=== PATIENT | female | born 1970 | race Caucasian/White ===

== ENCOUNTER 2016-12-22 15:09 | Emergency (ER) | payer OTHER, SELFPAY ==
[2016-12-22] MEDS ORDERED: SUBLIMAZE 100 MCG/2 ML IV ONE ×2 (15:49→17:06)
[2016-12-22] MEDS ORDERED: Zofran 4 MG/2 ML VIAL IV ONE (15:49)
[2016-12-22] MEDS ORDERED: Sodium Chloride 0.9% 1000 ML 1,000 ML IV SCH (16:00)
[2016-12-22] MEDS ORDERED: Sodium Chloride 0.9% 1000 ML 1,000 ML ONE (16:06)
[2016-12-22] MEDS ORDERED: Zofran 4 MG/2 ML VIAL ONE (16:06)
[2016-12-22] MEDS ORDERED: SUBLIMAZE 100 MCG/2 ML ONE ×2 (16:06→17:10)
[2016-12-22 16:20] LABS: BASOPHIL % 0.4 % (0.0-0.4); Eosinophil % 1.9 % (0.00-5.0); Granulocytes % 58.1 % (36.0-66.0); Lymphocytes % 30.4 % (24.0-44.0); Mean Cell Volume 76.1 fl (78-100); Monocytes % 9.2 % (0.0-12.0); Platelet Count 204 K/mm3 (150-450); Red Blood Count 5.52 M/mm3 (4.1-5.4); Red Cell Distribution Width 14.9 % (11.5-14.0); White Blood Count 5.7 K/mm3 (4.0-10.5)
[2016-12-22 16:29] LABS: ANION GAP 12.3 MEQ/L (5-15); BLOOD UREA NITROGEN 11 mg/dL (9-20); CHLORIDE 106 mEq/L (98-107); Carbon Dioxide 24.9 mEq/L (21-32); Glucose 91 MG/DL (70-110); Potassium 3.7 mEq/L (3.5-5.1); SODIUM 140 mEq/L (136-145)
[2016-12-22 16:40] VITALS: BP 132/86; PULSE 72; O2SAT 99
[2016-12-22] MEDS ORDERED: Levofloxacin 500MG/100ML D5W 100 ML IV ONE ×2 (17:06→17:10)
--- NOTE | 2016-12-22 17:09 | ERPHSYRPT ---
- History of Present Illness Time Seen by Provider: 12/22/16 15:35 Source: patient Exam Limitations: clinical condition Patient Subjective Stated Complaint: H/A FOR THREE WEEKS. BEING TREATED BY FAMILY MD AND NOT GETTING ANY RELIEF. BLURRED VISION AND DIZZINESS FOR TWO DAYS. DENIES FEVER Triage Nursing Assessment: AMBULATED TO ROOM PER SELF. SKIN W/D, COLOR NORMAL, RESP EASY. HOLDING HEAD. Physician History: PATIENT COMPLAIN OF GENERALIZED HEADACHE FOR 2 WEEKS. PLACED ON ANTIBIOTICS KEFLEX AND ZITHROMAX PAST 10 DAYS. DENIES NECK STIFFNESS, BLURRED VISION, FOCAL NUMBNESS, TINGLING OR WEAKNESS IN EXTREMITIES. RECENTLY TREATED FOR HYPERTENSION Timing/Duration: week(s) Quality: throbbing Head Pain Location: global Severity of Pain-Max: severe Severity of Pain-Current: severe Recent Head Trauma: chronic headaches Modifying Factors: Improves With: exposure to light Associated Symptoms: denies symptoms Previous symptoms: same symptoms as today Allergies/Adverse Reactions: aspirin Allergy (Intermediate, Verified 10/02/16 11:50) Hives codeine [Codeine] Allergy (Verified 10/02/16 11:50) hydrocodone bitartrate [From Vicodin] Allergy (Verified 10/02/16 11:50) morphine Allergy (Verified 10/02/16 11:50) Penicillins Allergy (Verified 10/02/16 11:50) propoxyphene HCl [From Darvon] Allergy (Verified 10/02/16 11:50) Home Medications: Amlodipine Besylate 5 mg [Norvasc 5 mg] 5 mg PO DAILY 10/25/14 [History] Omeprazole 20 MG [Prilosec 20 mg] 20 mg PO BID 10/25/14 [History] Fexofenadine HCl [Neda Allergy] 180 mg PO DAILY 07/17/15 [History] Montelukast Sodium [Singulair] 10 mg PO DAILY 07/17/15 [History] Bumetanide 1 mg [Bumex 1 mg] 1 mg PO DAILY 12/22/16 [History] Propranolol HCl [Inderal LA] 60 mg PO DAILY 12/22/16 [History] Hx Tetanus, Diphtheria Vaccination/Date Given: No Hx Influenza Vaccination/Date Given: Yes Hx Pneumococcal Vaccination/Date Given: No - Review of Systems Constitutional: No Symptoms, No Fever, No Chills Eyes: No Symptoms Ears, Nose, & Throat: No Symptoms Respiratory: No Symptoms, No Cough, No Dyspnea Cardiac: No Symptoms, No Chest Pain, No Edema, No Syncope Abdominal/Gastrointestinal: No Symptoms, No Abdominal Pain, No Nausea, No Vomiting, No Diarrhea Genitourinary Symptoms: No Symptoms, No Dysuria Musculoskeletal: No Symptoms, No Back Pain, No Neck Pain Skin: No Symptoms, No Rash Neurological: No Symptoms, No Dizziness, No Focal Weakness, No Sensory Changes Psychological: No Symptoms Endocrine: No Symptoms All Other Systems: Reviewed and Negative - Past Medical History Pertinent Past Medical History: Yes Neurological History: Migraines Cardiac History: Hypertension Respiratory History: Asthma, Sleep Apnea Endocrine Medical History: Diabetes Type II Musculoskeletal History: Degenerative Disk Disease, Other GI Medical History: Hernia Female Reproductive Disorders: Menstrual Problems, Other - Past Surgical History Past Surgical History: Yes Neuro Surgical History: No Pertinent History Cardiac: No Pertinent History Respiratory: No Pertinent History Gastrointestinal: Cholecystectomy Genitourinary: No Pertinent History Musculoskeletal: No Pertinent History Female Surgical History: Other Other Surgical History: 2005 gallbladder, bellybutton repair, d/cx2 3 cysts - Social History Smoking Status: Never smoker Exposure to second hand smoke: No Alcohol Use: None Drug Use: none Patient Lives Alone: No Significant Family History: no pertinent family hx - Female History Hx Last Menstrual Period: 10/21/16 Hx Now: No - Nursing Vital Signs Nursing Vital Signs: Initial Vital Signs Temperature 98.1 F Temperature Source Oral Pulse Rate 72 Respiratory Rate 18 Blood Pressure [] 132/86 Pain Intensity 6 - Physical Exam General Appearance: no apparent distress Eye Exam: PERRL/EOMI Ears, Nose, Throat Exam: normal ENT inspection, moist mucous membranes Neck Exam: normal inspection, supple, full range of motion, No meningismus Respiratory Exam: normal breath sounds, lungs clear Cardiovascular Exam: regular rate/rhythm, normal heart sounds Gastrointestinal/Abdominal Exam: soft, normal bowel sounds, No tenderness, No distention Back Exam: normal inspection, normal range of motion Mental Status Exam: alert, oriented x 3, 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 Exam: normal speech, PERRL, No facial droop Coordination/Gait Exam: normal cerebellar function Motor/Sensory Exam: no motor deficit, no sensory deficit DTR Exam: bicep (R): 2+, bicep (L): 2+, tricep (R): 2+, tricep (L): 2+, knee (R) : 2+, knee (L): 2+, ankle (R): 2+, ankle (L): 2+ Skin Exam: normal color, warm, dry, No rash SpO2: 99 Oxygen Delivery: Room Air - CT Exams Head CT Interpretation: Discussed w/radiologist (FINDINGS C/W PANSINUSITIS) Ordered Tests: Active Orders 24 hr Category Date Time Status IV Insertion STAT Care 12/22/16 15:54 Active HEAD WITHOUT CONTRAST [CT] Stat Exams 12/22/16 15:51 Taken BMP Stat Lab 12/22/16 16:05 Completed CBC W DIFF Stat Lab 12/22/16 16:05 Completed Medication Summary Generic Name Dose Route Start Last Admin Trade Name Freq PRN Reason Stop Dose Admin Sodium Chloride 1,000 mls @ 100 mls/hr 12/22/16 16:00 12/22/16 16:12 Sodium Chloride 0.9% 1000 Ml IV 01/21/17 15:59 100 mls/hr .Q10H ALISIA Administration Discontinued Medications Generic Name Dose Route Start Last Admin Trade Name Freq PRN Reason Stop Dose Admin Fentanyl Citrate 100 mcg 12/22/16 15:49 12/22/16 16:12 Sublimaze 100 Mcg/2 Ml IV 12/22/16 15:50 100 mcg STAT ONE Administration Fentanyl Citrate Confirm 12/22/16 16:06 Sublimaze 100 Mcg/2 Ml Administered 12/22/16 16:07 Dose 100 mcg .ROUTE .STK-MED ONE Fentanyl Citrate 100 mcg 12/22/16 17:06 12/22/16 17:14 Sublimaze 100 Mcg/2 Ml IV 12/22/16 17:07 100 mcg STAT ONE Administration Fentanyl Citrate Confirm 12/22/16 17:10 Sublimaze 100 Mcg/2 Ml Administered 12/22/16 17:11 Dose 100 mcg .ROUTE .STK-MED ONE Sodium Chloride Confirm 12/22/16 16:06 Sodium Chloride 0.9% 1000 Ml Administered 12/22/16 16:07 Dose 1,000 mls @ ud .ROUTE .STK-MED ONE Levofloxacin/Dextrose 100 mls @ 100 mls/hr 12/22/16 17:06 12/22/16 17:14 Levofloxacin 500mg/100ml D5w IV 12/22/16 18:05 100 mls/hr STAT ONE Administration Levofloxacin/Dextrose Confirm 12/22/16 17:10 Levofloxacin 500mg/100ml D5w Administered 12/22/16 17:11 Dose 100 mls @ ud IV .STK-MED ONE Ondansetron HCl 4 mg 12/22/16 15:49 12/22/16 16:12 Zofran 4 Mg/2 Ml Vial IV 12/22/16 15:50 4 mg STAT ONE Administration Ondansetron HCl Confirm 12/22/16 16:06 Zofran 4 Mg/2 Ml Vial Administered 12/22/16 16:07 Dose 4 mg .ROUTE .STK-MED ONE Lab/Rad Data: Laboratory Result Diagrams 12/22/16 16:05 12/22/16 16:05 Laboratory Results 12/22/16 12/22/16 Range/Units 16:05 16:05 WBC 5.7 (4.0-10.5) K/mm3 RBC 5.52 H (4.1-5.4) M/mm3 Hgb 13.8 (12.0-16.0) gm/dl Hct 42.0 (35-47) % MCV 76.1 L (78-100) fl MCH 25.0 L (26-32) pg MCHC 32.9 (32-36) g/dl RDW 14.9 H (11.5-14.0) % Plt Count 204 (150-450) K/mm3 MPV 10.0 H (6-9.5) fl Gran % 58.1 (36.0-66.0) % Lymphocytes % 30.4 (24.0-44.0) % Monocytes % 9.2 (0.0-12.0) % Eosinophils % 1.9 (0.00-5.0) % Basophils % 0.4 (0.0-0.4) % Basophils # 0.02 (0-0.4) Sodium 140 (136-145) mEq/L Potassium 3.7 (3.5-5.1) mEq/L Chloride 106 (98-107) mEq/L Carbon Dioxide 24.9 (21-32) mEq/L Anion Gap 12.3 (5-15) MEQ/L BUN 11 (9-20) mg/dL Creatinine 0.89 (0.55-1.30) mg/dl Estimated GFR > 60 ML/MIN Glucose 91 (70-110) MG/DL Calcium 8.4 L (8.5-10.1) mg/dL - Progress Progress Note: 12/22/16 17:07 PATIENT GIVEN IV NORMAL SALINE 100ML/HR, FENTANYL 0.1MG IV X 2 DOSES, ZOFRAN 4MG IV, AND LEVAQUIN 500MG IVPB Counseled pt/family regarding: lab results, diagnosis, need for follow-up, rad results - Departure Time of Disposition: 18:40 Departure Disposition: Home Clinical Impression: CHRONIC CEPHALGIA, PANSINUSITIS Condition: Stable Critical Care Time: No Instructions: Headache Additional Instructions: CONSULT YOUR FAMILY PHYSICIAN TOMORROW FOR EVALUATION AND RESULTS OF HEAD CT FINDINGS. ANTIBIOTIC LEVAQUIN 500MG DAILY FOR 10 DAYS. PERCOCET 10/325 EVERY 4 HOURS FOR PAIN NEEDED. Prescriptions: Oxycodone HCl/Acetaminophen [Percocet 10-325 mg Tablet] 1 each PO Q4H PRN PRN # 10 tablet PRN Reason: Pain Levofloxacin [Levaquin] 500 mg PO DAILY #10 tablet
--- NOTE | 2016-12-23 08:49 | XRAY ---
Indication: Headache for 3 weeks. Multiple contiguous axial images obtained through the head without contrast. Comparison: October 24, 2014. Again normal appearing brain parenchyma, ventricles, and bony calvarium. There is now mild/moderate mucosal thickening of the paranasal sinuses bilaterally with right maxillary sinus fluid leveling. Mastoid air cells are clear. Impression: Again no acute intracranial abnormalities. New pansinusitis. CT DI 70.00
== END 2016-12-22 18:39 | disposition home or self-care (01) ==
LOC: ED 15:09
DX: R51 Headache (principal); G89.29 Other chronic pain; J32.4 Chronic pansinusitis; H53.8 Other visual disturbances; R42 Dizziness and giddiness; I10 Essential (primary) hypertension; Z79.899 Other long term (current) drug therapy; E11.9 Type 2 diabetes mellitus without complications
CPT/HCPCS: 36000; 36415; 70450; 80048; 85025; 96360; 96361; 96365; 96374; 96375; 96376; 99284; J1956; J2405; J3010

== ENCOUNTER 2017-02-05 17:23 | Observation (INO) | payer OTHER ==
[2017-02-05] MEDS ORDERED: Zofran 4 MG/2 ML VIAL IV ONE (17:54)
[2017-02-05] MEDS ORDERED: Nitrostat 0.4 MG Tablet SL PRN (17:56)
[2017-02-05] MEDS ORDERED: Sodium Chloride 0.9% 1000 ML 1,000 ML IV SCH (18:00)
[2017-02-05 18:08] LABS: BASOPHIL % 0.6 % (0.0-0.4); Eosinophil % 2.5 % (0.00-5.0); Granulocytes % 62.5 % (36.0-66.0); Lymphocytes % 25.7 % (24.0-44.0); Mean Cell Volume 76.6 fl (78-100); Mean Corpuscular Hemoglobin 25.2 pg (26-32); Mean Platelet Volume 9.8 fl (6-9.5); Monocytes % 8.7 % (0.0-12.0); Platelet Count 250 K/mm3 (150-450); Red Blood Count 5.47 M/mm3 (4.1-5.4); Red Cell Distribution Width 14.7 % (11.5-14.0); White Blood Count 7.1 K/mm3 (4.0-10.5)
[2017-02-05] MEDS ORDERED: Nitrostat 0.4 MG (ED) SL ONE ×2 (18:10→18:25)
[2017-02-05] MEDS ORDERED: Zofran 4 MG/2 ML VIAL ONE (18:10)
[2017-02-05] MEDS ORDERED: Sodium Chloride 0.9% 1000 ML 1,000 ML ONE (18:11)
[2017-02-05] MEDS ORDERED: TYLENOL 325 MG PO STA (18:23)
[2017-02-05] MEDS ORDERED: TYLENOL 325 MG ONE (18:24)
[2017-02-05] MEDS ORDERED: SUBLIMAZE 100 MCG/2 ML IV ONE (18:25)
[2017-02-05 18:26] LABS: INR 1.07 (0.8-3.0)
[2017-02-05 18:29] LABS: ALBUMIN 3.4 g/dL (3.4-5.0); ALKALINE PHOSPHATASE 66 U/L (46-116); ANION GAP 11.5 MEQ/L (5-15); BILIRUBIN,TOTAL 0.2 mg/dL (0.2-1.0); BLOOD UREA NITROGEN 14 mg/dL (9-20); CHLORIDE 105 mEq/L (98-107); Carbon Dioxide 26.7 mEq/L (21-32); Glucose 134 MG/DL (70-110); Potassium 3.9 mEq/L (3.5-5.1); SGOT/AST 22 U/L (15-37); SGPT/ALT 29 U/L (12-78); SODIUM 139 mEq/L (136-145); Total Protein 8.4 gm/dL (6.4-8.2)
[2017-02-05] MEDS ORDERED: SUBLIMAZE 100 MCG/2 ML ONE (18:30)
--- NOTE | 2017-02-05 18:31 | ERPHSYRPT ---
- History of Present Illness Time Seen by Provider: 02/05/17 17:40 Historian: patient Exam Limitations: clinical condition Patient Subjective Stated Complaint: NECK PAIN THROUGHOUT DAY AT ONE O'CLOCK PAIN AND NUMBNESS STARTED DOWN THE LEFT ARM. CHEST PRESSURE RATED AT A 9. C/O CHEST PRESSURE LAST FRIDAY. Triage Nursing Assessment: PT ALERT X3. SKIN IS WARM, FLUSHED, AND INTACT. SHORTNESS OF BREATH NOTED. HEART RATE AT 50, NO EDEMA NOTED. Physician History: PATIENT WITH A HISTORY OF ASTHMA, SLEEP APNEA, AND HYPERTENSION HAD ACUTE ONSET OF LEFT ANTERIOR CHEST PAINS 5 DAYS AGO ASSOCIATED WITH LEFT ARM PAIN. TODAY NOTICE PAIN RADIATING FROM HER SHOULDER TO LEFT SIDE OF HER JAW AND NECK, DESCRIBES PAIN SCALE 9/10. DENIES DIAPHORESIS, PALPITATIONS. Timing/Duration: today Activities at Onset: none Quality: sharpness, stabbing Location: shoulder Chest Pain Radiation: jaw, neck Severity of Pain-Max: moderate Severity of Pain-Current: moderate Modifying Factors: Improves With: movement Associated Symptoms: dizziness Prior Chest Pain/Cardiac Workup: angina Nitro Today/Relief: no nitro taken today, 0.4 mg x 1, provided by ED Aspirin Treatment Today: no aspirin today (ALLERGY TO ASA) Allergies/Adverse Reactions: aspirin Allergy (Intermediate, Verified 02/05/17 17:44) Hives codeine [Codeine] Allergy (Verified 02/05/17 17:44) hydrocodone bitartrate [From Vicodin] Allergy (Verified 02/05/17 17:44) morphine Allergy (Verified 02/05/17 17:44) Penicillins Allergy (Verified 02/05/17 17:44) propoxyphene HCl [From Darvon] Allergy (Verified 02/05/17 17:44) Home Medications: Amlodipine Besylate 5 mg [Norvasc 5 mg] 5 mg PO DAILY 10/25/14 [History] Omeprazole 20 MG [Prilosec 20 mg] 20 mg PO BID 10/25/14 [History] Fexofenadine HCl [Neda Allergy] 180 mg PO DAILY 07/17/15 [History] Montelukast Sodium [Singulair] 10 mg PO DAILY 07/17/15 [History] Bumetanide 1 mg [Bumex 1 mg] 1 mg PO DAILY 12/22/16 [History] Propranolol HCl [Inderal LA] 60 mg PO DAILY 12/22/16 [History] Hx Tetanus, Diphtheria Vaccination/Date Given: No Hx Influenza Vaccination/Date Given: Yes Hx Pneumococcal Vaccination/Date Given: Yes Immunizations Up to Date: Yes - Review of Systems Constitutional: No Fever, No Chills Eyes: No Symptoms Ears, Nose, & Throat: No Symptoms Respiratory: No Symptoms, No Cough, No Dyspnea Cardiac: Chest Pain, No Edema, No Syncope Abdominal/Gastrointestinal: No Symptoms, No Abdominal Pain, No Nausea, No Vomiting, No Diarrhea Genitourinary Symptoms: No Symptoms, No Dysuria Musculoskeletal: Joint Redness, No Back Pain, No Neck Pain Skin: No Symptoms, No Rash Neurological: No Dizziness, No Focal Weakness, No Sensory Changes Psychological: No Symptoms Endocrine: No Symptoms All Other Systems: Reviewed and Negative - Past Medical History Pertinent Past Medical History: Yes Neurological History: Migraines ENT History: No Pertinent History Cardiac History: Hypertension Respiratory History: Asthma, Sleep Apnea Endocrine Medical History: Diabetes Type II Musculoskeletal History: Degenerative Disk Disease, Other GI Medical History: Hernia Psycho-Social History: No Pertinent History Female Reproductive Disorders: Menstrual Problems, Other - Past Surgical History Past Surgical History: Yes Neuro Surgical History: No Pertinent History Cardiac: No Pertinent History Respiratory: No Pertinent History Gastrointestinal: Cholecystectomy Genitourinary: No Pertinent History Musculoskeletal: No Pertinent History Female Surgical History: Other Other Surgical History: 2004 gallbladder, bellybutton repair, d/c X1, 3 cysts - Social History Smoking Status: Never smoker Exposure to second hand smoke: No Alcohol Use: None Drug Use: none Patient Lives Alone: No Significant Family History: no pertinent family hx - Female History Hx Now: No - Nursing Vital Signs Temperature: 98.2 F Temperature Source: Oral Pulse Rate: 65 Respiratory Rate: 16 Blood Pressure: 154/90 Pain Intensity: 8 - Physical Exam General Appearance: no apparent distress, alert Eye Exam: PERRL/EOMI, eyes nml inspection Ears, Nose, Throat Exam: normal ENT inspection, moist mucous membranes Neck Exam: normal inspection, non-tender, supple, full range of motion Respiratory Exam: normal breath sounds, chest tenderness (TENDERNESS LEFT ANTERIOR CHEST 2ND TO 5TH ICS), lungs clear, No respiratory distress Cardiovascular Exam: regular rate/rhythm, normal heart sounds Gastrointestinal/Abdomen Exam: soft, normal bowel sounds, No tenderness, No mass Back Exam: normal inspection, No CVA tenderness, No vertebral tenderness Extremity Exam: normal inspection, normal range of motion Neurologic Exam: alert, oriented x 3, cooperative, normal mood/affect, sensation nml, No motor deficits Skin Exam: normal color, warm, dry SpO2 Interpretation: normal SpO2: 99 Oxygen Delivery: Room Air - Course EKG Interpreted by Me: RATE, Sinus Rhythm, Sinus Casey, NORMAL AXIS - Radiology Exams Chest X-ray Interpretation: Interpreted by me, Negative Ordered Tests: Active Orders 24 hr Category Date Time Status Bedrest with BRP/BSC ROUTINE Activity 02/05/17 19:27 Ordered Admission/Status Order ROUTINE Care 02/05/17 19:27 Ordered Call Admit Doctor for Orders ROUTINE Care 02/05/17 19:26 Ordered Head Grease Maker STAT Care 02/05/17 17:54 Active Code Status Order ROUTINE Care 02/05/17 19:27 Ordered EKG-ER Only STAT Care 02/05/17 17:54 Active IV Care Q6H Care 02/05/17 19:27 Ordered IV Insertion STAT Care 02/05/17 17:54 Active Implement Chest Pain Pathway ROUTINE Care 02/05/17 19:27 Ordered Oxygen-ED Only NASAL CANNULA 2 lpm Care 02/05/17 17:54 Active Michael Gimenez, Apply ROUTINE Care 02/05/17 19:27 Ordered Telemetry ROUTINE Care 02/05/17 19:27 Ordered Vital Signs Q4H Care 02/05/17 19:26 Ordered Weight,Daily 0600 Care 02/05/17 19:27 Ordered Cardiac Diet Diet 02/05/17 Breakfast Ordered CHEST 1 VIEW (PORTABLE) Stat Exams 02/05/17 17:55 Taken CBC W DIFF Stat Lab 02/05/17 17:40 Completed CMP Stat Lab 02/05/17 17:40 Completed D-DIMER QUANTITATION Stat Lab 02/05/17 17:40 Completed LIPID PROFILE AM.LAB Lab 02/06/17 04:00 Ordered PROTIME WITH INR Stat Lab 02/05/17 17:40 Completed TROPONIN Q3H Lab 02/05/17 17:40 Completed TROPONIN Q3H Lab 02/05/17 21:00 Ordered TROPONIN Q3H Lab 02/06/17 00:00 Ordered TROPONIN Q3H Lab 02/06/17 03:00 Ordered TROPONIN Q3H Lab 02/06/17 06:00 Ordered EKG Q8HX2,QAMX3,PRN RT 02/05/17 19:27 Ordered Pulse Oximetry Q4H RT 02/05/17 19:27 Ordered Transfer Order Routine Transfer 02/05/17 19:26 Ordered Medication Summary Generic Name Dose Route Start Last Admin Trade Name Freq PRN Reason Stop Dose Admin Sodium Chloride 1,000 mls @ 100 mls/hr 02/05/17 18:00 02/05/17 18:15 Sodium Chloride 0.9% 1000 Ml IV 03/07/17 17:59 100 mls/hr .Q10H ALISIA Administration Nitroglycerin 0.4 mg 02/05/17 17:56 02/05/17 18:15 Nitrostat 0.4 Mg Tablet SL 03/07/17 17:55 0.4 mg Q5MIN PRN MR X 3 PRN Administration CHEST PAIN Discontinued Medications Generic Name Dose Route Start Last Admin Trade Name Freq PRN Reason Stop Dose Admin Acetaminophen 650 mg 02/05/17 18:23 02/05/17 18:27 Tylenol 325 Mg PO 02/05/17 18:24 650 mg STAT STA Administration Acetaminophen Confirm 02/05/17 18:24 Tylenol 325 Mg Administered 02/05/17 18:25 Dose 650 mg .ROUTE .STK-MED ONE Fentanyl Citrate 100 mcg 02/05/17 18:25 02/05/17 18:31 Sublimaze 100 Mcg/2 Ml IV 02/05/17 18:26 100 mcg STAT ONE Administration Fentanyl Citrate Confirm 02/05/17 18:30 Sublimaze 100 Mcg/2 Ml Administered 02/05/17 18:31 Dose 100 mcg .ROUTE .STK-MED ONE Nitroglycerin Confirm 02/05/17 18:10 Nitrostat 0.4 Mg (Ed) Administered 02/05/17 18:11 Dose 0.4 mg SL .STK-MED ONE Nitroglycerin 0.4 mg 02/05/17 18:25 02/05/17 18:34 Nitrostat 0.4 Mg (Ed) SL 02/05/17 18:26 0.4 mg STAT ONE Administration Ondansetron HCl 4 mg 02/05/17 17:54 02/05/17 18:16 Zofran 4 Mg/2 Ml Vial IV 02/05/17 17:55 4 mg STAT ONE Administration Ondansetron HCl Confirm 02/05/17 18:10 Zofran 4 Mg/2 Ml Vial Administered 02/05/17 18:11 Dose 4 mg .ROUTE .STK-MED ONE Lab/Rad Data: Laboratory Result Diagrams 02/05/17 17:40 02/05/17 17:40 Laboratory Results 02/05/17 02/05/17 02/05/17 Range/Units 17:40 17:40 17:40 WBC (4.0-10.5) K/mm3 RBC (4.1-5.4) M/mm3 Hgb (12.0-16.0) gm/dl Hct (35-47) % MCV (78-100) fl MCH (26-32) pg MCHC (32-36) g/dl RDW (11.5-14.0) % Plt Count (150-450) K/mm3 MPV (6-9.5) fl Gran % (36.0-66.0) % Lymphocytes % (24.0-44.0) % Monocytes % (0.0-12.0) % Eosinophils % (0.00-5.0) % Basophils % (0.0-0.4) % Basophils # (0-0.4) INR 1.07 (0.8-3.0) D-Dimer 0.419 (0.00-0.49) mg/L Sodium 139 (136-145) mEq/L Potassium 3.9 (3.5-5.1) mEq/L Chloride 105 (98-107) mEq/L Carbon Dioxide 26.7 (21-32) mEq/L Anion Gap 11.5 (5-15) MEQ/L BUN 14 (9-20) mg/dL Creatinine 0.97 (0.55-1.30) mg/dl Estimated GFR > 60 ML/MIN Glucose 134 H (70-110) MG/DL Calcium 9.1 (8.5-10.1) mg/dL Total Bilirubin 0.2 (0.2-1.0) mg/dL AST 22 (15-37) U/L ALT 29 (12-78) U/L Alkaline Phosphatase 66 (46-116) U/L Troponin I < 0.017 (0.000-0.056) ng/ml Serum Total Protein 8.4 H (6.4-8.2) gm/dL Albumin 3.4 (3.4-5.0) g/dL 02/05/17 Range/Units 17:40 WBC 7.1 (4.0-10.5) K/mm3 RBC 5.47 H (4.1-5.4) M/mm3 Hgb 13.8 (12.0-16.0) gm/dl Hct 41.9 (35-47) % MCV 76.6 L (78-100) fl MCH 25.2 L (26-32) pg MCHC 32.9 (32-36) g/dl RDW 14.7 H (11.5-14.0) % Plt Count 250 (150-450) K/mm3 MPV 9.8 H (6-9.5) fl Gran % 62.5 (36.0-66.0) % Lymphocytes % 25.7 (24.0-44.0) % Monocytes % 8.7 (0.0-12.0) % Eosinophils % 2.5 (0.00-5.0) % Basophils % 0.6 (0.0-0.4) % Basophils # 0.04 (0-0.4) INR (0.8-3.0) D-Dimer (0.00-0.49) mg/L Sodium (136-145) mEq/L Potassium (3.5-5.1) mEq/L Chloride (98-107) mEq/L Carbon Dioxide (21-32) mEq/L Anion Gap (5-15) MEQ/L BUN (9-20) mg/dL Creatinine (0.55-1.30) mg/dl Estimated GFR ML/MIN Glucose (70-110) MG/DL Calcium (8.5-10.1) mg/dL Total Bilirubin (0.2-1.0) mg/dL AST (15-37) U/L ALT (12-78) U/L Alkaline Phosphatase (46-116) U/L Troponin I (0.000-0.056) ng/ml Serum Total Protein (6.4-8.2) gm/dL Albumin (3.4-5.0) g/dL - Progress Progress: improved Progress Note: 02/05/17 18:35 PATIENT WITH ASPIRIN ALLERGY, GIVEN NTG 0.4MG SL, CAUSES HEADACHE, THEN ADMINISTERED IV FENTANYL 0.1MG 02/05/17 19:35, PATIENT REFUSES ADDITIONAL NITROGLYCERIN SL Discussed with : Tate (DISCUSSED WITH DR WEBSTER AT 1920 FOR ADMISSION) - Departure Time of Disposition: 19:35 Departure Disposition: Observation Clinical Impression: ACUTE CHEST PAIN Condition: Stable Critical Care Time: No Referrals: JANESSA WEBSTER MD [Primary Care Provider] -
[2017-02-05] MEDS ORDERED: TYLENOL 325 MG PO PRN (19:26)
[2017-02-05] MEDS ORDERED: MILK OF MAGNESIA 30 ML PO PRN (19:26)
[2017-02-05] MEDS ORDERED: Zofran 4 MG/2 ML VIAL IV PRN (19:26)
[2017-02-05] MEDS ORDERED: MAALOX ES 30 ML UNIT DOSE PO PRN (19:26)
[2017-02-05] MEDS ORDERED: Senokot-S Tablet PO PRN (19:26)
[2017-02-05] MEDS ORDERED: SUBLIMAZE 100 MCG/2 ML IV PRN (19:29)
[2017-02-05] MEDS ORDERED: Sodium Chloride 0.9% 500 ML 500 ML IV SCH (19:30)
[2017-02-05] MEDS ORDERED: NITRO-BID 2% UD PACKETS ONE (19:31)
[2017-02-05] MEDS ORDERED: NITRO-BID 2% UD PACKETS TOP ONE (19:34)
[2017-02-05] MEDS ORDERED: Nitrostat 0.4 MG Tablet SL ONE (20:06)
[2017-02-06] MEDS: NITRO-BID 2% UD PACKETS TOP SCH ×2 (01:46→06:44)
[2017-02-06] MEDS: COREG 12.5 MG PO SCH ×2 (01:47→10:26)
[2017-02-06] MEDS: TORAdol 30 mg Injection IM PRN ×2 (03:30→09:55)
--- NOTE | 2017-02-06 08:40 | XRAY ---
Indication: Chest pain and dyspnea. Comparison: June 05, 2016. Portable chest again demonstrates normal heart, lungs, and bony thorax.
[2017-02-06 09:05] VITALS: O2SAT 96
[2017-02-06] MEDS ORDERED: BUMEX 1 MG PO SCH (10:00)
[2017-02-06] MEDS ORDERED: NORVASC 5 MG PO SCH (10:00)
[2017-02-06] MEDS ORDERED: CLARITIN 10 MG PO SCH (10:00)
[2017-02-06] MEDS ORDERED: Singulair 10 MG PO SCH (10:00)
[2017-02-06] MEDS ORDERED: Protonix 40MG Tablet PO SCH (10:00)
[2017-02-06] MEDS ORDERED: NON-FORMULARY ITEM (Fexofenadine Hcl [Allegra Allergy] 180 MG) PO SCH (10:00)
[2017-02-06] MEDS ORDERED: Ecotrin 325 MG PO SCH (10:00)
[2017-02-06] MEDS ORDERED: PROPRANOLOL HCL 60 MG PO SCH (10:00)
[2017-02-06 11:15] VITALS: BP 140/68; PULSE 80
--- NOTE | 2017-02-06 12:48 | PCM.SSS ---
History of Present Illness - Chief Complaint Chief Complaint: Chest pain and pressure for 2-3 days History of Present Illness: is a 46 year old female.came to ER with c/o pressure type pain - Review of Systems Constitutional: No Fever, No Chills Eyes: No Symptoms Ears, Nose, & Throat: No Symptoms Respiratory: No Cough, No Short Of Breath Cardiac: Chest Pain, No Edema, No Syncope Abdominal/Gastrointestinal: No Abdominal Pain, No Nausea, No Vomiting, No Diarrhea Genitourinary Symptoms: No Dysuria Musculoskeletal: No Back Pain, No Neck Pain Skin: No Rash Neurological: No Dizziness, No Focal Weakness, No Sensory Changes Psychological: No Symptoms Endocrine: No Symptoms Hematologic/Lymphatic: No Symptoms Immunological/Allergic: No Symptoms Medications & Allergies Home Medications: Home Medication List Amlodipine Besylate 5 mg [Norvasc 5 mg] 5 mg PO DAILY 10/25/14 [History Confirmed 02/05/17] Omeprazole 20 MG [Prilosec 20 mg] 20 mg PO BID 10/25/14 [History Confirmed 02/05] Carvedilol 12.5 mg [Coreg 12.5 mg] 12.5 mg PO BID #0 tablet 10/27/14 [Rx Confirmed 02/05/17] Fexofenadine HCl [Neda Allergy] 180 mg PO DAILY 07/17/15 [History Confirmed 02/05/17] Montelukast Sodium [Singulair] 10 mg PO DAILY 07/17/15 [History Confirmed ] Bumetanide 1 mg [Bumex 1 mg] 1 mg PO DAILY 12/22/16 [History Confirmed 12/20] Propranolol HCl [Inderal LA] 60 mg PO DAILY 12/22/16 [History Confirmed 02/05/17 ] Allergies/Adverse Reactions: Allergies Allergy/AdvReac Type Severity Reaction Status Date / Time aspirin Allergy Intermediate Hives Verified 02/05/17 17:44 codeine [Codeine] Allergy Verified 02/05/17 17:44 hydrocodone bitartrate Allergy Verified 02/05/17 17:44 [From Vicodin] morphine Allergy Verified 02/05/17 17:44 Penicillins Allergy Verified 02/05/17 17:44 propoxyphene HCl Allergy Verified 02/05/17 17:44 [From Darvon] - Past Medical History Past Medical History: Yes Neurological History: Migraines ENT History: No Pertinent History Cardiac History: Hypertension Respiratory History: Asthma, Sleep Apnea Endocrine Medical History: Diabetes Type II Musculoskelatal History: Degenerative Disk Disease, Other GI Medical History: Hernia Pyscho-Social History: No Pertinent History Reproductive Disorders: Menstrual Problems, Other - Female History Are you now?: No - Past Surgical History Past Surgical History: Yes Neuro Surgical History: No Pertinent History Cardiac History: No Pertinent History Respiratory Surgery: No Pertinent History GI Surgical History: Cholecystectomy Genitourinary Surgical Hx: No Pertinent History Musculskeletal Surgical Hx: No Pertinent History Female Surgical History: Other Other Surgical History: 2004 gallbladder, bellybutton repair, d/c X1, 3 cysts - Social History Smoking Status: Never smoker Exposure to second hand smoke: No Alcohol: None Drug Use: none Significant Family History: no pertinent family hx - Physical Exam Vital Signs: Vital Signs - 24 hr Temp Pulse Pulse Resp BP BP Pulse Ox 02/06/17 11:13 97.8 F 80 18 140/68 96 02/06/17 09:04 96 02/06/17 07:28 98 02/06/17 07:15 97.5 F 59 L 20 146/70 96 02/06/17 04:00 97.7 F 49 L 15 157/80 96 02/06/17 00:00 98.3 F 48 L 16 136/77 98 02/05/17 21:10 98.5 F 54 L 18 144/85 99 02/05/17 19:41 52 L 16 130/80 99 02/05/17 19:37 98.2 F 65 16 154/90 99 02/05/17 18:50 58 L 20 119/65 99 02/05/17 18:35 58 L 16 131/82 99 02/05/17 18:20 65 16 131/71 99 02/05/17 18:15 63 154/90 02/05/17 17:33 55 L 02/05/17 17:24 98.2 F 55 L 19 144/88 100 Oxygen-Last 24 hours O2 Percentage 2 Liters = 28% O2 Percentage 2 Liters = 28% O2 Percentage 2 Liters = 28% O2 Percentage 2 Liters = 28% O2 Percentage 2 Liters = 28% O2 Percentage 2 Liters = 28% O2 Percentage 2 Liters = 28% O2 Percentage 2 Liters = 28% General Appearance: no apparent distress, alert Neurologic Exam: alert, oriented x 3, cooperative, normal mood/affect, nml cerebellar function, nml station & gait, sensation nml, No motor deficits Eye Exam: PERRL/EOMI, eyes nml inspection Ears, Nose, Throat Exam: normal ENT inspection, TMs normal, pharynx normal, moist mucous membranes Neck Exam: normal inspection, non-tender, supple, full range of motion Respiratory Exam: normal breath sounds, lungs clear, No respiratory distress Cardiovascular Exam: regular rate/rhythm, normal heart sounds, normal peripheral pulses Gastrointestinal/Abdomen Exam: soft, normal bowel sounds, No tenderness, No mass Back Exam: normal inspection, normal range of motion, No CVA tenderness, No vertebral tenderness Extremity Exam: normal inspection, normal range of motion, pelvis stable Skin Exam: normal color, warm, dry, No rash Lymphatic Exam: No adenopathy Results - Labs Lab/Micro Results: Lab Results-Last 24 Hours 02/05/17 02/06/17 02/06/17 Range/Units 21:00 00:25 03:15 Troponin I < 0.017 < 0.017 < 0.017 (0.000-0.056) ng/ml Triglycerides (30-200) mg/dL Cholesterol (100-200) mg/dL LDL Cholesterol (5-99) mg/dL HDL Cholesterol (35-60) mg/dL Heart Disease Risk Ratio 02/06/17 02/06/17 Range/Units 06:17 06:17 Troponin I < 0.017 (0.000-0.056) ng/ml Triglycerides 158 (30-200) mg/dL Cholesterol 195 (100-200) mg/dL LDL Cholesterol 121 H (5-99) mg/dL HDL Cholesterol 46 (35-60) mg/dL Heart Disease Risk Ratio 4.2 - Other Procedures and Tests Respiratory Therapy 02/06/17 07:28 Oxygen NASAL CANNULA 2 lpm 02/07/17 05:00 EKG ONCE 02/08/17 05:00 EKG ONCE 02/09/17 05:00 EKG ONCE Assessment/Plan (1) Chest pain Current Visit: Yes Status: Resolved Qualifiers: Chest pain type: intercostal pain Qualified Code(s): R07.82 - Intercostal pain Code(s): R07.9 - CHEST PAIN, UNSPECIFIED (2) Hypertension Current Visit: No Status: Chronic Code(s): I10 - ESSENTIAL (PRIMARY) HYPERTENSION Hospital Summary - Hospital Course Hospital Course: Chief Complaint Diagnosis Chest pain and pressure for 2-3 days Allergies Allergy/AdvReac Type Severity Reaction Status Date / Time aspirin Allergy Intermediate Hives Verified 02/05/17 17:44 codeine [Codeine] Allergy Verified 02/05/17 17:44 hydrocodone bitartrate Allergy Verified 02/05/17 17:44 [From Vicodin] morphine Allergy Verified 02/05/17 17:44 Penicillins Allergy Verified 02/05/17 17:44 propoxyphene HCl Allergy Verified 02/05/17 17:44 [From Darvon] Vital Signs (Last 24 hours) Temp Pulse Pulse Resp BP BP Pulse Ox 02/06/17 11:13 97.8 F 80 18 140/68 96 02/06/17 09:04 96 02/06/17 07:28 98 02/06/17 07:15 97.5 F 59 L 20 146/70 96 02/06/17 04:00 97.7 F 49 L 15 157/80 96 02/06/17 00:00 98.3 F 48 L 16 136/77 98 02/05/17 21:10 98.5 F 54 L 18 144/85 99 02/05/17 19:41 52 L 16 130/80 99 02/05/17 19:37 98.2 F 65 16 154/90 99 02/05/17 18:50 58 L 20 119/65 99 02/05/17 18:35 58 L 16 131/82 99 02/05/17 18:20 65 16 131/71 99 02/05/17 18:15 63 154/90 02/05/17 17:33 55 L 02/05/17 17:24 98.2 F 55 L 19 144/88 100 Current Medications Generic Name Dose Route Start Last Admin Trade Name Freq PRN Reason Stop Dose Admin Acetaminophen 650 mg 02/05/17 19:26 Tylenol 325 Mg PO 03/07/17 19:25 Q4H PRN PRN PAIN AND/OR FEVER Amlodipine Besylate 5 mg 02/06/17 10:00 02/06/17 10:26 Norvasc 5 Mg PO 03/08/17 09:59 5 mg QAM ALISIA Administration Bumetanide 1 mg 02/06/17 10:00 02/06/17 10:26 Bumex 1 Mg PO 03/08/17 09:59 1 mg DAILY ALISIA Administration Carvedilol 12.5 mg 02/05/17 22:00 02/06/17 10:26 Coreg 12.5 Mg PO 03/07/17 21:59 12.5 mg BID ALISIA Administration Fentanyl Citrate 100 mcg 02/05/17 19:29 02/05/17 20:16 Sublimaze 100 Mcg/2 Ml IV 02/10/17 19:28 100 mcg Q4HPRN PRN Administration PAIN Sodium Chloride 500 mls @ 20 mls/hr 02/05/17 19:30 Sodium Chloride 0.9% 500 Ml IV 03/07/17 19:29 .Q24H ALISIA Ketorolac Tromethamine 30 mg 02/06/17 03:22 02/06/17 09:55 Toradol 30 Mg Injection IM 02/11/17 03:21 30 mg Q6H PRN PRN Administration PAIN Loratadine 10 mg 02/06/17 10:00 02/06/17 10:26 Claritin 10 Mg PO 03/08/17 09:59 10 mg DAILY ALISIA Administration Magnesium Hydroxide 30 - 60 ml 02/05/17 19:26 Milk Of Magnesia 30 Ml PO 03/07/17 19:25 QDP PRN CONSTIPATION Montelukast Sodium 10 mg 02/06/17 10:00 02/06/17 10:26 Singulair 10 Mg PO 03/08/17 09:59 10 mg DAILY ALISIA Administration Nitroglycerin 0.4 mg 02/05/17 17:56 02/05/17 18:15 Nitrostat 0.4 Mg Tablet SL 03/07/17 17:55 0.4 mg Q5MIN PRN MR X 3 PRN Administration CHEST PAIN Nitroglycerin 1 gm 02/05/17 22:00 02/06/17 06:44 Nitro-Bid 2% Ud Packets TOP 03/07/17 21:59 1 gm Q8HT ALISIA Administration Non-Formulary Drug 1 60 mg 02/06/17 10:00 02/06/17 10:26 Each (Propranolol PO 03/08/17 09:59 60 mg Hcl [Inderal La] 60 DAILY ALISIA Administration Mg) Ondansetron HCl 4 mg 02/05/17 19:26 Zofran 4 Mg/2 Ml Vial IV 03/07/17 19:25 Q4H PRN PRN NAUSEA/VOMITING Pantoprazole Sodium 40 mg 02/06/17 10:00 02/06/17 10:26 Protonix 40mg Tablet PO 03/08/17 09:59 40 mg DAILY ALISIA Administration Senna/Docusate Sodium 2 udtab 02/05/17 19:26 Senokot-S Tablet PO 03/07/17 19:25 BID PRN PRN CONSTIPATION Discontinued Medications Generic Name Dose Route Start Last Admin Trade Name Freq PRN Reason Stop Dose Admin Acetaminophen 650 mg 02/05/17 18:23 02/05/17 18:27 Tylenol 325 Mg PO 02/05/17 18:24 650 mg STAT STA Administration Acetaminophen Confirm 02/05/17 18:24 Tylenol 325 Mg Administered 02/05/17 18:25 Dose 650 mg .ROUTE .STK-MED ONE Al Hydrox/Mg Hydrox/Simethicone 30 ml 02/05/17 19:26 Maalox Es 30 Ml Unit Dose PO 03/07/17 19:25 Q4H PRN PRN INDIGESTION Fentanyl Citrate 100 mcg 02/05/17 18:25 02/05/17 18:31 Sublimaze 100 Mcg/2 Ml IV 02/05/17 18:26 100 mcg STAT ONE Administration Fentanyl Citrate Confirm 02/05/17 18:30 Sublimaze 100 Mcg/2 Ml Administered 02/05/17 18:31 Dose 100 mcg .ROUTE .STK-MED ONE Sodium Chloride 1,000 mls @ 100 mls/hr 02/05/17 18:00 02/05/17 18:15 Sodium Chloride 0.9% 1000 Ml IV 03/07/17 17:59 100 mls/hr .Q10H ALISIA Administration Sodium Chloride Confirm 02/05/17 18:11 Sodium Chloride 0.9% 1000 Ml Administered 02/05/17 18:12 Dose 1,000 mls @ ud .ROUTE .STK-MED ONE Nitroglycerin Confirm 02/05/17 18:10 Nitrostat 0.4 Mg (Ed) Administered 02/05/17 18:11 Dose 0.4 mg SL .STK-MED ONE Nitroglycerin 0.4 mg 02/05/17 18:25 02/05/17 18:34 Nitrostat 0.4 Mg (Ed) SL 02/05/17 18:26 0.4 mg STAT ONE Administration Nitroglycerin 1 gm 02/05/17 19:34 02/05/17 19:37 Nitro-Bid 2% Ud Packets TOP 02/05/17 19:35 1 gm STAT ONE Administration Nitroglycerin Confirm 02/05/17 19:31 Nitro-Bid 2% Ud Packets Administered 02/05/17 19:32 Dose 1 gm .ROUTE .STK-MED ONE Nitroglycerin Confirm 02/05/17 20:06 Nitrostat 0.4 Mg Tablet Administered 02/05/17 20:07 Dose 0.4 mg SL .STK-MED ONE Ondansetron HCl 4 mg 02/05/17 17:54 02/05/17 18:16 Zofran 4 Mg/2 Ml Vial IV 02/05/17 17:55 4 mg STAT ONE Administration Ondansetron HCl Confirm 02/05/17 18:10 Zofran 4 Mg/2 Ml Vial Administered 02/05/17 18:11 Dose 4 mg .ROUTE .STK-MED ONE Intake & Output (Last 24 hours) 02/04/17 02/05/17 02/06/17 02/07/17 11:59 11:59 11:59 11:59 Intake Total 356 Balance 356 Weight 102.058 kg Laboratory Results (Last 24 hours) 02/06/17 02/06/17 02/06/17 06:17 06:17 03:15 WBC RBC Hgb Hct MCV MCH MCHC RDW Plt Count MPV Gran % Lymphocytes % Monocytes % Eosinophils % Basophils % Basophils # INR D-Dimer Sodium Potassium Chloride Carbon Dioxide Anion Gap BUN Creatinine Estimated GFR Glucose Calcium Total Bilirubin AST ALT Alkaline Phosphatase Troponin I < 0.017 < 0.017 Serum Total Protein Albumin Triglycerides 158 Cholesterol 195 LDL Cholesterol 121 H HDL Cholesterol 46 Heart Disease Risk Ratio 4.2 02/06/17 02/05/17 02/05/17 00:25 21:00 17:40 WBC RBC Hgb Hct MCV MCH MCHC RDW Plt Count MPV Gran % Lymphocytes % Monocytes % Eosinophils % Basophils % Basophils # INR D-Dimer Sodium Potassium Chloride Carbon Dioxide Anion Gap BUN Creatinine Estimated GFR Glucose Calcium Total Bilirubin AST ALT Alkaline Phosphatase Troponin I < 0.017 < 0.017 < 0.017 Serum Total Protein Albumin Triglycerides Cholesterol LDL Cholesterol HDL Cholesterol Heart Disease Risk Ratio 02/05/17 02/05/17 02/05/17 17:40 17:40 17:40 WBC 7.1 RBC 5.47 H Hgb 13.8 Hct 41.9 MCV 76.6 L MCH 25.2 L MCHC 32.9 RDW 14.7 H Plt Count 250 MPV 9.8 H Gran % 62.5 Lymphocytes % 25.7 Monocytes % 8.7 Eosinophils % 2.5 Basophils % 0.6 Basophils # 0.04 INR 1.07 D-Dimer 0.419 Sodium 139 Potassium 3.9 Chloride 105 Carbon Dioxide 26.7 Anion Gap 11.5 BUN 14 Creatinine 0.97 Estimated GFR > 60 Glucose 134 H Calcium 9.1 Total Bilirubin 0.2 AST 22 ALT 29 Alkaline Phosphatase 66 Troponin I Serum Total Protein 8.4 H Albumin 3.4 Triglycerides Cholesterol LDL Cholesterol HDL Cholesterol Heart Disease Risk Ratio Orders (Last 24 hours) Category Date Time Status Bedrest with BRP/BSC ROUTINE Activity 02/05/17 19:27 Completed Admission/Status Order ROUTINE Care 02/05/17 19:27 Active Call Admit Doctor for Orders ROUTINE Care 02/05/17 19:26 Active Anode Rebuilder STAT Care 02/05/17 17:54 Active Code Status Order ROUTINE Care 02/05/17 19:27 Active EKG-ER Only STAT Care 02/05/17 17:54 Completed IV Care Q6H Care 02/05/17 19:27 Active IV Insertion STAT Care 02/05/17 17:54 Active Implement Chest Pain Pathway ROUTINE Care 02/05/17 19:27 Active Oxygen-ED Only NASAL CANNULA 2 lpm Care 02/05/17 17:54 Active Zbigniew Baer ROUTINE Care 02/05/17 19:27 Active Telemetry ROUTINE Care 02/05/17 19:27 Active Vital Signs Q4H Care 02/05/17 19:26 Completed Weight,Daily 0600 Care 02/05/17 19:27 Active Consult Cardiology ROUTINE Cons 02/06/17 09:34 Active CHEST 1 VIEW (PORTABLE) Stat Exams 02/05/17 17:55 Completed CBC W DIFF Stat Lab 02/05/17 17:40 Completed CMP Stat Lab 02/05/17 17:40 Completed D-DIMER QUANTITATION Stat Lab 02/05/17 17:40 Completed LIPID PROFILE AM.LAB Lab 02/06/17 06:17 Completed PROTIME WITH INR Stat Lab 02/05/17 17:40 Completed TROPONIN Q3H Lab 02/05/17 17:40 Completed TROPONIN Q3H Lab 02/05/17 21:00 Completed TROPONIN Q3H Lab 02/06/17 00:25 Completed TROPONIN Q3H Lab 02/06/17 03:15 Completed TROPONIN Q3H Lab 02/06/17 06:17 Completed Acetaminophen 325 mg [Tylenol 325 mg] Med 02/05/17 18:24 Discontinued 650 mg .ROUTE .STK-MED ONE Acetaminophen 325 mg [Tylenol 325 mg] Med 02/05/17 19:26 Active 650 mg PO Q4H PRN PRN Acetaminophen 325 mg [Tylenol 325 mg] Med 02/05/17 18:23 Discontinued 650 mg PO STAT STA Amlodipine Besylate 5 mg [Norvasc 5 mg] Med 02/06/17 10:00 Active 5 mg PO QAM Bumetanide 1 mg [Bumex 1 mg] Med 02/06/17 10:00 Active 1 mg PO DAILY Carvedilol 12.5 mg [Coreg 12.5 mg] Med 02/05/17 22:00 Active 12.5 mg PO BID Fentanyl Citrate 100 Mcg/2 ml* [Sublimaze 100 Mcg/2 ml* Med 02/05/17 18:30 Discontinued ] 100 mcg .ROUTE .STK-MED ONE Fentanyl Citrate 100 Mcg/2 ml* [Sublimaze 100 Mcg/2 ml* Med 02/05/17 19:29 Active ] 100 mcg IV Q4HPRN PRN Fentanyl Citrate 100 Mcg/2 ml* [Sublimaze 100 Mcg/2 ml* Med 02/05/17 18:25 Discontinued ] 100 mcg IV STAT ONE KETOROLAC trometh 30 mg Inj [TORAdol 30 mg Injection Med 02/06/17 03:22 Active ] 30 mg IM Q6H PRN PRN Loratadine 10 mg [Claritin 10 mg] Med 02/06/17 10:00 Active 10 mg PO DAILY Mag Hydrox/Al Hydrox/Simeth [Maalox Es 30 ml Unit Med 02/05/17 19:26 Discontinued Dose] 30 ml PO Q4H PRN PRN Magnesium Hydroxide 30 ml [Milk of Magnesia 30 ml Med 02/05/17 19:26 Active ] 30 - 60 ml PO QDP PRN Montelukast Sodium 10 mg [Singulair 10 MG] Med 02/06/17 10:00 Active 10 mg PO DAILY NaCl 0.9% 1000 ml [Sodium Chloride 0.9% 1000 ML] 1,000 Med 02/05/17 18:00 Discontinued ml IV 100 mls/hr NaCl 0.9% 500 ml [Sodium Chloride 0.9% 500 ML] 500 ml Med 02/05/17 19:30 Active IV 20 mls/hr Nitroglycerin 0.4 mg (Ed) [Nitrostat 0.4 MG (ED)] Med 02/05/17 18:10 Discontinued 0.4 mg SL .STK-MED ONE Nitroglycerin 0.4 mg (Ed) [Nitrostat 0.4 MG (ED)] Med 02/05/17 18:25 Discontinued 0.4 mg SL STAT ONE Nitroglycerin 0.4 mg Tablet [Nitrostat 0.4 MG Tablet Med 02/05/17 20:06 Discontinued ] 0.4 mg SL .STK-MED ONE Nitroglycerin 0.4 mg Tablet [Nitrostat 0.4 MG Tablet Med 02/05/17 17:56 Active ] 0.4 mg SL Q5MIN PRN MR X 3 PRN Nitroglycerin 2 %Ointment [Nitro-Bid 2% Ud Packets Med 02/05/17 19:31 Discontinued *] 1 gm .ROUTE .STK-MED ONE Nitroglycerin 2 %Ointment [Nitro-Bid 2% Ud Packets Med 02/05/17 22:00 Active *] 1 gm TOP Q8HT Nitroglycerin 2 %Ointment [Nitro-Bid 2% Ud Packets Med 02/05/17 19:34 Discontinued *] 1 gm TOP STAT ONE Ondansetron HCl 4 mg/2 ml [Zofran 4 MG/2 ML VIAL] Med 02/05/17 18:10 Discontinued 4 mg .ROUTE .STK-MED ONE Ondansetron HCl 4 mg/2 ml [Zofran 4 MG/2 ML VIAL] Med 02/05/17 19:26 Active 4 mg IV Q4H PRN PRN Ondansetron HCl 4 mg/2 ml [Zofran 4 MG/2 ML VIAL] Med 02/05/17 17:54 Discontinued 4 mg IV STAT ONE PANTOPRAZOLE 40 mg Tablet [Protonix 40MG Tablet] Med 02/06/17 10:00 Active 40 mg PO DAILY Propranolol HCl [Inderal LA] Med 02/06/17 10:00 Active 60 mg PO DAILY Senna/Docusate Sodium Tab [Senokot-S Tablet] Med 02/05/17 19:26 Active 2 udtab PO BID PRN PRN EKG ONCE RT 02/06/17 07:00 Completed EKG ONCE RT 02/07/17 05:00 Active EKG ONCE RT 02/08/17 05:00 Active EKG ONCE RT 02/09/17 05:00 Active Oxygen NASAL CANNULA 2 lpm RT 02/06/17 07:28 Active Pulse Oximetry Q4H RT 02/05/17 19:27 Hold Transfer Order Routine Transfer 02/05/17 19:26 Completed - Vitals & Intake/Output Vital Signs: Vital Signs Temperature 97.8 F 02/06/17 11:13 Pulse Rate 80 02/06/17 11:13 Respiratory Rate 18 02/06/17 11:13 Blood Pressure 140/68 02/06/17 11:13 O2 Sat by Pulse Oximetry 96 02/06/17 11:13 Oxygen-Last Documented O2 Percentage 2 Liters = 28% Intake & Output: Intake & Output 02/04/17 02/05/17 02/06/17 02/07/17 11:59 11:59 11:59 11:59 Intake Total 356 Balance 356 Weight 102.058 kg - Lab Result Diagrams: 02/05/17 17:40 02/05/17 17:40 Lab Results-Last 24 Hrs: Lab Results-Last 24 Hours 02/05/17 02/06/17 02/06/17 Range/Units 21:00 00:25 03:15 Troponin I < 0.017 < 0.017 < 0.017 (0.000-0.056) ng/ml Triglycerides (30-200) mg/dL Cholesterol (100-200) mg/dL LDL Cholesterol (5-99) mg/dL HDL Cholesterol (35-60) mg/dL Heart Disease Risk Ratio 02/06/17 02/06/17 Range/Units 06:17 06:17 Troponin I < 0.017 (0.000-0.056) ng/ml Triglycerides 158 (30-200) mg/dL Cholesterol 195 (100-200) mg/dL LDL Cholesterol 121 H (5-99) mg/dL HDL Cholesterol 46 (35-60) mg/dL Heart Disease Risk Ratio 4.2 - Procedures and Test Procedures and Tests throughout Hospitalization: Therapy Orders & Screens 02/06/17 07:00 EKG ONCE Comment: Diagnosis: Chest pain 02/06/17 07:28 Oxygen NASAL CANNULA 2 lpm Comment: Diagnosis: Chest pain 02/07/17 05:00 EKG ONCE Comment: Diagnosis: Chest pain 02/08/17 05:00 EKG ONCE Comment: Diagnosis: Chest pain 02/09/17 05:00 EKG ONCE Comment: Diagnosis: Chest pain - Discharge Discharge Date: 02/06/17 Disposition: Home, Self-Care Condition: Stable Prescriptions: Continue Omeprazole 20 MG [Prilosec 20 mg] 20 mg PO BID Amlodipine Besylate 5 mg [Norvasc 5 mg] 5 mg PO DAILY Carvedilol 12.5 mg [Coreg 12.5 mg] 12.5 mg PO BID #0 tablet Montelukast Sodium [Singulair] 10 mg PO DAILY Fexofenadine HCl [Neda Allergy] 180 mg PO DAILY Propranolol HCl [Inderal LA] 60 mg PO DAILY Bumetanide 1 mg [Bumex 1 mg] 1 mg PO DAILY Follow up with: NATHALIA SALMON [ACTIVE STAFF] - 02/27/17 3:30 pm ([place] office) JANESSA WEBSTER MD [Primary Care Provider] -
== END 2017-02-06 13:55 | disposition home or self-care (01) ==
LOC: ED 17:23 → MED SURG 20:01
PROVIDERS: ADMIT General Practice; ATTEND General Practice
DX: R07.82 Intercostal pain (principal); I10 Essential (primary) hypertension; E11.9 Type 2 diabetes mellitus without complications; Z79.899 Other long term (current) drug therapy
CPT/HCPCS: 36000; 36415; 71010; 80053; 80061; 83721; 84484; 85025; 85379; 85610; 93005; 93041; 93268; 94760; 96360; 96374; 96375; 99285; G0378; J1885; J2405; J3010; A9270-GY

== ENCOUNTER 2017-10-16 17:17 | Observation (INO) | payer OTHER, SELFPAY ==
--- NOTE | 2017-10-16 17:56 | ERPHSYRPT ---
<ELVIA MORALEZ - Last Filed: 10/16/17 19:10> - History of Present Illness Time Seen by Provider: 10/16/17 17:51 Historian: patient Exam Limitations: no limitations Patient Subjective Stated Complaint: PT REPORTS CHEST PAIN BEGINNING A FEW HRS AGO-STATES THAT THE SIDE OF HER NECK MORIN-REPORTS SOB ET NAUSEA-DENIES VOMITING Triage Nursing Assessment: PT FLUSHED-CRYING ET TEARFUL UPON ARRIVAL TO ED- COMFORT PROVIDED ET PT BEGAN TO CALM DOWN-RESP EASY ET NONLABORED-SPEAKING IN COMPLETE SENTENCES WITH EASE-BREATH SOUNDS CLEAR ET EQUAL BILATERALLY-RIGHT RADIAL PULSE REGULAR ET STRONG-CAP REFILL 3 SECONDS Physician History: patient states having Substernal Chest Pain around 2 PM while sitting at Work. patient has had similar chest pain but has never received a catheterization. The chest pain was sharp and radiating down left arm/neck area, intermittent lasting anywhere from 15-20 minutes to one hour and associated with shortness of breath, dizziness and weakness. Patient denies palpitation, diaphoresis or recent fever, chills, cough, sore throat or earache. Patient does not take any aspirin on a daily basis. 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 Timing/Duration: today Activities at Onset: rest Quality: stabbing Location: substernal Chest Pain Radiation: neck (hematologic) Severity of Pain-Max: moderate Severity of Pain-Current: moderate Modifying Factors: Worsens With: antacids, breathing, coughing (morphine), movement, rest, sitting up, change in position Associated Symptoms: nausea, shortness of breath, fatigue, weakness, back pain, No vomiting, No palpitations, No heartburn, No abdominal pain, No cough, No hurts to breathe, No diaphoresis, No chills, No fever, No swelling/lump in chest , No edema Prior Chest Pain/Cardiac Workup: no prior chest pain Nitro Today/Relief: no nitro taken today Allergies/Adverse Reactions: aspirin Allergy (Intermediate, Verified 10/16/17 17:30) Hives codeine [Codeine] Allergy (Verified 10/16/17 17:30) hydrocodone bitartrate [From Vicodin] Allergy (Verified 10/16/17 17:30) morphine Allergy (Verified 10/16/17 17:30) Penicillins Allergy (Verified 10/16/17 17:30) propoxyphene HCl [From Darvon] Allergy (Verified 10/16/17 17:30) Home Medications: Amlodipine Besylate 5 mg [Norvasc 5 mg] 5 mg PO DAILY 10/25/14 [History] Omeprazole 20 MG [Prilosec 20 mg] 20 mg PO BID 10/25/14 [History] Fexofenadine HCl [Neda Allergy] 180 mg PO DAILY 07/17/15 [History] Montelukast Sodium [Singulair] 10 mg PO DAILY 07/17/15 [History] Bumetanide 1 mg [Bumex 1 mg] 1 mg PO DAILY 12/22/16 [History] Propranolol HCl [Inderal LA] 60 mg PO DAILY 12/22/16 [History] Hx Tetanus, Diphtheria Vaccination/Date Given: No Hx Influenza Vaccination/Date Given: Yes Hx Pneumococcal Vaccination/Date Given: Yes Immunizations Up to Date: Yes - Review of Systems Constitutional: No Fever, No Chills Eyes: No Symptoms Ears, Nose, & Throat: No Symptoms Respiratory: No Cough, No Dyspnea Cardiac: Chest Pain, No Edema, No Syncope, No Orthopnea Abdominal/Gastrointestinal: Nausea, No Abdominal Pain, No Vomiting, No Diarrhea Genitourinary Symptoms: No Dysuria Musculoskeletal: No Back Pain, No Neck Pain Skin: No Rash Neurological: No Dizziness, No Focal Weakness, No Sensory Changes Psychological: No Symptoms Endocrine: No Symptoms All Other Systems: Reviewed and Negative - Past Medical History Pertinent Past Medical History: Yes Neurological History: Migraines ENT History: No Pertinent History Cardiac History: Hypertension Respiratory History: Asthma, Sleep Apnea Endocrine Medical History: Diabetes Type II Musculoskeletal History: Degenerative Disk Disease, Other GI Medical History: Hernia Psycho-Social History: No Pertinent History Female Reproductive Disorders: Menstrual Problems, Other - Past Surgical History Past Surgical History: Yes Neuro Surgical History: No Pertinent History Cardiac: No Pertinent History Respiratory: No Pertinent History Gastrointestinal: Cholecystectomy Genitourinary: No Pertinent History Musculoskeletal: No Pertinent History Female Surgical History: Other Other Surgical History: 2004 gallbladder, bellybutton repair, d/c X1, 3 cysts - Social History Smoking Status: Never smoker Exposure to second hand smoke: No Alcohol Use: None Drug Use: none Patient Lives Alone: No Significant Family History: no pertinent family hx - Female History Hx Now: No - Nursing Vital Signs Nursing Vital Signs: Initial Vital Signs Temperature 98.7 F 10/16/17 17:23 Pulse Rate 77 10/16/17 17:23 Respiratory Rate 20 10/16/17 17:23 Blood Pressure 192/99 10/16/17 17:23 O2 Sat by Pulse Oximetry 97 10/16/17 17:23 Pain Scale Pain Intensity 4 - Physical Exam General Appearance: mild distress, alert Eye Exam: PERRL/EOMI, eyes nml inspection Ears, Nose, Throat Exam: normal ENT inspection, moist mucous membranes Neck Exam: normal inspection, non-tender, supple, full range of motion Respiratory Exam: normal breath sounds, lungs clear, No respiratory distress Cardiovascular Exam: regular rate/rhythm, normal heart sounds Gastrointestinal/Abdomen Exam: soft, No tenderness, No mass Pelvic Exam: not done Rectal Exam: deferred Back Exam: normal inspection, No CVA tenderness, No vertebral tenderness Extremity Exam: normal inspection, normal range of motion Neurologic Exam: alert, oriented x 3, cooperative, normal mood/affect, sensation nml, No motor deficits Skin Exam: normal color, warm, dry SpO2: 97 Oxygen Delivery: Room Air - Course Nursing assessment & vital signs reviewed: Yes EKG Interpreted by Me: RATE (74), NORMAL AXIS, NORMAL INTERVALS, NORMAL QRS, NORMAL ST-T, Non-specific ST Changes Ordered Tests: Active Orders 24 hr Category Date Time Status Handle Bender STAT Care 10/16/17 17:59 Active EKG-ER Only STAT Care 10/16/17 17:59 Active IV Insertion STAT Care 10/16/17 17:59 Active Oxygen-ED Only NASAL CANNULA 2 lpm Care 10/16/17 17:59 Active Pulse Oximetry (ED) STAT Care 10/16/17 17:59 Active CHEST 1 VIEW (PORTABLE) Stat Exams 10/16/17 17:23 Taken CHEST WITH CONTRAST [CT] Stat Exams 10/16/17 19:05 Taken CBC W DIFF Stat Lab 10/16/17 17:45 Completed CK-Creatinine Phosphokinase Stat Lab 10/16/17 17:45 Completed CMP Stat Lab 10/16/17 17:45 Completed D-DIMER QUANTITATION Stat Lab 10/16/17 17:45 Completed TROPONIN Q3H Lab 10/16/17 17:45 Completed TROPONIN Q3H Lab 10/16/17 21:03 Completed TROPONIN Q3H Lab 10/16/17 23:30 Ordered TROPONIN Q3H Lab 10/17/17 02:30 Ordered TROPONIN Q3H Lab 10/17/17 05:30 Ordered Transfer Order Routine Transfer 10/16/17 Ordered Medication Summary Discontinued Medications Generic Name Dose Route Start Last Admin Trade Name Marino PRN Reason Stop Dose Admin Diphenhydramine HCl 25 mg 10/16/17 19:47 10/16/17 19:51 Benadryl 50 Mg/Ml IV 10/16/17 19:48 25 mg STAT ONE Administration Diphenhydramine HCl Confirm 10/16/17 19:50 Benadryl 50 Mg/Ml Administered 10/16/17 19:51 Dose 50 mg .ROUTE .STK-MED ONE Sodium Chloride 1,000 mls @ 999 mls/hr 10/16/17 18:02 10/16/17 18:05 Sodium Chloride 0.9% 1000 Ml IV 10/16/17 19:02 Not Given .Q1H1M STA Morphine Sulfate 4 mg 10/16/17 20:25 10/16/17 20:29 Morphine Sulfate 4 Mg Inj IV 10/16/17 20:26 4 mg STAT ONE Administration Morphine Sulfate Confirm 10/16/17 20:28 Morphine Sulfate 4 Mg Inj Administered 10/16/17 20:29 Dose 4 mg .ROUTE .STK-MED ONE Nalbuphine HCl 5 mg 10/16/17 20:31 10/16/17 20:41 Nubain 10 Mg/Ml IV 10/16/17 20:32 5 mg STAT ONE Administration Nalbuphine HCl Confirm 10/16/17 20:36 Nubain 10 Mg/Ml Administered 10/16/17 20:37 Dose 10 mg .ROUTE .STK-MED ONE Nitroglycerin 0.4 mg 10/16/17 17:57 10/16/17 18:16 Nitrostat 0.4 Mg (Ed) SL 10/16/17 17:58 0.4 mg STAT ONE Administration Nitroglycerin Confirm 10/16/17 18:00 Nitrostat 0.4 Mg (Ed) Administered 10/16/17 18:01 Dose 0.4 mg SL .STK-MED ONE Ondansetron HCl 4 mg 10/16/17 19:29 10/16/17 19:45 Zofran 4 Mg/2 Ml Vial IV 10/16/17 19:30 4 mg STAT ONE Administration Ondansetron HCl Confirm 10/16/17 19:42 Zofran 4 Mg/2 Ml Vial Administered 10/16/17 19:43 Dose 4 mg .ROUTE .STK-MED ONE Lab/Rad Data: Laboratory Result Diagrams 10/16/17 17:45 10/16/17 17:45 Laboratory Results 10/16/17 10/16/17 10/16/17 Range/Units 21:03 17:45 17:45 WBC (4.0-10.5) K/mm3 RBC (4.1-5.4) M/mm3 Hgb (12.0-16.0) gm/dl Hct (35-47) % MCV (78-100) fl MCH (26-32) pg MCHC (32-36) g/dl RDW (11.5-14.0) % Plt Count (150-450) K/mm3 MPV (6-9.5) fl Gran % (36.0-66.0) % Lymphocytes % (24.0-44.0) % Monocytes % (0.0-12.0) % Eosinophils % (0.00-5.0) % Basophils % (0.0-0.4) % Basophils # (0-0.4) D-Dimer 573.17 H* (0-500) ng/mL Sodium (136-145) mEq/L Potassium (3.5-5.1) mEq/L Chloride (98-107) mEq/L Carbon Dioxide (21-32) mEq/L Anion Gap (5-15) MEQ/L BUN (9-20) mg/dL Creatinine (0.55-1.30) mg/dl Estimated GFR ML/MIN Glucose (70-110) MG/DL Calcium (8.5-10.1) mg/dL Total Bilirubin (0.2-1.0) mg/dL AST (15-37) U/L ALT (12-78) U/L Alkaline Phosphatase (46-116) U/L Creatine Kinase (26-192) U/L Troponin I < 0.017 < 0.017 (0.000-0.056) ng/ml Serum Total Protein (6.4-8.2) gm/dL Albumin (3.4-5.0) g/dL Slides for Path Review 10/16/17 10/16/17 Range/Units 17:45 17:45 WBC 10.4 (4.0-10.5) K/mm3 RBC 5.84 H (4.1-5.4) M/mm3 Hgb 14.7 (12.0-16.0) gm/dl Hct 43.6 (35-47) % MCV 74.7 L (78-100) fl MCH 25.1 L (26-32) pg MCHC 33.7 (32-36) g/dl RDW 14.5 H (11.5-14.0) % Plt Count 258 (150-450) K/mm3 MPV 10.2 H (6-9.5) fl Gran % 67.2 H (36.0-66.0) % Lymphocytes % 22.4 L (24.0-44.0) % Monocytes % 7.3 (0.0-12.0) % Eosinophils % 2.7 (0.00-5.0) % Basophils % 0.4 (0.0-0.4) % Basophils # 0.04 (0-0.4) D-Dimer (0-500) ng/mL Sodium 136 (136-145) mEq/L Potassium 3.3 L (3.5-5.1) mEq/L Chloride 100 (98-107) mEq/L Carbon Dioxide 25.4 (21-32) mEq/L Anion Gap 13.7 (5-15) MEQ/L BUN 9 (9-20) mg/dL Creatinine 0.96 (0.55-1.30) mg/dl Estimated GFR > 60 ML/MIN Glucose 184 H (70-110) MG/DL Calcium 9.1 (8.5-10.1) mg/dL Total Bilirubin 0.20 (0.2-1.0) mg/dL AST 26 (15-37) U/L ALT 38 (12-78) U/L Alkaline Phosphatase 73 (46-116) U/L Creatine Kinase 32 (26-192) U/L Troponin I (0.000-0.056) ng/ml Serum Total Protein 7.8 (6.4-8.2) gm/dL Albumin 3.4 (3.4-5.0) g/dL Slides for Path Review YES - Departure Clinical Impression: Chest pain Qualifiers: Chest pain type: unspecified Qualified Code(s): R07.9 - Chest pain, unspecified Condition: Stable Critical Care Time: No Referrals: JANESSA WEBSTER MD [Primary Care Provider] - <PRINCE CUNNINGHAM - Last Filed: 10/16/17 21:55> - History of Present Illness Aspirin Treatment Today: no aspirin today - CT Exams Chest CT Interpretation: Negative - Progress Progress: improved Air Movement: fair Progress Note: 10/16/17 21:53 Pt states, she feels better after Nubain, she is allergic to Aspirin (hives) , I called Dr Webster, discussed the results and patients, current condition, he agreed to admit her to Telemetry for observation, informed patient, she agreed. Discussed with : Tate Will see patient in: hospital (observation) Counseled pt/family regarding: lab results, diagnosis, rad results - Departure Time of Disposition: 21:55 Departure Disposition: Observation Critical Care Time: No
[2017-10-16] MEDS ORDERED: Nitrostat 0.4 MG (ED) SL ONE ×2 (17:57→18:00)
[2017-10-16] MEDS ORDERED: Sodium Chloride 0.9% 1000 ML 1,000 ML IV STA (18:02)
[2017-10-16 18:12] LABS: BASOPHIL % 0.4 % (0.0-0.4); Basophil (Absolute #) 0.04 (0-0.4); Eosinophil % 2.7 % (0.00-5.0); Eosinophil (Absolute #) 0.28 (0-0.5); Granulocyte Absolute (ANC) 6.98 (1.4-6.9); Granulocytes % 67.2 % (36.0-66.0); Hematocrit 43.6 % (35-47); Hemoglobin 14.7 gm/dl (12.0-16.0); Lymphocyte (Absolute #) 2.33 (1.0-4.6); Lymphocytes % 22.4 % (24.0-44.0); Mean Cell Volume 74.7 fl (78-100); Mean Corpuscular Hgb Concent. 33.7 g/dl (32-36); Mean Platelet Volume 10.2 fl (6-9.5); Monocyte (Absolute #) 0.76 (0.0-1.3); Monocytes % 7.3 % (0.0-12.0); Platelet Count 258 K/mm3 (150-450); Red Blood Count 5.84 M/mm3 (4.1-5.4); Red Cell Distribution Width 14.5 % (11.5-14.0); White Blood Count 10.4 K/mm3 (4.0-10.5)
[2017-10-16 18:24] LABS: ALBUMIN 3.4 g/dL (3.4-5.0); ALKALINE PHOSPHATASE 73 U/L (46-116); ANION GAP 13.7 MEQ/L (5-15); BLOOD UREA NITROGEN 9 mg/dL (9-20); CHLORIDE 100 mEq/L (98-107); CK-Creatinine Phosphokinase 32 U/L (26-192); Calcium 9.1 mg/dL (8.5-10.1); Carbon Dioxide 25.4 mEq/L (21-32); Creatinine 1 0.96 mg/dl (0.55-1.30); EST GLOMERULAR FILTRATION RATE > 60 ML/MIN; Glucose 184 MG/DL (70-110); Potassium 3.3 mEq/L (3.5-5.1); SGOT/AST 26 U/L (15-37); SGPT/ALT 38 U/L (12-78); SODIUM 136 mEq/L (136-145); Total Protein 7.8 gm/dL (6.4-8.2)
[2017-10-16 18:39] LABS: Mean Corpuscular Hemoglobin 25.1 pg (26-32)
[2017-10-16 18:40] LABS: Slide Review 1 YES
[2017-10-16] MEDS ORDERED: Zofran 4 MG/2 ML VIAL IV ONE (19:29)
[2017-10-16] MEDS ORDERED: Zofran 4 MG/2 ML VIAL ONE (19:42)
[2017-10-16] MEDS ORDERED: BENADRYL 50 MG/ML IV ONE (19:47)
[2017-10-16] MEDS ORDERED: BENADRYL 50 MG/ML ONE (19:50)
[2017-10-16] MEDS ORDERED: MORPHINE SULFATE 4 MG INJ IV ONE (20:25)
[2017-10-16] MEDS ORDERED: MORPHINE SULFATE 4 MG INJ ONE (20:28)
[2017-10-16] MEDS ORDERED: Nubain 10 MG/ML IV ONE (20:31)
[2017-10-16] MEDS ORDERED: Nubain 10 MG/ML ONE (20:36)
[2017-10-16] MEDS ORDERED: Senokot-S Tablet PO PRN (22:26)
[2017-10-16] MEDS ORDERED: NovoLOG Insulin SQ PRN (22:26)
[2017-10-16] MEDS ORDERED: MILK OF MAGNESIA 30 ML PO PRN (22:26)
[2017-10-16] MEDS ORDERED: MAALOX ES 30 ML UNIT DOSE PO PRN (22:26)
[2017-10-16] MEDS ORDERED: Zofran 4 MG/2 ML VIAL IV PRN (22:26)
[2017-10-16] MEDS: TYLENOL 325 MG PO PRN (22:36)
[2017-10-17 06:42] LABS: Risk Ratio 4.1
[2017-10-17] MEDS: TYLENOL 325 MG PO PRN (08:04)
--- NOTE | 2017-10-17 09:01 | XRAY ---
Indication: Chest pain. Short of breath. Elevated d-dimer. Multiple contiguous axial images obtained through the chest using 80 cc Isovue 370 contrast and PE protocol. Comparison: June 05, 2016. There is satisfactory opacification of the pulmonary arteries. No filling defect or pulmonary embolus. Heart is not enlarged. Aorta is normal in course and caliber. No pathologic mediastinal/hilar lymphadenopathy. Examination of the lung parenchyma demonstrates fully inflated and clear lungs. Bony thorax intact. Limited upper abdomen demonstrates stable fatty liver. Impression: 1. Negative pulmonary embolus. 2. No new or acute cardiopulmonary abnormalities. 4. Stable fatty liver. CT DI 23.68
--- NOTE | 2017-10-17 09:10 | XRAY ---
Indication: Chest pain. Comparison: February 05, 2017. Portable chest again demonstrates normal heart, lungs, and bony thorax.
--- NOTE | 2017-10-17 09:53 | PCM.HP ---
History of Present Illness - Chief Complaint Chief Complaint: chest pain History of Present Illness: is a 47 year old female.patient states having Substernal Chest Pain around 2 PM while sitting at Work. patient has had similar chest pain but has never received a catheterization. The chest pain was sharp and radiating down left arm/neck area, intermittent lasting anywhere from 15-20 minutes to one hour and associated with shortness of breath, dizziness and weakness. Patient denies palpitation, diaphoresis or recent fever, chills, cough, sore throat or earache. Patient does not take any aspirin on a daily basis. 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 Timing/Duration: today Activities at Onset: rest Quality: stabbing Location: substernal Chest Pain Radiation: neck (hematologic) Severity of Pain-Max: moderate Severity of Pain-Current: moderate Modifying Factors: Worsens With: antacids, breathing, coughing (morphine), movement, rest, sitting up, change in position Associated Symptoms: nausea, shortness of breath, fatigue, weakness, back pain, No vomiting, No palpitations, No heartburn, No abdominal pain, No cough, No hurts to breathe, No diaphoresis, No chills, No fever, No swelling/lump in chest , No edema Prior Chest Pain/Cardiac Workup: no prior chest pain Nitro Today/Relief: no nitro taken today - Review of Systems Constitutional: No Fever, No Chills Eyes: No Symptoms Ears, Nose, & Throat: No Symptoms Respiratory: No Cough, No Short Of Breath Cardiac: No Chest Pain, No Edema, No Syncope Abdominal/Gastrointestinal: No Abdominal Pain, No Nausea, No Vomiting, No Diarrhea Genitourinary Symptoms: No Dysuria Musculoskeletal: No Back Pain, No Neck Pain Skin: No Rash Neurological: No Dizziness, No Focal Weakness, No Sensory Changes Psychological: No Symptoms Endocrine: No Symptoms Hematologic/Lymphatic: No Symptoms Immunological/Allergic: No Symptoms Medications & Allergies Home Medications: Home Medication List Amlodipine Besylate 5 mg [Norvasc 5 mg] 5 mg PO DAILY 10/25/14 [History Confirmed 10/16/17] Omeprazole 20 MG [Prilosec 20 mg] 20 mg PO BID 10/25/14 [History Confirmed 10/16] Carvedilol 12.5 mg [Coreg 12.5 mg] 12.5 mg PO BID #0 tablet 10/27/14 [Rx Confirmed 10/16/17] Fexofenadine HCl [Neda Allergy] 180 mg PO DAILY 07/17/15 [History Confirmed 10/16/17] Montelukast Sodium [Singulair] 10 mg PO DAILY 07/17/15 [History Confirmed ] Bumetanide 1 mg [Bumex 1 mg] 1 mg PO DAILY 12/22/16 [History Confirmed 08/23] Propranolol HCl [Inderal LA] 60 mg PO DAILY 12/22/16 [History Confirmed 10/16/17 ] Glipizide [Glipizide] 1 tab PO DAILY 10/17/17 [History Confirmed 10/17/17] Sitagliptin Phosphate [Januvia] 1 tab PO DAILY 10/17/17 [History Confirmed 10/17] Allergies/Adverse Reactions: Allergies Allergy/AdvReac Type Severity Reaction Status Date / Time aspirin Allergy Intermediate Hives Verified 10/16/17 17:30 codeine [Codeine] Allergy Verified 10/16/17 17:30 hydrocodone bitartrate Allergy Verified 10/16/17 17:30 [From Vicodin] morphine Allergy Verified 10/16/17 17:30 Penicillins Allergy Verified 10/16/17 17:30 propoxyphene HCl Allergy Verified 10/16/17 17:30 [From Darvon] - Past Medical History Past Medical History: Yes Neurological History: Migraines ENT History: No Pertinent History Cardiac History: Hypertension Respiratory History: Asthma, Sleep Apnea Endocrine Medical History: Diabetes Type II Musculoskelatal History: Degenerative Disk Disease, Other GI Medical History: Hernia Pyscho-Social History: No Pertinent History Reproductive Disorders: Menstrual Problems, Other - Female History Are you now?: No - Past Surgical History Past Surgical History: Yes Neuro Surgical History: No Pertinent History Cardiac History: No Pertinent History Respiratory Surgery: No Pertinent History GI Surgical History: Cholecystectomy Genitourinary Surgical Hx: No Pertinent History Musculskeletal Surgical Hx: No Pertinent History Female Surgical History: Other Other Surgical History: bladder surgery, ovarian cyst surgery x3 - Social History Smoking Status: Never smoker Exposure to second hand smoke: No Alcohol: None Drug Use: none Significant Family History: no pertinent family hx - Physical Exam Vital Signs: Vital Signs - 24 hr Temp Pulse Pulse Resp BP Pulse Ox 10/17/17 07:52 97.8 F 58 L 20 150/83 99 10/17/17 04:00 97.8 F 55 L 20 134/64 98 10/16/17 23:03 98.0 F 62 20 169/88 99 10/16/17 20:19 83 18 167/108 97 10/16/17 19:16 79 18 147/88 99 10/16/17 19:10 97 10/16/17 18:17 105 H 20 164/99 97 10/16/17 17:23 98.7 F 84 77 20 192/99 97 Oxygen-Last 24 hours O2 Percentage 1 Liter = 24% O2 Percentage 2 Liters = 28% O2 Percentage 2 Liters = 28% O2 Percentage 2 Liters = 28% General Appearance: no apparent distress, alert Neurologic Exam: alert, oriented x 3, cooperative, normal mood/affect, nml cerebellar function, nml station & gait, sensation nml, No motor deficits Eye Exam: PERRL/EOMI, eyes nml inspection Ears, Nose, Throat Exam: normal ENT inspection, TMs normal, pharynx normal, moist mucous membranes Neck Exam: normal inspection, non-tender, supple, full range of motion Respiratory Exam: normal breath sounds, lungs clear, No respiratory distress Cardiovascular Exam: regular rate/rhythm, normal heart sounds, normal peripheral pulses Gastrointestinal/Abdomen Exam: soft, normal bowel sounds, No tenderness, No mass Back Exam: normal inspection, normal range of motion, No CVA tenderness, No vertebral tenderness Extremity Exam: normal inspection, normal range of motion, pelvis stable Skin Exam: normal color, warm, dry, No rash Lymphatic Exam: No adenopathy Results - Labs Lab/Micro Results: Lab Results-Last 24 Hours 10/16/17 10/17/17 10/17/17 Range/Units 23:55 02:30 05:40 Troponin I < 0.017 < 0.017 < 0.017 (0.000-0.056) ng/ml Triglycerides (30-200) mg/dL Cholesterol (100-200) mg/dL LDL Cholesterol (5-99) mg/dL HDL Cholesterol (35-60) mg/dL Heart Disease Risk Ratio 10/17/17 Range/Units 05:40 Troponin I (0.000-0.056) ng/ml Triglycerides 127 (30-200) mg/dL Cholesterol 182 (100-200) mg/dL LDL Cholesterol 113 H (5-99) mg/dL HDL Cholesterol 44 (35-60) mg/dL Heart Disease Risk Ratio 4.1 - Other Procedures and Tests Respiratory Therapy 10/17/17 00:15 BiPap/CPAP Assessment ROUTINE 10/17/17 06:00 EKG ROUTINE 10/18/17 05:00 EKG ROUTINE 10/19/17 05:00 EKG ROUTINE Assessment/Plan (1) Chest pain Current Visit: Yes Status: Acute Qualifiers: Chest pain type: unspecified Qualified Code(s): R07.9 - Chest pain, unspecified Assessment & Plan: WA ruled out. c/o headache due to nitro. Code(s): R07.9 - CHEST PAIN, UNSPECIFIED (2) Hypertension Current Visit: Yes Status: Chronic Qualifiers: Hypertension type: essential hypertension Qualified Code(s): I10 - Essential (primary) hypertension Code(s): I10 - ESSENTIAL (PRIMARY) HYPERTENSION (3) Migraine Current Visit: Yes Status: Chronic Qualifiers: Migraine type: without aura Intractability: not intractable Code(s): G43.909 - MIGRAINE, UNSP, NOT INTRACTABLE, WITHOUT STATUS MIGRAINOSUS (4) Morbid obesity Current Visit: Yes Status: Chronic Code(s): E66.01 - MORBID (SEVERE) OBESITY DUE TO EXCESS CALORIES
[2017-10-17] MEDS ORDERED: TORAdol 30 mg Injection IV ONE (09:54)
[2017-10-17] MEDS ORDERED: PLAVIX 75 MG Tablet PO SCH (10:00)
--- NOTE | 2017-10-17 10:03 | PCM.DCORD ---
- Discharge Discharge Date: 10/17/17 Disposition: Home, Self-Care Condition: Stable Prescriptions: No Action Omeprazole 20 MG [Prilosec 20 mg] 20 mg PO BID Amlodipine Besylate 5 mg [Norvasc 5 mg] 5 mg PO DAILY Carvedilol 12.5 mg [Coreg 12.5 mg] 12.5 mg PO BID #0 tablet Montelukast Sodium [Singulair] 10 mg PO DAILY Fexofenadine HCl [Neda Allergy] 180 mg PO DAILY Propranolol HCl [Inderal LA] 60 mg PO DAILY Bumetanide 1 mg [Bumex 1 mg] 1 mg PO DAILY Sitagliptin Phosphate [Januvia] 1 tab PO DAILY Glipizide [Glipizide] 1 tab PO DAILY Follow up with: JANESSA WEBSTER MD [Primary Care Provider] - 10/24/17 3:00 pm Forms: Patient Portal Information
[2017-10-17] MEDS ORDERED: NORVASC 5 MG PO SCH (11:00)
[2017-10-17] MEDS ORDERED: Glucotrol 5 MG PO SCH (11:00)
[2017-10-17] MEDS ORDERED: Protonix 40MG Tablet PO SCH (11:00)
[2017-10-17] MEDS ORDERED: Singulair 10 MG PO SCH (11:00)
[2017-10-17] MEDS ORDERED: BUMEX 1 MG PO SCH (11:00)
[2017-10-17] MEDS ORDERED: CLARITIN 10 MG PO SCH (11:00)
[2017-10-17] MEDS ORDERED: Januvia 50 MG PO SCH (11:00)
[2017-10-17] MEDS ORDERED: COREG 12.5 MG PO SCH (11:00)
[2017-10-17 11:36] VITALS: BP 137/67; PULSE 64; O2SAT 98
[2017-10-17] MEDS ORDERED: NON-FORMULARY ITEM (Omeprazole 20 Mg [Prilosec 20 Mg] 20 MG) PO SCH (22:00)
[2017-10-18] MEDS ORDERED: NON-FORMULARY ITEM (Fexofenadine Hcl [Allegra Allergy] 180 MG) PO SCH (10:00)
[2017-10-18] MEDS ORDERED: SITAGLIPTIN PHOSPHATE PO SCH (10:00)
[2017-10-18] MEDS ORDERED: PROPRANOLOL HCL 60 MG PO SCH (10:00)
== END 2017-10-17 12:00 | disposition home or self-care (01) ==
LOC: ED 17:17 → MED SURG 22:15
PROVIDERS: ADMIT General Practice; ATTEND General Practice
DX: R07.9 Chest pain, unspecified (principal); I10 Essential (primary) hypertension; G43.909 Migraine, unspecified, not intractable, without status migrainosus; E66.01 Morbid (severe) obesity due to excess calories; J45.909 Unspecified asthma, uncomplicated; G47.30 Sleep apnea, unspecified; E11.9 Type 2 diabetes mellitus without complications
CPT/HCPCS: 36000; 36415; 71045; 71260; 80053; 80061; 82550; 83721; 84484; 85025; 85379; 93005; 93041; 93268; 94660; 99285; G0378; J1200; J1885; J2270; J2300; J2405; A9270-GY

== ENCOUNTER 2018-07-14 16:44 | Emergency (ER) | payer OTHER, SELFPAY ==
--- NOTE | 2018-07-14 16:57 | ERPHSYRPT ---
- History of Present Illness Time Seen by Provider: 07/14/18 16:54 Historian: patient Exam Limitations: no limitations Patient Subjective Stated Complaint: Pt states "I was at work and I started to have chest pain and it feels like an elephan sitting on me. The pain will come and go and it feels like it is going down my right arm." Triage Nursing Assessment: Pt alert and oriented X 3, skin pwd. Pt ambulates with an upright steady gait, able to speakin clear full sentences. Pt in no apparent respiratory distress. 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 pt has strong family h/o cardiac dz. describes pain as though elephant sitting on her chest. radiates down right arm. pt admitted 3 times and never found anything. 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 pt has never been dx with an acute mi. pt allergic to asa and morphine. pt states she can receive dilaudid or nubain for pain. 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 at work) Location: substernal, central Chest Pain Radiation: arm (right) Severity of Pain-Max: mild Severity of Pain-Current: mild Modifying Factors: Improves With: nothing Associated Symptoms: No nausea, No vomiting, No palpitations, No heartburn, No abdominal pain, No shortness of breath, No cough, No hurts to breathe, No diaphoresis, No fever, No syncope Prior Chest Pain/Cardiac Workup: cardiac cath, stress test Nitro Today/Relief: no nitro taken today Aspirin Treatment Today: no aspirin today Allergies/Adverse Reactions: aspirin Allergy (Intermediate, Verified 10/16/17 17:30) Hives codeine [Codeine] Allergy (Verified 10/16/17 17:30) hydrocodone bitartrate [From Vicodin] Allergy (Verified 10/16/17 17:30) morphine Allergy (Verified 10/16/17 17:30) Penicillins Allergy (Verified 10/16/17 17:30) propoxyphene HCl [From Darvon] Allergy (Verified 10/16/17 17:30) Home Medications: Amlodipine Besylate 5 mg [Norvasc 5 mg] 5 mg PO DAILY 10/25/14 [History] Omeprazole 20 MG [Prilosec 20 mg] 20 mg PO BID 10/25/14 [History] Fexofenadine HCl [Neda Allergy] 180 mg PO DAILY 07/17/15 [History] Montelukast Sodium [Singulair] 10 mg PO DAILY 07/17/15 [History] Propranolol HCl [Inderal LA] 60 mg PO DAILY 12/22/16 [History] glipiZIDE [Glipizide] 1 tab PO DAILY 10/17/17 [History] Hx Tetanus, Diphtheria Vaccination/Date Given: Yes Hx Influenza Vaccination/Date Given: No Hx Pneumococcal Vaccination/Date Given: No Immunizations Up to Date: Yes - Review of Systems Constitutional: No Symptoms, No Fever, No Chills Eyes: No Symptoms, No Discharge, No Eye Pain Ears, Nose, & Throat: No Symptoms, No Ear Pain, No Mouth Pain, No Painful Swallowing, No Snoring Respiratory: No Symptoms, No Cough, No Dyspnea, No Stridor, No Wheezing Cardiac: Chest Pain, No Palpitations, No Syncope Abdominal/Gastrointestinal: No Symptoms, No Abdominal Pain, No Nausea, No Vomiting, No Diarrhea Genitourinary Symptoms: No Symptoms, No Dysuria, No Frequency, No Hematuria Musculoskeletal: No Symptoms, No Back Pain, No Neck Pain, No Fall, No Injury Skin: No Symptoms Neurological: No Symptoms Psychological: No Symptoms Endocrine: No Symptoms Hematologic/Lymphatic: No Symptoms Immunological/Allergic: No Symptoms All Other Systems: Reviewed and Negative - Past Medical History Pertinent Past Medical History: Yes Neurological History: Migraines ENT History: No Pertinent History Cardiac History: Hypertension Respiratory History: Asthma, Sleep Apnea Endocrine Medical History: Diabetes Type II Musculoskeletal History: Degenerative Disk Disease, Other GI Medical History: Hernia Psycho-Social History: No Pertinent History Female Reproductive Disorders: Menstrual Problems, Other - Past Surgical History Past Surgical History: Yes Neuro Surgical History: No Pertinent History Cardiac: No Pertinent History Respiratory: No Pertinent History Gastrointestinal: Cholecystectomy Genitourinary: No Pertinent History Musculoskeletal: No Pertinent History Female Surgical History: Other Other Surgical History: 2004 gallbladder, bellybutton repair, d/c X1, 3 cysts - Social History Smoking Status: Never smoker Exposure to second hand smoke: No Alcohol Use: None Drug Use: none Patient Lives Alone: No Significant Family History: no pertinent family hx - Female History Hx Last Menstrual Period: menopause Hx Now: No - Nursing Vital Signs Nursing Vital Signs: Initial Vital Signs Temperature 98.8 F 07/14/18 16:45 Pulse Rate 70 07/14/18 16:45 Respiratory Rate 20 07/14/18 16:45 Blood Pressure 175/89 07/14/18 16:45 O2 Sat by Pulse Oximetry 99 07/14/18 16:45 Pain Scale Pain Intensity 2 - Physical Exam General Appearance: no apparent distress, mild distress, alert, anxiety Eye Exam: PERRL/EOMI, eyes nml inspection Ears, Nose, Throat Exam: normal ENT inspection, TMs normal, pharynx normal, moist mucous membranes Neck Exam: normal inspection, non-tender, supple, full range of motion Respiratory Exam: normal breath sounds, chest tenderness, lungs clear, airway intact, No respiratory distress, No accessory muscle use, No rhonchi, No wheezing, No stridor Cardiovascular Exam: regular rate/rhythm, normal heart sounds, normal peripheral pulses Gastrointestinal/Abdomen Exam: soft, normal bowel sounds, No tenderness, No guarding, No rebound Pelvic Exam: not done Rectal Exam: not done Back Exam: normal inspection, normal range of motion, No CVA tenderness, No vertebral tenderness Extremity Exam: normal inspection, normal range of motion, pelvis stable Neurologic Exam: alert, oriented x 3, 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, 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 Skin Exam: normal color, warm, dry Lymphatic Exam: No adenopathy SpO2 Interpretation: normal SpO2: 99 Oxygen Delivery: Room Air - Course Nursing assessment & vital signs reviewed: Yes EKG Interpreted by Me: RATE (66), Sinus Rhythm, NORMAL AXIS, Non-specific ST Changes (no change in ekg when compared to ekg dated 10/16/17) Ordered Tests: Active Orders 24 hr Category Date Time Status Histologist Technologist STAT Care 07/14/18 16:58 Active EKG-ER Only STAT Care 07/14/18 16:58 Active IV Insertion STAT Care 07/14/18 16:58 Active CHEST 1 VIEW (PORTABLE) Stat Exams 07/14/18 16:58 Taken CBC W DIFF Stat Lab 07/14/18 17:12 Completed CMP Stat Lab 07/14/18 17:12 Completed D-DIMER QUANTITATION Stat Lab 07/14/18 17:12 Completed NT PRO BNP Stat Lab 07/14/18 17:12 Completed TROPONIN Q3H Lab 07/14/18 17:12 Completed TROPONIN Q3H Lab 07/14/18 20:00 Ordered TROPONIN Q3H Lab 07/14/18 23:00 Ordered TROPONIN Q3H Lab 07/15/18 02:00 Ordered TROPONIN Q3H Lab 07/15/18 05:00 Ordered Medication Summary Discontinued Medications Generic Name Dose Route Start Last Admin Trade Name Freq PRN Reason Stop Dose Admin Hydromorphone HCl 1 mg 07/14/18 17:03 07/14/18 17:13 Hydromorphone 1 Mg/Ml Ampule IV 07/14/18 17:04 1 mg STAT ONE Administration Hydromorphone HCl Confirm 07/14/18 17:12 Hydromorphone 1 Mg/Ml Ampule Administered 07/14/18 17:13 Dose 1 mg .ROUTE .STK-MED ONE Ondansetron HCl 4 mg 07/14/18 17:05 07/14/18 17:13 Zofran 4 Mg/2 Ml Vial IV 07/14/18 17:06 4 mg STAT ONE Administration Ondansetron HCl Confirm 07/14/18 17:12 Zofran 4 Mg/2 Ml Vial Administered 07/14/18 17:13 Dose 4 mg .ROUTE .STK-MED ONE Lab/Rad Data: Laboratory Result Diagrams 07/14/18 17:12 07/14/18 17:12 Laboratory Results 07/14/18 07/14/18 07/14/18 Range/Units 17:12 17:12 17:12 WBC (4.0-10.5) K/mm3 RBC (4.1-5.4) M/mm3 Hgb (12.0-16.0) gm/dl Hct (35-47) % MCV (78-100) fl MCH (26-32) pg MCHC (32-36) g/dl RDW (11.5-14.0) % Plt Count (150-450) K/mm3 MPV (6-9.5) fl Gran % (36.0-66.0) % Eos # (Auto) (0-0.5) Absolute Lymphs (auto) (1.0-4.6) Absolute Monos (auto) (0.0-1.3) Lymphocytes % (24.0-44.0) % Monocytes % (0.0-12.0) % Eosinophils % (0.00-5.0) % Basophils % (0.0-0.4) % Absolute Granulocytes (1.4-6.9) Basophils # (0-0.4) D-Dimer 374 (215-500) ng/mL Sodium 137 (137-145) mmol/L Potassium 3.9 (3.5-5.1) mmol/L Chloride 103 (98-107) mmol/L Carbon Dioxide 24 (22-30) mmol/L Anion Gap 14.7 (5-15) MEQ/L BUN 12 (7-17) mg/dL Creatinine 0.74 (0.52-1.04) mg/dL Estimated GFR > 60.0 ML/MIN Glucose 182 H (74-106) mg/dL Calcium 8.9 (8.4-10.2) mg/dL Total Bilirubin 0.40 (0.2-1.3) mg/dL AST 29 (14-36) U/L ALT 23 (0-35) U/L Alkaline Phosphatase 80 (38-126) U/L Troponin I < 0.012 (0.000-0.034) ng/mL NT-Pro-B Natriuret Pep 33.7 (0-450) pg/mL Serum Total Protein 7.6 (6.3-8.2) g/dL Albumin 4.0 (3.5-5.0) g/dL 07/14/18 Range/Units 17:12 WBC 8.9 (4.0-10.5) K/mm3 RBC 5.32 (4.1-5.4) M/mm3 Hgb 14.0 (12.0-16.0) gm/dl Hct 40.9 (35-47) % MCV 76.9 L (78-100) fl MCH 26.3 (26-32) pg MCHC 34.2 (32-36) g/dl RDW 14.4 H (11.5-14.0) % Plt Count 227 (150-450) K/mm3 MPV 9.8 H (6-9.5) fl Gran % 67.2 H (36.0-66.0) % Eos # (Auto) 0.27 (0-0.5) Absolute Lymphs (auto) 1.97 (1.0-4.6) Absolute Monos (auto) 0.62 (0.0-1.3) Lymphocytes % 22.2 L (24.0-44.0) % Monocytes % 7.0 (0.0-12.0) % Eosinophils % 3.0 (0.00-5.0) % Basophils % 0.6 (0.0-0.4) % Absolute Granulocytes 5.98 (1.4-6.9) Basophils # 0.05 (0-0.4) D-Dimer (215-500) ng/mL Sodium (137-145) mmol/L Potassium (3.5-5.1) mmol/L Chloride (98-107) mmol/L Carbon Dioxide (22-30) mmol/L Anion Gap (5-15) MEQ/L BUN (7-17) mg/dL Creatinine (0.52-1.04) mg/dL Estimated GFR ML/MIN Glucose (74-106) mg/dL Calcium (8.4-10.2) mg/dL Total Bilirubin (0.2-1.3) mg/dL AST (14-36) U/L ALT (0-35) U/L Alkaline Phosphatase (38-126) U/L Troponin I (0.000-0.034) ng/mL NT-Pro-B Natriuret Pep (0-450) pg/mL Serum Total Protein (6.3-8.2) g/dL Albumin (3.5-5.0) g/dL cxr no acute process - Progress Progress: re-examined Air Movement: good Progress Note: 07/14/18 18:26 i reviewed pt hx, condition, labs, ekg and cxr with dr. webster. he states to discharge pt to home and follow up in his office in the am. Blood Culture(s) Obtained: No Antibiotics given: No Discussed with : Tate Counseled pt/family regarding: lab results, diagnosis, need for follow-up, rad results - Departure Time of Disposition: 18:28 Departure Disposition: Home Clinical Impression: Chest pain Condition: Stable Critical Care Time: No Referrals: JANESSA WEBSTER MD [Primary Care Provider] - Additional Instructions: continue your medications as prescribed. call dr. webster's office tomorrow morning 07/14/18 to arrange appointment for tomorrow.
[2018-07-14] MEDS ORDERED: Zofran 4 MG/2 ML VIAL ONE (17:12)
[2018-07-14] MEDS ORDERED: Hydromorphone 1 mg/ml Ampule ONE (17:12)
[2018-07-14 17:13] LABS: BASOPHIL % 0.6 % (0.0-0.4); Basophil (Absolute #) 0.05 (0-0.4); Eosinophil (Absolute #) 0.27 (0-0.5); Granulocyte Absolute (ANC) 5.98 (1.4-6.9); Granulocytes % 67.2 % (36.0-66.0); Hematocrit 40.9 % (35-47); Lymphocyte (Absolute #) 1.97 (1.0-4.6); Lymphocytes % 22.2 % (24.0-44.0); Mean Cell Volume 76.9 fl (78-100); Mean Corpuscular Hemoglobin 26.3 pg (26-32); Mean Corpuscular Hgb Concent. 34.2 g/dl (32-36); Mean Platelet Volume 9.8 fl (6-9.5); Monocyte (Absolute #) 0.62 (0.0-1.3); Platelet Count 227 K/mm3 (150-450); Red Blood Count 5.32 M/mm3 (4.1-5.4); Red Cell Distribution Width 14.4 % (11.5-14.0); White Blood Count 8.9 K/mm3 (4.0-10.5)
[2018-07-14] MEDS: Zofran 4 MG/2 ML VIAL IV ONE (17:13)
[2018-07-14] MEDS: Hydromorphone 1 mg/ml Ampule IV ONE (17:13)
[2018-07-14 17:38] LABS: ALKALINE PHOSPHATASE 80 U/L (38-126); ANION GAP 14.7 MEQ/L (5-15); BLOOD UREA NITROGEN 12 mg/dL (7-17); CHLORIDE 103 mmol/L (98-107); Calcium 8.9 mg/dL (8.4-10.2); Carbon Dioxide 24 mmol/L (22-30); Creatinine 1 0.74 mg/dL (0.52-1.04); Glucose 182 mg/dL (74-106); NT PRO BNP 33.7 pg/mL (0-450); Potassium 3.9 mmol/L (3.5-5.1); SGOT/AST 29 U/L (14-36); SGPT/ALT 23 U/L (0-35); SODIUM 137 mmol/L (137-145); Total Protein 7.6 g/dL (6.3-8.2)
[2018-07-14 18:47] VITALS: BP 151/78; PULSE 67; O2SAT 96
--- NOTE | 2018-07-15 08:48 | XRAY ---
Indication: Chest pain. Comparison: October 16, 2017. Portable chest is clear. Heart and mediastinal structures within normal limits. Bony thorax intact. No new/acute findings. Impression: Stable nonacute chest.
== END 2018-07-14 19:05 | disposition home or self-care (01) ==
LOC: ED 16:44
DX: R07.9 Chest pain, unspecified (principal); Z79.899 Other long term (current) drug therapy
CPT/HCPCS: 36000; 36415; 71045; 80053; 83880; 84484; 85025; 85379; 93005; 93041; 96374; 96375; 99284; J1170; J2405

== ENCOUNTER 2018-09-30 08:42 | Emergency (ER) | payer OTHER ==
[2018-09-30] MEDS ORDERED: Rocephin 1000 MG INJ IM ONE (08:56)
[2018-09-30] MEDS ORDERED: XYLOCAINE 1% HCL 20 ML MDV ONE (08:59)
[2018-09-30] MEDS ORDERED: Rocephin 1000 MG INJ ONE (08:59)
--- NOTE | 2018-09-30 09:02 | ERPHSYRPT ---
- History of Present Illness Time Seen by Provider: 09/30/18 08:44 Source: patient Exam Limitations: no limitations Patient Subjective Stated Complaint: left earache for two days with brownish drainage. also recent cough Triage Nursing Assessment: ambulated to room per self. skin w/d, color normal, resp easy. slight brownish drainage noted from left ear. Physician History: pain left ear since ; using ear drops without releif; hx of mastoiditis 3 years ago; similar to this pain; brown drainage; no trauma; tinnitis before pain; no sore throat; no fever; no chills; no travel; has had a cough; no CP or SOB; no other complaints took Rocephin; keflex and bactrim in past for ear problems Timing/Duration: gradual onset, persistent, this morning (worse) Severity: moderate ENT Location: ear (L) Prearrival Treatment: prescription meds (ear drops) Modifying Factors: Improves With: rest Associated Symptoms: ear pain (L), change in hearing, ear drainage (brown), hearing loss (left), ringing of ears (left), swollen glands (left), No facial pain/swelling, No headache, No neck pain, No sore throat, No tooth pain, No difficulty swallowing Allergies/Adverse Reactions: aspirin Allergy (Intermediate, Verified 09/30/18 08:48) Hives codeine [Codeine] Allergy (Verified 09/30/18 08:48) hydrocodone bitartrate [From Vicodin] Allergy (Verified 09/30/18 08:48) morphine Allergy (Verified 09/30/18 08:48) Penicillins Allergy (Verified 09/30/18 08:48) propoxyphene HCl [From Darvon] Allergy (Verified 09/30/18 08:48) Home Medications: Amlodipine Besylate 5 mg [Norvasc 5 mg] 5 mg PO DAILY 10/25/14 [History] Omeprazole 20 MG [Prilosec 20 mg] 20 mg PO BID 10/25/14 [History] Fexofenadine HCl [Neda Allergy] 180 mg PO DAILY 07/17/15 [History] Montelukast Sodium [Singulair] 10 mg PO DAILY 07/17/15 [History] Propranolol HCl [Inderal LA] 60 mg PO DAILY 12/22/16 [History] glipiZIDE [Glipizide] 1 tab PO DAILY 10/17/17 [History] Hx Tetanus, Diphtheria Vaccination/Date Given: Yes Hx Influenza Vaccination/Date Given: Yes Hx Pneumococcal Vaccination/Date Given: Yes - Review of Systems Constitutional: No Symptoms Eyes: No Symptoms Ears, Nose, & Throat: Ear Pain (left), Ear Discharge (left brown), Hearing Changes (decreased left), Tinnitus (left), No Nose Pain, No Nose Congestion, No Sinus Drainage, No Epistaxis, No Mouth Pain, No Mouth Swelling, No Throat Pain, No Throat Swelling, No Painful Swallowing Respiratory: Cough, No Cyanosis, No Dyspnea, No Wheezing Cardiac: No Chest Pain, No Palpitations, No Syncope Abdominal/Gastrointestinal: Nausea, No Abdominal Pain, No Vomiting, No Diarrhea Genitourinary Symptoms: No Symptoms Musculoskeletal: No Symptoms Skin: No Symptoms Neurological: No Symptoms Psychological: No Symptoms Endocrine: No Symptoms Hematologic/Lymphatic: No Symptoms - Past Medical History Pertinent Past Medical History: Yes Neurological History: Migraines ENT History: No Pertinent History Cardiac History: Hypertension Respiratory History: Asthma, Sleep Apnea Endocrine Medical History: Diabetes Type II Musculoskeletal History: Degenerative Disk Disease, Other GI Medical History: Hernia Psycho-Social History: No Pertinent History Female Reproductive Disorders: Menstrual Problems, Other - Past Surgical History Past Surgical History: Yes Neuro Surgical History: No Pertinent History Cardiac: No Pertinent History Respiratory: No Pertinent History Gastrointestinal: Cholecystectomy Genitourinary: No Pertinent History Musculoskeletal: No Pertinent History Female Surgical History: Other Other Surgical History: 2005 gallbladder, bellybutton repair, d/c X1, 3 cysts - Social History Smoking Status: Never smoker Exposure to second hand smoke: No Alcohol Use: None Drug Use: none Patient Lives Alone: No Significant Family History: no pertinent family hx - Female History Hx Now: No - Nursing Vital Signs Nursing Vital Signs: Initial Vital Signs Temperature 97.9 F 09/30/18 08:48 Pulse Rate 64 09/30/18 08:48 Respiratory Rate 18 09/30/18 08:48 Blood Pressure 163/94 09/30/18 08:48 O2 Sat by Pulse Oximetry 98 09/30/18 08:48 Pain Scale Pain Intensity 7 - Physical Exam General Appearance: moderate distress (left ear pain), alert Eye Exam: bilateral eye: normal inspection, PERRL, EOMI Ear Exam: left ear: canal normal (swelling and tender), TM dull, bilateral ear: auricle normal, TM normal Nasal Exam: normal inspection, No active bleeding, No dried blood, No foreign body Throat Exam: normal, pharynx normal, moist mucus membranes, No dental tenderness , No mandibular swelling, No maxillary swelling, No voice changes Neck Exam: normal inspection, supple, full range of motion, lymphadenopathy (L) , No non-tender, No meningismus Cardiovascular/Respiratory Exam: chest non-tender, normal breath sounds, regular rate/rhythm, heart sounds normal, no ecchymosis, no JVD, no M/R/G, no respiratory distress Abdominal Exam: non-tender, soft, no organomegaly Neurologic Exam: alert, oriented x 3, 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, 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, normal mood/affect, nml cerebellar function, nml station & gait, sensation nml Skin Exam: normal color, warm, dry, No rash, No petechiae SpO2 Interpretation: normal SpO2: 98 Oxygen Delivery: Room Air - Course Nursing assessment & vital signs reviewed: Yes Ordered Tests: Active Orders 24 hr Category Date Time Status Accucheck STAT Care 09/30/18 08:55 Active Re-Check Vital Signs STAT Care 09/30/18 08:55 Active Medication Summary Discontinued Medications Generic Name Dose Route Start Last Admin Trade Name Marino PRN Reason Stop Dose Admin Ceftriaxone Sodium 1,000 mg 09/30/18 08:56 09/30/18 09:10 Rocephin 1000 Mg Inj IM 09/30/18 08:57 1,000 mg STAT ONE Administration Ceftriaxone Sodium Confirm 09/30/18 08:59 Rocephin 1000 Mg Inj Administered 09/30/18 09:00 Dose 1,000 mg .ROUTE .STK-MED ONE Lidocaine HCl Confirm 09/30/18 08:59 Xylocaine 1% Hcl 20 Ml Mdv Administered 09/30/18 09:00 Dose 3 ml .ROUTE .STK-MED ONE - Progress Progress: improved, re-examined Progress Note: 09/30/18 09:05 discussed past treatments and revisited use of rocephin and patient confirmed has taken without problems. will medicate and recheck; FSBS 203 09/30/18 09:39 rechecked x 2 and doing well; no medication reactions; will give instructions and discharge Counseled pt/family regarding: diagnosis, need for follow-up - Departure Time of Disposition: 09:39 Departure Disposition: Home Clinical Impression: Left ear pain, Mastoiditis of left side, DM (diabetes mellitus) Condition: Stable Critical Care Time: No Referrals: JANESSA WEBSTER MD [Primary Care Provider] - Instructions: Mastoiditis Additional Instructions: take meds; continue home meds; recheck dr Webster this week 48 hours- sooner if problems; Follow-up with family doctor as directed. Call for appointment. Return if any problems. If you smoke please stop. Call or follow up with your family doctor for assistance if you need it to stop. Please wear your seatbelt when driving. Have a nice day. Thank you for allowing us to participate in your care today. :o) Dr Avel Ferreira Prescriptions: Sulfamethoxazole/Trimethoprim [Bactrim Ds Tablet] 1 each PO BID #20 tablet
[2018-09-30 10:16] VITALS: BP 145/80; PULSE 68; O2SAT 97
== END 2018-09-30 10:15 | disposition home or self-care (01) ==
LOC: ED 08:42
DX: H92.02 Otalgia, left ear (principal); H70.92 Unspecified mastoiditis, left ear; E11.9 Type 2 diabetes mellitus without complications; Z79.84 Long term (current) use of oral hypoglycemic drugs; Z79.899 Other long term (current) drug therapy
CPT/HCPCS: 82962; 96372; 99284; J0696

== ENCOUNTER 2018-12-28 16:57 | Observation (INO) | payer OTHER ==
[2018-12-28] MEDS ORDERED: Nitrostat 0.4 MG Tablet SL PRN (20:04)
[2018-12-28] MEDS ORDERED: MORPHINE SULFATE 2 MG INJ IV PRN (20:04)
[2018-12-28] MEDS ORDERED: Sodium Chloride 0.9% 1000 ML 1,000 ML ONE (20:17)
[2018-12-28] MEDS: TYLENOL 325 MG PO PRN (20:20)
[2018-12-28] MEDS: Zofran 4 MG/2 ML VIAL IV PRN (20:21)
[2018-12-28] MEDS: Sodium Chloride 0.9% 1000 ML 1,000 ML IV SCH (20:21)
[2018-12-28] MEDS ORDERED: PROTONIX 40 MG IV IV ONE (21:48)
[2018-12-28] MEDS ORDERED: Protonix 40MG Tablet PO ONE (22:00)
[2018-12-28] MEDS ORDERED: COREG 12.5 MG PO ONE (22:00)
[2018-12-28] MEDS: Ativan 2 MG/1 ML VIAL IV PRN (22:02)
[2018-12-29] MEDS: Zofran 4 MG/2 ML VIAL IV PRN ×3 (01:30→17:58)
[2018-12-29 06:31] LABS: Risk Ratio 4.6
[2018-12-29] MEDS: Ativan 2 MG/1 ML VIAL IV PRN ×3 (07:41→21:41)
[2018-12-29] MEDS: Glucotrol 5 MG PO SCH (07:42)
[2018-12-29] MEDS ORDERED: NON-FORMULARY ITEM (Dulaglutide [Trulicity] 0.75 MG) SQ SCH (07:45)
[2018-12-29] MEDS ORDERED: MEDICATION INTERVENTION MC SCH (07:45)
--- NOTE | 2018-12-29 08:59 | PCM.SSS ---
History of Present Illness - Chief Complaint Chief Complaint: chest pain for 1 day History of Present Illness: is a 48 year old female came to office with chest wall pain radiating to left arm. - Review of Systems Constitutional: No Fever, No Chills Eyes: No Symptoms Ears, Nose, & Throat: No Symptoms Respiratory: No Cough, No Short Of Breath Cardiac: No Chest Pain, No Edema, No Syncope Abdominal/Gastrointestinal: No Abdominal Pain, No Nausea, No Vomiting, No Diarrhea Genitourinary Symptoms: No Dysuria Musculoskeletal: No Back Pain, No Neck Pain Skin: No Rash Neurological: No Dizziness, No Focal Weakness, No Sensory Changes Psychological: No Symptoms Endocrine: No Symptoms Hematologic/Lymphatic: No Symptoms Immunological/Allergic: No Symptoms Medications & Allergies Home Medications: Home Medication List Amlodipine Besylate 5 mg [Norvasc 5 mg] 5 mg PO DAILY 10/25/14 [History Confirmed 12/28/18] Omeprazole 20 MG [Prilosec 20 mg] 20 mg PO BID 10/25/14 [History Confirmed 12/28] Carvedilol 12.5 mg [Coreg 12.5 mg] 12.5 mg PO BID #0 tablet 10/27/14 [Rx Confirmed 12/28/18] Montelukast Sodium [Singulair] 10 mg PO DAILY 07/17/15 [History Confirmed ] Propranolol HCl [Inderal LA] 60 mg PO DAILY 12/22/16 [History Confirmed 12/28/18 ] glipiZIDE [Glipizide] 1 tab PO DAILY 10/17/17 [History Confirmed 12/28/18] Dulaglutide [Trulicity] 0.75 mg SQ WEEKLY 12/28/18 [History Confirmed 12/28/18] Allergies/Adverse Reactions: Allergies Allergy/AdvReac Type Severity Reaction Status Date / Time aspirin Allergy Intermediate Hives Verified 09/30/18 08:48 codeine [Codeine] Allergy Verified 09/30/18 08:48 hydrocodone bitartrate Allergy Verified 09/30/18 08:48 [From Vicodin] morphine Allergy Verified 09/30/18 08:48 Penicillins Allergy Verified 09/30/18 08:48 propoxyphene HCl Allergy Verified 09/30/18 08:48 [From Darvon] - Past Medical History Past Medical History: Yes Neurological History: Migraines ENT History: No Pertinent History Cardiac History: Hypertension Respiratory History: Asthma Endocrine Medical History: Diabetes Type II Musculoskelatal History: No Pertinent History GI Medical History: No Pertinent History History: No Pertinent History Pyscho-Social History: No Pertinent History Reproductive Disorders: No Pertinent History - Female History Are you now?: No - Past Surgical History Past Surgical History: No Neuro Surgical History: No Pertinent History Cardiac History: No Pertinent History Respiratory Surgery: No Pertinent History GI Surgical History: Cholecystectomy Genitourinary Surgical Hx: No Pertinent History Musculskeletal Surgical Hx: No Pertinent History Female Surgical History: No Pertinent History Other Surgical History: 2004 gallbladder, bellybutton repair, d/c X1, 3 cysts - Social History Smoking Status: Never smoker Exposure to second hand smoke: No Alcohol: None Drug Use: none Significant Family History: no pertinent family hx - Physical Exam Vital Signs: Vital Signs - 24 hr Temp Pulse Resp BP BP Pulse Ox 12/29/18 07:35 98.4 F 67 18 141/61 96 12/29/18 06:48 95 12/29/18 03:29 94 L 12/29/18 03:26 97.7 F 53 L 20 141/78 96 12/29/18 00:41 97.9 F 61 20 153/77 95 12/28/18 22:06 97 12/28/18 22:00 98 F 66 20 160/86 96 12/28/18 20:21 59 L 106/86 12/28/18 20:00 98 F 66 20 160/86 96 12/28/18 17:29 98.1 F 90 20 195/100 95 General Appearance: no apparent distress, alert Neurologic Exam: alert, oriented x 3, cooperative, normal mood/affect, nml cerebellar function, nml station & gait, sensation nml, No motor deficits Eye Exam: PERRL/EOMI, eyes nml inspection Ears, Nose, Throat Exam: normal ENT inspection, TMs normal, pharynx normal, moist mucous membranes Neck Exam: normal inspection, non-tender, supple, full range of motion Respiratory Exam: normal breath sounds, lungs clear, No respiratory distress Cardiovascular Exam: regular rate/rhythm, normal heart sounds, normal peripheral pulses Gastrointestinal/Abdomen Exam: soft, normal bowel sounds, No tenderness, No mass Back Exam: normal inspection, normal range of motion, No CVA tenderness, No vertebral tenderness Extremity Exam: normal inspection, normal range of motion, pelvis stable Skin Exam: normal color, warm, dry, No rash Lymphatic Exam: No adenopathy Results - Labs Lab/Micro Results: Accuchecks Date 12/29/18 Date 12/28/18 Time 07:47 Time 22:00 Accucheck Value: 238 Accucheck Value: 278 Lab Results-Last 24 Hours 12/28/18 12/28/18 12/28/18 Range/Units 17:45 22:05 23:55 Troponin I < 0.012 < 0.012 < 0.012 (0.000-0.034) ng/mL Triglycerides (30-150) mg/dL Cholesterol (50-200) mg/dL LDL Cholesterol (30-100) mg/dL HDL Cholesterol (40-60) mg/dL Heart Disease Risk Ratio 12/29/18 12/29/18 Range/Units 05:55 05:55 Troponin I < 0.012 (0.000-0.034) ng/mL Triglycerides 201 H (30-150) mg/dL Cholesterol 177 (50-200) mg/dL LDL Cholesterol 118 H (30-100) mg/dL HDL Cholesterol 39 L (40-60) mg/dL Heart Disease Risk Ratio 4.6 Accuchecks Date 12/29/18 Date 12/28/18 Time 07:47 Time 22:00 Accucheck Value: 238 Accucheck Value: 278 - Other Procedures and Tests Respiratory Therapy 12/28/18 20:04 Oxygen Nasal Cannula 2 lpm 12/29/18 06:49 Respiratory Therapy Assessment DAILY 12/30/18 05:00 EKG ONCE Assessment/Plan (1) Chest pain Current Visit: Yes Status: Acute Qualifiers: Chest pain type: chest pain on breathing Qualified Code(s): R07.1 - Chest pain on breathing; R07.81 - Pleurodynia Code(s): R07.9 - CHEST PAIN, UNSPECIFIED (2) DM (diabetes mellitus) Current Visit: Yes Status: Chronic Qualifiers: Diabetes mellitus type: type 2 Diabetes mellitus complication status: with unspecified complications Code(s): E11.9 - TYPE 2 DIABETES MELLITUS WITHOUT COMPLICATIONS (3) Hypertension Current Visit: No Status: Chronic Qualifiers: Hypertension type: essential hypertension Qualified Code(s): I10 - Essential (primary) hypertension Code(s): I10 - ESSENTIAL (PRIMARY) HYPERTENSION Hospital Summary - Vitals & Intake/Output Vital Signs: Vital Signs Temperature 98.4 F 12/29/18 07:35 Pulse Rate 67 12/29/18 07:35 Respiratory Rate 18 12/29/18 07:35 Blood Pressure 141/61 12/29/18 07:35 O2 Sat by Pulse Oximetry 96 12/29/18 07:35 Intake & Output: Intake & Output 12/26/18 12/27/18 12/28/18 12/29/18 11:59 11:59 11:59 11:59 Intake Total 1327 Balance 1327 Weight 102.7 kg - Lab Lab Results-Last 24 Hrs: Accuchecks 12/29/1812/28/18 Time 07:47 Time 22:00 Accucheck Value: 238 Accucheck Value: 278 Lab Results-Last 24 Hours 12/28/18 12/28/18 12/28/18 Range/Units 17:45 22:05 23:55 Troponin I < 0.012 < 0.012 < 0.012 (0.000-0.034) ng/mL Triglycerides (30-150) mg/dL Cholesterol (50-200) mg/dL LDL Cholesterol (30-100) mg/dL HDL Cholesterol (40-60) mg/dL Heart Disease Risk Ratio 12/29/18 12/29/18 Range/Units 05:55 05:55 Troponin I < 0.012 (0.000-0.034) ng/mL Triglycerides 201 H (30-150) mg/dL Cholesterol 177 (50-200) mg/dL LDL Cholesterol 118 H (30-100) mg/dL HDL Cholesterol 39 L (40-60) mg/dL Heart Disease Risk Ratio 4.6 Micro Results-Entire Visit: Accuchecks Date 12/29/1812/28/18 Time 07:47 Time 22:00 Accucheck Value: 238 Accucheck Value: 278 - Procedures and Test Procedures and Tests throughout Hospitalization: Therapy Orders & Screens 12/28/18 17:45 EKG Q8HX2,QAMX3,PRN Comment: Diagnosis: CHEST PAIN 12/28/18 19:15 EKG ONCE Comment: Diagnosis: STRESS INDUCED CHEST WALL PAIN 12/28/18 20:04 Oxygen Nasal Cannula 2 lpm Comment: Diagnosis: STRESS INDUCED CHEST WALL PAIN 12/29/18 03:00 EKG ONCE Comment: Diagnosis: STRESS INDUCED CHEST WALL PAIN 12/29/18 06:49 Respiratory Therapy Assessment DAILY Comment: Diagnosis: STRESS INDUCED CHEST WALL PAIN 12/30/18 05:00 EKG ONCE Comment: Diagnosis: STRESS INDUCED CHEST WALL PAIN - Discharge Disposition: Home, Self-Care Condition: Stable Prescriptions: No Action Omeprazole 20 MG [Prilosec 20 mg] 20 mg PO BID Amlodipine Besylate 5 mg [Norvasc 5 mg] 5 mg PO DAILY Carvedilol 12.5 mg [Coreg 12.5 mg] 12.5 mg PO BID #0 tablet Montelukast Sodium [Singulair] 10 mg PO DAILY Propranolol HCl [Inderal LA] 60 mg PO DAILY glipiZIDE [Glipizide] 1 tab PO DAILY Dulaglutide [Trulicity] 0.75 mg SQ WEEKLY Follow up with: JANESSA WEBSTER MD [Primary Care Provider] - 1 Week
[2018-12-29] MEDS ORDERED: MORPHINE SULFATE 4 MG INJ IV ONE (10:00)
[2018-12-29] MEDS ORDERED: TORAdol 30 mg Injection IV ONE (10:00)
[2018-12-29] MEDS ORDERED: NON-FORMULARY ITEM (Omeprazole 20 Mg [Prilosec 20 Mg] 20 MG) PO SCH (10:00)
[2018-12-29] MEDS: COREG 12.5 MG PO SCH ×2 (10:04→21:41)
[2018-12-29] MEDS: Singulair 10 MG PO SCH (10:04)
[2018-12-29] MEDS: NORVASC 5 MG PO SCH (10:04)
[2018-12-29] MEDS: PLAVIX 75 MG Tablet PO SCH (10:04)
[2018-12-29] MEDS: PROPRANOLOL HCL 60 MG PO SCH (10:05)
[2018-12-29] MEDS: Protonix 40MG Tablet PO SCH ×2 (10:05→21:41)
[2018-12-29] MEDS: TYLENOL 325 MG PO PRN (13:08)
[2018-12-29] MEDS: Sodium Chloride 0.9% 1000 ML 1,000 ML IV SCH (15:22)
[2018-12-29] MEDS ORDERED: NovoLOG Insulin SQ PRN (17:22)
[2018-12-30 04:47] VITALS: O2SAT 98
[2018-12-30] MEDS: Glucotrol 5 MG PO SCH (07:47)
[2018-12-30 08:13] VITALS: BP 121/68; PULSE 56
[2018-12-30] MEDS: COREG 12.5 MG PO SCH (08:50)
[2018-12-30] MEDS: Protonix 40MG Tablet PO SCH (08:51)
[2018-12-30] MEDS: NORVASC 5 MG PO SCH (08:51)
[2018-12-30] MEDS: PLAVIX 75 MG Tablet PO SCH (08:51)
[2018-12-30] MEDS: PROPRANOLOL HCL 60 MG PO SCH (08:51)
[2018-12-30] MEDS: Singulair 10 MG PO SCH (08:51)
== END 2018-12-30 09:59 | disposition home or self-care (01) ==
LOC: MED SURG 17:14
PROVIDERS: ADMIT General Practice; ATTEND General Practice
DX: R07.9 Chest pain, unspecified (principal); E11.9 Type 2 diabetes mellitus without complications; I10 Essential (primary) hypertension; Z79.899 Other long term (current) drug therapy
CPT/HCPCS: 36415; 80061; 82962; 83036; 83721; 84484; 93005; 93268; 94762; G0378; J1885; J2060; J2270; J2405; A9270-GY

== ENCOUNTER 2019-02-15 07:52 | Emergency (ER) | payer OTHER ==
[2019-02-15] MEDS ORDERED: Sodium Chloride 0.9% 1000 ML 1,000 ML IV STA (08:13)
[2019-02-15] MEDS ORDERED: Zofran 4 MG/2 ML VIAL IV ONE (08:13)
[2019-02-15 08:36] LABS: BASOPHIL % 0.7 % (0.0-0.4); Basophil (Absolute #) 0.05 (0-0.4); Eosinophil % 3.1 % (0.00-5.0); Eosinophil (Absolute #) 0.21 (0-0.5); Granulocyte Absolute (ANC) 4.44 (1.4-6.9); Granulocytes % 65.4 % (36.0-66.0); Hemoglobin 14.9 gm/dl (12.0-16.0); Lymphocyte (Absolute #) 1.55 (1.0-4.6); Lymphocytes % 22.8 % (24.0-44.0); Mean Cell Volume 77.6 fl (78-100); Mean Corpuscular Hgb Concent. 33.9 g/dl (32-36); Mean Platelet Volume 10.1 fl (6-9.5); Monocyte (Absolute #) 0.54 (0.0-1.3); Platelet Count 249 K/mm3 (150-450); Red Blood Count 5.67 M/mm3 (4.1-5.4); Red Cell Distribution Width 14.4 % (11.5-14.0); White Blood Count 6.8 K/mm3 (4.0-10.5)
[2019-02-15 08:38] LABS: Mean Corpuscular Hemoglobin 26.2 pg (26-32)
[2019-02-15] MEDS ORDERED: Zofran 4 MG/2 ML VIAL ONE (08:42)
[2019-02-15] MEDS ORDERED: Sodium Chloride 0.9% 1000 ML 1,000 ML ONE (08:42)
[2019-02-15 08:49] LABS: ALBUMIN 3.9 g/dL (3.5-5.0); ALKALINE PHOSPHATASE 94 U/L (38-126); ANION GAP 15.3 MEQ/L (5-15); BLOOD UREA NITROGEN 10 mg/dL (7-17); CHLORIDE 102 mmol/L (98-107); Calcium 9.1 mg/dL (8.4-10.2); Carbon Dioxide 24 mmol/L (22-30); Creatinine 1 0.61 mg/dL (0.52-1.04); Glucose 276 mg/dL (74-106); LIPASE 101 U/L (23-300); SGOT/AST 41 U/L (14-36); SGPT/ALT 37 U/L (0-35); SODIUM 137 mmol/L (137-145); Total Protein 7.9 g/dL (6.3-8.2)
[2019-02-15 08:58] LABS: Appearance CLOUDY (CLEAR); Bilirubin NEGATIVE (NEGATIVE); Blood NEGATIVE Ery/ul (0-5); Epithelial Cells MODERATE /HPF (FEW); Glucose >=500 mg/dL (NEGATIVE); Ketones TRACE (NEGATIVE); Leukocyte Esterase NEGATIVE (NEGATIVE); Mucus SLIGHT /HPF (NEGATIVE); Nitrite NEGATIVE (NEGATIVE); Protein,Urine Dip NEGATIVE (Negative); Specific Gravity 1.025 (1.005-1.025); Urobilinogen NEGATIVE mg/dL (0-1)
[2019-02-15] MEDS ORDERED: NovoLOG Insulin SQ ONE (08:58)
--- NOTE | 2019-02-15 10:21 | XRAY ---
Indication: Abdomen pain. Multiple contiguous axial images obtained through the abdomen and pelvis using 80 cc Isovue 370 contrast only. Comparison: July 21, 2015. Lung bases remain clear. Heart is not enlarged. Noncontrasted stomach and bowel loops appear nonobstructed. Again normal appendix, cholecystectomy, and fatty liver. No free fluid/air. Spleen remains enlarged today measuring 14.8 cm in CC dimension. Remaining liver, pancreas, spleen, adrenal glands, kidneys, ureters, bladder, uterus, and aorta appear unremarkable. No pathologic retroperitoneal lymphadenopathy. Osseous structures intact again with L5-S1 degenerative disc disease. Stable small fatty umbilical hernia. Impression: 1. Stable fatty liver, splenomegaly, and fatty umbilical hernia. 2. No new or acute intra-abdominal/pelvic abnormalities. CT DI 23.62
--- NOTE | 2019-02-15 10:55 | ERPHSYRPT ---
- History of Present Illness Historian: patient Exam Limitations: no limitations Patient Subjective Stated Complaint: STATES HAVING MID ABD PAIN SINCE YESTERDAY MORNING. ALSO HAVING NAUSEA AND DIARRHEA. Triage Nursing Assessment: AMBULATED TO ROOM PER SELF HOLDING ABD. SKIN W/D, COLOR NORMAL, RESP EASY. ABD SOFT, TENDER. Physician History: Pt is a 48 y/o female that presented to the ER with abdominal pain. Pt states, had an episode of vomiting a couple of days ago, but no nausea or vomiting since. No F/C/S. No cough or SOB. No chest discomfort. The pain is mostly per umbilical. Timing/Duration: day(s) Activities at Onset: none Quality: cramping Abdominal Pain Onset Location: LLQ, periumbilical Pain Radiation: no radiation Severity of Pain-Max: moderate Severity of Pain-Current: moderate Modifying Factors: Improves With: analgesics Associated Symptoms: denies symptoms Allergies/Adverse Reactions: aspirin Allergy (Intermediate, Verified 02/15/19 08:17) Hives codeine [Codeine] Allergy (Verified 02/15/19 08:17) hydrocodone bitartrate [From Vicodin] Allergy (Verified 02/15/19 08:17) morphine Allergy (Verified 02/15/19 08:17) Penicillins Allergy (Verified 02/15/19 08:17) propoxyphene HCl [From Darvon] Allergy (Verified 02/15/19 08:17) Home Medications: Amlodipine Besylate 5 mg [Norvasc 5 mg] 5 mg PO DAILY 10/25/14 [History] Omeprazole 20 MG [Prilosec 20 mg] 20 mg PO BID 10/25/14 [History] Montelukast Sodium [Singulair] 10 mg PO DAILY 07/17/15 [History] Propranolol HCl [Inderal LA] 60 mg PO DAILY 12/22/16 [History] glipiZIDE [Glipizide] 1 tab PO DAILY 10/17/17 [History] Dulaglutide [Trulicity] 0.75 mg SQ WEEKLY 12/28/18 [History] Hx Tetanus, Diphtheria Vaccination/Date Given: Yes Hx Influenza Vaccination/Date Given: Yes Hx Pneumococcal Vaccination/Date Given: Yes Immunizations Up to Date: Yes - Review of Systems Constitutional: No Fever, No Chills Eyes: No Symptoms Ears, Nose, & Throat: No Symptoms Respiratory: No Cough, No Dyspnea Cardiac: No Chest Pain, No Edema, No Syncope Abdominal/Gastrointestinal: Abdominal Pain, Nausea Genitourinary Symptoms: No Dysuria Musculoskeletal: No Back Pain, No Neck Pain Neurological: No Dizziness, No Focal Weakness, No Sensory Changes - Past Medical History Pertinent Past Medical History: Yes Neurological History: Migraines ENT History: No Pertinent History Cardiac History: Hypertension Respiratory History: Asthma Endocrine Medical History: Diabetes Type II Musculoskeletal History: No Pertinent History GI Medical History: No Pertinent History History: No Pertinent History Psycho-Social History: No Pertinent History Female Reproductive Disorders: No Pertinent History - Past Surgical History Past Surgical History: No Neuro Surgical History: No Pertinent History Cardiac: No Pertinent History Respiratory: No Pertinent History Gastrointestinal: Cholecystectomy Genitourinary: No Pertinent History Musculoskeletal: No Pertinent History Female Surgical History: No Pertinent History Other Surgical History: 2004 gallbladder, bellybutton repair, d/c X1, 3 cysts - Social History Smoking Status: Never smoker Exposure to second hand smoke: No Alcohol Use: None Drug Use: none Patient Lives Alone: No Significant Family History: no pertinent family hx - Female History Hx Now: No - Nursing Vital Signs Nursing Vital Signs: Initial Vital Signs Temperature 97.7 F 02/15/19 08:10 Pulse Rate 60 02/15/19 08:10 Respiratory Rate 16 02/15/19 08:10 Blood Pressure 186/107 02/15/19 08:10 O2 Sat by Pulse Oximetry 95 02/15/19 08:10 Pain Scale Pain Intensity 8 - Physical Exam General Appearance: mild distress Eye Exam: PERRL/EOMI, eyes nml inspection Ears, Nose, Throat Exam: normal ENT inspection, pharynx normal, moist mucous membranes Neck Exam: normal inspection, non-tender, supple, full range of motion Respiratory Exam: normal breath sounds, lungs clear, No respiratory distress Cardiovascular Exam: regular rate/rhythm, normal heart sounds Gastrointestinal/Abdomen Exam: tenderness ([place] umbilical and LLQ) Back Exam: normal inspection, normal range of motion, No CVA tenderness, No vertebral tenderness Extremity Exam: normal inspection, normal range of motion, pelvis stable Neurologic Exam: alert, oriented x 3, cooperative, normal mood/affect, nml cerebellar function, sensation nml, No motor deficits SpO2: 98 - Course Nursing assessment & vital signs reviewed: Yes - CT Exams Abdomen/Pelvis CT Interpretation: Negative (Stable fatty liver. Fattu umbilical hernia. No new or acute intra abdominal/pelvic abnormalities.) Ordered Tests: Active Orders 24 hr Category Date Time Status ABDOMEN AND PELVIS W CONTRAST [CT] Stat Exams 02/15/19 08:14 Completed CBC W DIFF Stat Lab 02/15/19 08:31 Completed CMP Stat Lab 02/15/19 08:31 Completed LIPASE Stat Lab 02/15/19 08:31 Completed UA W/RFX UR CULTURE Stat Lab 02/15/19 08:43 Completed Medication Summary Discontinued Medications Generic Name Dose Route Start Last Admin Trade Name Freq PRN Reason Stop Dose Admin Sodium Chloride 1,000 mls @ 999 mls/hr 02/15/19 08:13 02/15/19 08:45 Sodium Chloride 0.9% 1000 Ml IV 02/15/19 09:13 999 mls/hr .Q1H1M STA Administration Sodium Chloride Confirm 02/15/19 08:42 Sodium Chloride 0.9% 1000 Ml Administered 02/15/19 08:43 Dose 1,000 mls @ ud .ROUTE .STK-MED ONE Insulin Aspart 4 unit 02/15/19 08:58 02/15/19 09:11 Novolog Insulin SQ 02/15/19 08:59 4 unit STAT ONE Administration Ondansetron HCl 4 mg 02/15/19 08:13 02/15/19 08:45 Zofran 4 Mg/2 Ml Vial IV 02/15/19 08:14 4 mg STAT ONE Administration Ondansetron HCl Confirm 02/15/19 08:42 Zofran 4 Mg/2 Ml Vial Administered 02/15/19 08:43 Dose 4 mg .ROUTE .STK-MED ONE Lab/Rad Data: Laboratory Result Diagrams 02/15/19 08:31 02/15/19 08:31 Laboratory Results 02/15/19 02/15/19 02/15/19 Range/Units 08:43 08:31 08:31 WBC 6.8 (4.0-10.5) K/mm3 RBC 5.67 H (4.1-5.4) M/mm3 Hgb 14.9 (12.0-16.0) gm/dl Hct 44.0 (35-47) % MCV 77.6 L (78-100) fl MCH 26.2 (26-32) pg MCHC 33.9 (32-36) g/dl RDW 14.4 H (11.5-14.0) % Plt Count 249 (150-450) K/mm3 MPV 10.1 H (6-9.5) fl Gran % 65.4 (36.0-66.0) % Eos # (Auto) 0.21 (0-0.5) Absolute Lymphs (auto) 1.55 (1.0-4.6) Absolute Monos (auto) 0.54 (0.0-1.3) Lymphocytes % 22.8 L (24.0-44.0) % Monocytes % 8.0 (0.0-12.0) % Eosinophils % 3.1 (0.00-5.0) % Basophils % 0.7 (0.0-0.4) % Absolute Granulocytes 4.44 (1.4-6.9) Basophils # 0.05 (0-0.4) Sodium 137 (137-145) mmol/L Potassium 4.0 (3.5-5.1) mmol/L Chloride 102 (98-107) mmol/L Carbon Dioxide 24 (22-30) mmol/L Anion Gap 15.3 H (5-15) MEQ/L BUN 10 (7-17) mg/dL Creatinine 0.61 (0.52-1.04) mg/dL Estimated GFR > 60.0 ML/MIN Glucose 276 H (74-106) mg/dL Calcium 9.1 (8.4-10.2) mg/dL Total Bilirubin 0.40 (0.2-1.3) mg/dL AST 41 H (14-36) U/L ALT 37 H (0-35) U/L Alkaline Phosphatase 94 (38-126) U/L Serum Total Protein 7.9 (6.3-8.2) g/dL Albumin 3.9 (3.5-5.0) g/dL Lipase 101 (23-300) U/L Urine Color YELLOW (YELLOW) Urine Appearance CLOUDY (CLEAR) Urine pH 5.0 (5-6) Ur Specific [place] 1.025 (1.005-1.025) Urine Protein NEGATIVE (Negative) Urine Ketones TRACE (NEGATIVE) Urine Blood NEGATIVE (0-5) Jack/ul Urine Nitrite NEGATIVE (NEGATIVE) Urine Bilirubin NEGATIVE (NEGATIVE) Urine Urobilinogen NEGATIVE (0-1) mg/dL Ur Leukocyte Esterase NEGATIVE (NEGATIVE) Urine WBC (Auto) 3-5 (0-5) /HPF Urine RBC (Auto) NONE (0-2) /HPF U Epithel Cells (Auto) MODERATE (FEW) /HPF Urine Bacteria (Auto) NONE (NEGATIVE) /HPF Urine Mucus (Auto) SLIGHT (NEGATIVE) /HPF Urine Culture Reflexed NO (NO) Urine Glucose >=500 (NEGATIVE) mg/dL - Progress Progress: unchanged Progress Note: 02/15/19 10:57 Pt was seen and examined. Lab work showed elevated BG that was treated with Humalog and mild transaminitis, might be secondary to fatty liver dsx. CT did not show any acute pathology. UA was clear and no elevated WBCs. Pt is cleared for d/c, and should f/u with her PCP. Discussed with : Tate Will see patient in: office Counseled pt/family regarding: need for follow-up - Departure Departure Disposition: Home Clinical Impression: Abdominal pain Condition: Stable Critical Care Time: No Referrals: JANESSA WEBSTER MD [Primary Care Provider] - Additional Instructions: Pt should drink plenty of flud and f/u with her PCP this week.
[2019-02-15 11:08] VITALS: BP 157/89; PULSE 56; O2SAT 99
== END 2019-02-15 11:16 | disposition home or self-care (01) ==
LOC: ED 07:52
DX: R10.32 Left lower quadrant pain (principal); Z79.899 Other long term (current) drug therapy; E11.9 Type 2 diabetes mellitus without complications
CPT/HCPCS: 36415; 74177; 80053; 81001; 83690; 85025; 96360; 96372; 96374; 99284; J2405; A9270-GY

== ENCOUNTER 2019-07-15 17:11 | Observation (INO) | payer OTHER, SELFPAY ==
--- NOTE | 2019-07-15 17:16 | ERPHSYRPT ---
- History of Present Illness Time Seen by Provider: 07/15/19 17:13 Source: patient, family, old records Exam Limitations: no limitations Physician History: PT IS A 48 Y/O HTN, DM, MORBIDLY OBESE FEMALE PRESENTS C/O 2 DAYS OF EXERTIONAL CHEST PAIN THAT IS WORSE WITH EXERTION, SOMEWHAT BUT NOT TOTALLY RELIEVED WITH REST, LASTS 1-2 HOURS, RADIATES TO LUE AND LEFT JAW AND IS ACCOMPANIED BY DYSPNEA AND NAUSEA NO DIAPHORESIS. NO FEVER/CHILLS/PND/ORTHOP/LE ASYM/LONG TRIPS. NO SPICY/GREASY. NO COUGH COLD. NO PRIOR CATH HAS HAD STRESS TEST NEG IN LAST 5 YRS. NO DYSURIA/HEMATURIA/MELENA. FHX + CAD < 65 MOM , GP 50. TOOK 2 NTG SL WITHOUT RELIEF CURRENTLY 8 PMHX HTN DM PSHX REVIEWED MEDS REVIEWED ALL ASA = DYSPNEA DENIES TOB/ETOH/ILLICITS FHX ABOVE Allergies/Adverse Reactions: aspirin Allergy (Intermediate, Verified 07/15/19 17:23) Hives codeine [Codeine] Allergy (Verified 07/15/19 17:23) hydrocodone bitartrate [From Vicodin] Allergy (Verified 07/15/19 17:23) morphine Allergy (Verified 07/15/19 17:23) Penicillins Allergy (Verified 07/15/19 17:23) propoxyphene HCl [From Darvon] Allergy (Verified 07/15/19 17:23) Home Medications: Amlodipine Besylate 5 mg [Norvasc 5 mg] 5 mg PO DAILY 10/25/14 [History] Omeprazole 20 MG [Prilosec 20 mg] 20 mg PO BID 10/25/14 [History] Montelukast Sodium [Singulair] 10 mg PO DAILY 07/17/15 [History] Propranolol HCl [Inderal LA] 60 mg PO DAILY 12/22/16 [History] glipiZIDE [Glipizide] 1 tab PO DAILY 10/17/17 [History] Dulaglutide [Trulicity] 0.75 mg SQ WEEKLY 12/28/18 [History] Hx Tetanus, Diphtheria Vaccination/Date Given: Yes Hx Influenza Vaccination/Date Given: Yes Hx Pneumococcal Vaccination/Date Given: Yes - Review of Systems Constitutional: No Symptoms, No Fever, No Chills, No Fatigue, No Lethargy, No Malaise, No Night Sweats, No Weakness, No Weight Loss Eyes: No Symptoms, No Discharge, No Eye Pain, No Eye Redness, No Itchy, No Photophobia, No Tearing, No Vision Changes, No Double Vision, No Foreign Body Sensation Ears, Nose, & Throat: No Symptoms, No Ear Pain, No Ear Discharge, No Hearing Changes, No Tinnitus, No Nose Congestion, No Nose Discharge, No Epistaxis, No Mouth Pain, No Mouth Swelling, No Throat Pain, No Throat Swelling, No Hoarse, No Painful Swallowing, No Stridor Respiratory: No Symptoms, No Cough, No Cyanosis, No Dyspnea, No Dyspnea on Exertion (WONG), No Stridor, No Wheezing Cardiac: No Symptoms, Chest Pain, No Edema, No Palpitations, No Syncope, No Orthopnea Abdominal/Gastrointestinal: No Symptoms, No Abdominal Pain, No Nausea, No Vomiting, No Diarrhea, No Constipation, No Hematemesis, No Hematochezia, No Melena, No Dysphagia, No Appetite Changes Genitourinary Symptoms: No Symptoms, No Dysuria, No Frequency, No Hematuria, No Hesitancy, No Incontinence, No Urgency, No Urinary Retention, No Flank Pain, No Menorrhagia, No , No Vaginal Bleeding, No Vaginal Discharge Musculoskeletal: No Symptoms, No Arthralgias, No Back Pain, No Neck Pain, No Deformity, No Fall, No Injury, No Joint Redness, No Joint Pain, No Joint Swelling, No Myalgias Skin: No Symptoms, No Cellulitis, No Decubiti, No Induration, No Pruritis, No Rash, No Skin Lesions, No Dryness Neurological: No Symptoms, No Dizziness, No Focal Weakness, No Gait Changes, No Headache, No Irritability, No Lethargy, No Paralysis, No Parasthesia, No Seizure , No Sensory Changes, No Speech Changes, No Tics, No Tremors, No Vertigo Psychological: No Symptoms, No Alcohol Abuse, No Drug Abuse, No Anxiety, No Depression, No Suicidal Ideations, No Homicidal Ideations, No Emotional Lability , No Hallucinations, No Memory Loss, No Mood Changes Endocrine: No Symptoms, No Polyuria, No Polydipsia, No Hair Changes, No Cold Intolerance, No Excessive Sweating, No Goiter Hematologic/Lymphatic: No Symptoms, No Anemia, No Blood Clots, No Easy Bleeding , No Gum Bleeding, No Easy Bruising, No Adenopathy Immunological/Allergic: No Symptoms All Other Systems: Reviewed and Negative - Past Medical History Pertinent Past Medical History: Yes Neurological History: Migraines ENT History: No Pertinent History Cardiac History: Hypertension Respiratory History: Asthma Endocrine Medical History: Diabetes Type II Musculoskeletal History: No Pertinent History GI Medical History: No Pertinent History History: No Pertinent History Psycho-Social History: No Pertinent History Female Reproductive Disorders: No Pertinent History - Past Surgical History Past Surgical History: No Neuro Surgical History: No Pertinent History Cardiac: No Pertinent History Respiratory: No Pertinent History Gastrointestinal: Cholecystectomy Genitourinary: No Pertinent History Musculoskeletal: No Pertinent History Female Surgical History: No Pertinent History Other Surgical History: 2004 gallbladder, bellybutton repair, d/c X1, 3 cysts - Social History Smoking Status: Never smoker Exposure to second hand smoke: No Alcohol Use: None Drug Use: none Patient Lives Alone: No Significant Family History: no pertinent family hx - Nursing Vital Signs Nursing Vital Signs: Initial Vital Signs Temperature 98.3 F 07/15/19 17:15 Pulse Rate 58 L 07/15/19 17:15 Respiratory Rate 20 07/15/19 17:15 Blood Pressure 169/108 07/15/19 17:15 O2 Sat by Pulse Oximetry 98 07/15/19 17:15 Pain Scale Pain Intensity 8 - Physical Exam General Appearance: no apparent distress, alert Eye Exam: PERRL/EOMI, eyes nml inspection, other (fundi normal zohreh), No scleral icterus, No pale conjunctivae, No photophobia, No EOM palsy/anisocoria Ears, Nose, Throat Exam: normal ENT inspection, TMs normal, pharynx normal, TM abnormal (L), other (uvula midline, floor of mouth soft), No moist mucous membranes, No dry mucous membranes, No TM abnormal (R), No pharyngeal erythema, No tonsillar exudate Neck Exam: normal inspection, non-tender, supple, full range of motion, No meningismus, No mass, No Brudzinski, No Kernig's, No carotid bruit, No JVD, No limited range of motion, No lymphadenopathy, No midline tenderness, No thyromegaly Respiratory Exam: normal breath sounds, lungs clear, airway intact, No chest tenderness, No respiratory distress, No diminished breath sounds, No accessory muscle use, No prolonged expirations, No crackles/rales, No rhonchi, No wheezing , No stridor, No pleural rub Cardiovascular Exam: regular rate/rhythm, normal heart sounds, normal peripheral pulses, capillary refill <2 sec, No murmur, No friction rub, No gallop, No tachycardia, No bradycardia, No irregular, No capillary refill 2-3 sec, No capillary refill >3 sec, No edema, No pulse deficit Gastrointestinal/Abdomen Exam: soft, normal bowel sounds, No tenderness, No distention, No mass, No guarding, No ecchymosis, No pulsatile mass, No rebound, No hernia, No hepatomegaly, No organomegaly, No splenomegaly, No bruit Pelvic Exam: normal external exam Rectal Exam: deferred Back Exam: normal inspection, normal range of motion, other (neg slr zohreh, no sacral anesthesia, dtr 2/4 zohreh patella), No CVA tenderness, No vertebral tenderness, No rash, No decreased range of motion, No muscle spasm, No point tenderness Extremity Exam: normal inspection, normal range of motion, pelvis stable, No amputations, No contusions, No calf tenderness, No deformities, No lacerations, No parasthesia, No paralysis, No inflammation, No joint swelling, No limited range of motion, No pedal edema, No swelling, No tenderness Neurologic Exam: alert, oriented x 3, cooperative, 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 tested, normal mood/affect, nml cerebellar function, nml station & gait, sensation nml, No motor deficits, No sensory deficit, No disoriented, No confusion, No agitation, No uncooperative, No intoxicated appearance, No depressed mood/affect , No motor weakness, No facial droop, No slurred speech, No aphasia, No dysarthria, No abnormal gait, No abnormal cerebellar tests, No abnormal 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 apprentice II- XII, No EOM palsy Skin Exam: normal color, warm, dry, No rash, No petechiae, No jaundice, No abrasion, No cyanosis, No diaphoresis, No decubitus, No embolic lesions, No ecchymosis, No jaundice, No laceration, No mottled, No pale Lymphatic Exam: No adenopathy SpO2 Interpretation: normal O2 Delivery: Room Air - Course Nursing assessment & vital signs reviewed: Yes EKG Interpreted by Me: RATE, Sinus Rhythm, NORMAL AXIS, NORMAL INTERVALS, NORMAL QRS, NORMAL ST-T Ordered Tests: Active Orders 24 hr Category Date Time Status Planner Scheduler STAT Care 07/15/19 17:15 Active Clean Catch Urine Specimen STAT Care 07/15/19 18:19 Ordered EKG-ER Only STAT Care 07/15/19 17:14 Active IV Insertion STAT Care 07/15/19 17:14 Active Oxygen-ED Only Nasal Cannula 2 lpm Care 07/15/19 17:14 Active Pulse Oximetry (ED) STAT Care 07/15/19 17:14 Active CHEST 2 VIEWS (PA AND LAT) Stat Exams 07/15/19 17:14 Taken CBC W DIFF Stat Lab 07/15/19 17:30 Completed CMP Stat Lab 07/15/19 17:30 Completed HCG QUALITATIVE,SERUM Stat Lab 07/15/19 17:30 Completed LIPASE Stat Lab 07/15/19 17:30 Completed NT PRO BNP Stat Lab 07/15/19 17:30 Completed TROPONIN Q3H Lab 07/15/19 17:30 Completed TROPONIN Q3H Lab 07/15/19 20:15 Ordered TROPONIN Q3H Lab 07/15/19 23:15 Ordered TROPONIN Q3H Lab 07/16/19 02:15 Ordered TROPONIN Q3H Lab 07/16/19 05:15 Ordered UA W/RFX UR CULTURE Stat Lab 07/15/19 17:14 Ordered Urine Triage Profile Stat Lab 07/15/19 Uncollected Medication Summary Discontinued Medications Generic Name Dose Route Start Last Admin Trade Name Freq PRN Reason Stop Dose Admin Morphine Sulfate 4 mg 07/15/19 17:29 07/15/19 17:32 Morphine Sulfate 4 Mg Inj IV 07/15/19 17:30 Not Given STAT ONE Nitroglycerin 0.4 mg 07/15/19 17:27 07/15/19 17:37 Nitrostat 0.4 Mg (Ed) SL 07/15/19 17:28 0.4 mg STAT ONE Administration Nitroglycerin Confirm 07/15/19 17:34 Nitrostat 0.4 Mg (Ed) Administered 07/15/19 17:35 Dose 0.4 mg SL .STK-MED ONE Ondansetron HCl 4 mg 07/15/19 17:29 07/15/19 17:36 Zofran 4 Mg/2 Ml Vial IV 07/15/19 17:30 4 mg STAT ONE Administration Ondansetron HCl Confirm 07/15/19 17:34 Zofran 4 Mg/2 Ml Vial Administered 07/15/19 17:35 Dose 4 mg .ROUTE .STK-MED ONE Lab/Rad Data: Laboratory Result Diagrams 07/15/19 17:30 07/15/19 17:30 Laboratory Results 07/15/19 07/15/19 07/15/19 Range/Units 17:30 17:30 17:30 WBC (4.0-10.5) K/mm3 RBC (4.1-5.4) M/mm3 Hgb (12.0-16.0) gm/dl Hct (35-47) % MCV (78-100) fl MCH (26-32) pg MCHC (32-36) g/dl RDW (11.5-14.0) % Plt Count (150-450) K/mm3 MPV (6-9.5) fl Gran % (36.0-66.0) % Eos # (Auto) (0-0.5) Absolute Lymphs (auto) (1.0-4.6) Absolute Monos (auto) (0.0-1.3) Lymphocytes % (24.0-44.0) % Monocytes % (0.0-12.0) % Eosinophils % (0.00-5.0) % Basophils % (0.0-0.4) % Absolute Granulocytes (1.4-6.9) Basophils # (0-0.4) Sodium 140 (137-145) mmol/L Potassium 4.2 (3.5-5.1) mmol/L Chloride 105 (98-107) mmol/L Carbon Dioxide 22 (22-30) mmol/L Anion Gap 17.4 H (5-15) MEQ/L BUN 10 (7-17) mg/dL Creatinine 0.57 (0.52-1.04) mg/dL Estimated GFR > 60.0 ML/MIN Glucose 116 H (74-106) mg/dL Calcium 9.6 (8.4-10.2) mg/dL Total Bilirubin 0.50 (0.2-1.3) mg/dL AST 49 H (14-36) U/L ALT 48 H (0-35) U/L Alkaline Phosphatase 91 (38-126) U/L Troponin I < 0.012 (0.000-0.034) ng/mL NT-Pro-B Natriuret Pep 43.5 (0-450) pg/mL Serum Total Protein 8.7 H (6.3-8.2) g/dL Albumin 4.4 (3.5-5.0) g/dL Lipase 131 (23-300) U/L Serum , Qual NEGATIVE (Negative) 07/15/19 Range/Units 17:30 WBC 8.9 (4.0-10.5) K/mm3 RBC 6.00 H (4.1-5.4) M/mm3 Hgb 15.8 (12.0-16.0) gm/dl Hct 46.8 (35-47) % MCV 78.0 (78-100) fl MCH 26.3 (26-32) pg MCHC 33.8 (32-36) g/dl RDW 14.7 H (11.5-14.0) % Plt Count 274 (150-450) K/mm3 MPV 10.4 H (6-9.5) fl Gran % 61.5 (36.0-66.0) % Eos # (Auto) 0.32 (0-0.5) Absolute Lymphs (auto) 2.31 (1.0-4.6) Absolute Monos (auto) 0.74 (0.0-1.3) Lymphocytes % 25.8 (24.0-44.0) % Monocytes % 8.3 (0.0-12.0) % Eosinophils % 3.6 (0.00-5.0) % Basophils % 0.8 (0.0-0.4) % Absolute Granulocytes 5.50 (1.4-6.9) Basophils # 0.07 (0-0.4) Sodium (137-145) mmol/L Potassium (3.5-5.1) mmol/L Chloride (98-107) mmol/L Carbon Dioxide (22-30) mmol/L Anion Gap (5-15) MEQ/L BUN (7-17) mg/dL Creatinine (0.52-1.04) mg/dL Estimated GFR ML/MIN Glucose (74-106) mg/dL Calcium (8.4-10.2) mg/dL Total Bilirubin (0.2-1.3) mg/dL AST (14-36) U/L ALT (0-35) U/L Alkaline Phosphatase (38-126) U/L Troponin I (0.000-0.034) ng/mL NT-Pro-B Natriuret Pep (0-450) pg/mL Serum Total Protein (6.3-8.2) g/dL Albumin (3.5-5.0) g/dL Lipase (23-300) U/L Serum , Qual (Negative) - Progress Progress: improved Progress Note: 07/15/19 17:25 HEART SCORE IS 5 07/15/19 17:51 PT STATES ONLY THING THAT TAKES AWAY HER PAIN IS DILAUDID OR NUBAIN. 07/15/19 18:21 CP IS 6/10 AFTER 3 NTG SL PT STATES ONLY PAIN CONTROL WILL BE DILAUDID WILL GIVE 1 TIME DOSE EKG UNREMARKABLE NEG INITIAL TROP IN FACE OF 48 HOURS OF NEVER COMPLETELY PAIN FREE DW DARIN, ACCEPTS ADMIT CARE ENDORSED PT WILL NEED A STRESS TEST DURING THIS ADMISSION Counseled pt/family regarding: drug and/or alcohol abuse, lab results, diagnosis , need for follow-up, rad results, smoking cessation - Departure Departure Disposition: Observation Clinical Impression: Chest pain Condition: Stable Critical Care Time: No Referrals: JANESSA WEBSTER MD [Primary Care Provider] -
[2019-07-15] MEDS ORDERED: Nitrostat 0.4 MG (ED) SL ONE ×2 (17:27→17:34)
[2019-07-15] MEDS ORDERED: MORPHINE SULFATE 4 MG INJ IV ONE (17:29)
[2019-07-15] MEDS ORDERED: Zofran 4 MG/2 ML VIAL IV ONE ×2 (17:29→19:08)
[2019-07-15] MEDS ORDERED: Zofran 4 MG/2 ML VIAL ONE ×2 (17:34→19:10)
[2019-07-15 17:47] LABS: BASOPHIL % 0.8 % (0.0-0.4); Basophil (Absolute #) 0.07 (0-0.4); Eosinophil % 3.6 % (0.00-5.0); Eosinophil (Absolute #) 0.32 (0-0.5); Hematocrit 46.8 % (35-47); Hemoglobin 15.8 gm/dl (12.0-16.0); Lymphocyte (Absolute #) 2.31 (1.0-4.6); Lymphocytes % 25.8 % (24.0-44.0); Mean Corpuscular Hemoglobin 26.3 pg (26-32); Mean Corpuscular Hgb Concent. 33.8 g/dl (32-36); Mean Platelet Volume 10.4 fl (6-9.5); Monocyte (Absolute #) 0.74 (0.0-1.3); Monocytes % 8.3 % (0.0-12.0); Neutrophil % 61.5 % (36.0-66.0); Platelet Count 274 K/mm3 (150-450); Red Cell Distribution Width 14.7 % (11.5-14.0); White Blood Count 8.9 K/mm3 (4.0-10.5)
[2019-07-15 18:02] LABS: ALBUMIN 4.4 g/dL (3.5-5.0); ALKALINE PHOSPHATASE 91 U/L (38-126); ANION GAP 17.4 MEQ/L (5-15); BLOOD UREA NITROGEN 10 mg/dL (7-17); CHLORIDE 105 mmol/L (98-107); Calcium 9.6 mg/dL (8.4-10.2); Carbon Dioxide 22 mmol/L (22-30); Creatinine 1 0.57 mg/dL (0.52-1.04); Glucose 116 mg/dL (74-106); LIPASE 131 U/L (23-300); NT PRO BNP 43.5 pg/mL (0-450); Potassium 4.2 mmol/L (3.5-5.1); SGOT/AST 49 U/L (14-36); SGPT/ALT 48 U/L (0-35); SODIUM 140 mmol/L (137-145); Total Protein 8.7 g/dL (6.3-8.2)
[2019-07-15] MEDS ORDERED: DILAUDID 2 MG INJECTION IV STA (18:19)
[2019-07-15] MEDS ORDERED: Hydromorphone 1 mg/ml Ampule IV ONE (18:59)
[2019-07-15] MEDS ORDERED: Hydromorphone 1 mg/ml Ampule ONE (19:00)
[2019-07-15 19:42] LABS: Appearance CLEAR (CLEAR); Bacteria MODERATE /HPF (NEGATIVE); Bilirubin NEGATIVE (NEGATIVE); Blood SMALL Ery/ul (0-5); Epithelial Cells RARE /HPF (FEW); Glucose >=500 mg/dL (NEGATIVE); Ketones NEGATIVE (NEGATIVE); Leukocyte Esterase NEGATIVE (NEGATIVE); Mucus SLIGHT /HPF (NEGATIVE); Nitrite POSITIVE (NEGATIVE); Protein,Urine Dip NEGATIVE (Negative); RBC 0-2 /HPF (0-2); Specific Gravity 1.028 (1.005-1.025); Urobilinogen NEGATIVE mg/dL (0-1); WBC 0-2 /HPF (0-5)
[2019-07-15 19:45] LABS: Amphetamine,Urine NEGATIVE (NEGATIVE); Barbiturate,Urine NEGATIVE (NEGATIVE); Benzodiazepine,Urine NEGATIVE (NEGATIVE); Cocaine,Urine NEGATIVE (NEGATIVE); Methadone,Urine NEGATIVE (NEGATIVE); Opiate,Urine NEGATIVE (NEGATIVE); PCP,Urine NEGATIVE (NEGATIVE); THC,Urine NEGATIVE (NEGATIVE)
[2019-07-15] MEDS ORDERED: MILK OF MAGNESIA 30 ML PO PRN (20:11)
[2019-07-15] MEDS ORDERED: MAALOX ES 30 ML UNIT DOSE PO PRN (20:11)
[2019-07-15] MEDS ORDERED: Phenergan 25 MG INJ IV PRN (20:11)
[2019-07-15] MEDS ORDERED: Nitrostat 0.4 MG Tablet SL PRN (20:11)
[2019-07-15] MEDS ORDERED: Senokot-S Tablet PO PRN (20:11)
[2019-07-15] MEDS: TYLENOL 325 MG PO PRN (20:35)
[2019-07-15] MEDS ORDERED: NovoLOG Insulin SQ PRN (20:59)
[2019-07-15] MEDS ORDERED: DILAUDID 2 MG INJECTION IV PRN (21:01)
[2019-07-15] MEDS ORDERED: Naprosyn 500 MG ONE (21:12)
[2019-07-15] MEDS ORDERED: NAPROSYN 375 MG PO SCH (22:00)
[2019-07-15] MEDS: COREG 12.5 MG PO SCH (22:40)
[2019-07-15] MEDS: Protonix 40MG Tablet PO SCH (22:40)
[2019-07-15] MEDS ORDERED: Sodium Chloride 0.9% 10 ML FLUSH Syringe IV PRN (23:11)
[2019-07-15] MEDS: Zofran 4 MG/2 ML VIAL IV PRN (23:11)
[2019-07-16] MEDS: TYLENOL 325 MG PO PRN (04:59)
[2019-07-16 05:42] LABS: Risk Ratio 4.4
[2019-07-16] MEDS ORDERED: Sodium Chloride 0.9% 10 ML FLUSH Syringe IV SCH (06:00)
[2019-07-16] MEDS: Zofran 4 MG/2 ML VIAL IV PRN ×2 (07:38→12:10)
[2019-07-16] MEDS ORDERED: NAPROSYN 375 MG PO PRN (07:41)
[2019-07-16] MEDS ORDERED: Cyanocobalamin B-12 1000 MCG/ML SQ SCH (07:45)
[2019-07-16] MEDS ORDERED: MEDICATION INTERVENTION MC SCH (07:45)
--- NOTE | 2019-07-16 08:37 | XRAY ---
Indication: Chest pain and cough. Comparison: July 14, 2018. PA/lateral chest again demonstrates normal heart and lungs. Bony thorax intact. No new/acute findings.
[2019-07-16] MEDS: Protonix 40MG Tablet PO SCH (09:08)
[2019-07-16] MEDS: COREG 12.5 MG PO SCH (09:09)
[2019-07-16] MEDS ORDERED: PROTONIX 40 MG IV IV SCH (09:30)
[2019-07-16] MEDS ORDERED: METFORMIN HCL PO SCH (10:00)
[2019-07-16] MEDS ORDERED: NORVASC 5 MG PO SCH (10:00)
[2019-07-16] MEDS ORDERED: Pepcid 20 MG VIAL IV SCH (10:00)
[2019-07-16] MEDS ORDERED: EMPAGLIFLOZIN PO SCH (10:00)
[2019-07-16 12:53] VITALS: BP 150/69; PULSE 42; O2SAT 98
--- NOTE | 2019-07-16 13:34 | PCM.SSS ---
History of Present Illness - Chief Complaint Chief Complaint: chest pain for 1-2 days History of Present Illness: IS A 48 Y/O HTN, DM, MORBIDLY OBESE FEMALE PRESENTS C/O 2 DAYS OF EXERTIONAL CHEST PAIN THAT IS WORSE WITH EXERTION, SOMEWHAT BUT NOT TOTALLY RELIEVED WITH REST, LASTS 1-2 HOURS, RADIATES TO LUE AND LEFT JAW AND IS ACCOMPANIED BY DYSPNEA AND NAUSEA NO DIAPHORESIS. NO FEVER/CHILLS/PND/ORTHOP/LE ASYM/LONG TRIPS. NO SPICY/GREASY. NO COUGH COLD. NO PRIOR CATH HAS HAD STRESS TEST NEG IN LAST 5 YRS. NO DYSURIA/HEMATURIA/MELENA. FHX + CAD < 65 MOM , GP 50. TOOK 2 NTG SL WITHOUT RELIEF CURRENTLY 05/15 - Review of Systems Constitutional: No Fever, No Chills Eyes: No Symptoms Ears, Nose, & Throat: No Symptoms Respiratory: No Cough, No Short Of Breath Cardiac: Chest Pain, No Edema, No Syncope Abdominal/Gastrointestinal: No Abdominal Pain, No Nausea, No Vomiting, No Diarrhea Genitourinary Symptoms: No Dysuria Musculoskeletal: No Back Pain, No Neck Pain Skin: No Rash Neurological: No Dizziness, No Focal Weakness, No Sensory Changes Psychological: No Symptoms Endocrine: No Symptoms Hematologic/Lymphatic: No Symptoms Immunological/Allergic: No Symptoms Medications & Allergies Home Medications: Home Medication List Amlodipine Besylate 5 mg [Norvasc 5 mg] 5 mg PO DAILY 10/25/14 [History Confirmed 07/15/19] Omeprazole 20 MG [Prilosec 20 mg] 20 mg PO BID 10/25/14 [History Confirmed 07/15] Carvedilol 12.5 mg [Coreg 12.5 mg] 12.5 mg PO BID #0 tablet 10/27/14 [Rx Confirmed 07/15/19] glipiZIDE [Glipizide] 1 tab PO DAILY 10/17/17 [History Confirmed 07/15/19] Cyanocobalamin 1000 Mcg/ml [Cyanocobalamin B-12 1000 MCG/ML] 1 ml SQ UD 07/24 [History Confirmed 07/15/19] Empagliflozin/Metformin HCl [Synjardy Xr 10-1,000 mg Tablet] 1 tab PO DAILY 07/24 [History Confirmed 07/15/19] Naproxen 375 mg [Naprosyn 375 mg] 375 mg PO BID PRN 07/15/19 [History Confirmed 07/15/19] Ondansetron HCl [Zofran] 4 mg PO Q4-6HPRN PRN 07/15/19 [History Confirmed ] Carvedilol 12.5 mg [Coreg 12.5 mg] 12.5 mg PO BID tablet 07/16/19 [Rx] Allergies/Adverse Reactions: Allergies Allergy/AdvReac Type Severity Reaction Status Date / Time aspirin Allergy Intermediate Hives Verified 07/15/19 17:23 codeine [Codeine] Allergy Verified 07/15/19 17:23 hydrocodone bitartrate Allergy Verified 07/15/19 17:23 [From Vicodin] morphine Allergy Verified 07/15/19 17:23 Penicillins Allergy Verified 07/15/19 17:23 propoxyphene HCl Allergy Verified 07/15/19 17:23 [From Darvon] - Past Medical History Past Medical History: Yes Neurological History: Migraines ENT History: No Pertinent History Cardiac History: Hypertension Respiratory History: Asthma Endocrine Medical History: Diabetes Type II Musculoskelatal History: No Pertinent History GI Medical History: No Pertinent History History: No Pertinent History Pyscho-Social History: No Pertinent History Reproductive Disorders: No Pertinent History - Female History Are you now?: No - Past Surgical History Past Surgical History: No Neuro Surgical History: No Pertinent History Cardiac History: No Pertinent History Respiratory Surgery: No Pertinent History GI Surgical History: Cholecystectomy Genitourinary Surgical Hx: No Pertinent History Musculskeletal Surgical Hx: No Pertinent History Female Surgical History: No Pertinent History Other Surgical History: 2004 gallbladder, bellybutton repair, d/c X1, 3 cysts - Social History Smoking Status: Never smoker Exposure to second hand smoke: No Alcohol: None Drug Use: none Significant Family History: no pertinent family hx - Physical Exam Vital Signs: Vital Signs - 24 hr Temp Pulse Pulse Resp BP Pulse Ox 07/16/19 12:00 97.8 F 42 L 14 150/69 98 07/16/19 08:00 97.6 F 51 L 18 131/74 97 07/16/19 03:56 97.6 F 61 20 129/61 96 07/15/19 23:44 97.6 F 50 L 21 143/86 98 07/15/19 23:38 98.6 F 60 20 150/85 97 07/15/19 20:52 97 07/15/19 20:00 98.6 F 60 20 150/85 98 07/15/19 18:50 96 H 130/71 07/15/19 18:18 67 20 130/91 97 07/15/19 17:25 98 07/15/19 17:15 98.3 F 58 L 58 L 20 169/108 98 General Appearance: no apparent distress, alert Neurologic Exam: alert, oriented x 3, cooperative, normal mood/affect, nml cerebellar function, nml station & gait, sensation nml, No motor deficits Eye Exam: PERRL/EOMI, eyes nml inspection Ears, Nose, Throat Exam: normal ENT inspection, TMs normal, pharynx normal, moist mucous membranes Neck Exam: normal inspection, non-tender, supple, full range of motion Respiratory Exam: normal breath sounds, lungs clear, No respiratory distress Cardiovascular Exam: regular rate/rhythm, normal heart sounds, normal peripheral pulses Gastrointestinal/Abdomen Exam: soft, normal bowel sounds, No tenderness, No mass Back Exam: normal inspection, normal range of motion, No CVA tenderness, No vertebral tenderness Extremity Exam: normal inspection, normal range of motion, pelvis stable Skin Exam: normal color, warm, dry, No rash Lymphatic Exam: No adenopathy Results - Labs Lab/Micro Results: Accuchecks Date 07/15/19 Time 21:30 Accucheck Value: 190 Accucheck Value: 173 Accucheck Value: 149 Lab Results-Last 24 Hours 07/15/19 07/15/19 07/15/19 Range/Units 17:30 17:30 17:30 WBC 8.9 (4.0-10.5) K/mm3 RBC 6.00 H (4.1-5.4) M/mm3 Hgb 15.8 (12.0-16.0) gm/dl Hct 46.8 (35-47) % MCV 78.0 (78-100) fl MCH 26.3 (26-32) pg MCHC 33.8 (32-36) g/dl RDW 14.7 H (11.5-14.0) % Plt Count 274 (150-450) K/mm3 MPV 10.4 H (6-9.5) fl Gran % 61.5 (36.0-66.0) % Eos # (Auto) 0.32 (0-0.5) Absolute Lymphs (auto) 2.31 (1.0-4.6) Absolute Monos (auto) 0.74 (0.0-1.3) Lymphocytes % 25.8 (24.0-44.0) % Monocytes % 8.3 (0.0-12.0) % Eosinophils % 3.6 (0.00-5.0) % Basophils % 0.8 (0.0-0.4) % Absolute Granulocytes 5.50 (1.4-6.9) Basophils # 0.07 (0-0.4) Sodium 140 (137-145) mmol/L Potassium 4.2 (3.5-5.1) mmol/L Chloride 105 (98-107) mmol/L Carbon Dioxide 22 (22-30) mmol/L Anion Gap 17.4 H (5-15) MEQ/L BUN 10 (7-17) mg/dL Creatinine 0.57 (0.52-1.04) mg/dL Estimated GFR > 60.0 ML/MIN Glucose 116 H (74-106) mg/dL Hemoglobin A1c (4.5-6.0) % Calcium 9.6 (8.4-10.2) mg/dL Total Bilirubin 0.50 (0.2-1.3) mg/dL AST 49 H (14-36) U/L ALT 48 H (0-35) U/L Alkaline Phosphatase 91 (38-126) U/L Troponin I < 0.012 (0.000-0.034) ng/mL NT-Pro-B Natriuret Pep 43.5 (0-450) pg/mL Serum Total Protein 8.7 H (6.3-8.2) g/dL Albumin 4.4 (3.5-5.0) g/dL Triglycerides (30-150) mg/dL Cholesterol (50-200) mg/dL LDL Cholesterol (30-100) mg/dL HDL Cholesterol (40-60) mg/dL Heart Disease Risk Ratio Lipase 131 (23-300) U/L Serum , Qual (Negative) Urine Color (YELLOW) Urine Appearance (CLEAR) Urine pH (5-6) Ur Specific Solon (1.005-1.025) Urine Protein (Negative) Urine Ketones (NEGATIVE) Urine Blood (0-5) Jack/ul Urine Nitrite (NEGATIVE) Urine Bilirubin (NEGATIVE) Urine Urobilinogen (0-1) mg/dL Ur Leukocyte Esterase (NEGATIVE) Urine WBC (Auto) (0-5) /HPF Urine RBC (Auto) (0-2) /HPF U Epithel Cells (Auto) (FEW) /HPF Urine Bacteria (Auto) (NEGATIVE) /HPF Urine Mucus (Auto) (NEGATIVE) /HPF Urine Culture Reflexed (NO) Urine Glucose (NEGATIVE) mg/dL Urine Opiates Level (NEGATIVE) Ur Methadone (NEGATIVE) Urine Barbiturates (NEGATIVE) Ur Phencyclidine (PCP) (NEGATIVE) Urine Amphetamine (NEGATIVE) U Benzodiazepine Level (NEGATIVE) Urine Cocaine (NEGATIVE) Urine Marijuana (THC) (NEGATIVE) 07/15/19 07/15/19 07/15/19 Range/Units 17:30 19:22 19:22 WBC (4.0-10.5) K/mm3 RBC (4.1-5.4) M/mm3 Hgb (12.0-16.0) gm/dl Hct (35-47) % MCV (78-100) fl MCH (26-32) pg MCHC (32-36) g/dl RDW (11.5-14.0) % Plt Count (150-450) K/mm3 MPV (6-9.5) fl Gran % (36.0-66.0) % Eos # (Auto) (0-0.5) Absolute Lymphs (auto) (1.0-4.6) Absolute Monos (auto) (0.0-1.3) Lymphocytes % (24.0-44.0) % Monocytes % (0.0-12.0) % Eosinophils % (0.00-5.0) % Basophils % (0.0-0.4) % Absolute Granulocytes (1.4-6.9) Basophils # (0-0.4) Sodium (137-145) mmol/L Potassium (3.5-5.1) mmol/L Chloride (98-107) mmol/L Carbon Dioxide (22-30) mmol/L Anion Gap (5-15) MEQ/L BUN (7-17) mg/dL Creatinine (0.52-1.04) mg/dL Estimated GFR ML/MIN Glucose (74-106) mg/dL Hemoglobin A1c (4.5-6.0) % Calcium (8.4-10.2) mg/dL Total Bilirubin (0.2-1.3) mg/dL AST (14-36) U/L ALT (0-35) U/L Alkaline Phosphatase (38-126) U/L Troponin I (0.000-0.034) ng/mL NT-Pro-B Natriuret Pep (0-450) pg/mL Serum Total Protein (6.3-8.2) g/dL Albumin (3.5-5.0) g/dL Triglycerides (30-150) mg/dL Cholesterol (50-200) mg/dL LDL Cholesterol (30-100) mg/dL HDL Cholesterol (40-60) mg/dL Heart Disease Risk Ratio Lipase (23-300) U/L Serum , Qual NEGATIVE (Negative) Urine Color YELLOW (YELLOW) Urine Appearance CLEAR (CLEAR) Urine pH 5.0 (5-6) Ur Specific Solon 1.028 (1.005-1.025) Urine Protein NEGATIVE (Negative) Urine Ketones NEGATIVE (NEGATIVE) Urine Blood SMALL (0-5) Jack/ul Urine Nitrite POSITIVE (NEGATIVE) Urine Bilirubin NEGATIVE (NEGATIVE) Urine Urobilinogen NEGATIVE (0-1) mg/dL Ur Leukocyte Esterase NEGATIVE (NEGATIVE) Urine WBC (Auto) 0-2 (0-5) /HPF Urine RBC (Auto) 0-2 (0-2) /HPF U Epithel Cells (Auto) RARE (FEW) /HPF Urine Bacteria (Auto) MODERATE (NEGATIVE) /HPF Urine Mucus (Auto) SLIGHT (NEGATIVE) /HPF Urine Culture Reflexed YES (NO) Urine Glucose >=500 (NEGATIVE) mg/dL Urine Opiates Level NEGATIVE (NEGATIVE) Ur Methadone NEGATIVE (NEGATIVE) Urine Barbiturates NEGATIVE (NEGATIVE) Ur Phencyclidine (PCP) NEGATIVE (NEGATIVE) Urine Amphetamine NEGATIVE (NEGATIVE) U Benzodiazepine Level NEGATIVE (NEGATIVE) Urine Cocaine NEGATIVE (NEGATIVE) Urine Marijuana (THC) NEGATIVE (NEGATIVE) 07/15/19 07/15/19 07/16/19 Range/Units 20:27 23:10 02:26 WBC (4.0-10.5) K/mm3 RBC (4.1-5.4) M/mm3 Hgb (12.0-16.0) gm/dl Hct (35-47) % MCV (78-100) fl MCH (26-32) pg MCHC (32-36) g/dl RDW (11.5-14.0) % Plt Count (150-450) K/mm3 MPV (6-9.5) fl Gran % (36.0-66.0) % Eos # (Auto) (0-0.5) Absolute Lymphs (auto) (1.0-4.6) Absolute Monos (auto) (0.0-1.3) Lymphocytes % (24.0-44.0) % Monocytes % (0.0-12.0) % Eosinophils % (0.00-5.0) % Basophils % (0.0-0.4) % Absolute Granulocytes (1.4-6.9) Basophils # (0-0.4) Sodium (137-145) mmol/L Potassium (3.5-5.1) mmol/L Chloride (98-107) mmol/L Carbon Dioxide (22-30) mmol/L Anion Gap (5-15) MEQ/L BUN (7-17) mg/dL Creatinine (0.52-1.04) mg/dL Estimated GFR ML/MIN Glucose (74-106) mg/dL Hemoglobin A1c (4.5-6.0) % Calcium (8.4-10.2) mg/dL Total Bilirubin (0.2-1.3) mg/dL AST (14-36) U/L ALT (0-35) U/L Alkaline Phosphatase (38-126) U/L Troponin I < 0.012 < 0.012 < 0.012 (0.000-0.034) ng/mL NT-Pro-B Natriuret Pep (0-450) pg/mL Serum Total Protein (6.3-8.2) g/dL Albumin (3.5-5.0) g/dL Triglycerides (30-150) mg/dL Cholesterol (50-200) mg/dL LDL Cholesterol (30-100) mg/dL HDL Cholesterol (40-60) mg/dL Heart Disease Risk Ratio Lipase (23-300) U/L Serum , Qual (Negative) Urine Color (YELLOW) Urine Appearance (CLEAR) Urine pH (5-6) Ur Specific Solon (1.005-1.025) Urine Protein (Negative) Urine Ketones (NEGATIVE) Urine Blood (0-5) Jack/ul Urine Nitrite (NEGATIVE) Urine Bilirubin (NEGATIVE) Urine Urobilinogen (0-1) mg/dL Ur Leukocyte Esterase (NEGATIVE) Urine WBC (Auto) (0-5) /HPF Urine RBC (Auto) (0-2) /HPF U Epithel Cells (Auto) (FEW) /HPF Urine Bacteria (Auto) (NEGATIVE) /HPF Urine Mucus (Auto) (NEGATIVE) /HPF Urine Culture Reflexed (NO) Urine Glucose (NEGATIVE) mg/dL Urine Opiates Level (NEGATIVE) Ur Methadone (NEGATIVE) Urine Barbiturates (NEGATIVE) Ur Phencyclidine (PCP) (NEGATIVE) Urine Amphetamine (NEGATIVE) U Benzodiazepine Level (NEGATIVE) Urine Cocaine (NEGATIVE) Urine Marijuana (THC) (NEGATIVE) 07/16/19 07/16/19 07/16/19 Range/Units 05:08 05:08 Unknown WBC (4.0-10.5) K/mm3 RBC (4.1-5.4) M/mm3 Hgb (12.0-16.0) gm/dl Hct (35-47) % MCV (78-100) fl MCH (26-32) pg MCHC (32-36) g/dl RDW (11.5-14.0) % Plt Count (150-450) K/mm3 MPV (6-9.5) fl Gran % (36.0-66.0) % Eos # (Auto) (0-0.5) Absolute Lymphs (auto) (1.0-4.6) Absolute Monos (auto) (0.0-1.3) Lymphocytes % (24.0-44.0) % Monocytes % (0.0-12.0) % Eosinophils % (0.00-5.0) % Basophils % (0.0-0.4) % Absolute Granulocytes (1.4-6.9) Basophils # (0-0.4) Sodium (137-145) mmol/L Potassium (3.5-5.1) mmol/L Chloride (98-107) mmol/L Carbon Dioxide (22-30) mmol/L Anion Gap (5-15) MEQ/L BUN (7-17) mg/dL Creatinine (0.52-1.04) mg/dL Estimated GFR ML/MIN Glucose (74-106) mg/dL Hemoglobin A1c 9.68 H (4.5-6.0) % Calcium (8.4-10.2) mg/dL Total Bilirubin (0.2-1.3) mg/dL AST (14-36) U/L ALT (0-35) U/L Alkaline Phosphatase (38-126) U/L Troponin I < 0.012 (0.000-0.034) ng/mL NT-Pro-B Natriuret Pep (0-450) pg/mL Serum Total Protein (6.3-8.2) g/dL Albumin (3.5-5.0) g/dL Triglycerides 228 H (30-150) mg/dL Cholesterol 200 (50-200) mg/dL LDL Cholesterol 145 H (30-100) mg/dL HDL Cholesterol 45 (40-60) mg/dL Heart Disease Risk Ratio 4.4 Lipase (23-300) U/L Serum , Qual (Negative) Urine Color (YELLOW) Urine Appearance (CLEAR) Urine pH (5-6) Ur Specific Solon (1.005-1.025) Urine Protein (Negative) Urine Ketones (NEGATIVE) Urine Blood (0-5) Jack/ul Urine Nitrite (NEGATIVE) Urine Bilirubin (NEGATIVE) Urine Urobilinogen (0-1) mg/dL Ur Leukocyte Esterase (NEGATIVE) Urine WBC (Auto) (0-5) /HPF Urine RBC (Auto) (0-2) /HPF U Epithel Cells (Auto) (FEW) /HPF Urine Bacteria (Auto) (NEGATIVE) /HPF Urine Mucus (Auto) (NEGATIVE) /HPF Urine Culture Reflexed (NO) Urine Glucose (NEGATIVE) mg/dL Urine Opiates Level (NEGATIVE) Ur Methadone (NEGATIVE) Urine Barbiturates (NEGATIVE) Ur Phencyclidine (PCP) (NEGATIVE) Urine Amphetamine (NEGATIVE) U Benzodiazepine Level (NEGATIVE) Urine Cocaine (NEGATIVE) Urine Marijuana (THC) (NEGATIVE) Microbiology 07/15/19 19:22 Urine Culture - Preliminary Urine, Void GRAM NEGATIVE ID AND SENSITIVITY PENDING Accuchecks Date 07/15/19 Time 21:30 Accucheck Value: 190 Accucheck Value: 173 Accucheck Value: 149 - Radiology Impressions Radiology Exams & Impressions: Radiology Procedures Category Date Time Status CHEST 2 VIEWS (PA AND LAT) Stat Exams 07/15/19 17:14 Completed - Other Procedures and Tests Respiratory Therapy 07/15/19 20:33 EKG PRN 07/17/19 05:00 EKG ONCE 07/18/19 05:00 EKG ONCE 07/19/19 05:00 EKG ONCE Assessment/Plan (1) Chest pain Current Visit: Yes Status: Acute Qualifiers: Chest pain type: unspecified Qualified Code(s): R07.9 - Chest pain, unspecified Assessment & Plan: MT ruled out Code(s): R07.9 - CHEST PAIN, UNSPECIFIED (2) Bradyarrhythmia Current Visit: Yes Status: Acute Assessment & Plan: will change carvedilol to once a day, refer to Dr Emory Landesr (Cardiology) Code(s): I49.8 - OTHER SPECIFIED CARDIAC ARRHYTHMIAS (3) DM (diabetes mellitus) Current Visit: No Status: Chronic Qualifiers: Diabetes mellitus type: type 2 Diabetes mellitus complication status: with unspecified complications Code(s): E11.9 - TYPE 2 DIABETES MELLITUS WITHOUT COMPLICATIONS (4) Hypertension Current Visit: No Status: Chronic Qualifiers: Hypertension type: essential hypertension Qualified Code(s): I10 - Essential (primary) hypertension Code(s): I10 - ESSENTIAL (PRIMARY) HYPERTENSION Hospital Summary - Hospital Course Hospital Course: Chief Complaint Diagnosis chest pain for 1-2 days Allergies Allergy/AdvReac Type Severity Reaction Status Date / Time aspirin Allergy Intermediate Hives Verified 07/15/19 17:23 codeine [Codeine] Allergy Verified 07/15/19 17:23 hydrocodone bitartrate Allergy Verified 07/15/19 17:23 [From Vicodin] morphine Allergy Verified 07/15/19 17:23 Penicillins Allergy Verified 07/15/19 17:23 propoxyphene HCl Allergy Verified 07/15/19 17:23 [From Darvon] Vital Signs (Last 24 hours) Temp Pulse Pulse Resp BP Pulse Ox 07/16/19 12:00 97.8 F 42 L 14 150/69 98 07/16/19 08:00 97.6 F 51 L 18 131/74 97 07/16/19 03:56 97.6 F 61 20 129/61 96 07/15/19 23:44 97.6 F 50 L 21 143/86 98 07/15/19 23:38 98.6 F 60 20 150/85 97 07/15/19 20:52 97 07/15/19 20:00 98.6 F 60 20 150/85 98 07/15/19 18:50 96 H 130/71 07/15/19 18:18 67 20 130/91 97 07/15/19 17:25 98 07/15/19 17:15 98.3 F 58 L 58 L 20 169/108 98 Home Medications Medication Instructions Recorded Confirmed Last Taken Type Cyanocobalamin 1000 Mcg/ml 1 ml SQ UD 07/15/19 07/15/19 Unknown History [Cyanocobalamin B-12 1000 MCG/ML] Empagliflozin/Metformin HCl 1 tab PO DAILY 07/15/19 07/15/19 07/15/19 09:00 History [Synjardy Xr 10-1,000 mg Tablet] Naproxen 375 mg [Naprosyn 375 375 mg PO BID PRN 07/15/19 07/15/19 Unknown History mg] Ondansetron HCl [Zofran] 4 mg PO Q4-6HPRN PRN 07/15/19 07/15/19 Unknown History Current Medications Generic Name Dose Route Start Last Admin Trade Name Freq PRN Reason Stop Dose Admin Acetaminophen 325 - 650 mg 07/15/19 20:11 07/16/19 04:59 Tylenol 325 Mg PO 08/14/19 20:10 650 mg Q4H PRN PRN Administration FOR TEMP > 101 OR MILD PAIN Al Hydrox/Mg Hydrox/Simethicone 30 ml 07/15/19 20:11 Maalox Es 30 Ml Unit Dose PO 08/14/19 20:10 PRN PRN INDIGESTION Amlodipine Besylate 5 mg 07/16/19 10:00 07/16/19 09:10 Norvasc 5 Mg PO 08/15/19 09:59 Not Given DAILY ALISIA Carvedilol 12.5 mg 07/15/19 22:00 07/16/19 09:09 Coreg 12.5 Mg PO 08/14/19 21:59 Not Given BID ALISIA Cyanocobalamin 1,000 mcg 07/16/19 07:45 Cyanocobalamin B-12 1000 Mcg/Ml SQ 08/15/19 07:44 UD ALISIA Famotidine 20 mg 07/16/19 10:00 07/16/19 09:42 Pepcid 20 Mg Vial IV 08/15/19 09:59 20 mg BID ALISIA Administration Glipizide 5 mg 07/17/19 07:30 Glucotrol 5 Mg PO 08/16/19 07:29 DAILY@0730 ALISIA Hydromorphone HCl 0.5 mg 07/15/19 21:01 07/16/19 10:19 Dilaudid 2 Mg Injection IV 07/20/19 21:00 0.5 mg Q4H PRN PRN Administration PAIN Insulin Aspart 0 unit 07/15/19 20:59 Novolog Insulin SQ 08/14/19 20:58 UD PRN Diabetes Magnesium Hydroxide 30 - 60 ml 07/15/19 20:11 Milk Of Magnesia 30 Ml PO 08/14/19 20:10 HS PRN CONSTIPATION Miscellaneous Information 1 each 07/16/19 07:45 Medication Intervention 08/15/19 07:44 .RN TO CHECK WITH PT [facility] Naproxen 375 mg 07/16/19 07:41 Naprosyn 375 Mg PO 08/15/19 07:40 BIDPRN PRN Nitroglycerin 0.4 mg 07/15/19 20:11 Nitrostat 0.4 Mg Tablet SL 08/14/19 20:10 .Q5MIN PRN CHEST PAIN Ondansetron HCl 4 mg 07/15/19 20:11 07/16/19 12:10 Zofran 4 Mg/2 Ml Vial IV 08/14/19 20:10 4 mg Q4H PRN PRN Administration NAUSEA/VOMITING Pantoprazole Sodium 40 mg 07/15/19 22:00 07/16/19 09:08 Protonix 40mg Tablet PO 08/14/19 21:59 40 mg BID ALISIA Administration Pantoprazole Sodium 40 mg 07/16/19 09:30 07/16/19 09:42 Protonix 40 Mg Iv IV 08/15/19 09:29 40 mg Q24H ALISIA Administration Promethazine HCl 12.5 - 25 mg 07/15/19 20:11 Phenergan 25 Mg Inj IV 08/14/19 20:10 Q4H PRN PRN NAUSEA/VOMITING Senna/Docusate Sodium 2 udtab 07/15/19 20:11 Senokot-S Tablet PO 08/14/19 20:10 BID PRN PRN CONSTIPATION Sodium Chloride 10 ml 07/15/19 23:11 Sodium Chloride 0.9% 10 Ml Flush Syringe IV 08/14/19 23:10 PRN PRN IV maintenance Sodium Chloride 10 ml 07/16/19 06:00 07/15/19 23:14 Sodium Chloride 0.9% 10 Ml Flush Syringe IV 08/15/19 05:59 10 ml Q8HT ALISIA Administration Discontinued Medications Generic Name Dose Route Start Last Admin Trade Name Freq PRN Reason Stop Dose Admin Hydromorphone HCl 1 mg 07/15/19 18:19 07/15/19 19:21 Dilaudid 2 Mg Injection IV 07/15/19 18:20 Not Given ONCE STA Hydromorphone HCl 1 mg 07/15/19 18:59 07/15/19 19:02 Hydromorphone 1 Mg/Ml Ampule IV 07/15/19 19:00 1 mg STAT ONE Administration Hydromorphone HCl Confirm 07/15/19 19:00 Hydromorphone 1 Mg/Ml Ampule Administered 07/15/19 19:01 Dose 1 mg .ROUTE .STK-MED ONE Morphine Sulfate 4 mg 07/15/19 17:29 07/15/19 17:32 Morphine Sulfate 4 Mg Inj IV 07/15/19 17:30 Not Given STAT ONE Naproxen 375 mg 07/15/19 22:00 07/15/19 22:40 Naprosyn 375 Mg PO 08/14/19 21:59 250 mg BID ALISIA Administration Naproxen Confirm 07/15/19 21:12 Naprosyn 500 Mg Administered 07/15/19 21:13 Dose 500 mg .ROUTE .STK-MED ONE Nitroglycerin 0.4 mg 07/15/19 17:27 07/15/19 17:37 Nitrostat 0.4 Mg (Ed) SL 07/15/19 17:28 0.4 mg STAT ONE Administration Nitroglycerin Confirm 07/15/19 17:34 Nitrostat 0.4 Mg (Ed) Administered 07/15/19 17:35 Dose 0.4 mg SL .STK-MED ONE Ondansetron HCl 4 mg 07/15/19 17:29 07/15/19 17:36 Zofran 4 Mg/2 Ml Vial IV 07/15/19 17:30 4 mg STAT ONE Administration Ondansetron HCl Confirm 07/15/19 17:34 Zofran 4 Mg/2 Ml Vial Administered 07/15/19 17:35 Dose 4 mg .ROUTE .STK-MED ONE Ondansetron HCl 4 mg 07/15/19 19:08 07/15/19 19:11 Zofran 4 Mg/2 Ml Vial IV 07/15/19 19:09 4 mg STAT ONE Administration Ondansetron HCl Confirm 07/15/19 19:10 Zofran 4 Mg/2 Ml Vial Administered 07/15/19 19:11 Dose 4 mg .ROUTE .STK-MED ONE Intake & Output (Last 24 hours) 07/14/19 07/15/19 07/16/19 07/17/19 11:59 11:59 11:59 11:59 Intake Total 1200 480 Output Total 400 1900 Balance 800 -1420 Weight 98.1 kg Microbiology Results (Last 24 hours) 07/15/19 19:22 Urine, Void Urine Culture - Preliminary GRAM NEGATIVE ID AND SENSITIVITY PENDING Laboratory Results (Last 24 hours) 07/16/19 07/16/19 07/16/19 Unknown 05:08 05:08 WBC RBC Hgb Hct MCV MCH MCHC RDW Plt Count MPV Gran % Eos # (Auto) Absolute Lymphs (auto) Absolute Monos (auto) Lymphocytes % Monocytes % Eosinophils % Basophils % Absolute Granulocytes Basophils # Sodium Potassium Chloride Carbon Dioxide Anion Gap BUN Creatinine Estimated GFR Glucose Hemoglobin A1c 9.68 H Calcium Total Bilirubin AST ALT Alkaline Phosphatase Troponin I < 0.012 NT-Pro-B Natriuret Pep Serum Total Protein Albumin Triglycerides 228 H Cholesterol 200 LDL Cholesterol 145 H HDL Cholesterol 45 Heart Disease Risk Ratio 4.4 Lipase Serum , Qual Urine Color Urine Appearance Urine pH Ur Specific Solon Urine Protein Urine Ketones Urine Blood Urine Nitrite Urine Bilirubin Urine Urobilinogen Ur Leukocyte Esterase Urine WBC (Auto) Urine RBC (Auto) U Epithel Cells (Auto) Urine Bacteria (Auto) Urine Mucus (Auto) Urine Culture Reflexed Urine Glucose Urine Opiates Level Ur Methadone Urine Barbiturates Ur Phencyclidine (PCP) Urine Amphetamine U Benzodiazepine Level Urine Cocaine Urine Marijuana (THC) 07/16/19 07/15/19 07/15/19 02:26 23:10 20:27 WBC RBC Hgb Hct MCV MCH MCHC RDW Plt Count MPV Gran % Eos # (Auto) Absolute Lymphs (auto) Absolute Monos (auto) Lymphocytes % Monocytes % Eosinophils % Basophils % Absolute Granulocytes Basophils # Sodium Potassium Chloride Carbon Dioxide Anion Gap BUN Creatinine Estimated GFR Glucose Hemoglobin A1c Calcium Total Bilirubin AST ALT Alkaline Phosphatase Troponin I < 0.012 < 0.012 < 0.012 NT-Pro-B Natriuret Pep Serum Total Protein Albumin Triglycerides Cholesterol LDL Cholesterol HDL Cholesterol Heart Disease Risk Ratio Lipase Serum , Qual Urine Color Urine Appearance Urine pH Ur Specific [place] Urine Protein Urine Ketones Urine Blood Urine Nitrite Urine Bilirubin Urine Urobilinogen Ur Leukocyte Esterase Urine WBC (Auto) Urine RBC (Auto) U Epithel Cells (Auto) Urine Bacteria (Auto) Urine Mucus (Auto) Urine Culture Reflexed Urine Glucose Urine Opiates Level Ur Methadone Urine Barbiturates Ur Phencyclidine (PCP) Urine Amphetamine U Benzodiazepine Level Urine Cocaine Urine Marijuana (THC) 07/15/19 07/15/19 07/15/19 19:22 19:22 17:30 WBC RBC Hgb Hct MCV MCH MCHC RDW Plt Count MPV Gran % Eos # (Auto) Absolute Lymphs (auto) Absolute Monos (auto) Lymphocytes % Monocytes % Eosinophils % Basophils % Absolute Granulocytes Basophils # Sodium Potassium Chloride Carbon Dioxide Anion Gap BUN Creatinine Estimated GFR Glucose Hemoglobin A1c Calcium Total Bilirubin AST ALT Alkaline Phosphatase Troponin I NT-Pro-B Natriuret Pep Serum Total Protein Albumin Triglycerides Cholesterol LDL Cholesterol HDL Cholesterol Heart Disease Risk Ratio Lipase Serum , Qual NEGATIVE Urine Color YELLOW Urine Appearance CLEAR Urine pH 5.0 Ur Specific [place] 1.028 Urine Protein NEGATIVE Urine Ketones NEGATIVE Urine Blood SMALL Urine Nitrite POSITIVE Urine Bilirubin NEGATIVE Urine Urobilinogen NEGATIVE Ur Leukocyte Esterase NEGATIVE Urine WBC (Auto) 0-2 Urine RBC (Auto) 0-2 U Epithel Cells (Auto) RARE Urine Bacteria (Auto) MODERATE Urine Mucus (Auto) SLIGHT Urine Culture Reflexed YES Urine Glucose >=500 Urine Opiates Level NEGATIVE Ur Methadone NEGATIVE Urine Barbiturates NEGATIVE Ur Phencyclidine (PCP) NEGATIVE Urine Amphetamine NEGATIVE U Benzodiazepine Level NEGATIVE Urine Cocaine NEGATIVE Urine Marijuana (THC) NEGATIVE 07/15/19 07/15/19 07/15/19 17:30 17:30 17:30 WBC 8.9 RBC 6.00 H Hgb 15.8 Hct 46.8 MCV 78.0 MCH 26.3 MCHC 33.8 RDW 14.7 H Plt Count 274 MPV 10.4 H Gran % 61.5 Eos # (Auto) 0.32 Absolute Lymphs (auto) 2.31 Absolute Monos (auto) 0.74 Lymphocytes % 25.8 Monocytes % 8.3 Eosinophils % 3.6 Basophils % 0.8 Absolute Granulocytes 5.50 Basophils # 0.07 Sodium 140 Potassium 4.2 Chloride 105 Carbon Dioxide 22 Anion Gap 17.4 H BUN 10 Creatinine 0.57 Estimated GFR > 60.0 Glucose 116 H Hemoglobin A1c Calcium 9.6 Total Bilirubin 0.50 AST 49 H ALT 48 H Alkaline Phosphatase 91 Troponin I < 0.012 NT-Pro-B Natriuret Pep 43.5 Serum Total Protein 8.7 H Albumin 4.4 Triglycerides Cholesterol LDL Cholesterol HDL Cholesterol Heart Disease Risk Ratio Lipase 131 Serum , Qual Urine Color Urine Appearance Urine pH Ur Specific Solon Urine Protein Urine Ketones Urine Blood Urine Nitrite Urine Bilirubin Urine Urobilinogen Ur Leukocyte Esterase Urine WBC (Auto) Urine RBC (Auto) U Epithel Cells (Auto) Urine Bacteria (Auto) Urine Mucus (Auto) Urine Culture Reflexed Urine Glucose Urine Opiates Level Ur Methadone Urine Barbiturates Ur Phencyclidine (PCP) Urine Amphetamine U Benzodiazepine Level Urine Cocaine Urine Marijuana (THC) Orders (Last 24 hours) Category Date Time Status Bedrest with BRP/BSC TOLERATED Activity 07/15/19 20:11 Active Bedrest with BRP/BSC ROUTINE Activity 07/15/19 19:32 Completed Up With Assistance ROUTINE Activity 07/15/19 20:11 Active Accucheck ACHS Care 07/15/19 20:11 Active Call Admit Doctor for Orders ROUTINE Care 07/15/19 19:32 Completed Transaction Processor STAT Care 07/15/19 17:15 Completed Clean Catch Urine Specimen STAT Care 07/15/19 18:19 Completed Code Status Order ROUTINE Care 07/15/19 19:32 Active EKG-ER Only STAT Care 07/15/19 17:14 Completed IV Care Q6H Care 07/15/19 19:32 Active IV Insertion STAT Care 07/15/19 17:14 Completed Implement Chest Pain Pathway ROUTINE Care 07/15/19 19:[address] in Observation ROUTINE Care 07/15/19 19:32 Active Pulse Oximetry (ED) STAT Care 07/15/19 17:14 Completed Zbigniew Baer ROUTINE Care 07/15/19 19:32 Active Telemetry PROTOCOL Care 07/15/19 20:11 Active Weight,Daily 0600 Care 07/15/19 19:32 Completed Weight,Daily 0600 Care 07/15/19 20:11 Active Regular Diet Diet 07/16/19 Breakfast Active CHEST 2 VIEWS (PA AND LAT) Stat Exams 07/15/19 17:14 Completed CBC W DIFF Stat Lab 07/15/19 17:30 Completed CMP Stat Lab 07/15/19 17:30 Completed CULTURE,URINE Stat Lab 07/15/19 19:22 Results HCG QUALITATIVE,SERUM Stat Lab 07/15/19 17:30 Completed HEMOGLOBIN A1C Urgent Lab 07/16/19 Completed LIPASE Stat Lab 07/15/19 17:30 Completed LIPID PROFILE AM.LAB Lab 07/16/19 05:08 Completed NT PRO BNP Stat Lab 07/15/19 17:30 Completed TROPONIN Q3H Lab 07/15/19 17:30 Completed TROPONIN Q3H Lab 07/15/19 20:27 Completed TROPONIN Q3H Lab 07/15/19 23:10 Completed TROPONIN Q3H Lab 07/16/19 02:26 Completed TROPONIN Q3H Lab 07/16/19 05:08 Completed UA W/RFX UR CULTURE Stat Lab 07/15/19 19:22 Completed Urine Triage Profile Stat Lab 07/15/19 19:22 Completed Acetaminophen 325 mg [Tylenol 325 mg] Med 07/15/19 20:11 Active 325 - 650 mg PO Q4H PRN PRN Amlodipine Besylate 5 mg [Norvasc 5 mg] Med 07/16/19 10:00 Active 5 mg PO DAILY Carvedilol 12.5 mg [Coreg 12.5 mg] Med 07/15/19 22:00 Active 12.5 mg PO BID Cyanocobalamin 1000 Mcg/ml [Cyanocobalamin B-12 1000 Med 07/16/19 07:45 Active MCG/ML] 1,000 mcg SQ UD Famotidine 20 mg Vial [Pepcid 20 MG VIAL] Med 07/16/19 10:00 Active 20 mg IV BID Glipizide 5 mg [Glucotrol 5 MG] Med 07/17/19 07:30 Active 5 mg PO DAILY@0730 Hydromorphone 1 mg/1Ml Inj [Hydromorphone 1 mg/ml Med 07/15/19 19:00 Discontinued Ampule] 1 mg .ROUTE .STK-MED ONE Hydromorphone 1 mg/1Ml Inj [Hydromorphone 1 mg/ml Med 07/15/19 18:59 Discontinued Ampule] 1 mg IV STAT ONE Hydromorphone 2Mg Inj [Dilaudid 2 mg Injection] Med 07/15/19 21:01 Active 0.5 mg IV Q4H PRN PRN Hydromorphone 2Mg Inj [Dilaudid 2 mg Injection] Med 07/15/19 18:19 Discontinued 1 mg IV ONCE STA Insulin Aspart [NovoLOG Insulin] Med 07/15/19 20:59 Active See Dose Instructions SQ UD PRN Mag Hydrox/Al Hydrox/Simeth [Maalox Es 30 ml Unit Med 07/15/19 20:11 Active Dose] 30 ml PO PRN PRN Magnesium Hydroxide 30 ml [Milk of Magnesia 30 ml Med 07/15/19 20:11 Active ] 30 - 60 ml PO HS PRN Medication Intervention Med 07/16/19 07:45 Active 1 each MC .RN TO CHECK WITH PT Morphine Sulfate 4 mg Inj Med 07/15/19 17:29 Discontinued 4 mg IV STAT ONE NaCl 0.9% 10 ML FLUSH [Sodium Chloride 0.9% 10 ML FLUSH Med 07/15/19 23:11 Active Syringe] 10 ml IV PRN PRN NaCl 0.9% 10 ML FLUSH [Sodium Chloride 0.9% 10 ML FLUSH Med 07/16/19 06:00 Active Syringe] 10 ml IV Q8HT Naproxen 375 mg [Naprosyn 375 mg] Med 07/15/19 22:00 Discontinued 375 mg PO BID Naproxen 375 mg [Naprosyn 375 mg] Med 07/16/19 07:41 Active 375 mg PO BIDPRN PRN Naproxen 500 mg [Naprosyn 500 MG] Med 07/15/19 21:12 Discontinued 500 mg .ROUTE .STK-MED ONE Nitroglycerin 0.4 mg (Ed) [Nitrostat 0.4 MG (ED)] Med 07/15/19 17:34 Discontinued 0.4 mg SL .STK-MED ONE Nitroglycerin 0.4 mg (Ed) [Nitrostat 0.4 MG (ED)] Med 07/15/19 17:27 Discontinued 0.4 mg SL STAT ONE Nitroglycerin 0.4 mg Tablet [Nitrostat 0.4 MG Tablet Med 07/15/19 20:11 Active ] 0.4 mg SL .Q5MIN PRN Ondansetron HCl 4 mg/2 ml [Zofran 4 MG/2 ML VIAL] Med 07/15/19 17:34 Discontinued 4 mg .ROUTE .STK-MED ONE Ondansetron HCl 4 mg/2 ml [Zofran 4 MG/2 ML VIAL] Med 07/15/19 19:10 Discontinued 4 mg .ROUTE .STK-MED ONE Ondansetron HCl 4 mg/2 ml [Zofran 4 MG/2 ML VIAL] Med 07/15/19 20:11 Active 4 mg IV Q4H PRN PRN Ondansetron HCl 4 mg/2 ml [Zofran 4 MG/2 ML VIAL] Med 07/15/19 17:29 Discontinued 4 mg IV STAT ONE Ondansetron HCl 4 mg/2 ml [Zofran 4 MG/2 ML VIAL] Med 07/15/19 19:08 Discontinued 4 mg IV STAT ONE PANTOPRAZOLE 40 mg Tablet [Protonix 40MG Tablet] Med 07/15/19 22:00 Active 40 mg PO BID Pantoprazole 40 mg [Protonix 40 mg IV] Med 07/16/19 09:30 Active 40 mg IV Q24H Promethazine HCl 25 mg Amp [Phenergan 25 MG INJ] Med 07/15/19 20:11 Active 12.5 - 25 mg IV Q4H PRN PRN Senna/Docusate Sodium Tab [Senokot-S Tablet] Med 07/15/19 20:11 Active 2 udtab PO BID PRN PRN EKG ONCE RT 07/16/19 01:00 Completed EKG ONCE RT 07/17/19 05:00 Active EKG ONCE RT 07/18/19 05:00 Active EKG ONCE RT 07/19/19 05:00 Active EKG PRN RT 07/15/19 20:33 Active Pulse Oximetry CONTINUOUS RT 07/15/19 20:11 Completed Patient Care Notes (Last 24 hours) 07/16/19 10:25 Nursing Note by Kristy Back DR CALLED FOR UPDATE ON PT. PT REPORTS STILL HAVING CRUSHING MIDSTERNAL CP REQUESTED DILAUDID. DR WEBSTER ORDERED PEPCID 20 AND PROTONIX 40 IV. PT HAD JUST RECIEVED DOSE OF PROTONIX PO CALLED AND OK'D WITH PHARMISIST CHILANGO WHALEN TO GIVE ADDITIONAL 40. BOTH GIVEN AT 0940. AFTER RECHECK PT STATES PAIN IS STILL AT A 6 SO DILAUDID GIVEN Initialized on 07/16/19 10:25 - END OF NOTE 07/15/19 20:48 Nursing Note by Selene Delacruz Called Dr Webster to update on patient status. Reviewed home meds to continue, received new orders for low dose sliding scale insulin, dilaudid 0.5 mg IV Q4H PRN. Advised of UA results. Initialized on 07/15/19 20:48 - END OF NOTE - Vitals & Intake/Output Vital Signs: Vital Signs Temperature 97.8 F 07/16/19 12:00 Pulse Rate 42 L 07/16/19 12:00 Respiratory Rate 14 07/16/19 12:00 Blood Pressure 150/69 07/16/19 12:00 O2 Sat by Pulse Oximetry 98 07/16/19 12:00 Intake & Output: Intake & Output 07/14/19 07/15/19 07/16/19 07/17/19 11:59 11:59 11:59 11:59 Intake Total 1200 480 Output Total 400 1900 Balance 800 -1420 Weight 98.1 kg - Lab Result Diagrams: 07/15/19 17:30 07/15/19 17:30 Lab Results-Last 24 Hrs: Accuchecks Date 07/15/19 Time 21:30 Accucheck Value: 190 Accucheck Value: 173 Accucheck Value: 149 Lab Results-Last 24 Hours 07/15/19 07/15/19 07/15/19 Range/Units 17:30 17:30 17:30 WBC 8.9 (4.0-10.5) K/mm3 RBC 6.00 H (4.1-5.4) M/mm3 Hgb 15.8 (12.0-16.0) gm/dl Hct 46.8 (35-47) % MCV 78.0 (78-100) fl MCH 26.3 (26-32) pg MCHC 33.8 (32-36) g/dl RDW 14.7 H (11.5-14.0) % Plt Count 274 (150-450) K/mm3 MPV 10.4 H (6-9.5) fl Gran % 61.5 (36.0-66.0) % Eos # (Auto) 0.32 (0-0.5) Absolute Lymphs (auto) 2.31 (1.0-4.6) Absolute Monos (auto) 0.74 (0.0-1.3) Lymphocytes % 25.8 (24.0-44.0) % Monocytes % 8.3 (0.0-12.0) % Eosinophils % 3.6 (0.00-5.0) % Basophils % 0.8 (0.0-0.4) % Absolute Granulocytes 5.50 (1.4-6.9) Basophils # 0.07 (0-0.4) Sodium 140 (137-145) mmol/L Potassium 4.2 (3.5-5.1) mmol/L Chloride 105 (98-107) mmol/L Carbon Dioxide 22 (22-30) mmol/L Anion Gap 17.4 H (5-15) MEQ/L BUN 10 (7-17) mg/dL Creatinine 0.57 (0.52-1.04) mg/dL Estimated GFR > 60.0 ML/MIN Glucose 116 H (74-106) mg/dL Hemoglobin A1c (4.5-6.0) % Calcium 9.6 (8.4-10.2) mg/dL Total Bilirubin 0.50 (0.2-1.3) mg/dL AST 49 H (14-36) U/L ALT 48 H (0-35) U/L Alkaline Phosphatase 91 (38-126) U/L Troponin I < 0.012 (0.000-0.034) ng/mL NT-Pro-B Natriuret Pep 43.5 (0-450) pg/mL Serum Total Protein 8.7 H (6.3-8.2) g/dL Albumin 4.4 (3.5-5.0) g/dL Triglycerides (30-150) mg/dL Cholesterol (50-200) mg/dL LDL Cholesterol (30-100) mg/dL HDL Cholesterol (40-60) mg/dL Heart Disease Risk Ratio Lipase 131 (23-300) U/L Serum , Qual (Negative) Urine Color (YELLOW) Urine Appearance (CLEAR) Urine pH (5-6) Ur Specific Solon (1.005-1.025) Urine Protein (Negative) Urine Ketones (NEGATIVE) Urine Blood (0-5) Jack/ul Urine Nitrite (NEGATIVE) Urine Bilirubin (NEGATIVE) Urine Urobilinogen (0-1) mg/dL Ur Leukocyte Esterase (NEGATIVE) Urine WBC (Auto) (0-5) /HPF Urine RBC (Auto) (0-2) /HPF U Epithel Cells (Auto) (FEW) /HPF Urine Bacteria (Auto) (NEGATIVE) /HPF Urine Mucus (Auto) (NEGATIVE) /HPF Urine Culture Reflexed (NO) Urine Glucose (NEGATIVE) mg/dL Urine Opiates Level (NEGATIVE) Ur Methadone (NEGATIVE) Urine Barbiturates (NEGATIVE) Ur Phencyclidine (PCP) (NEGATIVE) Urine Amphetamine (NEGATIVE) U Benzodiazepine Level (NEGATIVE) Urine Cocaine (NEGATIVE) Urine Marijuana (THC) (NEGATIVE) 07/15/19 07/15/19 07/15/19 Range/Units 17:30 19:22 19:22 WBC (4.0-10.5) K/mm3 RBC (4.1-5.4) M/mm3 Hgb (12.0-16.0) gm/dl Hct (35-47) % MCV (78-100) fl MCH (26-32) pg MCHC (32-36) g/dl RDW (11.5-14.0) % Plt Count (150-450) K/mm3 MPV (6-9.5) fl Gran % (36.0-66.0) % Eos # (Auto) (0-0.5) Absolute Lymphs (auto) (1.0-4.6) Absolute Monos (auto) (0.0-1.3) Lymphocytes % (24.0-44.0) % Monocytes % (0.0-12.0) % Eosinophils % (0.00-5.0) % Basophils % (0.0-0.4) % Absolute Granulocytes (1.4-6.9) Basophils # (0-0.4) Sodium (137-145) mmol/L Potassium (3.5-5.1) mmol/L Chloride (98-107) mmol/L Carbon Dioxide (22-30) mmol/L Anion Gap (5-15) MEQ/L BUN (7-17) mg/dL Creatinine (0.52-1.04) mg/dL Estimated GFR ML/MIN Glucose (74-106) mg/dL Hemoglobin A1c (4.5-6.0) % Calcium (8.4-10.2) mg/dL Total Bilirubin (0.2-1.3) mg/dL AST (14-36) U/L ALT (0-35) U/L Alkaline Phosphatase (38-126) U/L Troponin I (0.000-0.034) ng/mL NT-Pro-B Natriuret Pep (0-450) pg/mL Serum Total Protein (6.3-8.2) g/dL Albumin (3.5-5.0) g/dL Triglycerides (30-150) mg/dL Cholesterol (50-200) mg/dL LDL Cholesterol (30-100) mg/dL HDL Cholesterol (40-60) mg/dL Heart Disease Risk Ratio Lipase (23-300) U/L Serum , Qual NEGATIVE (Negative) Urine Color YELLOW (YELLOW) Urine Appearance CLEAR (CLEAR) Urine pH 5.0 (5-6) Ur Specific Solon 1.028 (1.005-1.025) Urine Protein NEGATIVE (Negative) Urine Ketones NEGATIVE (NEGATIVE) Urine Blood SMALL (0-5) Jack/ul Urine Nitrite POSITIVE (NEGATIVE) Urine Bilirubin NEGATIVE (NEGATIVE) Urine Urobilinogen NEGATIVE (0-1) mg/dL Ur Leukocyte Esterase NEGATIVE (NEGATIVE) Urine WBC (Auto) 0-2 (0-5) /HPF Urine RBC (Auto) 0-2 (0-2) /HPF U Epithel Cells (Auto) RARE (FEW) /HPF Urine Bacteria (Auto) MODERATE (NEGATIVE) /HPF Urine Mucus (Auto) SLIGHT (NEGATIVE) /HPF Urine Culture Reflexed YES (NO) Urine Glucose >=500 (NEGATIVE) mg/dL Urine Opiates Level NEGATIVE (NEGATIVE) Ur Methadone NEGATIVE (NEGATIVE) Urine Barbiturates NEGATIVE (NEGATIVE) Ur Phencyclidine (PCP) NEGATIVE (NEGATIVE) Urine Amphetamine NEGATIVE (NEGATIVE) U Benzodiazepine Level NEGATIVE (NEGATIVE) Urine Cocaine NEGATIVE (NEGATIVE) Urine Marijuana (THC) NEGATIVE (NEGATIVE) 07/15/19 07/15/19 07/16/19 Range/Units 20:27 23:10 02:26 WBC (4.0-10.5) K/mm3 RBC (4.1-5.4) M/mm3 Hgb (12.0-16.0) gm/dl Hct (35-47) % MCV (78-100) fl MCH (26-32) pg MCHC (32-36) g/dl RDW (11.5-14.0) % Plt Count (150-450) K/mm3 MPV (6-9.5) fl Gran % (36.0-66.0) % Eos # (Auto) (0-0.5) Absolute Lymphs (auto) (1.0-4.6) Absolute Monos (auto) (0.0-1.3) Lymphocytes % (24.0-44.0) % Monocytes % (0.0-12.0) % Eosinophils % (0.00-5.0) % Basophils % (0.0-0.4) % Absolute Granulocytes (1.4-6.9) Basophils # (0-0.4) Sodium (137-145) mmol/L Potassium (3.5-5.1) mmol/L Chloride (98-107) mmol/L Carbon Dioxide (22-30) mmol/L Anion Gap (5-15) MEQ/L BUN (7-17) mg/dL Creatinine (0.52-1.04) mg/dL Estimated GFR ML/MIN Glucose (74-106) mg/dL Hemoglobin A1c (4.5-6.0) % Calcium (8.4-10.2) mg/dL Total Bilirubin (0.2-1.3) mg/dL AST (14-36) U/L ALT (0-35) U/L Alkaline Phosphatase (38-126) U/L Troponin I < 0.012 < 0.012 < 0.012 (0.000-0.034) ng/mL NT-Pro-B Natriuret Pep (0-450) pg/mL Serum Total Protein (6.3-8.2) g/dL Albumin (3.5-5.0) g/dL Triglycerides (30-150) mg/dL Cholesterol (50-200) mg/dL LDL Cholesterol (30-100) mg/dL HDL Cholesterol (40-60) mg/dL Heart Disease Risk Ratio Lipase (23-300) U/L Serum , Qual (Negative) Urine Color (YELLOW) Urine Appearance (CLEAR) Urine pH (5-6) Ur Specific Solon (1.005-1.025) Urine Protein (Negative) Urine Ketones (NEGATIVE) Urine Blood (0-5) Jack/ul Urine Nitrite (NEGATIVE) Urine Bilirubin (NEGATIVE) Urine Urobilinogen (0-1) mg/dL Ur Leukocyte Esterase (NEGATIVE) Urine WBC (Auto) (0-5) /HPF Urine RBC (Auto) (0-2) /HPF U Epithel Cells (Auto) (FEW) /HPF Urine Bacteria (Auto) (NEGATIVE) /HPF Urine Mucus (Auto) (NEGATIVE) /HPF Urine Culture Reflexed (NO) Urine Glucose (NEGATIVE) mg/dL Urine Opiates Level (NEGATIVE) Ur Methadone (NEGATIVE) Urine Barbiturates (NEGATIVE) Ur Phencyclidine (PCP) (NEGATIVE) Urine Amphetamine (NEGATIVE) U Benzodiazepine Level (NEGATIVE) Urine Cocaine (NEGATIVE) Urine Marijuana (THC) (NEGATIVE) 07/16/19 07/16/19 07/16/19 Range/Units 05:08 05:08 Unknown WBC (4.0-10.5) K/mm3 RBC (4.1-5.4) M/mm3 Hgb (12.0-16.0) gm/dl Hct (35-47) % MCV (78-100) fl MCH (26-32) pg MCHC (32-36) g/dl RDW (11.5-14.0) % Plt Count (150-450) K/mm3 MPV (6-9.5) fl Gran % (36.0-66.0) % Eos # (Auto) (0-0.5) Absolute Lymphs (auto) (1.0-4.6) Absolute Monos (auto) (0.0-1.3) Lymphocytes % (24.0-44.0) % Monocytes % (0.0-12.0) % Eosinophils % (0.00-5.0) % Basophils % (0.0-0.4) % Absolute Granulocytes (1.4-6.9) Basophils # (0-0.4) Sodium (137-145) mmol/L Potassium (3.5-5.1) mmol/L Chloride (98-107) mmol/L Carbon Dioxide (22-30) mmol/L Anion Gap (5-15) MEQ/L BUN (7-17) mg/dL Creatinine (0.52-1.04) mg/dL Estimated GFR ML/MIN Glucose (74-106) mg/dL Hemoglobin A1c 9.68 H (4.5-6.0) % Calcium (8.4-10.2) mg/dL Total Bilirubin (0.2-1.3) mg/dL AST (14-36) U/L ALT (0-35) U/L Alkaline Phosphatase (38-126) U/L Troponin I < 0.012 (0.000-0.034) ng/mL NT-Pro-B Natriuret Pep (0-450) pg/mL Serum Total Protein (6.3-8.2) g/dL Albumin (3.5-5.0) g/dL Triglycerides 228 H (30-150) mg/dL Cholesterol 200 (50-200) mg/dL LDL Cholesterol 145 H (30-100) mg/dL HDL Cholesterol 45 (40-60) mg/dL Heart Disease Risk Ratio 4.4 Lipase (23-300) U/L Serum , Qual (Negative) Urine Color (YELLOW) Urine Appearance (CLEAR) Urine pH (5-6) Ur Specific Solon (1.005-1.025) Urine Protein (Negative) Urine Ketones (NEGATIVE) Urine Blood (0-5) Jack/ul Urine Nitrite (NEGATIVE) Urine Bilirubin (NEGATIVE) Urine Urobilinogen (0-1) mg/dL Ur Leukocyte Esterase (NEGATIVE) Urine WBC (Auto) (0-5) /HPF Urine RBC (Auto) (0-2) /HPF U Epithel Cells (Auto) (FEW) /HPF Urine Bacteria (Auto) (NEGATIVE) /HPF Urine Mucus (Auto) (NEGATIVE) /HPF Urine Culture Reflexed (NO) Urine Glucose (NEGATIVE) mg/dL Urine Opiates Level (NEGATIVE) Ur Methadone (NEGATIVE) Urine Barbiturates (NEGATIVE) Ur Phencyclidine (PCP) (NEGATIVE) Urine Amphetamine (NEGATIVE) U Benzodiazepine Level (NEGATIVE) Urine Cocaine (NEGATIVE) Urine Marijuana (THC) (NEGATIVE) Micro Results-Entire Visit: Microbiology 07/15/19 19:22 Urine Culture - Preliminary Urine, Void GRAM NEGATIVE ID AND SENSITIVITY PENDING Accuchecks Date 07/15/19 Time 21:30 Accucheck Value: 190 Accucheck Value: 173 Accucheck Value: 149 - Radiology Exams Ordered Rad Exams-Entire Visit: Radiology Procedures Category Date Time Status CHEST 2 VIEWS (PA AND LAT) Stat Exams 07/15/19 17:14 Completed - Procedures and Test Procedures and Tests throughout Hospitalization: Therapy Orders & Screens 07/15/19 20:33 EKG PRN Comment: Diagnosis: ANGINA 07/16/19 01:00 EKG ONCE Comment: Diagnosis: ANGINA 07/17/19 05:00 EKG ONCE Comment: Diagnosis: ANGINA 07/18/19 05:00 EKG ONCE Comment: Diagnosis: ANGINA 07/19/19 05:00 EKG ONCE Comment: Diagnosis: ANGINA - Discharge Discharge Date: 07/16/19 Disposition: Home, Self-Care Condition: Stable Prescriptions: New Carvedilol 12.5 mg [Coreg 12.5 mg] 12.5 mg PO BID tablet Continue Omeprazole 20 MG [Prilosec 20 mg] 20 mg PO BID Amlodipine Besylate 5 mg [Norvasc 5 mg] 5 mg PO DAILY Carvedilol 12.5 mg [Coreg 12.5 mg] 12.5 mg PO BID #0 tablet glipiZIDE [Glipizide] 1 tab PO DAILY Naproxen 375 mg [Naprosyn 375 mg] 375 mg PO BID PRN PRN Reason: Pain Ondansetron HCl [Zofran] 4 mg PO Q4-6HPRN PRN PRN Reason: Nausea Empagliflozin/Metformin HCl [Synjardy Xr 10-1,000 mg Tablet] 1 tab PO DAILY Cyanocobalamin 1000 Mcg/ml [Cyanocobalamin B-12 1000 MCG/ML] 1 ml SQ UD Follow up with: JANESSA WEBSTER MD [Primary Care Provider] - 1 Week
[2019-07-17] MEDS ORDERED: Glucotrol 5 MG PO SCH (07:30)
== END 2019-07-16 15:05 | disposition home or self-care (01) ==
LOC: ED 17:11 → MED SURG 19:18
PROVIDERS: ADMIT General Practice; ATTEND General Practice
DX: R07.9 Chest pain, unspecified (principal); I10 Essential (primary) hypertension; I49.8 Other specified cardiac arrhythmias; E11.9 Type 2 diabetes mellitus without complications; Z79.899 Other long term (current) drug therapy
CPT/HCPCS: 36000; 36415; 71046; 80053; 80061; 80307; 81001; 81025; 82962; 83036; 83690; 83721; 83880; 84484; 85025; 87077; 87086; 87186; 93005; 93041; 93268; 94760; 96374; 96375; 96376; 99285; G0378; 99284; J1170; J2405; A9270-GY

== ENCOUNTER 2019-07-21 17:16 | Emergency (ER) | payer OTHER ==
[2019-07-21] MEDS ORDERED: BABY ASPIRIN 81 MG CHEW PO ONE (17:21)
--- NOTE | 2019-07-21 17:23 | ERPHSYRPT ---
- History of Present Illness Time Seen by Provider: 07/21/19 17:19 Source: patient, family, old records Exam Limitations: no limitations Physician History: PT IS A 48 Y/O WOMAN ADMITTED BY ME 1 WEEK AGO FOR ANGINA. SHE RULED OUT BUT DID NOT HAVE A STRESS TEST. SHE WAS REFERRED TO CARDIOLOGY. SHE REPORTS CONSTANT CP NOW FOR 2 WEEKS, WORSE WITH EXERTION RELIEVED WITH REST THAT DOES NOT EVERY REALLY RESOLVE. HERE IN ED IT WAS RELIEVED WITH NTG SL. NO FEVER/ CHILLS. + NAUSEA. NO VOMITING. NO SPICY/GREASY/PND./ORTHOP/LE ASYM/LONG TRIPS. NO COUGH. NO MELENA. RADIATES TO NECK AND JAW PT IS TEARFUL AND ANXIOUS NO SI/AH /HI. HAS NOT SEEN CARDS YET. PT REPORTS SBP 180/100-110 Allergies/Adverse Reactions: aspirin Allergy (Intermediate, Verified 07/21/19 17:19) Hives codeine [Codeine] Allergy (Verified 07/21/19 17:19) hydrocodone bitartrate [From Vicodin] Allergy (Verified 07/21/19 17:19) morphine Allergy (Verified 07/21/19 17:19) Penicillins Allergy (Verified 07/21/19 17:19) propoxyphene HCl [From Darvon] Allergy (Verified 07/21/19 17:19) Home Medications: Omeprazole 20 MG [Prilosec 20 mg] 20 mg PO BID 10/25/14 [History] glipiZIDE [Glipizide] 1 tab PO DAILY 18 [History] Cyanocobalamin 1000 Mcg/ml [Cyanocobalamin B-12 1000 MCG/ML] 1 ml SQ UD 07/24 [History] Empagliflozin/Metformin HCl [Synjardy Xr 10-1,000 mg Tablet] 1 tab PO DAILY 07/24 [History] Naproxen 375 mg [Naprosyn 375 mg] 375 mg PO BID PRN 07/15/19 [History] Ondansetron HCl [Zofran] 4 mg PO Q4-6HPRN PRN 07/15/19 [History] Hx Tetanus, Diphtheria Vaccination/Date Given: Yes Hx Influenza Vaccination/Date Given: Yes Hx Pneumococcal Vaccination/Date Given: Yes - Review of Systems Constitutional: No Symptoms, No Fever, No Chills, No Fatigue, No Lethargy, No Malaise, No Night Sweats, No Weakness, No Weight Loss Eyes: No Symptoms, No Discharge, No Eye Pain, No Eye Redness, No Itchy, No Photophobia, No Tearing, No Vision Changes, No Double Vision, No Foreign Body Sensation Ears, Nose, & Throat: No Symptoms, No Ear Pain, No Ear Discharge, No Hearing Changes, No Tinnitus, No Nose Congestion, No Nose Discharge, No Epistaxis, No Mouth Pain, No Mouth Swelling, No Throat Pain, No Throat Swelling, No Hoarse, No Painful Swallowing, No Stridor Respiratory: No Symptoms, No Cough, No Cyanosis, No Dyspnea, No Dyspnea on Exertion (WONG), No Stridor, No Wheezing Cardiac: No Symptoms, Chest Pain, No Edema, No Palpitations, No Syncope, No Orthopnea Abdominal/Gastrointestinal: No Symptoms, No Abdominal Pain, No Nausea, No Vomiting, No Diarrhea, No Constipation, No Hematemesis, No Hematochezia, No Melena, No Dysphagia, No Appetite Changes Genitourinary Symptoms: No Symptoms, No Dysuria, No Frequency, No Hematuria, No Hesitancy, No Incontinence, No Urgency, No Urinary Retention, No Flank Pain, No Menorrhagia, No , No Vaginal Bleeding, No Vaginal Discharge Musculoskeletal: No Symptoms, No Arthralgias, No Back Pain, No Neck Pain, No Deformity, No Fall, No Injury, No Joint Redness, No Joint Pain, No Joint Swelling, No Myalgias Skin: No Symptoms, No Cellulitis, No Decubiti, No Induration, No Pruritis, No Rash, No Skin Lesions, No Dryness Neurological: No Symptoms, No Dizziness, No Focal Weakness, No Gait Changes, No Headache, No Irritability, No Lethargy, No Paralysis, No Parasthesia, No Seizure , No Sensory Changes, No Speech Changes, No Tics, No Tremors, No Vertigo Psychological: No Symptoms, No Alcohol Abuse, No Drug Abuse, No Anxiety, No Depression, No Suicidal Ideations, No Homicidal Ideations, No Emotional Lability , No Hallucinations, No Memory Loss, No Mood Changes Endocrine: No Symptoms, No Polyuria, No Polydipsia, No Hair Changes, No Cold Intolerance, No Excessive Sweating, No Goiter Hematologic/Lymphatic: No Symptoms, No Anemia, No Blood Clots, No Easy Bleeding , No Gum Bleeding, No Easy Bruising, No Adenopathy Immunological/Allergic: No Symptoms All Other Systems: Reviewed and Negative - Past Medical History Pertinent Past Medical History: Yes Neurological History: Migraines ENT History: No Pertinent History Cardiac History: Hypertension Respiratory History: Asthma Endocrine Medical History: Diabetes Type II Musculoskeletal History: No Pertinent History GI Medical History: No Pertinent History History: No Pertinent History Psycho-Social History: No Pertinent History Female Reproductive Disorders: No Pertinent History - Past Surgical History Past Surgical History: No Neuro Surgical History: No Pertinent History Cardiac: No Pertinent History Respiratory: No Pertinent History Gastrointestinal: Cholecystectomy Genitourinary: No Pertinent History Musculoskeletal: No Pertinent History Female Surgical History: No Pertinent History Other Surgical History: 2004 gallbladder, bellybutton repair, d/c X1, 3 cysts - Social History Smoking Status: Never smoker Exposure to second hand smoke: No Alcohol Use: None Drug Use: none Patient Lives Alone: No Significant Family History: no pertinent family hx - Nursing Vital Signs Nursing Vital Signs: Initial Vital Signs Temperature 98.0 F 07/21/19 17:20 Pulse Rate 84 07/21/19 17:20 Respiratory Rate 18 07/21/19 17:20 Blood Pressure 184/103 07/21/19 17:20 O2 Sat by Pulse Oximetry 97 07/21/19 17:20 Pain Scale Pain Intensity 8 - Physical Exam General Appearance: no apparent distress, alert, anxiety Eye Exam: PERRL/EOMI, eyes nml inspection, other (fundi normal zohreh), No scleral icterus, No pale conjunctivae, No photophobia, No EOM palsy/anisocoria Ears, Nose, Throat Exam: normal ENT inspection, TMs normal, pharynx normal, TM abnormal (L), other (uvula midline, floor of mouth soft), No moist mucous membranes, No dry mucous membranes, No TM abnormal (R), No pharyngeal erythema, No tonsillar exudate Neck Exam: normal inspection, non-tender, supple, full range of motion, No meningismus, No mass, No Brudzinski, No Kernig's, No carotid bruit, No JVD, No limited range of motion, No lymphadenopathy, No midline tenderness, No thyromegaly Respiratory Exam: normal breath sounds, lungs clear, airway intact, No chest tenderness, No respiratory distress, No diminished breath sounds, No accessory muscle use, No prolonged expirations, No crackles/rales, No rhonchi, No wheezing , No stridor, No pleural rub Cardiovascular Exam: regular rate/rhythm, normal heart sounds, normal peripheral pulses, capillary refill <2 sec, No murmur, No friction rub, No gallop, No tachycardia, No bradycardia, No irregular, No capillary refill 2-3 sec, No capillary refill >3 sec, No edema, No pulse deficit Gastrointestinal/Abdomen Exam: soft, normal bowel sounds, No tenderness, No distention, No mass, No guarding, No ecchymosis, No pulsatile mass, No rebound, No hernia, No hepatomegaly, No organomegaly, No splenomegaly, No bruit Pelvic Exam: normal external exam Rectal Exam: deferred Back Exam: normal inspection, normal range of motion, other (neg slr zohreh, no sacral anesthesia, dtr 2/4 zohreh patella), No CVA tenderness, No vertebral tenderness, No rash, No decreased range of motion, No muscle spasm, No point tenderness Extremity Exam: normal inspection, normal range of motion, pelvis stable, No amputations, No contusions, No calf tenderness, No deformities, No lacerations, No parasthesia, No paralysis, No inflammation, No joint swelling, No limited range of motion, No pedal edema, No swelling, No tenderness Neurologic Exam: alert, oriented x 3, cooperative, para professional II-XII nml as tested, normal mood/affect, nml cerebellar function, nml station & gait, sensation nml, No motor deficits, No sensory deficit, No disoriented, No confusion, No agitation, No uncooperative, No intoxicated appearance, No depressed mood/affect , No motor weakness, No facial droop, No slurred speech, No aphasia, No dysarthria, No abnormal gait, No abnormal cerebellar tests, No abnormal para professional II- XII, No EOM palsy Skin Exam: normal color, warm, dry, No rash, No petechiae, No jaundice, No abrasion, No cyanosis, No diaphoresis, No decubitus, No embolic lesions, No ecchymosis, No jaundice, No laceration, No mottled, No pale Lymphatic Exam: No adenopathy SpO2 Interpretation: normal O2 Delivery: Room Air - Course Nursing assessment & vital signs reviewed: Yes EKG Interpreted by Me: RATE, Sinus Rhythm, NORMAL AXIS, NORMAL INTERVALS, NORMAL QRS, NORMAL ST-T Ordered Tests: Active Orders 24 hr Category Date Time Status Machine Maintenance STAT Care 07/21/19 17:22 Active EKG-ER Only STAT Care 07/21/19 17:21 Active EKG-ER Only STAT Care 07/21/19 19:27 Active IV Insertion STAT Care 07/21/19 17:21 Active Pulse Oximetry (ED) STAT Care 07/21/19 17:21 Active CHEST WITH CONTRAST [CT] Stat Exams 07/21/19 18:50 Taken CBC W DIFF Stat Lab 07/21/19 17:55 Completed CMP Stat Lab 07/21/19 17:55 Completed CULTURE,URINE Stat Lab 07/21/19 18:17 Received HCG QUALITATIVE,SERUM Stat Lab 07/21/19 17:55 Completed LIPASE Stat Lab 07/21/19 17:55 Completed NT PRO BNP Stat Lab 07/21/19 17:55 Completed TROPONIN Q3H Lab 07/21/19 17:55 Completed TROPONIN Q3H Lab 07/21/19 20:30 Completed TROPONIN Q3H Lab 07/21/19 23:30 Ordered TROPONIN Q3H Lab 07/22/19 02:30 Ordered TROPONIN Q3H Lab 07/22/19 05:30 Ordered UA W/RFX UR CULTURE Stat Lab 07/21/19 18:17 Completed Medication Summary Discontinued Medications Generic Name Dose Route Start Last Admin Trade Name Freq PRN Reason Stop Dose Admin Al Hydrox/Mg Hydrox/Simethicone Confirm 07/21/19 19:16 Maalox Es 30 Ml Unit Dose Administered 07/21/19 19:17 Dose 30 ml .ROUTE .STK-MED ONE Aspirin 324 mg 07/21/19 17:21 07/21/19 17:27 Baby Aspirin 81 Mg Chew PO 07/21/19 17:22 Not Given STAT ONE Hydromorphone HCl 0.5 mg 07/21/19 19:17 07/21/19 19:47 Hydromorphone 1 Mg/Ml Ampule IV 07/21/19 19:18 Not Given STAT ONE Hydromorphone HCl Confirm 07/21/19 19:28 Hydromorphone 1 Mg/Ml Ampule Administered 07/21/19 19:29 Dose 1 mg .ROUTE .STK-MED ONE Ketorolac Tromethamine 15 mg 07/21/19 19:47 07/21/19 19:53 Toradol 30 Mg Injection IV 07/21/19 19:48 15 mg STAT ONE Administration Ketorolac Tromethamine Confirm 07/21/19 19:52 Toradol 30 Mg Injection Administered 07/21/19 19:53 Dose 30 mg .ROUTE .STK-MED ONE Lidocaine HCl Confirm 07/21/19 19:16 Xylocaine Hcl Viscous * Administered 07/21/19 19:17 Dose 1 ml .ROUTE .STK-MED ONE Magnesium Hydroxide 45 ml 07/21/19 18:57 07/21/19 19:40 Gi Cocktail 45 Ml (Maalox/Lidocaine) PO 07/21/19 18:58 45 ml STAT ONE Administration Morphine Sulfate 4 mg 07/21/19 18:51 07/21/19 19:41 Morphine Sulfate 4 Mg Inj IV 07/21/19 18:52 Not Given STAT ONE Morphine Sulfate Confirm 07/21/19 18:55 Morphine Sulfate 4 Mg Inj Administered 07/21/19 18:56 Dose 4 mg .ROUTE .STK-MED ONE Nitrofurantoin Macrocrystals 100 mg 07/21/19 19:54 07/21/19 19:58 Macrobid 100mg Capsule PO 07/21/19 19:55 100 mg STAT ONE Administration Nitrofurantoin Macrocrystals Confirm 07/21/19 19:57 Macrobid 100mg Capsule Administered 07/21/19 19:58 Dose 100 mg .ROUTE .STK-MED ONE Nitroglycerin 0.4 mg 07/21/19 17:30 07/21/19 18:02 Nitrostat 0.4 Mg (Ed) SL 07/21/19 17:31 0.4 mg NOW ONE Administration Pantoprazole Sodium 40 mg 07/21/19 19:18 07/21/19 19:40 Protonix 40 Mg Iv IV 07/21/19 19:19 40 mg STAT ONE Administration Pantoprazole Sodium Confirm 07/21/19 19:27 Protonix 40 Mg Iv Administered 07/21/19 19:28 Dose 40 mg IV .STK-MED ONE Lab/Rad Data: Laboratory Result Diagrams 07/21/19 17:55 07/21/19 17:55 Laboratory Results 07/21/19 07/21/19 07/21/19 Range/Units 20:30 18:17 17:55 WBC (4.0-10.5) K/mm3 RBC (4.1-5.4) M/mm3 Hgb (12.0-16.0) gm/dl Hct (35-47) % MCV (78-100) fl MCH (26-32) pg MCHC (32-36) g/dl RDW (11.5-14.0) % Plt Count (150-450) K/mm3 MPV (6-9.5) fl Gran % (36.0-66.0) % Eos # (Auto) (0-0.5) Absolute Lymphs (auto) (1.0-4.6) Absolute Monos (auto) (0.0-1.3) Lymphocytes % (24.0-44.0) % Monocytes % (0.0-12.0) % Eosinophils % (0.00-5.0) % Basophils % (0.0-0.4) % Absolute Granulocytes (1.4-6.9) Basophils # (0-0.4) Sodium (137-145) mmol/L Potassium (3.5-5.1) mmol/L Chloride (98-107) mmol/L Carbon Dioxide (22-30) mmol/L Anion Gap (5-15) MEQ/L BUN (7-17) mg/dL Creatinine (0.52-1.04) mg/dL Estimated GFR ML/MIN Glucose (74-106) mg/dL Calcium (8.4-10.2) mg/dL Total Bilirubin (0.2-1.3) mg/dL AST (14-36) U/L ALT (0-35) U/L Alkaline Phosphatase (38-126) U/L Troponin I < 0.012 (0.000-0.034) ng/mL NT-Pro-B Natriuret Pep (0-450) pg/mL Serum Total Protein (6.3-8.2) g/dL Albumin (3.5-5.0) g/dL Lipase (23-300) U/L Serum , Qual NEGATIVE (Negative) Urine Color YELLOW (YELLOW) Urine Appearance SLIGHTLY CLOUDY (CLEAR) Urine pH 5.0 (5-6) Ur Specific [place] 1.030 (1.005-1.025) Urine Protein NEGATIVE (Negative) Urine Ketones TRACE (NEGATIVE) Urine Blood SMALL (0-5) Jack/ul Urine Nitrite POSITIVE (NEGATIVE) Urine Bilirubin NEGATIVE (NEGATIVE) Urine Urobilinogen NEGATIVE (0-1) mg/dL Ur Leukocyte Esterase NEGATIVE (NEGATIVE) Urine WBC (Auto) 0-2 (0-5) /HPF Urine RBC (Auto) 0-2 (0-2) /HPF U Epithel Cells (Auto) RARE (FEW) /HPF Urine Bacteria (Auto) MODERATE (NEGATIVE) /HPF Urine Mucus (Auto) SLIGHT (NEGATIVE) /HPF Urine Culture Reflexed YES (NO) Urine Glucose >=500 (NEGATIVE) mg/dL 07/21/19 07/21/19 07/21/19 Range/Units 17:55 17:55 17:55 WBC 11.3 H (4.0-10.5) K/mm3 RBC 5.89 H (4.1-5.4) M/mm3 Hgb 15.8 (12.0-16.0) gm/dl Hct 46.0 (35-47) % MCV 78.1 (78-100) fl MCH 26.8 (26-32) pg MCHC 34.3 (32-36) g/dl RDW 14.7 H (11.5-14.0) % Plt Count 240 (150-450) K/mm3 MPV 9.9 H (6-9.5) fl Gran % 65.2 (36.0-66.0) % Eos # (Auto) 0.33 (0-0.5) Absolute Lymphs (auto) 2.68 (1.0-4.6) Absolute Monos (auto) 0.86 (0.0-1.3) Lymphocytes % 23.7 L (24.0-44.0) % Monocytes % 7.6 (0.0-12.0) % Eosinophils % 2.9 (0.00-5.0) % Basophils % 0.6 (0.0-0.4) % Absolute Granulocytes 7.35 H (1.4-6.9) Basophils # 0.07 (0-0.4) Sodium 139 (137-145) mmol/L Potassium 3.9 (3.5-5.1) mmol/L Chloride 103 (98-107) mmol/L Carbon Dioxide 22 (22-30) mmol/L Anion Gap 17.7 H (5-15) MEQ/L BUN 14 (7-17) mg/dL Creatinine 0.53 (0.52-1.04) mg/dL Estimated GFR > 60.0 ML/MIN Glucose 124 H (74-106) mg/dL Calcium 9.5 (8.4-10.2) mg/dL Total Bilirubin 0.40 (0.2-1.3) mg/dL AST 36 (14-36) U/L ALT 38 H (0-35) U/L Alkaline Phosphatase 80 (38-126) U/L Troponin I < 0.012 (0.000-0.034) ng/mL NT-Pro-B Natriuret Pep 50.0 (0-450) pg/mL Serum Total Protein 8.5 H (6.3-8.2) g/dL Albumin 4.3 (3.5-5.0) g/dL Lipase 156 (23-300) U/L Serum , Qual (Negative) Urine Color (YELLOW) Urine Appearance (CLEAR) Urine pH (5-6) Ur Specific [place] (1.005-1.025) Urine Protein (Negative) Urine Ketones (NEGATIVE) Urine Blood (0-5) Jack/ul Urine Nitrite (NEGATIVE) Urine Bilirubin (NEGATIVE) Urine Urobilinogen (0-1) mg/dL Ur Leukocyte Esterase (NEGATIVE) Urine WBC (Auto) (0-5) /HPF Urine RBC (Auto) (0-2) /HPF U Epithel Cells (Auto) (FEW) /HPF Urine Bacteria (Auto) (NEGATIVE) /HPF Urine Mucus (Auto) (NEGATIVE) /HPF Urine Culture Reflexed (NO) Urine Glucose (NEGATIVE) mg/dL - Progress Progress: improved Progress Note: 07/21/19 18:49 CP FROM 6 TO 5 AFTER NTG SL X 3 INITIAL TROP AND EKG NEG IN FACE OF 2+ WEEKS OF CONSTANT CHEST PAIN 07/21/19 18:57 PT STATES ANAPHYLAXIS WITH MORPHINE. WILL TRY GI COCKTAIL AND DILAUDID 07/21/19 19:29 PT REQUESTING DILAUDID. WILL GIVE LOW DOSE. EXPECT NEG CT CHEST. WILL REPEAT EKG AND TROP 2 HR NOW. GIVEN RECENT RULE OUT AND CONSTANT CP WITH INITIAL TROP NEG , THOUGH PT HAS RISK FACTORS, UNLIKELY TO BE CARDIAC AT THIS POINT. PT WITH MULTIPLE ALLERGIES PLAN WILL BE DC WITH [facility]. HAS CARDS APPT IN 1 WEEK. 07/21/19 19:40 ekg #2 is NSR @ [address]/T CHANGES OR INTERVAL CHANGES PT STATES HER GOAL IS "I JUST WANT THE PAIN TO STOP." DOESNT HAVE A RIDE HOME. NO ALLERGY TO TORADOL OR MOTRIN. STATES SHE HAD CALLED DR. HILL AND WAS TOLD TO COME TO ER AND THERE WAS DISCUSSION ABOUT A SCOPE. HOWEVER, NO MELENA/ HEMATEMESISI, HEMATOCHEZIA. NO EPIGASTRIC DISCOMFORT HAS SSCP. I THINK EGD IS WARRANTED AND CAN BE COMPLETED AN OUTPT AWAIT REPEAT TROP. 07/21/19 19:49 CT CHEST NAD PER RAD. 07/21/19 19:51 FINDINGS REVIEWED WITH PT. OFFERED ADMISSION BUT HAS CARDS APPT ON 07/27/19. NEG STRESS TEST WITHIN LAST 2 YRS. 1 WEEK AGO NEG RULE OUT. NO RESPONSE TO NTG SL X 3. PT IS VERY ANXIOUS. CT CHEST NAD. TROP X 2 AND EKG X 2 NEG. AT THIS POINT CHEST PAIN X 3 WEEKS IS CHRONIC NEG PE OR AORTA. I WILL DC WITH [facility]. PT DOES NOT HAVE RIDE HOME CANNOT GIVE DILAUDID. 07/21/19 20:19 CALL TO [facility] IS STILL RUNNING. DW PT NO RELIEF WITH GI COCKTAIL OR TORADOL "DILAUDID IS THE ONLY THING THAT WORKS." PLAN DC WITH [facility] NO LIFE THREATS IDENTIFIED. Counseled pt/family regarding: drug and/or alcohol abuse, lab results, diagnosis , need for follow-up, rad results, smoking cessation - Departure Departure Disposition: Home Clinical Impression: Chronic chest pain, Urinary tract infection, Anxiety reaction Condition: Stable Critical Care Time: No Referrals: JANESSA WEBSTER MD [Primary Care Provider] - Instructions: Atypical Chest Pain, Urinary Tract Infections in Adults, Chronic Pain (DC) Additional Instructions: TO ER IF EXERTIONAL CHEST PAIN, SHORTNESS OF BREATH, INTRACTABLE VOMITING, FEVER OVER 102 YOUR LABS AND IMAGING WERE UNREMARKABLE TODAY. A SOURCE FOR YOUR CHEST PAIN THAT HAS BEEN CONSTANT FOR 3 WEEKS WAS NOT IDENTIFIED YOU HAVE A CARDIOLOGY APPOINTMENT ON 07/27/2019 (TU) PLEASE DO NOT MISS THIS APPOINTMENT AVOID SPICY/GREASY FOODS TYLENOL FOR DISCOMFORT PLEASE FOLLOW UP WITH YOUR DOCTOR IN 2 DAYS FOR RE-EVALUATON AND DEFINITIVE CARE Prescriptions: Nitrofurantoin Monohyd/M-Cryst [Macrobid 100 mg Capsule] 100 mg PO BID #14 capsule
[2019-07-21] MEDS ORDERED: Nitrostat 0.4 MG (ED) SL ONE (17:30)
[2019-07-21 18:01] LABS: Absolute Neutrophil Ct (ANC) 7.35 (1.4-6.9); BASOPHIL % 0.6 % (0.0-0.4); Basophil (Absolute #) 0.07 (0-0.4); Eosinophil % 2.9 % (0.00-5.0); Eosinophil (Absolute #) 0.33 (0-0.5); Hemoglobin 15.8 gm/dl (12.0-16.0); Lymphocyte (Absolute #) 2.68 (1.0-4.6); Lymphocytes % 23.7 % (24.0-44.0); Mean Cell Volume 78.1 fl (78-100); Mean Corpuscular Hemoglobin 26.8 pg (26-32); Mean Corpuscular Hgb Concent. 34.3 g/dl (32-36); Mean Platelet Volume 9.9 fl (6-9.5); Monocyte (Absolute #) 0.86 (0.0-1.3); Monocytes % 7.6 % (0.0-12.0); Neutrophil % 65.2 % (36.0-66.0); Platelet Count 240 K/mm3 (150-450); Red Blood Count 5.89 M/mm3 (4.1-5.4); Red Cell Distribution Width 14.7 % (11.5-14.0); White Blood Count 11.3 K/mm3 (4.0-10.5)
[2019-07-21 18:22] LABS: ALBUMIN 4.3 g/dL (3.5-5.0); ALKALINE PHOSPHATASE 80 U/L (38-126); ANION GAP 17.7 MEQ/L (5-15); BLOOD UREA NITROGEN 14 mg/dL (7-17); CHLORIDE 103 mmol/L (98-107); Calcium 9.5 mg/dL (8.4-10.2); Carbon Dioxide 22 mmol/L (22-30); Creatinine 1 0.53 mg/dL (0.52-1.04); Glucose 124 mg/dL (74-106); LIPASE 156 U/L (23-300); Potassium 3.9 mmol/L (3.5-5.1); SGOT/AST 36 U/L (14-36); SGPT/ALT 38 U/L (0-35); SODIUM 139 mmol/L (137-145); Total Protein 8.5 g/dL (6.3-8.2)
[2019-07-21 18:37] LABS: Appearance SLIGHTLY CLOUDY (CLEAR); Bacteria MODERATE /HPF (NEGATIVE); Bilirubin NEGATIVE (NEGATIVE); Blood SMALL Ery/ul (0-5); Epithelial Cells RARE /HPF (FEW); Glucose >=500 mg/dL (NEGATIVE); Ketones TRACE (NEGATIVE); Leukocyte Esterase NEGATIVE (NEGATIVE); Mucus SLIGHT /HPF (NEGATIVE); Nitrite POSITIVE (NEGATIVE); Protein,Urine Dip NEGATIVE (Negative); RBC 0-2 /HPF (0-2); Urobilinogen NEGATIVE mg/dL (0-1); WBC 0-2 /HPF (0-5)
[2019-07-21] MEDS ORDERED: MORPHINE SULFATE 4 MG INJ IV ONE (18:51)
[2019-07-21] MEDS ORDERED: MORPHINE SULFATE 4 MG INJ ONE (18:55)
[2019-07-21] MEDS ORDERED: GI COCKTAIL 45 ML (Maalox/Lidocaine) PO ONE (18:57)
[2019-07-21] MEDS ORDERED: MAALOX ES 30 ML UNIT DOSE ONE (19:16)
[2019-07-21] MEDS ORDERED: XYLOCAINE HCl Viscous MM ONE (19:16)
[2019-07-21] MEDS ORDERED: XYLOCAINE HCl Viscous ONE ×2 (19:16→22:47)
[2019-07-21] MEDS ORDERED: Hydromorphone 1 mg/ml Ampule IV ONE (19:17)
[2019-07-21] MEDS ORDERED: PROTONIX 40 MG IV IV ONE ×2 (19:18→19:27)
[2019-07-21] MEDS ORDERED: Hydromorphone 1 mg/ml Ampule ONE (19:28)
[2019-07-21] MEDS ORDERED: TORAdol 30 mg Injection IV ONE (19:47)
[2019-07-21] MEDS ORDERED: TORAdol 30 mg Injection ONE (19:52)
[2019-07-21] MEDS ORDERED: Macrobid 100MG Capsule PO ONE (19:54)
[2019-07-21] MEDS ORDERED: Macrobid 100MG Capsule ONE (19:57)
[2019-07-21 20:25] VITALS: O2SAT 97
[2019-07-21 21:12] VITALS: BP 180/100; PULSE 82
--- NOTE | 2019-07-22 08:41 | XRAY ---
Indication: Chest pain 3 weeks. Multiple contiguous axial images obtained through the chest using 100 cc Isovue 370 contrast and PE protocol. Comparison: October 16, 2017. There is satisfactory opacification of the pulmonary arteries. Again no filling defect or pulmonary embolus. Heart is not enlarged. Aorta is normal in course and caliber. No pathologic mediastinal/hilar lymphadenopathy. Lungs are inflated and remain clear. Bony thorax intact. Limited upper abdomen again demonstrates diffuse fatty liver. Spleen is enlarged measuring 12.7 cm. Impression: 1. Again negative pulmonary embolus. No new/acute cardiopulmonary abnormalities. 2. Incidental fatty liver and splenomegaly. CT DI 23.69
== END 2019-07-21 21:12 | disposition home or self-care (01) ==
LOC: ED 17:16
DX: R07.9 Chest pain, unspecified (principal); N39.0 Urinary tract infection, site not specified; F41.1 Generalized anxiety disorder; E11.9 Type 2 diabetes mellitus without complications; I10 Essential (primary) hypertension; J45.909 Unspecified asthma, uncomplicated
CPT/HCPCS: 36000; 36415; 71260; 80053; 81001; 81025; 83690; 83880; 84484; 85025; 87086; 93005; 93041; 94760; 96374; 96375; 99284; J1170; J1885; J2270; A9270-GY

== ENCOUNTER 2020-02-23 08:07 | Emergency (ER) | payer OTHER ==
--- NOTE | 2020-02-23 08:49 | ERPHSYRPT ---
- History of Present Illness Time Seen by Provider: 02/23/20 08:38 Historian: patient Exam Limitations: no limitations Patient Subjective Stated Complaint: Pt states "I have not been feeling well for the past couple of days. Last night I started to get a little short of breath and this morning I woke up with some chest pain. Triage Nursing Assessment: Pt presented alert and oriented X 3, ski pwd PT ambulates with an upright steady gait, able to speak in clear full sentences pt rubbing her chest. No apparent respiratory ditress. Physician History: 49 yo wf w dyspnea x 2days/mid-sternal chest pain x2 hours w radiation to back. Pain is now the worst at 7/10. It is sharp and nothing makes it better or worse. She has had nausea wo vomiting/diaphoresis. Pt states that she had a recent cath at [facility] which was negative. She has a PMH of htn/DM w marked FH of CAD. Pt denies hyperlipidemia/tobacco use. Cough/fever are denied. Timing/Duration: hour(s) (2hours) Activities at Onset: rest Quality: sharpness Location: substernal Chest Pain Radiation: back Severity of Pain-Max: moderate (10) Severity of Pain-Current: moderate (7/10) Associated Symptoms: nausea, shortness of breath, No vomiting, No palpitations, No heartburn, No abdominal pain, No cough, No hurts to breathe, No diaphoresis, No chills, No fever, No fatigue, No weakness Prior Chest Pain/Cardiac Workup: cardiac cath Aspirin Treatment Today: no aspirin today Allergies/Adverse Reactions: aspirin Allergy (Intermediate, Verified 07/21/19 17:19) Hives codeine [Codeine] Allergy (Verified 07/21/19 17:19) hydrocodone bitartrate [From Vicodin] Allergy (Verified 07/21/19 17:19) morphine Allergy (Verified 07/21/19 17:19) Penicillins Allergy (Verified 07/21/19 17:19) propoxyphene HCl [From Darvon] Allergy (Verified 07/21/19 17:19) Home Medications: Omeprazole 20 MG [Prilosec 20 mg] 20 mg PO BID 10/25/14 [History] glipiZIDE [Glipizide] 1 tab PO DAILY 10/17/17 [History] Cyanocobalamin 1000 Mcg/ml [Cyanocobalamin B-12 1000 MCG/ML] 1 ml SQ UD 07/24 [History] Empagliflozin/Metformin HCl [Synjardy Xr 10-1,000 mg Tablet] 1 tab PO DAILY 07/24 [History] Naproxen 375 mg [Naprosyn 375 mg] 375 mg PO BID PRN 07/15/19 [History] Ondansetron HCl [Zofran] 4 mg PO Q4-6HPRN PRN 07/15/19 [History] Ciprofloxacin HCl [Cipro] 1 tab PO BID 02/23/20 [History] Hx Tetanus, Diphtheria Vaccination/Date Given: No Hx Influenza Vaccination/Date Given: Yes Hx Pneumococcal Vaccination/Date Given: No Immunizations Up to Date: Yes Travel Risk - International Travel Have you traveled outside of the country in past 3 weeks: No Have you or anyone close to you been diagnosed with or: No Do your reside in a community with a known COVID-19 case?: Yes If Yes where[facility] - Coronavirus Screening Has patient experienced Coronavirus symptoms: No - Review of Systems Constitutional: Fatigue, No Fever, No Chills, No Lethargy, No Malaise, No Night Sweats, No Weakness, No Weight Loss Eyes: No Symptoms Ears, Nose, & Throat: No Symptoms Respiratory: Dyspnea, Dyspnea on Exertion (WONG), No Cough Cardiac: Chest Pain, No Edema, No Palpitations, No Orthopnea, No PND Abdominal/Gastrointestinal: No Symptoms Genitourinary Symptoms: No Symptoms Musculoskeletal: No Symptoms Skin: No Symptoms Neurological: No Symptoms Psychological: No Symptoms Endocrine: No Symptoms Hematologic/Lymphatic: No Symptoms Immunological/Allergic: No Symptoms - Past Medical History Pertinent Past Medical History: Yes Neurological History: Migraines ENT History: No Pertinent History Cardiac History: Hypertension Respiratory History: Asthma Endocrine Medical History: Diabetes Type II Musculoskeletal History: No Pertinent History GI Medical History: No Pertinent History History: No Pertinent History Psycho-Social History: No Pertinent History Female Reproductive Disorders: No Pertinent History - Past Surgical History Past Surgical History: Yes Neuro Surgical History: No Pertinent History Cardiac: No Pertinent History Respiratory: No Pertinent History Gastrointestinal: Cholecystectomy Genitourinary: No Pertinent History Musculoskeletal: No Pertinent History Female Surgical History: No Pertinent History Other Surgical History: 2005 gallbladder, bellybutton repair, d/c X1, 3 cysts - Social History Smoking Status: Never smoker Exposure to second hand smoke: No Alcohol Use: None Drug Use: none Patient Lives Alone: No Significant Family History: no pertinent family hx - Female History Hx Last Menstrual Period: no more Hx Now: No - Nursing Vital Signs Nursing Vital Signs: Initial Vital Signs Temperature 98.1 F 02/23/20 08:14 Pulse Rate 80 02/23/20 08:14 Respiratory Rate 22 02/23/20 08:14 Blood Pressure 189/114 02/23/20 08:14 O2 Sat by Pulse Oximetry 98 02/23/20 08:14 Pain Scale Pain Intensity 4 - Physical Exam General Appearance: no apparent distress Eye Exam: PERRL/EOMI, eyes nml inspection, No scleral icterus, No pale conjunctivae, No photophobia Ears, Nose, Throat Exam: normal ENT inspection, TMs normal, pharynx normal, moist mucous membranes Neck Exam: normal inspection, non-tender, supple, full range of motion, No meningismus Respiratory Exam: normal breath sounds, lungs clear, airway intact, No chest tenderness, No respiratory distress Cardiovascular Exam: regular rate/rhythm, normal heart sounds, normal peripheral pulses, murmur (1/6 ALICE) Gastrointestinal/Abdomen Exam: soft, normal bowel sounds, No tenderness, No distention, No mass, No guarding Pelvic Exam: not done Rectal Exam: deferred Back Exam: normal inspection, normal range of motion, No CVA tenderness Extremity Exam: normal inspection, normal range of motion Neurologic Exam: alert, oriented x 3, 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, 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, normal mood/affect, nml cerebellar function, sensation nml, No motor deficits, No sensory deficit, No disoriented, No confusion Skin Exam: normal color, warm, dry, No rash Lymphatic Exam: No adenopathy, No axilla node tender (L) SpO2 Interpretation: normal SpO2: 98 O2 Delivery: Room Air - Course Nursing assessment & vital signs reviewed: Yes EKG Interpreted by Me: Sinus Rhythm, NORMAL ST-T, Other (NSR/Rate 76/Poor r wave progression/No acute St changes/Normal Qt-QTc) - Radiology Exams Chest X-ray Interpretation: Discussed w/ radiologist, Negative Ordered Tests: Active Orders 24 hr Category Date Time Status EKG-ER Only STAT Care 02/23/20 08:38 Active CHEST 1 VIEW (PORTABLE) Stat Exams 02/23/20 08:39 Completed CBC W DIFF Stat Lab 02/23/20 08:54 Completed CMP Stat Lab 02/23/20 08:54 Completed D-DIMER QUANTITATIVE Stat Lab 02/23/20 08:54 Completed NT PRO BNP Stat Lab 02/23/20 08:54 Completed PROTIME WITH INR Stat Lab 02/23/20 08:54 Completed PTT Stat Lab 02/23/20 08:54 Completed TROPONIN Q3H Lab 02/23/20 08:54 Completed TROPONIN Q3H Lab 02/23/20 11:20 Completed TROPONIN Q3H Lab 02/23/20 14:45 Ordered TROPONIN Q3H Lab 02/23/20 17:45 Ordered TROPONIN Q3H Lab 02/23/20 20:45 Ordered Medication Summary Discontinued Medications Generic Name Dose Route Start Last Admin Trade Name Freq PRN Reason Stop Dose Admin Amlodipine Besylate 10 mg 02/23/20 09:41 02/23/20 09:46 Norvasc 5 Mg PO 02/23/20 09:42 10 mg STAT ONE Administration Amlodipine Besylate Confirm 02/23/20 09:44 Norvasc 5 Mg Administered 02/23/20 09:45 Dose 10 mg .ROUTE .STK-MED ONE Clonidine 0.2 mg 02/23/20 11:46 02/23/20 11:49 Catapres 0.1 Mg PO 02/23/20 11:47 0.2 mg STAT ONE Administration Clonidine Confirm 02/23/20 11:48 Catapres 0.1 Mg Administered 02/23/20 11:49 Dose 0.2 mg .ROUTE .STK-MED ONE Ketorolac Tromethamine 15 mg 02/23/20 09:42 02/23/20 09:46 Toradol 30 Mg Injection IV 02/23/20 09:43 15 mg STAT ONE Administration Ketorolac Tromethamine Confirm 02/23/20 09:44 Toradol 30 Mg Injection Administered 02/23/20 09:45 Dose 30 mg .ROUTE .STK-MED ONE Lab/Rad Data: Laboratory Result Diagrams 02/23/20 08:54 02/23/20 08:54 Laboratory Results 02/23/20 02/23/20 02/23/20 Range/Units 11:20 08:54 08:54 WBC (4.0-10.5) K/mm3 RBC (4.1-5.4) M/mm3 Hgb (12.0-16.0) gm/dl Hct (35-47) % MCV (78-100) fl MCH (26-32) pg MCHC (32-36) g/dl RDW (11.5-14.0) % Plt Count (150-450) K/mm3 MPV (7.5-11.0) fl Gran % (36.0-66.0) % Eos # (Auto) (0-0.5) Absolute Lymphs (auto) (1.0-4.6) Absolute Monos (auto) (0.0-1.3) Lymphocytes % (24.0-44.0) % Monocytes % (0.0-12.0) % Eosinophils % (0.00-5.0) % Basophils % (0.0-0.4) % Absolute Granulocytes (1.4-6.9) Basophils # (0-0.4) PT 12.1 (9.95-12.35) SECONDS INR 1.07 (0.8-3.0) APTT 30.0 (25.3-37.0) SECONDS D-Dimer 269 (215-500) ng/mL Sodium (137-145) mmol/L Potassium (3.5-5.1) mmol/L Chloride (98-107) mmol/L Carbon Dioxide (22-30) mmol/L Anion Gap (5-15) MEQ/L BUN (7-17) mg/dL Creatinine (0.52-1.04) mg/dL Estimated GFR ML/MIN Glucose (74-106) mg/dL Calcium (8.4-10.2) mg/dL Total Bilirubin (0.2-1.3) mg/dL AST (14-36) U/L ALT (0-35) U/L Alkaline Phosphatase (38-126) U/L Troponin I < 0.012 < 0.012 (0.000-0.034) ng/mL NT-Pro-B Natriuret Pep (0-450) pg/mL Serum Total Protein (6.3-8.2) g/dL Albumin (3.5-5.0) g/dL 02/23/20 02/23/20 Range/Units 08:54 08:54 WBC 6.0 (4.0-10.5) K/mm3 RBC 5.72 H (4.1-5.4) M/mm3 Hgb 14.7 (12.0-16.0) gm/dl Hct 44.4 (35-47) % MCV 77.6 L (78-100) fl MCH 25.7 L (26-32) pg MCHC 33.1 (32-36) g/dl RDW 14.7 H (11.5-14.0) % Plt Count 216 (150-450) K/mm3 MPV 10.3 (7.5-11.0) fl Gran % 70.2 H (36.0-66.0) % Eos # (Auto) 0.16 (0-0.5) Absolute Lymphs (auto) 1.14 (1.0-4.6) Absolute Monos (auto) 0.46 (0.0-1.3) Lymphocytes % 19.1 L (24.0-44.0) % Monocytes % 7.7 (0.0-12.0) % Eosinophils % 2.7 (0.00-5.0) % Basophils % 0.3 (0.0-0.4) % Absolute Granulocytes 4.18 (1.4-6.9) Basophils # 0.02 (0-0.4) PT (9.95-12.35) SECONDS INR (0.8-3.0) APTT (25.3-37.0) SECONDS D-Dimer (215-500) ng/mL Sodium 140 (137-145) mmol/L Potassium 4.2 (3.5-5.1) mmol/L Chloride 105 (98-107) mmol/L Carbon Dioxide 22 (22-30) mmol/L Anion Gap 17.3 H (5-15) MEQ/L BUN 17 (7-17) mg/dL Creatinine 0.76 (0.52-1.04) mg/dL Estimated GFR > 60.0 ML/MIN Glucose 361 H (74-106) mg/dL Calcium 9.2 (8.4-10.2) mg/dL Total Bilirubin 0.40 (0.2-1.3) mg/dL AST 29 (14-36) U/L ALT 28 (0-35) U/L Alkaline Phosphatase 74 (38-126) U/L Troponin I (0.000-0.034) ng/mL NT-Pro-B Natriuret Pep 24.9 (0-450) pg/mL Serum Total Protein 7.6 (6.3-8.2) g/dL Albumin 3.9 (3.5-5.0) g/dL - Progress Progress: improved Air Movement: good Progress Note: 02/23/20 09:[address] Mcnulty(executive administrative asst) who stated that pain sounded non-cardiac. Would check second troponin and send home if neg. 02/23/20 11:56 Pt's pain improved w 15mg IV toradol. 10mg po Norvasc given w minimal response. 0.2 po clonidine given. Troponin neg x2 and pt painfree. Will discharge pt to follow up with Dr. Mcnulty. 02/23/20 12:23 Pt given 0.2 po clonidine w good result. - Departure Departure Disposition: Home Clinical Impression: Chest pain Qualifiers: Chest pain type: unspecified Qualified Code(s): R07.9 - Chest pain, unspecified Hypertension Qualifiers: Hypertension type: essential hypertension Qualified Code(s): I10 - Essential ( primary) hypertension Condition: Stable Critical Care Time: No Referrals: JANESSA WEBSTER MD [Primary Care Provider] - Additional Instructions: Follow up with your executive administrative asst or family MD in 1-2 days. Return to ER for increasing pain or shortness of breath.
[2020-02-23 08:56] LABS: Absolute Neutrophil Ct (ANC) 4.18 (1.4-6.9); BASOPHIL % 0.3 % (0.0-0.4); Basophil (Absolute #) 0.02 (0-0.4); Eosinophil % 2.7 % (0.00-5.0); Eosinophil (Absolute #) 0.16 (0-0.5); Hematocrit 44.4 % (35-47); Hemoglobin 14.7 gm/dl (12.0-16.0); Lymphocyte (Absolute #) 1.14 (1.0-4.6); Lymphocytes % 19.1 % (24.0-44.0); Mean Cell Volume 77.6 fl (78-100); Mean Corpuscular Hemoglobin 25.7 pg (26-32); Mean Corpuscular Hgb Concent. 33.1 g/dl (32-36); Mean Platelet Volume 10.3 fl (7.5-11.0); Monocyte (Absolute #) 0.46 (0.0-1.3); Monocytes % 7.7 % (0.0-12.0); Neutrophil % 70.2 % (36.0-66.0); Platelet Count 216 K/mm3 (150-450); Red Blood Count 5.72 M/mm3 (4.1-5.4); Red Cell Distribution Width 14.7 % (11.5-14.0)
[2020-02-23 09:02] LABS: INR 1.07 (0.8-3.0); PROTIME 12.1 SECONDS (9.95-12.35)
[2020-02-23 09:07] LABS: ALBUMIN 3.9 g/dL (3.5-5.0); ALKALINE PHOSPHATASE 74 U/L (38-126); ANION GAP 17.3 MEQ/L (5-15); BLOOD UREA NITROGEN 17 mg/dL (7-17); CHLORIDE 105 mmol/L (98-107); Calcium 9.2 mg/dL (8.4-10.2); Carbon Dioxide 22 mmol/L (22-30); Creatinine 1 0.76 mg/dL (0.52-1.04); Glucose 361 mg/dL (74-106); Potassium 4.2 mmol/L (3.5-5.1); SGOT/AST 29 U/L (14-36); SGPT/ALT 28 U/L (0-35); SODIUM 140 mmol/L (137-145); Total Protein 7.6 g/dL (6.3-8.2)
[2020-02-23 09:15] LABS: NT PRO BNP 24.9 pg/mL (0-450)
--- NOTE | 2020-02-23 09:20 | XRAY ---
Exam: AP upright portable chest film from 02/23/2020. Comparison: Two-view chest film series from 07/15/2019. Indication: 49-year-old female with chest pain. Findings: The lungs are adequately inflated. The heart size and contour are normal. The lucille and mediastinal structures appear unremarkable. No air space infiltrates, vascular congestion, pneumothorax, or pleural fluid is seen. No acute osseous process is seen. EKG leads are seen projected over the chest. Impression: 1. No infiltrates to suggest pneumonia, heart failure, or other acute cardiopulmonary disease is seen, no change from 07/15/2019.
[2020-02-23] MEDS ORDERED: NORVASC 5 MG ONE (09:44)
[2020-02-23] MEDS ORDERED: TORAdol 30 mg Injection ONE (09:44)
[2020-02-23] MEDS: TORAdol 30 mg Injection IV ONE (09:46)
[2020-02-23] MEDS: NORVASC 5 MG PO ONE (09:46)
[2020-02-23] MEDS ORDERED: Catapres 0.1 MG ONE (11:48)
[2020-02-23] MEDS: Catapres 0.1 MG PO ONE (11:49)
[2020-02-23 12:33] VITALS: BP 140/85; PULSE 76; O2SAT 97
== END 2020-02-23 12:35 | disposition home or self-care (01) ==
LOC: ED 08:07
DX: R07.9 Chest pain, unspecified (principal); I10 Essential (primary) hypertension
CPT/HCPCS: 36415; 71045; 80053; 83880; 84484; 85025; 85379; 85610; 85730; 93005; 96374; 99284; J1885; A9270-GY

== ENCOUNTER 2020-10-20 12:40 | Emergency (ER) | payer OTHER ==
--- NOTE | 2020-10-20 13:13 | ERPHSYRPT ---
- History of Present Illness Time Seen by Provider: 10/20/20 13:10 Historian: patient Exam Limitations: no limitations Patient Subjective Stated Complaint: Pt states "I usually go to the bathroom every day but I have not had a bowel movement in 5 days and i am nauseated. I called Dr. Webster and he thinks I have an obstruction." Triage Nursing Assessment: Pt presented alert and oriented X 3, skin pwd Pt ambulates with an upright steady gait, able to speak in clear full sentenecs pt in no apparent respiratory distress. Physician History: This is a 50-year-old overweight white female who has a history of hypertension and diabetes and presents with 5-day history of constipation. She is now nauseated and feels bloated. Over the 5 days she tried fleets enemas without any benefit. Approximately an hour to an hour and a half prior to arrival, she drank three quarters of a bottle of magnesium citrate rapidly. She contacted her primary care physician's office who told her to come to the emergency room to be evaluated for possible bowel obstruction. Patient has never had a bowel obstruction in the past. Timing/Duration: day(s) (5) Activities at Onset: none Quality: fullness Abdominal Pain Onset Location: generalized abdomen Pain Radiation: no radiation Severity of Pain-Current: mild Modifying Factors: Improves With: other (Constipation) Associated Symptoms: denies symptoms Previous symptoms: no prior history Allergies/Adverse Reactions: aspirin Allergy (Intermediate, Verified 07/21/19 17:19) Hives codeine [Codeine] Allergy (Verified 07/21/19 17:19) hydrocodone bitartrate [From Vicodin] Allergy (Verified 07/21/19 17:19) morphine Allergy (Verified 07/21/19 17:19) Penicillins Allergy (Verified 07/21/19 17:19) propoxyphene HCl [From Darvon] Allergy (Verified 07/21/19 17:19) Home Medications: Omeprazole 20 MG [Prilosec 20 mg] 20 mg PO BID 10/25/14 [History] glipiZIDE [Glipizide] 1 tab PO DAILY 18 [History] Cyanocobalamin 1000 Mcg/ml [Cyanocobalamin B-12 1000 MCG/ML] 1 ml SQ UD 07/15/19 [History] Empagliflozin/Metformin HCl [Synjardy Xr 10-1,000 mg Tablet] 1 tab PO DAILY 07/15/19 [History] Naproxen 375 mg [Naprosyn 375 mg] 375 mg PO BID PRN 07/15/19 [History] Ondansetron HCl [Zofran] 4 mg PO Q4-6HPRN PRN 07/15/19 [History] Hx Tetanus, Diphtheria Vaccination/Date Given: Yes Hx Influenza Vaccination/Date Given: Yes Hx Pneumococcal Vaccination/Date Given: No Immunizations Up to Date: Yes Travel Risk - International Travel Have you traveled outside of the country in past 3 weeks: No - Coronavirus Screening Are you exhibiting any of the following symptoms?: No Close contact with a COVID-19 positive Pt in past 14-21 Days: No - Review of Systems Constitutional: No Symptoms Eyes: No Symptoms Ears, Nose, & Throat: No Symptoms Respiratory: No Symptoms Cardiac: No Symptoms Abdominal/Gastrointestinal: Abdominal Pain (Mild diffuse), Constipation Genitourinary Symptoms: No Symptoms Musculoskeletal: No Symptoms Skin: No Symptoms Neurological: No Symptoms Psychological: No Symptoms Endocrine: No Symptoms Hematologic/Lymphatic: No Symptoms Immunological/Allergic: No Symptoms All Other Systems: Reviewed and Negative - Past Medical History Pertinent Past Medical History: Yes Neurological History: Migraines ENT History: No Pertinent History Cardiac History: Hypertension Respiratory History: Asthma Endocrine Medical History: Diabetes Type II Musculoskeletal History: No Pertinent History GI Medical History: GERD History: No Pertinent History Psycho-Social History: No Pertinent History Female Reproductive Disorders: No Pertinent History - Past Surgical History Past Surgical History: Yes Neuro Surgical History: No Pertinent History Cardiac: No Pertinent History Respiratory: No Pertinent History Gastrointestinal: Cholecystectomy Genitourinary: No Pertinent History Musculoskeletal: No Pertinent History Female Surgical History: No Pertinent History Other Surgical History: 2005 gallbladder, bellybutton repair, d/c X1, 3 cysts - Social History Smoking Status: Never smoker Exposure to second hand smoke: No Alcohol Use: None Drug Use: none Patient Lives Alone: No Significant Family History: no pertinent family hx - Female History Hx Last Menstrual Period: 09/24/2020 Hx Now: No - Nursing Vital Signs Nursing Vital Signs: Initial Vital Signs Temperature 98.2 F 10/20/20 12:48 Pulse Rate 72 10/20/20 12:48 Respiratory Rate 20 10/20/20 12:48 Blood Pressure 184/107 10/20/20 12:48 O2 Sat by Pulse Oximetry 99 10/20/20 12:48 Pain Scale Pain Intensity 4 - Physical Exam General Appearance: no apparent distress, alert, anxiety, obese Eye Exam: PERRL/EOMI, eyes nml inspection Ears, Nose, Throat Exam: normal ENT inspection, moist mucous membranes Neck Exam: normal inspection, non-tender, supple, full range of motion Respiratory Exam: normal breath sounds, lungs clear, airway intact, No chest tenderness, No respiratory distress Cardiovascular Exam: regular rate/rhythm, normal heart sounds, normal peripheral pulses Gastrointestinal/Abdomen Exam: soft, normal bowel sounds, tenderness (Mild diffuse), No guarding, No rebound Pelvic Exam: not done Rectal Exam: not done Back Exam: normal inspection, normal range of motion, No CVA tenderness, No vertebral tenderness Extremity Exam: normal inspection, normal range of motion, pelvis stable Neurologic Exam: alert, oriented x 3, 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 There is small amount of stool debris present. Patient had an excellent response to the soapsuds enema. She has no significant abdominal pain. She has no abdominal distention. Her nausea is significant improved. She desires to go home. Counseled pt/family regarding: diagnosis, need for follow-up, rad results - Departure Departure Disposition: Home Clinical Impression: Constipation Condition: Stable Critical Care Time: No Referrals: JANESSA WEBSTER MD [Primary Care Provider] - Additional Instructions: Drink plenty of fluids. Contact your primary care physician to put you on a bowel regimen to help prevent constipation.
--- NOTE | 2020-10-20 13:32 | XRAY ---
Indication: Constipation. Nausea. Comparison: None KUB nonacute and nonobstructed with little fecal debris and cholecystectomy clips. Solid organs and osseous structures unremarkable.
[2020-10-20 14:08] VITALS: BP 140/78; PULSE 69
[2020-10-20 14:36] VITALS: O2SAT 99
== END 2020-10-20 14:43 | disposition home or self-care (01) ==
LOC: ED 12:40
DX: K59.00 Constipation, unspecified (principal); I10 Essential (primary) hypertension; R11.0 Nausea; E11.9 Type 2 diabetes mellitus without complications; Z79.899 Other long term (current) drug therapy; Z79.84 Long term (current) use of oral hypoglycemic drugs
CPT/HCPCS: 74018; 99283

== ENCOUNTER 2020-12-16 17:04 | Emergency (ER) | payer OTHER ==
[2020-12-16] MEDS ORDERED: Zofran 4 MG/2 ML VIAL IV ONE (17:19)
[2020-12-16] MEDS ORDERED: TORAdol 30 mg Injection IV ONE (17:19)
[2020-12-16] MEDS ORDERED: Sodium Chloride 0.9% 1000 ML 1,000 ML IV STA (17:19)
[2020-12-16] MEDS ORDERED: Zofran 4 MG/2 ML VIAL ONE (17:23)
[2020-12-16] MEDS ORDERED: TORAdol 30 mg Injection ONE (17:23)
[2020-12-16] MEDS ORDERED: Sodium Chloride 0.9% 1000 ML 1,000 ML ONE (17:23)
[2020-12-16 17:39] LABS: Absolute Neutrophil Ct (ANC) 4.27 (1.4-6.9); BASOPHIL % 0.8 % (0.0-0.4); Basophil (Absolute #) 0.06 (0-0.4); Eosinophil % 3.2 % (0.00-5.0); Eosinophil (Absolute #) 0.24 (0-0.5); Hematocrit 47.7 % (35-47); Hemoglobin 15.7 gm/dl (12.0-16.0); Lymphocyte (Absolute #) 2.36 (1.0-4.6); Lymphocytes % 31.2 % (24.0-44.0); Mean Cell Volume 76.3 fl (78-100); Mean Corpuscular Hemoglobin 25.1 pg (26-32); Mean Corpuscular Hgb Concent. 32.9 g/dl (32-36); Monocyte (Absolute #) 0.64 (0.0-1.3); Monocytes % 8.5 % (0.0-12.0); Neutrophil % 56.3 % (36.0-66.0); Platelet Count 289 K/mm3 (150-450); Red Blood Count 6.25 M/mm3 (4.1-5.4); White Blood Count 7.6 K/mm3 (4.0-10.5)
--- NOTE | 2020-12-16 17:43 | ERPHSYRPT ---
- History of Present Illness Time Seen by Provider: 12/16/20 17:40 Source: patient Exam Limitations: no limitations Patient Subjective Stated Complaint: PT states "I started to have pain in my kidneys last night and now it really hurts. I hurt so bad." Triage Nursing Assessment: PT presented alert and oriented X 3, skin pwd. PT ambulates with a slow gait, pt unable to sit still, grunting and holding her lower back. Physician History: PT states "I started to have pain in my kidneys last night and now it really hurts. I hurt so bad." This 50-year-old female with significant past medical history of recurrent renal stone hypertension suddenly started having a bilateral costovertebral angle area pain and tenderness associated with dysuria and frequency of urination yesterday. Patient pain got worse today so she came to the emergency room. She was complaining of low-grade fever yesterday with some chills. Patient has a history of kidney stone in the past. Timing/Duration: yesterday Associated Symptoms: fever, No nausea, No vomiting Allergies/Adverse Reactions: aspirin Allergy (Intermediate, Verified 07/21/19 17:19) Hives codeine [Codeine] Allergy (Verified 07/21/19 17:19) hydrocodone bitartrate [From Vicodin] Allergy (Verified 07/21/19 17:19) morphine Allergy (Verified 07/21/19 17:19) Penicillins Allergy (Verified 07/21/19 17:19) propoxyphene HCl [From Darvon] Allergy (Verified 07/21/19 17:19) Home Medications: Omeprazole 20 MG [Prilosec 20 mg] 20 mg PO BID 10/25/14 [History] glipiZIDE [Glipizide] 1 tab PO DAILY 10/17/17 [History] Cyanocobalamin 1000 Mcg/ml [Cyanocobalamin B-12 1000 MCG/ML] 1 ml SQ UD 07/15/19 [History] Empagliflozin/Metformin HCl [Synjardy Xr 10-1,000 mg Tablet] 1 tab PO DAILY 07/15/19 [History] Naproxen 375 mg [Naprosyn 375 mg] 375 mg PO BID PRN 07/15/19 [History] Ondansetron HCl [Zofran] 4 mg PO Q4-6HPRN PRN 07/15/19 [History] Hx Tetanus, Diphtheria Vaccination/Date Given: Yes Hx Influenza Vaccination/Date Given: Yes Hx Pneumococcal Vaccination/Date Given: No Immunizations Up to Date: Yes Travel Risk - International Travel Have you traveled outside of the country in past 3 weeks: No - Coronavirus Screening Are you exhibiting any of the following symptoms?: No Close contact with a COVID-19 positive Pt in past 14-21 Days: No - Review of Systems Constitutional: No Fever, No Chills Eyes: No Symptoms Ears, Nose, & Throat: No Symptoms Respiratory: No Cough, No Dyspnea Cardiac: No Chest Pain, No Edema, No Syncope Abdominal/Gastrointestinal: No Abdominal Pain, No Nausea, No Vomiting, No Diarrhea Genitourinary Symptoms: Dysuria, Frequency Musculoskeletal: Back Pain, No Neck Pain Skin: No Rash Neurological: No Dizziness, No Focal Weakness, No Sensory Changes Psychological: No Symptoms Endocrine: No Symptoms All Other Systems: Reviewed and Negative - Past Medical History Pertinent Past Medical History: Yes Neurological History: Migraines ENT History: No Pertinent History Cardiac History: Hypertension Respiratory History: Asthma Endocrine Medical History: Diabetes Type II Musculoskeletal History: No Pertinent History GI Medical History: GERD History: No Pertinent History Psycho-Social History: No Pertinent History Female Reproductive Disorders: No Pertinent History - Past Surgical History Past Surgical History: Yes Neuro Surgical History: No Pertinent History Cardiac: No Pertinent History Respiratory: No Pertinent History Gastrointestinal: Cholecystectomy Genitourinary: No Pertinent History Musculoskeletal: No Pertinent History Female Surgical History: No Pertinent History Other Surgical History: 2004 gallbladder, bellybutton repair, d/c X1, 3 cysts - Social History Smoking Status: Never smoker Exposure to second hand smoke: No Alcohol Use: None Drug Use: none Patient Lives Alone: No Significant Family History: no pertinent family hx - Female History Hx Now: No - Nursing Vital Signs Nursing Vital Signs: Initial Vital Signs Temperature 98.3 F 12/16/20 17:13 Pulse Rate 96 H 12/16/20 17:13 Respiratory Rate 22 12/16/20 17:13 Blood Pressure 177/110 12/16/20 17:13 O2 Sat by Pulse Oximetry 99 12/16/20 17:13 Pain Scale Pain Intensity [] 8 Pain Intensity 0 - Physical Exam General Appearance: no apparent distress, alert Eye Exam: PERRL/EOMI, eyes nml inspection Ears, Nose, Throat Exam: normal ENT inspection, TMs normal, pharynx normal, moist mucous membranes Neck Exam: normal inspection, non-tender, supple, full range of motion Respiratory Exam: normal breath sounds, lungs clear, No respiratory distress Cardiovascular Exam: regular rate/rhythm, normal heart sounds, normal peripheral pulses Gastrointestinal/Abdomen Exam: soft, normal bowel sounds, tenderness (CVA), No mass Back Exam: normal inspection, normal range of motion, No CVA tenderness, No vertebral tenderness Extremity Exam: normal inspection, normal range of motion, pelvis stable Neurologic Exam: alert, oriented x 3, cooperative, normal mood/affect, nml cerebellar function, nml station & gait, sensation nml, No motor deficits Skin Exam: normal color, warm, dry, No rash Lymphatic Exam: No adenopathy SpO2: 99 - Course Nursing assessment & vital signs reviewed: Yes - CT Exams Abdomen/Pelvis CT Interpretation: Tele-radiologist Report Ordered Tests: Active Orders 24 hr Category Date Time Status ABDOMEN AND PELVIS W/0 CONTRAS [CT] Stat Exams 12/16/20 17:19 Ordered HEAD WITHOUT CONTRAST [CT] Stat Exams 12/16/20 17:09 Ordered CBC W DIFF Stat Lab 12/16/20 17:24 Completed CMP Stat Lab 12/16/20 17:24 Completed UA W/RFX UR CULTURE Stat Lab 12/16/20 17:24 Completed Medication Summary Generic Name Dose Route Start Last Admin Trade Name Freq PRN Reason Stop Dose Admin Ceftriaxone Sodium/Dextrose 1 g in 50 mls @ 100 mls/hr 12/16/20 18:34 12/16/20 18:37 Rocephin 1 Gm-D5w 50 Ml Bag IV 12/16/20 19:03 100 mls/hr STAT STA 100 mls/hr Administration Discontinued Medications Generic Name Dose Route Start Last Admin Trade Name Freq PRN Reason Stop Dose Admin Sodium Chloride 1,000 mls @ 999 mls/hr 12/16/20 17:19 12/16/20 18:28 Sodium Chloride 0.9% 1000 Ml IV 12/16/20 18:19 Infused .Q1H1M STA Infusion Sodium Chloride Confirm 12/16/20 17:23 Sodium Chloride 0.9% 1000 Ml Administered 12/16/20 17:24 Dose 1,000 mls @ ud .ROUTE .STK-MED ONE Ceftriaxone Sodium/Dextrose Confirm 12/16/20 18:36 Rocephin 1 Gm-D5w 50 Ml Bag Administered 12/16/20 18:37 Dose 1 g in 50 mls @ IV .STK-MED ONE Ketorolac Tromethamine 30 mg 12/16/20 17:19 12/16/20 17:25 Toradol 30 Mg Injection IV 12/16/20 17:20 30 mg STAT ONE Administration Ketorolac Tromethamine Confirm 12/16/20 17:23 Toradol 30 Mg Injection Administered 12/16/20 17:24 Dose 30 mg .ROUTE .STK-MED ONE Nalbuphine HCl 10 mg 12/16/20 18:07 12/16/20 18:09 Nalbuphine Hcl 10 Mg/1 Ml Injection IV 12/16/20 18:08 10 mg STAT ONE Administration Nalbuphine HCl Confirm 12/16/20 18:09 Nubain 10 Mg/Ml Administered 12/16/20 18:10 Dose 10 mg .ROUTE .STK-MED ONE Ondansetron HCl 4 mg 12/16/20 17:19 12/16/20 17:25 Zofran 4 Mg/2 Ml Vial IV 12/16/20 17:20 4 mg STAT ONE Administration Ondansetron HCl Confirm 12/16/20 17:23 Zofran 4 Mg/2 Ml Vial Administered 12/16/20 17:24 Dose 4 mg .ROUTE .STK-MED ONE Lab/Rad Data: Laboratory Result Diagrams 12/16/20 17:24 12/16/20 17:24 Laboratory Results 12/16/20 12/16/20 12/16/20 Range/Units 17:24 17:24 17:24 WBC 7.6 (4.0-10.5) K/mm3 RBC 6.25 H* (4.1-5.4) M/mm3 Hgb 15.7 (12.0-16.0) gm/dl Hct 47.7 H (35-47) % MCV 76.3 L (78-100) fl MCH 25.1 L (26-32) pg MCHC 32.9 (32-36) g/dl RDW 15.0 H (11.5-14.0) % Plt Count 289 (150-450) K/mm3 MPV 10.0 (7.5-11.0) fl Gran % 56.3 (36.0-66.0) % Eos # (Auto) 0.24 (0-0.5) Absolute Lymphs (auto) 2.36 (1.0-4.6) Absolute Monos (auto) 0.64 (0.0-1.3) Lymphocytes % 31.2 (24.0-44.0) % Monocytes % 8.5 (0.0-12.0) % Eosinophils % 3.2 (0.00-5.0) % Basophils % 0.8 (0.0-0.4) % Absolute Granulocytes 4.27 (1.4-6.9) Basophils # 0.06 (0-0.4) Sodium 137 (137-145) mmol/L Potassium 3.5 (3.5-5.1) mmol/L Chloride 101 (98-107) mmol/L Carbon Dioxide 22 (22-30) mmol/L Anion Gap 17.8 H (5-15) MEQ/L BUN 13 (7-17) mg/dL Creatinine 0.88 (0.52-1.04) mg/dL Estimated GFR > 60.0 ML/MIN Glucose 215 H (74-106) mg/dL Calcium 9.7 (8.4-10.2) mg/dL Total Bilirubin 0.40 (0.2-1.3) mg/dL AST 28 (14-36) U/L ALT 36 H (0-35) U/L Alkaline Phosphatase 81 (38-126) U/L Serum Total Protein 8.6 H (6.3-8.2) g/dL Albumin 4.4 (3.5-5.0) g/dL Urine Color YELLOW (YELLOW) Urine Appearance CLOUDY (CLEAR) Urine pH 5.0 (5-6) Ur Specific Artie 1.031 (1.005-1.025) Urine Protein NEGATIVE (Negative) Urine Ketones NEGATIVE (NEGATIVE) Urine Blood NEGATIVE (0-5) Jack/ul Urine Nitrite NEGATIVE (NEGATIVE) Urine Bilirubin NEGATIVE (NEGATIVE) Urine Urobilinogen NEGATIVE (0-1) mg/dL Ur Leukocyte Esterase SMALL (NEGATIVE) Urine WBC (Auto) 26-50 (0-5) /HPF Urine RBC (Auto) 6-10 (0-2) /HPF U Epithel Cells (Auto) FEW (FEW) /HPF Urine Bacteria (Auto) FEW (NEGATIVE) /HPF Urine Mucus (Auto) SLIGHT (NEGATIVE) /HPF Urine Culture Reflexed NO (NO) Urine Glucose >=500 (NEGATIVE) mg/dL - Progress Progress: improved Counseled pt/family regarding: lab results, diagnosis, need for follow-up, rad results - Departure Departure Disposition: Home Clinical Impression: Urinary tract infection Qualifiers: Urinary tract infection type: acute pyelonephritis Qualified Code(s): N10 - Acute pyelonephritis Condition: Stable Critical Care Time: No Referrals: JANESSA WEBSTER MD [Primary Care Provider] - Instructions: Kidney Infection Additional Instructions: Discharge/Care Plan ERAN ALMANZA was seen on 12/16/20 in the Emergency Room. The patient was counseled regarding Diagnosis,Lab results, Imaging studies, need for follow up and when to return to the Emergency Room. Prescriptions given: Discharge Note I have spoken with the patient and/or caregivers. I have explained the patient's condition, diagnosis and treatment plan based on the information available to me at this time. I have answered the patient's and/or caregiver's questions and addressed any concerns. The patient and/or caregivers have as good understanding of the patient's diagnosis, condition and treatment plan as can be expected at this point. The vital signs have been stable. The patient's condition is stable and appropriate for discharge from the emergency department. The patient will pursue further outpatient evaluation with the primary care physician or other designated or consulting physician as outlined in the disc harge instructions. The patient and/or caregivers are agreeable to this plan of care and follow-up instructions have been explained in detail. The patient and/or caregivers have received these instruction. The patient/and or caregivers are aware that any significant change in condition or worsening of symptoms should prompt an immediate return to this or the closest emergency department or call 911. ERAN ALMANZA was seen on 12/16/20 n the Emergency Room. At that time you were treated for an emergent condition, during your visit Laboratory, Radiology and/or other procedures may have been ordered. It is very important that you follow-up with your Primary Care Physician JANESSA WEBSTER within the next 24-48 hours to review your Emergency Room visit and the final results of testing that was ordered. Some test results such as Urine Cultures, Blood Cultures, and other cultures if ordered will not be finalized for 24-48 hours. If you do not have a Primary Care Provider please call the medical records department at [phone] ext [phone] to obtain a copy of your results or you may sign into our patient portal to obtain these results by visiting us @ [email or web address] and completing the following steps: 1. Click on the Patient Portal link 2. Click the Patient Self Enrollment Link to complete the enrollment form and entering your 3. Once the enrollment form is completed you will receive an email with a temporary ID and password at the email address you provided. 4. Next choose a user name and password. Your user name must be at least 4 characters long and your password must be at least 4 characters long. 5. Choose a security question from the list and provide your answer to the question. If you already have signed into the Health Portal you may access your Health Care Information 28/04 by the following steps: 1. Login to our website @ [email or web address] 2. Enter your original user name and password. FAQS The [facility] Health Portal is an online tool that contains your Lab Results, Radiology Reports, Visit History, Discharge Instructions and Health Summary Lab and Radiology Results will not be available for 72 hours on the portal. The Portal is a secure site, passwords are encryted and URLs are re-written so they cannot be copied and pasted. You and authorized family members are the only ones who can access your Portal. Also there is a timeout feature that protects your information if you leave the Portal page open. If you have technical difficulty please use the Contact Us link on the page this will allow you to submit any questions you have regarding the Portal or you may contact the Medical Record Department at [phone] ext [phone]. Prescriptions: Ciprofloxacin [Cipro 500 MG] 500 mg PO BIDAC #20 tablet
[2020-12-16 17:46] LABS: Appearance CLOUDY (CLEAR); Bacteria FEW /HPF (NEGATIVE); Bilirubin NEGATIVE (NEGATIVE); Blood NEGATIVE Ery/ul (0-5); Epithelial Cells FEW /HPF (FEW); Glucose >=500 mg/dL (NEGATIVE); Ketones NEGATIVE (NEGATIVE); Leukocyte Esterase SMALL (NEGATIVE); Mucus SLIGHT /HPF (NEGATIVE); Nitrite NEGATIVE (NEGATIVE); Protein,Urine Dip NEGATIVE (Negative); Specific Gravity 1.031 (1.005-1.025); Urobilinogen NEGATIVE mg/dL (0-1); WBC 26-50 /HPF (0-5)
[2020-12-16 17:52] LABS: ALBUMIN 4.4 g/dL (3.5-5.0); ALKALINE PHOSPHATASE 81 U/L (38-126); ANION GAP 17.8 MEQ/L (5-15); BLOOD UREA NITROGEN 13 mg/dL (7-17); CHLORIDE 101 mmol/L (98-107); Calcium 9.7 mg/dL (8.4-10.2); Carbon Dioxide 22 mmol/L (22-30); Creatinine 1 0.88 mg/dL (0.52-1.04); EST GLOMERULAR FILTRATION RATE > 60.0 ML/MIN; Glucose 215 mg/dL (74-106); Potassium 3.5 mmol/L (3.5-5.1); SGOT/AST 28 U/L (14-36); SGPT/ALT 36 U/L (0-35); SODIUM 137 mmol/L (137-145); Total Protein 8.6 g/dL (6.3-8.2)
[2020-12-16] MEDS ORDERED: NALBUPHINE HCL 10 MG/1 ML INJECTION IV ONE (18:07)
[2020-12-16] MEDS ORDERED: Nubain 10 MG/ML ONE (18:09)
[2020-12-16] MEDS ORDERED: ROCEPHIN 1 Gm-D5w 50 ml Bag** 1 G/50 ML IVPB IV STA (18:34)
[2020-12-16] MEDS ORDERED: ROCEPHIN 1 Gm-D5w 50 ml Bag** 1 G/50 ML IVPB IV ONE (18:36)
[2020-12-16 18:38] VITALS: PULSE 73
[2020-12-16 19:20] VITALS: BP 167/82; O2SAT 96
--- NOTE | 2020-12-16 20:20 | XRAY ---
Indication: Headache. Elevated blood pressure. Multiple contiguous axial images obtained through the head without contrast. Comparison: December 22, 2016. Normal appearing brain parenchyma, ventricles, and bony calvarium. Visualized paranasal sinuses and mastoid air cells are clear. Impression: Continued normal CT head without contrast exam. Comment: Preliminary interpretation was made by [facility]. No critical discrepancy.
--- NOTE | 2020-12-16 20:37 | XRAY ---
Indication: Renal pain. Low back pain. Renal stone. Multiple contiguous axial images obtained through the abdomen and pelvis without contrast as ordered. Comparison: February 15, 2019. Lung bases remain clear. Heart is not enlarged. Stomach is moderately distended with food/fluid. Noncontrasted stomach and bowel loops appear nonobstructed. Normal appendix. There is now mild/moderate diffuse scattered colonic fecal debris throughout including rectum. Again fatty hepatomegaly measuring 21.9 cm, 13 cm splenomegaly, and cholecystectomy. The remaining liver, pancreas, spleen, adrenal glands, kidneys, ureters, bladder, uterus, and aorta appear unremarkable for noncontrasted exam. Osseous structures intact again with moderate L5-S1 degenerative disc disease. Stable small fatty umbilical hernia. Impression: 1. New diffuse fecal stasis without obstruction. 2. Again fatty apparently megaly, splenomegaly, and fatty umbilical hernia. 3. Remaining CT abdomen/pelvis without contrast exam is negative Comment: Preliminary interpretation was made by [facility]. No critical discrepancy.
== END 2020-12-16 19:20 | disposition home or self-care (01) ==
LOC: ED 17:04
DX: N10 Acute pyelonephritis (principal); N39.0 Urinary tract infection, site not specified; R50.9 Fever, unspecified; Z79.899 Other long term (current) drug therapy
CPT/HCPCS: 36000; 36415; 70450; 74176; 80053; 81001; 85025; 96360; 96365; 96374; 96375; 99284; J0696; J1885; J2300; J2405

== ENCOUNTER 2021-02-28 15:19 | Observation (INO) | payer OTHER ==
[2021-02-28 16:17] LABS: Absolute Neutrophil Ct (ANC) 5.61 (1.4-6.9); BASOPHIL % 0.4 % (0.0-0.4); Basophil (Absolute #) 0.03 (0-0.4); Eosinophil % 3.4 % (0.00-5.0); Eosinophil (Absolute #) 0.28 (0-0.5); Hematocrit 45.7 % (35-47); Hemoglobin 14.6 gm/dl (12.0-16.0); Lymphocyte (Absolute #) 1.72 (1.0-4.6); Lymphocytes % 20.6 % (24.0-44.0); Mean Cell Volume 76.4 fl (78-100); Mean Corpuscular Hemoglobin 24.4 pg (26-32); Mean Corpuscular Hgb Concent. 31.9 g/dl (32-36); Mean Platelet Volume 10.2 fl (7.5-11.0); Monocyte (Absolute #) 0.69 (0.0-1.3); Monocytes % 8.3 % (0.0-12.0); Neutrophil % 67.3 % (36.0-66.0); Platelet Count 232 K/mm3 (150-450); Red Blood Count 5.98 M/mm3 (4.1-5.4); Red Cell Distribution Width 15.4 % (11.5-14.0); White Blood Count 8.3 K/mm3 (4.0-10.5)
[2021-02-28 16:36] LABS: ALBUMIN 4.5 g/dL (3.5-5.0); ALKALINE PHOSPHATASE 86 U/L (38-126); ANION GAP 21.3 MEQ/L (5-15); BLOOD UREA NITROGEN 15 mg/dL (7-17); CHLORIDE 101 mmol/L (98-107); Calcium 9.5 mg/dL (8.4-10.2); Carbon Dioxide 21 mmol/L (22-30); Creatinine 1 0.71 mg/dL (0.52-1.04); EST GLOMERULAR FILTRATION RATE > 60.0 ML/MIN; Glucose 193 mg/dL (74-106); MAGNESIUM 1.9 mg/dL (1.6-2.3); NT PRO BNP 143 pg/mL (0-900); Potassium 3.5 mmol/L (3.5-5.1); SGOT/AST 25 U/L (14-36); SGPT/ALT 24 U/L (0-35); SODIUM 140 mmol/L (137-145); Total Protein 8.1 g/dL (6.3-8.2)
--- NOTE | 2021-02-28 16:42 | XRAY ---
Indication: Chest pain and cough. Comparison: February 23, 2020. Portable chest again demonstrates normal heart and lungs. Bony thorax intact. No new/acute findings.
[2021-02-28] MEDS ORDERED: Hydromorphone 1 mg/ml Injection IV ONE (18:15)
--- NOTE | 2021-02-28 18:15 | ERPHSYRPT ---
- History of Present Illness Time Seen by Provider: 02/28/21 15:30 Historian: patient Exam Limitations: no limitations Patient Subjective Stated Complaint: Patient states she started having chest pain after eating taco bar at work. BP was taken by coworker at 1440which was 190/102, drank some water retook it at 1510 which was 210/110, and was then wheeled to ED by coworker Triage Nursing Assessment: Patient presents to ED with chest pain. States pain is 0/10 and feels more like pressure which she believes could also be indegestion. BP elevated, pulse, o2, rr normal. Physician History: Patient is a 50-year-old female presents to our ED with complaints of chest pain. Chest pain started just prior to arrival. Patient states she was eating a chocolate bar when symptoms occurred. Patient became concerned and checked her blood pressure. Blood pressure was initially 190/102. She repeated it shortly thereafter and it was 210/110. Pain at that point was getting progressively worse. However upon arrival patient's chest pain was 0 out of 10. She described pain as a pressure-like sensation. No nausea vomiting or diaphoresis. Patient had a cardiac stress test approximately 3 years ago that was reportedly negative. Patient states she had a cardiac catheterization approximately 1 year ago states she believes it was normal. Patient symptoms are mild to moderate in intensity. No specific worsening improving factors. Patient admits to experiencing some shortness of breath as well along with her symptomology. Patient voices no other complaints concerns at this time. Timing/Duration: today Activities at Onset: none Quality: aching Location: substernal Chest Pain Radiation: no radiation Severity of Pain-Max: moderate Severity of Pain-Current: mild Modifying Factors: Improves With: nothing Associated Symptoms: denies symptoms Prior Chest Pain/Cardiac Workup: cardiac cath Nitro Today/Relief: no nitro taken today Aspirin Treatment Today: no aspirin today Allergies/Adverse Reactions: aspirin Allergy (Intermediate, Verified 02/28/21 15:34) Hives codeine [Codeine] Allergy (Verified 02/28/21 15:34) hydrocodone bitartrate [From Vicodin] Allergy (Verified 02/28/21 15:34) morphine Allergy (Verified 02/28/21 15:34) Penicillins Allergy (Verified 02/28/21 15:34) propoxyphene HCl [From Darvon] Allergy (Verified 02/28/21 15:34) Home Medications: Omeprazole 20 MG [Prilosec 20 mg] 20 mg PO BID 10/25/14 [History] glipiZIDE [Glipizide] 1 tab PO DAILY 10/17/17 [History] Empagliflozin/Metformin HCl [Synjardy Xr 10-1,000 mg Tablet] 1 tab PO DAILY 07/15/19 [History] Naproxen 375 mg [Naprosyn 375 mg] 375 mg PO BID PRN 07/15/19 [History] Ondansetron HCl [Zofran] 4 mg PO Q4-6HPRN PRN 07/15/19 [History] Hx Tetanus, Diphtheria Vaccination/Date Given: Yes Hx Influenza Vaccination/Date Given: Yes Hx Pneumococcal Vaccination/Date Given: No Travel Risk - International Travel Have you traveled outside of the country in past 3 weeks: No - Coronavirus Screening Are you exhibiting any of the following symptoms?: No Symptoms: Cough: New Onset Close contact with a COVID-19 positive Pt in past 14-21 Days: No - Vaccine Status Have you recieved a Covid-19 vaccination: No - Review of Systems Constitutional: No Symptoms, No Fever, No Chills Eyes: No Symptoms Ears, Nose, & Throat: No Symptoms Respiratory: No Symptoms, No Cough, No Dyspnea Cardiac: No Symptoms, No Chest Pain, No Edema, No Syncope Abdominal/Gastrointestinal: No Symptoms, No Abdominal Pain, No Nausea, No Vomiting, No Diarrhea Genitourinary Symptoms: No Symptoms, No Dysuria Musculoskeletal: No Symptoms, No Back Pain, No Neck Pain Skin: No Symptoms, No Rash Neurological: No Symptoms, No Dizziness, No Focal Weakness, No Sensory Changes Psychological: No Symptoms Endocrine: No Symptoms Hematologic/Lymphatic: No Symptoms Immunological/Allergic: No Symptoms All Other Systems: Reviewed and Negative - Past Medical History Pertinent Past Medical History: Yes Neurological History: Migraines ENT History: No Pertinent History Cardiac History: Hypertension Respiratory History: Asthma Endocrine Medical History: Diabetes Type II Musculoskeletal History: No Pertinent History GI Medical History: GERD History: No Pertinent History Psycho-Social History: No Pertinent History Female Reproductive Disorders: No Pertinent History - Past Surgical History Past Surgical History: Yes Neuro Surgical History: No Pertinent History Cardiac: No Pertinent History Respiratory: No Pertinent History Gastrointestinal: Cholecystectomy Genitourinary: No Pertinent History Musculoskeletal: No Pertinent History Female Surgical History: No Pertinent History Other Surgical History: 2005 gallbladder, bellybutton repair, d/c X1, 3 cysts - Social History Smoking Status: Never smoker Exposure to second hand smoke: No Alcohol Use: None Drug Use: none Patient Lives Alone: No Significant Family History: no pertinent family hx - Female History Hx Last Menstrual Period: 08/06/20 Hx Now: No - Nursing Vital Signs Nursing Vital Signs: Initial Vital Signs Temperature 98.1 F 02/28/21 15:22 Pulse Rate 78 02/28/21 15:22 Blood Pressure 178/110 02/28/21 15:22 O2 Sat by Pulse Oximetry 99 02/28/21 15:22 Pain Scale Pain Intensity 5 - Physical Exam General Appearance: no apparent distress, alert Eye Exam: PERRL/EOMI, eyes nml inspection Ears, Nose, Throat Exam: normal ENT inspection, moist mucous membranes Neck Exam: normal inspection, non-tender, supple, full range of motion Respiratory Exam: normal breath sounds, lungs clear, No respiratory distress Cardiovascular Exam: regular rate/rhythm, normal heart sounds Gastrointestinal/Abdomen Exam: soft, No tenderness, No mass Back Exam: normal inspection, No CVA tenderness, No vertebral tenderness Extremity Exam: normal inspection, normal range of motion Neurologic Exam: alert, oriented x 3, cooperative, normal mood/affect, sensation nml, No motor deficits Skin Exam: normal color, warm, dry Lymphatic Exam: No adenopathy SpO2 Interpretation: normal SpO2: 98 O2 Delivery: Room Air - Course Nursing assessment & vital signs reviewed: Yes EKG Interpreted by Me: RATE (86), Sinus Rhythm, NORMAL AXIS, NORMAL INTERVALS (multiple PVC) - CT Exams Chest CT Interpretation: Tele-radiologist Report (Negative for PE. Stable fatty liver. No no acute findings.) Ordered Tests: Active Orders 24 hr Category Date Time Status Crushing Foreman STAT Care 02/28/21 15:45 Active EKG-ER Only STAT Care 02/28/21 15:45 Active IV Insertion STAT Care 02/28/21 15:45 Active Pulse Oximetry (ED) STAT Care 02/28/21 15:45 Active CHEST 1 VIEW (PORTABLE) Stat Exams 02/28/21 15:45 Completed CHEST WITH CONTRAST [CT] Stat Exams 02/28/21 19:25 Taken CBC W DIFF Stat Lab 02/28/21 16:00 Completed CMP Stat Lab 02/28/21 16:00 Completed MAGNESIUM Stat Lab 02/28/21 16:00 Completed NT PRO BNP Stat Lab 02/28/21 16:00 Completed TROPONIN Q3H Lab 02/28/21 16:00 Completed TROPONIN Q3H Lab 02/28/21 18:15 Completed TROPONIN Q3H Lab 02/28/21 21:45 Ordered TROPONIN Q3H Lab 03/01/21 00:45 Ordered TROPONIN Q3H Lab 03/01/21 03:45 Ordered UA W/RFX UR CULTURE Stat Lab 02/28/21 15:45 Ordered Transfer Order Routine Transfer 02/28/21 Ordered Medication Summary Discontinued Medications Generic Name Dose Route Start Last Admin Trade Name Freq PRN Reason Stop Dose Admin Hydromorphone HCl 0.5 mg 02/28/21 18:15 02/28/21 19:29 Hydromorphone 1 Mg/Ml Injection IV 02/28/21 18:16 0.5 mg STAT ONE Administration Hydromorphone HCl Confirm 02/28/21 19:25 Hydromorphone 1 Mg/Ml Injection Administered 02/28/21 19:26 Dose 1 mg .ROUTE .STK-MED ONE Nitroglycerin 1 gm 02/28/21 18:17 02/28/21 19:32 Nitro-Bid 2% Ud Packets TOP 02/28/21 18:18 1 gm STAT ONE Administration Nitroglycerin Confirm 02/28/21 19:25 Nitro-Bid 2% Ud Packets Administered 02/28/21 19:26 Dose 1 gm .ROUTE .STK-MED ONE Ondansetron HCl 4 mg 02/28/21 19:53 02/28/21 20:01 Zofran 4 Mg/2 Ml Vial IV 02/28/21 19:54 4 mg STAT ONE Administration Ondansetron HCl Confirm 02/28/21 20:00 Zofran 4 Mg/2 Ml Vial Administered 02/28/21 20:01 Dose 4 mg .ROUTE .STK-MED ONE Lab/Rad Data: Laboratory Result Diagrams 02/28/21 16:00 02/28/21 16:00 Laboratory Results 02/28/21 02/28/21 02/28/21 Range/Units 18:15 18:15 16:00 WBC (4.0-10.5) K/mm3 RBC (4.1-5.4) M/mm3 Hgb (12.0-16.0) gm/dl Hct (35-47) % MCV (78-100) fl MCH (26-32) pg MCHC (32-36) g/dl RDW (11.5-14.0) % Plt Count (150-450) K/mm3 MPV (7.5-11.0) fl Gran % (36.0-66.0) % Eos # (Auto) (0-0.5) Absolute Lymphs (auto) (1.0-4.6) Absolute Monos (auto) (0.0-1.3) Lymphocytes % (24.0-44.0) % Monocytes % (0.0-12.0) % Eosinophils % (0.00-5.0) % Basophils % (0.0-0.4) % Absolute Granulocytes (1.4-6.9) Basophils # (0-0.4) Sodium (137-145) mmol/L Potassium (3.5-5.1) mmol/L Chloride (98-107) mmol/L Carbon Dioxide (22-30) mmol/L Anion Gap (5-15) MEQ/L BUN (7-17) mg/dL Creatinine (0.52-1.04) mg/dL Estimated GFR ML/MIN Glucose (74-106) mg/dL Calcium (8.4-10.2) mg/dL Magnesium (1.6-2.3) mg/dL Total Bilirubin (0.2-1.3) mg/dL AST (14-36) U/L ALT (0-35) U/L Alkaline Phosphatase (38-126) U/L Troponin I < 0.012 < 0.012 (0.000-0.034) ng/mL NT-Pro-B Natriuret Pep (0-900) pg/mL Serum Total Protein (6.3-8.2) g/dL Albumin (3.5-5.0) g/dL Influenza Type A Ag NEGATIVE (NEGATIVE) Influenza Type B Ag NEGATIVE (NEGATIVE) RSV (PCR) NEGATIVE (Negative) SARS-CoV-2 (PCR) NEGATIVE (NEGATIVE) 02/28/21 02/28/21 Range/Units 16:00 16:00 WBC 8.3 (4.0-10.5) K/mm3 RBC 5.98 H (4.1-5.4) M/mm3 Hgb 14.6 (12.0-16.0) gm/dl Hct 45.7 (35-47) % MCV 76.4 L (78-100) fl MCH 24.4 L (26-32) pg MCHC 31.9 L (32-36) g/dl RDW 15.4 H (11.5-14.0) % Plt Count 232 (150-450) K/mm3 MPV 10.2 (7.5-11.0) fl Gran % 67.3 H (36.0-66.0) % Eos # (Auto) 0.28 (0-0.5) Absolute Lymphs (auto) 1.72 (1.0-4.6) Absolute Monos (auto) 0.69 (0.0-1.3) Lymphocytes % 20.6 L (24.0-44.0) % Monocytes % 8.3 (0.0-12.0) % Eosinophils % 3.4 (0.00-5.0) % Basophils % 0.4 (0.0-0.4) % Absolute Granulocytes 5.61 (1.4-6.9) Basophils # 0.03 (0-0.4) Sodium 140 (137-145) mmol/L Potassium 3.5 (3.5-5.1) mmol/L Chloride 101 (98-107) mmol/L Carbon Dioxide 21 L (22-30) mmol/L Anion Gap 21.3 H (5-15) MEQ/L BUN 15 (7-17) mg/dL Creatinine 0.71 (0.52-1.04) mg/dL Estimated GFR > 60.0 ML/MIN Glucose 193 H (74-106) mg/dL Calcium 9.5 (8.4-10.2) mg/dL Magnesium 1.9 (1.6-2.3) mg/dL Total Bilirubin 0.30 (0.2-1.3) mg/dL AST 25 (14-36) U/L ALT 24 (0-35) U/L Alkaline Phosphatase 86 (38-126) U/L Troponin I (0.000-0.034) ng/mL NT-Pro-B Natriuret Pep 143 (0-900) pg/mL Serum Total Protein 8.1 (6.3-8.2) g/dL Albumin 4.5 (3.5-5.0) g/dL Influenza Type A Ag (NEGATIVE) Influenza Type B Ag (NEGATIVE) RSV (PCR) (Negative) SARS-CoV-2 (PCR) (NEGATIVE) - Progress Progress: improved Air Movement: good Progress Note: Patient reassessed. Patient chest pain recurrent. Patient requested Dilaudid. Dilaudid ordered. Case discussed with who accepts admission to observation. Covid test pending. Patient voices no other complaints or con cerns at this time. 02/28/21 19:15 02/28/21 21:08 Patient advises she has a history of PE. CTA performed. CTA negative for PE. Patient is Covid negative. Blood Culture(s) Obtained: No Antibiotics given: No Discussed with .: Maliha Will see patient in: hospital (observation) Counseled pt/family regarding: lab results, diagnosis, rad results - Departure Departure Disposition: Observation Clinical Impression: ACS (acute coronary syndrome), Chest pain, Hypertension, SOB (shortness of breath), Hepatic steatosis Condition: Stable Critical Care Time: No Referrals: JANESSA WEBSTER MD [Primary Care Provider] -
[2021-02-28] MEDS ORDERED: NITRO-BID 2% UD PACKETS TOP ONE (18:17)
[2021-02-28 19:07] LABS: INFLUENZA A NEGATIVE (NEGATIVE); INFLUENZA B NEGATIVE (NEGATIVE); RESPIRATORY SYNCTIAL VIRUS NEGATIVE (Negative)
[2021-02-28] MEDS ORDERED: Hydromorphone 1 mg/ml Injection ONE (19:25)
[2021-02-28] MEDS ORDERED: NITRO-BID 2% UD PACKETS ONE (19:25)
[2021-02-28] MEDS ORDERED: Zofran 4 MG/2 ML VIAL IV ONE (19:53)
[2021-02-28] MEDS ORDERED: Zofran 4 MG/2 ML VIAL ONE (20:00)
[2021-02-28] MEDS ORDERED: Senokot-S Tablet PO PRN (21:49)
[2021-02-28] MEDS ORDERED: MILK OF MAGNESIA 30 ML PO PRN (21:49)
[2021-02-28] MEDS ORDERED: MAALOX ES 30 ML UNIT DOSE PO PRN (21:49)
[2021-02-28] MEDS ORDERED: ZOFRAN ODT 4 MG PO PRN (22:28)
[2021-02-28] MEDS ORDERED: NAPROSYN 375 MG PO PRN (22:30)
[2021-02-28] MEDS: TYLENOL 325 MG PO PRN (22:41)
[2021-02-28] MEDS: Protonix 40MG Tablet PO SCH (22:41)
[2021-03-01] MEDS ORDERED: VENTOLIN COMMON CANISTER IH PRN (00:09)
[2021-03-01] MEDS: TYLENOL 325 MG PO PRN ×2 (04:36→22:06)
[2021-03-01 05:16] LABS: Appearance CLEAR (CLEAR); Bacteria RARE /HPF (NEGATIVE); Bilirubin NEGATIVE (NEGATIVE); Blood NEGATIVE Ery/ul (0-5); Glucose >=500 mg/dL (NEGATIVE); Ketones NEGATIVE (NEGATIVE); Leukocyte Esterase NEGATIVE (NEGATIVE); Mucus SLIGHT /HPF (NEGATIVE); Nitrite POSITIVE (NEGATIVE); Protein,Urine Dip NEGATIVE (Negative); RBC 0-2 /HPF (0-2); Specific Gravity 1.046 (1.005-1.025); Urobilinogen NEGATIVE mg/dL (0-1); WBC 0-2 /HPF (0-5)
[2021-03-01 05:47] LABS: Risk Ratio 3.9
[2021-03-01] MEDS: Advair Hfa 230/21 Mcg COMMON CANISTER IH SCH ×2 (07:15→19:19)
--- NOTE | 2021-03-01 08:29 | PCM.HP ---
History of Present Illness - Chief Complaint Chief Complaint: ACS sec SOB CP History of Present Illness: is a 50 year old female.presents to our ED with complaints of chest pain. Chest pain started just prior to arrival. Patient states she was eating a chocolate bar when symptoms occurred. Patient became concerned and checked her blood pressure. Blood pressure was initially 190/102. She repeated it shortly thereafter and it was 210/110. Pain at that point was getting progre ssively worse. However upon arrival patient's chest pain was 0 out of 10. She described pain as a pressure-like sensation. No nausea vomiting or diaphoresis. Patient had a cardiac stress test approximately 3 years ago that was reportedly negative. Patient states she had a cardiac catheterization approximately 1 year ago states she believes it was normal. Patient symptoms are mild to moderate in intensity. No specific worsening improving factors. Patient admits to experiencing some shortness of breath as well along with her symptomology. Patient voices no other complaints concerns at this time, - Review of Systems Constitutional: Other (flushed face), No Fever, No Chills Eyes: No Symptoms Ears, Nose, & Throat: No Symptoms Respiratory: No Cough, No Short Of Breath Cardiac: No Chest Pain, No Edema, No Syncope Abdominal/Gastrointestinal: No Abdominal Pain, No Nausea, No Vomiting, No Diarrhea Genitourinary Symptoms: No Dysuria Musculoskeletal: No Back Pain, No Neck Pain Skin: No Rash Neurological: No Dizziness, No Focal Weakness, No Sensory Changes Psychological: No Symptoms Endocrine: No Symptoms Hematologic/Lymphatic: No Symptoms Immunological/Allergic: No Symptoms Medications & Allergies Home Medications: Home Medication List Omeprazole 20 MG [Prilosec 20 mg] 20 mg PO BID 10/25/14 [History Confirmed 02/28/21] glipiZIDE [Glipizide] 1 tab PO DAILY 10/17/17 [History Confirmed 02/28/21] Empagliflozin/Metformin HCl [Synjardy Xr 10-1,000 mg Tablet] 1 tab PO DAILY 07/15/19 [History Confirmed 02/28/21] Naproxen 375 mg [Naprosyn 375 mg] 375 mg PO BID PRN PRN 07/15/19 [History Confirmed 02/28/21] Ondansetron HCl [Zofran] 4 mg PO Q4-6HPRN PRN 07/15/19 [History Confirmed 02/28/21] Amlodipine Besylate 5 mg [Norvasc 5 mg] 5 mg PO DAILY 02/28/21 [History Co nfirmed 02/28/21] Allergies/Adverse Reactions: Allergies Allergy/AdvReac Type Severity Reaction Status Date / Time aspirin Allergy Intermediate Hives Verified 02/28/21 22:04 codeine [Codeine] Allergy Verified 02/28/21 22:04 hydrocodone bitartrate Allergy Verified 02/28/21 22:04 [From Vicodin] morphine Allergy Verified 02/28/21 22:04 Penicillins Allergy Verified 02/28/21 22:04 propoxyphene HCl Allergy Verified 02/28/21 22:04 [From Darvon] - Past Medical History Past Medical History: Yes Neurological History: Migraines ENT History: No Pertinent History Cardiac History: Hypertension Respiratory History: Asthma Endocrine Medical History: Diabetes Type II Musculoskelatal History: No Pertinent History GI Medical History: GERD History: No Pertinent History Pyscho-Social History: No Pertinent History Reproductive Disorders: No Pertinent History - Female History Hx Last Menstrual Period: 08/06/20 Are you now?: No - Past Surgical History Past Surgical History: Yes Neuro Surgical History: No Pertinent History Cardiac History: No Pertinent History Respiratory Surgery: No Pertinent History GI Surgical History: Cholecystectomy Genitourinary Surgical Hx: No Pertinent History Musculskeletal Surgical Hx: No Pertinent History Female Surgical History: No Pertinent History Other Surgical History: 2005 gallbladder, bellybutton repair, d/c X1, 3 cysts, bladder tied up. pt states she has a hard time waking up from anesthesia - Social History Smoking Status: Never smoker Exposure to second hand smoke: No Alcohol: None Drug Use: none Significant Family History: no pertinent family hx - Physical Exam Vital Signs: Vital Signs - 24 hr Temp Pulse Pulse Resp BP Pulse Ox 03/01/21 07:41 97.1 F 61 16 143/86 95 03/01/21 07:19 62 16 97 03/01/21 04:00 97.9 F 56 L 14 156/65 97 03/01/21 00:00 97.1 F 51 L 12 158/74 95 02/28/21 23:45 62 16 97 02/28/21 22:50 97.8 F 60 16 156/75 97 02/28/21 21:09 98 02/28/21 21:05 63 18 132/73 96 02/28/21 20:36 65 19 151/77 97 02/28/21 17:20 77 21 170/97 98 02/28/21 16:24 72 19 175/108 97 02/28/21 15:22 98.1 F 70 78 178/110 99 General Appearance: no apparent distress, alert Neurologic Exam: alert, oriented x 3, cooperative, normal mood/affect, nml cer ebellar function, nml station & gait, sensation nml, No motor deficits Eye Exam: PERRL/EOMI, eyes nml inspection Ears, Nose, Throat Exam: normal ENT inspection, TMs normal, pharynx normal, moist mucous membranes Neck Exam: normal inspection, non-tender, supple, full range of motion Respiratory Exam: normal breath sounds, lungs clear, No respiratory distress Cardiovascular Exam: regular rate/rhythm, normal heart sounds, normal peripheral pulses Gastrointestinal/Abdomen Exam: soft, normal bowel sounds, No tenderness, No mass Back Exam: normal inspection, normal range of motion, No CVA tenderness, No vertebral tenderness Extremity Exam: normal inspection, normal range of motion, pelvis stable Skin Exam: normal color, warm, dry, No rash Lymphatic Exam: No adenopathy Results - Labs Lab/Micro Results: Lab Results-Last 24 Hours 02/28/21 02/28/21 02/28/21 Range/Units 16:00 16:00 16:00 WBC 8.3 (4.0-10.5) K/mm3 RBC 5.98 H (4.1-5.4) M/mm3 Hgb 14.6 (12.0-16.0) gm/dl Hct 45.7 (35-47) % MCV 76.4 L (78-100) fl MCH 24.4 L (26-32) pg MCHC 31.9 L (32-36) g/dl RDW 15.4 H (11.5-14.0) % Plt Count 232 (150-450) K/mm3 MPV 10.2 (7.5-11.0) fl Gran % 67.3 H (36.0-66.0) % Eos # (Auto) 0.28 (0-0.5) Absolute Lymphs (auto) 1.72 (1.0-4.6) Absolute Monos (auto) 0.69 (0.0-1.3) Lymphocytes % 20.6 L (24.0-44.0) % Monocytes % 8.3 (0.0-12.0) % Eosinophils % 3.4 (0.00-5.0) % Basophils % 0.4 (0.0-0.4) % Absolute Granulocytes 5.61 (1.4-6.9) Basophils # 0.03 (0-0.4) Sodium 140 (137-145) mmol/L Potassium 3.5 (3.5-5.1) mmol/L Chloride 101 (98-107) mmol/L Carbon Dioxide 21 L (22-30) mmol/L Anion Gap 21.3 H (5-15) MEQ/L BUN 15 (7-17) mg/dL Creatinine 0.71 (0.52-1.04) mg/dL Estimated GFR > 60.0 ML/MIN Glucose 193 H (74-106) mg/dL POC Glucometer (74 to 106) mg/dL Calcium 9.5 (8.4-10.2) mg/dL Magnesium 1.9 (1.6-2.3) mg/dL Total Bilirubin 0.30 (0.2-1.3) mg/dL AST 25 (14-36) U/L ALT 24 (0-35) U/L Alkaline Phosphatase 86 (38-126) U/L Troponin I < 0.012 (0.000-0.034) ng/mL NT-Pro-B Natriuret Pep 143 (0-900) pg/mL Serum Total Protein 8.1 (6.3-8.2) g/dL Albumin 4.5 (3.5-5.0) g/dL Triglycerides (30-150) mg/dL Cholesterol (50-200) mg/dL LDL Cholesterol (30-100) mg/dL HDL Cholesterol (40-60) mg/dL Heart Disease Risk Ratio Urine Color (YELLOW) Urine Appearance (CLEAR) Urine pH (5-6) Ur Specific [place] (1.005-1.025) Urine Protein (Negative) Urine Ketones (NEGATIVE) Urine Blood (0-5) Jack/ul Urine Nitrite (NEGATIVE) Urine Bilirubin (NEGATIVE) Urine Urobilinogen (0-1) mg/dL Ur Leukocyte Esterase (NEGATIVE) Urine WBC (Auto) (0-5) /HPF Urine RBC (Auto) (0-2) /HPF U Epithel Cells (Auto) (FEW) /HPF Urine Bacteria (Auto) (NEGATIVE) /HPF Urine Mucus (Auto) (NEGATIVE) /HPF Urine Culture Reflexed (NO) Urine Glucose (NEGATIVE) mg/dL Influenza Type A Ag (NEGATIVE) Influenza Type B Ag (NEGATIVE) RSV (PCR) (Negative) SARS-CoV-2 (PCR) (NEGATIVE) 02/28/21 02/28/21 02/28/21 Range/Units 18:15 18:15 22:00 WBC (4.0-10.5) K/mm3 RBC (4.1-5.4) M/mm3 Hgb (12.0-16.0) gm/dl Hct (35-47) % MCV (78-100) fl MCH (26-32) pg MCHC (32-36) g/dl RDW (11.5-14.0) % Plt Count (150-450) K/mm3 MPV (7.5-11.0) fl Gran % (36.0-66.0) % Eos # (Auto) (0-0.5) Absolute Lymphs (auto) (1.0-4.6) Absolute Monos (auto) (0.0-1.3) Lymphocytes % (24.0-44.0) % Monocytes % (0.0-12.0) % Eosinophils % (0.00-5.0) % Basophils % (0.0-0.4) % Absolute Granulocytes (1.4-6.9) Basophils # (0-0.4) Sodium (137-145) mmol/L Potassium (3.5-5.1) mmol/L Chloride (98-107) mmol/L Carbon Dioxide (22-30) mmol/L Anion Gap (5-15) MEQ/L BUN (7-17) mg/dL Creatinine (0.52-1.04) mg/dL Estimated GFR ML/MIN Glucose (74-106) mg/dL POC Glucometer (74 to 106) mg/dL Calcium (8.4-10.2) mg/dL Magnesium (1.6-2.3) mg/dL Total Bilirubin (0.2-1.3) mg/dL AST (14-36) U/L ALT (0-35) U/L Alkaline Phosphatase (38-126) U/L Troponin I < 0.012 < 0.012 (0.000-0.034) ng/mL NT-Pro-B Natriuret Pep (0-900) pg/mL Serum Total Protein (6.3-8.2) g/dL Albumin (3.5-5.0) g/dL Triglycerides (30-150) mg/dL Cholesterol (50-200) mg/dL LDL Cholesterol (30-100) mg/dL HDL Cholesterol (40-60) mg/dL Heart Disease Risk Ratio Urine Color (YELLOW) Urine Appearance (CLEAR) Urine pH (5-6) Ur Specific [place] (1.005-1.025) Urine Protein (Negative) Urine Ketones (NEGATIVE) Urine Blood (0-5) Jack/ul Urine Nitrite (NEGATIVE) Urine Bilirubin (NEGATIVE) Urine Urobilinogen (0-1) mg/dL Ur Leukocyte Esterase (NEGATIVE) Urine WBC (Auto) (0-5) /HPF Urine RBC (Auto) (0-2) /HPF U Epithel Cells (Auto) (FEW) /HPF Urine Bacteria (Auto) (NEGATIVE) /HPF Urine Mucus (Auto) (NEGATIVE) /HPF Urine Culture Reflexed (NO) Urine Glucose (NEGATIVE) mg/dL Influenza Type A Ag NEGATIVE (NEGATIVE) Influenza Type B Ag NEGATIVE (NEGATIVE) RSV (PCR) NEGATIVE (Negative) SARS-CoV-2 (PCR) NEGATIVE (NEGATIVE) 03/01/21 03/01/21 03/01/21 Range/Units 00:25 04:40 04:40 WBC (4.0-10.5) K/mm3 RBC (4.1-5.4) M/mm3 Hgb (12.0-16.0) gm/dl Hct (35-47) % MCV (78-100) fl MCH (26-32) pg MCHC (32-36) g/dl RDW (11.5-14.0) % Plt Count (150-450) K/mm3 MPV (7.5-11.0) fl Gran % (36.0-66.0) % Eos # (Auto) (0-0.5) Absolute Lymphs (auto) (1.0-4.6) Absolute Monos (auto) (0.0-1.3) Lymphocytes % (24.0-44.0) % Monocytes % (0.0-12.0) % Eosinophils % (0.00-5.0) % Basophils % (0.0-0.4) % Absolute Granulocytes (1.4-6.9) Basophils # (0-0.4) Sodium (137-145) mmol/L Potassium (3.5-5.1) mmol/L Chloride (98-107) mmol/L Carbon Dioxide (22-30) mmol/L Anion Gap (5-15) MEQ/L BUN (7-17) mg/dL Creatinine (0.52-1.04) mg/dL Estimated GFR ML/MIN Glucose (74-106) mg/dL POC Glucometer (74 to 106) mg/dL Calcium (8.4-10.2) mg/dL Magnesium (1.6-2.3) mg/dL Total Bilirubin (0.2-1.3) mg/dL AST (14-36) U/L ALT (0-35) U/L Alkaline Phosphatase (38-126) U/L Troponin I < 0.012 < 0.012 (0.000-0.034) ng/mL NT-Pro-B Natriuret Pep (0-900) pg/mL Serum Total Protein (6.3-8.2) g/dL Albumin (3.5-5.0) g/dL Triglycerides 247 H (30-150) mg/dL Cholesterol 178 (50-200) mg/dL LDL Cholesterol 118 H (30-100) mg/dL HDL Cholesterol 46 (40-60) mg/dL Heart Disease Risk Ratio 3.9 Urine Color (YELLOW) Urine Appearance (CLEAR) Urine pH (5-6) Ur Specific [place] (1.005-1.025) Urine Protein (Negative) Urine Ketones (NEGATIVE) Urine Blood (0-5) Jack/ul Urine Nitrite (NEGATIVE) Urine Bilirubin (NEGATIVE) Urine Urobilinogen (0-1) mg/dL Ur Leukocyte Esterase (NEGATIVE) Urine WBC (Auto) (0-5) /HPF Urine RBC (Auto) (0-2) /HPF U Epithel Cells (Auto) (FEW) /HPF Urine Bacteria (Auto) (NEGATIVE) /HPF Urine Mucus (Auto) (NEGATIVE) /HPF Urine Culture Reflexed (NO) Urine Glucose (NEGATIVE) mg/dL Influenza Type A Ag (NEGATIVE) Influenza Type B Ag (NEGATIVE) RSV (PCR) (Negative) SARS-CoV-2 (PCR) (NEGATIVE) 03/01/21 03/01/21 Range/Units 04:45 07:19 WBC (4.0-10.5) K/mm3 RBC (4.1-5.4) M/mm3 Hgb (12.0-16.0) gm/dl Hct (35-47) % MCV (78-100) fl MCH (26-32) pg MCHC (32-36) g/dl RDW (11.5-14.0) % Plt Count (150-450) K/mm3 MPV (7.5-11.0) fl Gran % (36.0-66.0) % Eos # (Auto) (0-0.5) Absolute Lymphs (auto) (1.0-4.6) Absolute Monos (auto) (0.0-1.3) Lymphocytes % (24.0-44.0) % Monocytes % (0.0-12.0) % Eosinophils % (0.00-5.0) % Basophils % (0.0-0.4) % Absolute Granulocytes (1.4-6.9) Basophils # (0-0.4) Sodium (137-145) mmol/L Potassium (3.5-5.1) mmol/L Chloride (98-107) mmol/L Carbon Dioxide (22-30) mmol/L Anion Gap (5-15) MEQ/L BUN (7-17) mg/dL Creatinine (0.52-1.04) mg/dL Estimated GFR ML/MIN Glucose (74-106) mg/dL POC Glucometer 136 H (74 to 106) mg/dL Calcium (8.4-10.2) mg/dL Magnesium (1.6-2.3) mg/dL Total Bilirubin (0.2-1.3) mg/dL AST (14-36) U/L ALT (0-35) U/L Alkaline Phosphatase (38-126) U/L Troponin I (0.000-0.034) ng/mL NT-Pro-B Natriuret Pep (0-900) pg/mL Serum Total Protein (6.3-8.2) g/dL Albumin (3.5-5.0) g/dL Triglycerides (30-150) mg/dL Cholesterol (50-200) mg/dL LDL Cholesterol (30-100) mg/dL HDL Cholesterol (40-60) mg/dL Heart Disease Risk Ratio Urine Color YELLOW (YELLOW) Urine Appearance CLEAR (CLEAR) Urine pH 5.0 (5-6) Ur Specific [place] 1.046 (1.005-1.025) Urine Protein NEGATIVE (Negative) Urine Ketones NEGATIVE (NEGATIVE) Urine Blood NEGATIVE (0-5) Jack/ul Urine Nitrite POSITIVE (NEGATIVE) Urine Bilirubin NEGATIVE (NEGATIVE) Urine Urobilinogen NEGATIVE (0-1) mg/dL Ur Leukocyte Esterase NEGATIVE (NEGATIVE) Urine WBC (Auto) 0-2 (0-5) /HPF Urine RBC (Auto) 0-2 (0-2) /HPF U Epithel Cells (Auto) NONE (FEW) /HPF Urine Bacteria (Auto) RARE (NEGATIVE) /HPF Urine Mucus (Auto) SLIGHT (NEGATIVE) /HPF Urine Culture Reflexed NO (NO) Urine Glucose >=500 (NEGATIVE) mg/dL Influenza Type A Ag (NEGATIVE) Influenza Type B Ag (NEGATIVE) RSV (PCR) (Negative) SARS-CoV-2 (PCR) (NEGATIVE) Accuchecks Date 03/01/21 Time 07:19 - Radiology Impressions Radiology Exams & Impressions: Radiology Procedures Category Date Time Status CHEST 1 VIEW (PORTABLE) Stat Exams 02/28/21 15:45 Completed CHEST WITH CONTRAST [CT] Stat Exams 02/28/21 19:25 Taken RAD/CHEST 1 VIEW (PORTABLE) Indication: Chest pain and cough. Comparison: February 23, 2020. Portable chest again demonstrates normal heart and lungs. Bony thorax intact. No new/acute findings. - Other Procedures and Tests Respiratory Therapy 02/28/21 23:45 Respiratory Therapy Assessment DAILY 03/01/21 05:00 EKG DAILY 03/02/21 05:00 EKG DAILY 03/03/21 05:00 EKG DAILY Assessment/Plan (1) Hypertensive urgency, malignant Current Visit: Yes Status: Acute Assessment & Plan: Last Vital Signs Temp 97.1 F 03/01/21 07:41 Pulse 61 03/01/21 07:41 Resp 16 03/01/21 07:41 BP 143/86 03/01/21 07:41 Pulse Ox 95 03/01/21 07:41 Allergies aspirin Allergy (Intermediate, Verified 02/28/21 22:04) Hives codeine [Codeine] Allergy (Verified 02/28/21 22:04) hydrocodone bitartrate [From Vicodin] Allergy (Verified 02/28/21 22:04) morphine Allergy (Verified 02/28/21 22:04) Penicillins Allergy (Verified 02/28/21 22:04) propoxyphene HCl [From Darvon] Allergy (Verified 02/28/21 22:04) Active Medications Acetaminophen (Tylenol 325 Mg) 650 mg PO Q4H PRN PRN PRN Reason: PAIN AND/OR FEVER Stop: 03/30/21 21:48 Last Admin: 03/01/21 04:36 Dose: 650 mg Documented by: Al Hydrox/Mg Hydrox/Simethicone (Maalox Es 30 Ml Unit Dose) 30 ml PO Q4H PRN PRN PRN Reason: INDIGESTION Stop: 03/30/21 21:48 Albuterol Sulfate (Ventolin Common Canister) 4 puff IH Q4H PRN PRN PRN Reason: SHORTNESS OF BREATH/WHEEZING Stop: 03/31/21 00:08 Amlodipine Besylate (Norvasc 5 Mg) 5 mg PO DAILY [facility] Stop: 03/31/21 09:59 Glipizide (Glucotrol 5 Mg) 5 mg PO DAILY [facility] Stop: 03/31/21 09:59 Magnesium Hydroxide (Milk Of Magnesia 30 Ml) 30 - 60 ml PO QDP PRN PRN Reason: CONSTIPATION Stop: 03/30/21 21:48 Metformin HCl (Glucophage Xr 500 Mg) 1,000 mg PO DAILY [facility] Stop: 04/02/21 09:59 Naproxen (Naprosyn 375 Mg) 375 mg PO BID PRN PRN PRN Reason: PAIN Stop: 03/30/21 22:29 Non-Formulary Medication (Non-Formulary Item) 0 each PO DAILY [facility] Stop: 03/31/21 09:59 Non-Formulary Medication (Hold Metformin Products For 48 Hours) 1 each MC DAILY [facility] Stop: 03/03/21 09:59 Ondansetron HCl (Zofran Odt 4 Mg) 4 mg PO Q4H PRN PRN PRN Reason: NAUSEA/VOMITING Stop: 03/30/21 22:27 Pantoprazole Sodium (Protonix 40mg Tablet) 40 mg PO BID [facility] Stop: 03/30/21 21:59 Last Admin: 02/28/21 22:41 Dose: 40 mg Documented by: Fluticasone/Salmeterol (Advair Hfa 230/21 Mcg Common Canister*) 2 puff IH BIDRT [facility] Stop: 03/31/21 06:59 Last Admin: 03/01/21 07:15 Dose: 2 puff Documented by: Senna/Docusate Sodium (Senokot-S Tablet) 2 udtab PO BID PRN PRN PRN Reason: CONSTIPATION Stop: 03/30/21 21:48 Intake & Output 02/28/21 03/01/21 11:59 11:59 Intake Total 350 Output Total 800 Balance -450 Weight 94.3 kg Orders 02/28/21 22:00 PANTOPRAZOLE 40 mg Tablet [Protonix 40MG Tablet] 40 mg PO BID 02/28/21 22:28 Ondansetron ODT 4 MG [Zofran Odt 4 mg] 4 mg PO Q4H PRN PRN 02/28/21 22:30 Naproxen 375 mg [Naprosyn 375 mg] 375 mg PO BID PRN PRN 02/28/21 23:45 Pulse Oximetry .spot check Respiratory Therapy Assessment DAILY 03/01/21 00:09 Albuterol Common Canister [Ventolin Common Canister] 4 puff IH Q4H PRN PRN 03/01/21 04:30 HEMOGLOBIN A1C Urgent 03/01/21 05:00 EKG DAILY 03/01/21 07:00 Fluticasone/Salmeterol 230/21 [Advair Hfa 230/21 Mcg COMMON CANISTER*] 2 puff IH BIDRT 03/01/21 07:30 POCT Glucose Check ACHS 03/01/21 08:00 Nutritional Admission Screen ONCE 03/01/21 10:00 Amlodipine Besylate 5 mg [Norvasc 5 mg] 5 mg PO DAILY Glipizide 5 mg [Glucotrol 5 MG] 5 mg PO DAILY Hold Metformin [Hold Metformin Products For 48 Hours] 1 each MC DAILY Non-Formulary Drug [Non-Formulary Item] 0 each PO DAILY 03/02/21 05:00 EKG DAILY 03/03/21 05:00 EKG DAILY 03/03/21 10:00 Metformin HCl Xr 500 mg [Glucophage XR 500 MG] 1,000 mg PO DAILY Lab Tests 02/28/21 02/28/21 02/28/21 16:00 16:00 16:00 WBC 8.3 RBC 5.98 H Hgb 14.6 Hct 45.7 MCV 76.4 L MCH 24.4 L MCHC 31.9 L RDW 15.4 H Plt Count 232 MPV 10.2 Gran % 67.3 H Eos # (Auto) 0.28 Absolute Lymphs (auto) 1.72 Absolute Monos (auto) 0.69 Lymphocytes % 20.6 L Monocytes % 8.3 Eosinophils % 3.4 Basophils % 0.4 Absolute Granulocytes 5.61 Basophils # 0.03 Sodium 140 Potassium 3.5 Chloride 101 Carbon Dioxide 21 L Anion Gap 21.3 H BUN 15 Creatinine 0.71 Estimated GFR > 60.0 Glucose 193 H POC Glucometer Calcium 9.5 Magnesium 1.9 Total Bilirubin 0.30 AST 25 ALT 24 Alkaline Phosphatase 86 Troponin I < 0.012 NT-Pro-B Natriuret Pep 143 Serum Total Protein 8.1 Albumin 4.5 Triglycerides Cholesterol LDL Cholesterol HDL Cholesterol Heart Disease Risk Ratio Urine Color Urine Appearance Urine pH Ur Specific [place] Urine Protein Urine Ketones Urine Blood Urine Nitrite Urine Bilirubin Urine Urobilinogen Ur Leukocyte Esterase Urine WBC (Auto) Urine RBC (Auto) U Epithel Cells (Auto) Urine Bacteria (Auto) Urine Mucus (Auto) Urine Culture Reflexed Urine Glucose Influenza Type A Ag Influenza Type B Ag RSV (PCR) SARS-CoV-2 (PCR) 02/28/21 02/28/21 02/28/21 18:15 18:15 22:00 WBC RBC Hgb Hct MCV MCH MCHC RDW Plt Count MPV Gran % Eos # (Auto) Absolute Lymphs (auto) Absolute Monos (auto) Lymphocytes % Monocytes % Eosinophils % Basophils % Absolute Granulocytes Basophils # Sodium Potassium Chloride Carbon Dioxide Anion Gap BUN Creatinine Estimated GFR Glucose POC Glucometer Calcium Magnesium Total Bilirubin AST ALT Alkaline Phosphatase Troponin I < 0.012 < 0.012 NT-Pro-B Natriuret Pep Serum Total Protein Albumin Triglycerides Cholesterol LDL Cholesterol HDL Cholesterol Heart Disease Risk Ratio Urine Color Urine Appearance Urine pH Ur Specific [place] Urine Protein Urine Ketones Urine Blood Urine Nitrite Urine Bilirubin Urine Urobilinogen Ur Leukocyte Esterase Urine WBC (Auto) Urine RBC (Auto) U Epithel Cells (Auto) Urine Bacteria (Auto) Urine Mucus (Auto) Urine Culture Reflexed Urine Glucose Influenza Type A Ag NEGATIVE Influenza Type B Ag NEGATIVE RSV (PCR) NEGATIVE SARS-CoV-2 (PCR) NEGATIVE 03/01/21 03/01/21 03/01/21 00:25 04:40 04:40 WBC RBC Hgb Hct MCV MCH MCHC RDW Plt Count MPV Gran % Eos # (Auto) Absolute Lymphs (auto) Absolute Monos (auto) Lymphocytes % Monocytes % Eosinophils % Basophils % Absolute Granulocytes Basophils # Sodium Potassium Chloride Carbon Dioxide Anion Gap BUN Creatinine Estimated GFR Glucose POC Glucometer Calcium Magnesium Total Bilirubin AST ALT Alkaline Phosphatase Troponin I < 0.012 < 0.012 NT-Pro-B Natriuret Pep Serum Total Protein Albumin Triglycerides 247 H Cholesterol 178 LDL Cholesterol 118 H HDL Cholesterol 46 Heart Disease Risk Ratio 3.9 Urine Color Urine Appearance Urine pH Ur Specific [place] Urine Protein Urine Ketones Urine Blood Urine Nitrite Urine Bilirubin Urine Urobilinogen Ur Leukocyte Esterase Urine WBC (Auto) Urine RBC (Auto) U Epithel Cells (Auto) Urine Bacteria (Auto) Urine Mucus (Auto) Urine Culture Reflexed Urine Glucose Influenza Type A Ag Influenza Type B Ag RSV (PCR) SARS-CoV-2 (PCR) 03/01/21 03/01/21 04:45 07:19 WBC RBC Hgb Hct MCV MCH MCHC RDW Plt Count MPV Gran % Eos # (Auto) Absolute Lymphs (auto) Absolute Monos (auto) Lymphocytes % Monocytes % Eosinophils % Basophils % Absolute Granulocytes Basophils # Sodium Potassium Chloride Carbon Dioxide Anion Gap BUN Creatinine Estimated GFR Glucose POC Glucometer 136 H Calcium Magnesium Total Bilirubin AST ALT Alkaline Phosphatase Troponin I NT-Pro-B Natriuret Pep Serum Total Protein Albumin Triglycerides Cholesterol LDL Cholesterol HDL Cholesterol Heart Disease Risk Ratio Urine Color YELLOW Urine Appearance CLEAR Urine pH 5.0 Ur Specific [place] 1.046 Urine Protein NEGATIVE Urine Ketones NEGATIVE Urine Blood NEGATIVE Urine Nitrite POSITIVE Urine Bilirubin NEGATIVE Urine Urobilinogen NEGATIVE Ur Leukocyte Esterase NEGATIVE Urine WBC (Auto) 0-2 Urine RBC (Auto) 0-2 U Epithel Cells (Auto) NONE Urine Bacteria (Auto) RARE Urine Mucus (Auto) SLIGHT Urine Culture Reflexed NO Urine Glucose >=500 Influenza Type A Ag Influenza Type B Ag RSV (PCR) SARS-CoV-2 (PCR) Code(s): I16.0 - HYPERTENSIVE URGENCY (2) Chest pain Current Visit: Yes Status: Acute Qualifiers: Chest pain type: unspecified Code(s): R07.9 - CHEST PAIN, UNSPECIFIED (3) Headache Current Visit: No Status: Acute Code(s): R51 - HEADACHE * DO NOT USE *
--- NOTE | 2021-03-01 08:40 | XRAY ---
Indication: Chest pain. History pulmonary embolus. Multiple contiguous axial images obtained through the chest using 80 cc Isovue 370 contrast and PE protocol. Comparison: July 21, 2019. There is satisfactory opacification of the pulmonary arteries to include the lobar and segmental branches. No pulmonary embolus. Heart is not enlarged. Aorta is normal in course and caliber. No pathologic mediastinal/hilar lymphadenopathy. Lungs inflated and clear. Bony thorax intact. Limited upper abdomen again demonstrates fatty liver, 12.2 cm splenomegaly, and cholecystectomy clips. Impression: 1. Continue negative pulmonary embolus. No new/acute cardiopulmonary abnormalities. 2. Again incidental fatty liver and splenomegaly.
[2021-03-01] MEDS: Protonix 40MG Tablet PO SCH ×2 (09:02→22:06)
[2021-03-01] MEDS ORDERED: Indocin 25 MG PO ONE (09:10)
[2021-03-01] MEDS ORDERED: TYLENOL EXTRA STRENGTH 500 MG PO ONE (09:11)
[2021-03-01] MEDS ORDERED: EMPAGLIFLOZIN PO SCH (10:00)
[2021-03-01] MEDS ORDERED: HOLD METFORMIN PRODUCTS FOR 48 HOURS MC SCH (10:00)
[2021-03-01] MEDS ORDERED: Glucotrol 5 MG PO SCH (10:00)
[2021-03-01] MEDS ORDERED: NON-FORMULARY ITEM PO SCH (10:00)
[2021-03-01] MEDS ORDERED: NORVASC 5 MG PO SCH (10:00)
[2021-03-01] MEDS ORDERED: METFORMIN HCL PO SCH (10:00)
[2021-03-01] MEDS ORDERED: HUMALOG SQ ONE (12:34)
[2021-03-01] MEDS ORDERED: Catapres 0.1 MG PO ONE (12:35)
[2021-03-01] MEDS ORDERED: DULCOLAX 5 MG PO PRN (12:42)
[2021-03-01] MEDS ORDERED: Catapres 0.1 MG PO PRN (16:32)
[2021-03-02 04:28] VITALS: O2SAT 96
[2021-03-02] MEDS: Advair Hfa 230/21 Mcg COMMON CANISTER IH SCH (07:14)
[2021-03-02 07:45] VITALS: BP 141/80; PULSE 69
--- NOTE | 2021-03-02 17:49 | PCM.DS ---
Discharge Summary Date of Admission: 02/28/21 21:18 Admitting Physician: JANESSA WEBSTER Consults: Consults on Case 03/01/21 13:15 Tele-Health Consult ROUTINE Primary Care Provider: JANESSA WEBSTER Allergies Allergies aspirin Allergy (Intermediate, Verified 02/28/21 22:04) Hives codeine [Codeine] Allergy (Verified 02/28/21 22:04) hydrocodone bitartrate [From Vicodin] Allergy (Verified 02/28/21 22:04) morphine Allergy (Verified 02/28/21 22:04) Penicillins Allergy (Verified 02/28/21 22:04) propoxyphene HCl [From Darvon] Allergy (Verified 02/28/21 22:04) Hospital Summary - Hospital Course Hospital Course: Chief Complaint Diagnosis ACS sec SOB CP Allergies Allergy/AdvReac Type Severity Reaction Status Date / Time aspirin Allergy Intermediate Hives Verified 02/28/21 22:04 codeine [Codeine] Allergy Verified 02/28/21 22:04 hydrocodone bitartrate Allergy Verified 02/28/21 22:04 [From Vicodin] morphine Allergy Verified 02/28/21 22:04 Penicillins Allergy Verified 02/28/21 22:04 propoxyphene HCl Allergy Verified 02/28/21 22:04 [From Darvon] Vital Signs (Last 24 hours) Temp Pulse Resp BP Pulse Ox 03/02/21 07:44 97.6 F 69 16 141/80 96 03/02/21 07:16 70 16 96 03/02/21 04:05 97.7 F 58 L 17 139/67 96 03/01/21 23:30 97.5 F 63 18 144/73 97 03/01/21 20:00 97.9 F 65 20 141/65 97 03/01/21 19:19 66 20 97 Home Medications Medication Instructions Recorded Confirmed Last Taken Type Amlodipine Besylate 5 mg 5 mg PO DAILY 02/28/21 02/28/21 02/28/21 History [Norvasc 5 mg] Clonidine HCl 0.1 mg [Catapres 0.1 mg PO BID #60 tablet 03/02/21 Unknown Rx 0.1 MG] Current Medications Discontinued Medications Generic Name Dose Route Start Last Admin Trade Name Freq PRN Reason Stop Dose Admin Acetaminophen 650 mg 02/28/21 21:49 03/01/21 22:06 Tylenol 325 Mg PO 03/30/21 21:48 650 mg Q4H PRN PRN Administration PAIN AND/OR FEVER Acetaminophen 1,000 mg 03/01/21 09:11 03/01/21 09:51 Tylenol Extra Strength 500 Mg PO 03/01/21 09:12 1,000 mg STAT ONE Administration Al Hydrox/Mg Hydrox/Simethicone 30 ml 02/28/21 21:49 Maalox Es 30 Ml Unit Dose PO 03/30/21 21:48 Q4H PRN PRN INDIGESTION Albuterol Sulfate 4 puff 03/01/21 00:09 Ventolin Common Canister IH 03/31/21 00:08 Q4H PRN PRN SHORTNESS OF BREATH/WHEEZING Amlodipine Besylate 5 mg 03/01/21 10:00 03/01/21 09:03 Norvasc 5 Mg PO 03/31/21 09:59 5 mg DAILY ALISIA Administration Bisacodyl 10 mg 03/01/21 12:42 Dulcolax 5 Mg PO 03/31/21 12:41 QDP PRN CONSTIPATION Clonidine 0.1 mg 03/01/21 12:35 03/01/21 12:41 Catapres 0.1 Mg PO 03/01/21 12:36 0.1 mg STAT ONE Administration Clonidine 0.1 mg 03/01/21 16:32 Catapres 0.1 Mg PO 03/31/21 16:31 Q6H PRN PRN HYPERTENSION Glipizide 5 mg 03/01/21 10:00 03/01/21 09:03 Glucotrol 5 Mg PO 03/31/21 09:59 5 mg DAILY ALISIA Administration Hydromorphone HCl 0.5 mg 02/28/21 18:15 02/28/21 19:29 Hydromorphone 1 Mg/Ml Injection IV 02/28/21 18:16 0.5 mg STAT ONE Administration Hydromorphone HCl Confirm 02/28/21 19:25 Hydromorphone 1 Mg/Ml Injection Administered 02/28/21 19:26 Dose 1 mg .ROUTE .STK-MED ONE Indomethacin 25 mg 03/01/21 09:10 03/01/21 09:52 Indocin 25 Mg PO 03/01/21 09:11 25 mg STAT ONE Administration Insulin Human Lispro 10 unit 03/01/21 12:34 03/01/21 12:41 Humalog SQ 03/01/21 12:35 10 unit STAT ONE Administration Magnesium Hydroxide 30 - 60 ml 02/28/21 21:49 Milk Of Magnesia 30 Ml PO 03/30/21 21:48 QDP PRN CONSTIPATION Metformin HCl 1,000 mg 03/03/21 10:00 Glucophage Xr 500 Mg PO 04/02/21 09:59 DAILY ALISIA Naproxen 375 mg 02/28/21 22:30 Naprosyn 375 Mg PO 03/30/21 22:29 BID PRN PRN PAIN Nitroglycerin 1 gm 02/28/21 18:17 02/28/21 19:32 Nitro-Bid 2% Ud Packets TOP 02/28/21 18:18 1 gm STAT ONE Administration Nitroglycerin Confirm 02/28/21 19:25 Nitro-Bid 2% Ud Packets Administered 02/28/21 19:26 Dose 1 gm .ROUTE .STK-MED ONE Non-Formulary Medication 1 tab 03/01/21 10:00 Empagliflozin/Metformin Hcl [Synjardy Xr 10-1,000 Mg Tablet] PO 03/31/21 09:59 DAILY ALISIA Non-Formulary Medication 0 each 03/01/21 10:00 03/01/21 09:04 Non-Formulary Item PO 03/31/21 09:59 1 each DAILY ALISIA Administration Non-Formulary Medication 1 each 03/01/21 10:00 03/01/21 09:04 Hold Metformin Products For 48 Hours 03/03/21 09:59 1 each DAILY ALISIA Administration Ondansetron HCl 4 mg 02/28/21 19:53 02/28/21 20:01 Zofran 4 Mg/2 Ml Vial IV 02/28/21 19:54 4 mg STAT ONE Administration Ondansetron HCl Confirm 02/28/21 20:00 Zofran 4 Mg/2 Ml Vial Administered 02/28/21 20:01 Dose 4 mg .ROUTE .STK-MED ONE Ondansetron HCl 4 mg 02/28/21 22:28 03/01/21 09:09 Zofran Odt 4 Mg PO 03/30/21 22:27 4 mg Q4H PRN PRN Administration NAUSEA/VOMITING Pantoprazole Sodium 40 mg 02/28/21 22:00 03/01/21 22:06 Protonix 40mg Tablet PO 03/30/21 21:59 40 mg BID ALISIA Administration Fluticasone/Salmeterol 2 puff 03/01/21 07:00 03/02/21 07:14 Advair Hfa 230/21 Mcg Common Canister* IH 03/31/21 06:59 2 puff BIDRT ALISIA Administration Senna/Docusate Sodium 2 udtab 02/28/21 21:49 Senokot-S Tablet PO 03/30/21 21:48 BID PRN PRN CONSTIPATION Intake & Output (Last 24 hours) 02/28/21 03/01/21 03/02/21 03/03/21 11:59 11:59 11:59 11:59 Intake Total 650 1920 Output Total 800 Balance -150 1920 Weight 94.3 kg 94.6 kg Laboratory Results (Last 24 hours) 03/02/21 03/01/21 07:12 22:19 POC Glucometer 129 H 138 H Orders (Last 24 hours) Category Date Time Status Discharge Routine Discharge 03/02/21 Ordered ECHO W/2D AND DOPPLER [US] Routine Exams 03/02/21 08:04 Taken POCT GLUCOSE Stat Lab 03/01/21 22:19 Completed POCT GLUCOSE Stat Lab 03/02/21 07:12 Completed Metformin HCl Xr 500 mg [Glucophage XR 500 MG] Med 03/03/21 10:00 Discontinued 1,000 mg PO DAILY EKG DAILY RT 03/02/21 05:00 Completed EKG DAILY RT 03/03/21 05:00 Active Patient Care Notes (Last 24 hours) 03/02/21 08:16 Case Management Note by Laurence Stafford PATIENT CONTINUES TO DENY ANY NEEDS REGARDING DC AT THIS TIME. 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 Initialized on 03/02/21 08:16 - END OF NOTE - Vitals & Intake/Output Vital Signs: Vital Signs Temperature 97.6 F 03/02/21 07:44 Pulse Rate 69 03/02/21 07:44 Respiratory Rate 16 03/02/21 07:44 Blood Pressure 141/80 03/02/21 07:44 O2 Sat by Pulse Oximetry 96 03/02/21 07:44 Intake & Output: Intake & Output 02/28/21 03/01/21 03/02/21 03/03/21 11:59 11:59 11:59 11:59 Intake Total 650 1920 Output Total 800 Balance -150 1920 Weight 94.3 kg 94.6 kg - Lab Result Diagrams: 02/28/21 16:00 02/28/21 16:00 Lab Results-Last 24 Hrs: Lab Results-Last 24 Hours 03/01/21 03/02/21 Range/Units 22:19 07:12 POC Glucometer 138 H 129 H (74 to 106) mg/dL Micro Results-Entire Visit: Accuchecks Date 03/02/21 Time 07:12 - Radiology Exams Ordered Rad Exams-Entire Visit: Radiology Procedures Category Date Time Status CHEST WITH CONTRAST [CT] Stat Exams 02/28/21 19:25 Completed ECHO W/2D AND DOPPLER [US] Routine Exams 03/02/21 08:04 Taken - Procedures and Test Procedures and Tests throughout Hospitalization: Therapy Orders & Screens 02/28/21 21:49 EKG Q8HX2,QAMX3,PRN Comment: 02/28/21 23:11 RT Screen per Nursing Assess ONCE Comment: Protocol Order Physician Instructions: Greater than 3 points order RT Admission Screen Reason For Exam: Triggered on Admission Diagnosis: ACS sec SOB CP Diagnosis: ACS sec SOB CP Pneumonia: No Home O2: No Asthma: Yes CHF: No Home CPAP/BIPAP: Yes Home Nebs/MDI: No Total Points: 9 02/28/21 23:45 EKG ROUTINE Comment: Diagnosis: ACS Respiratory Therapy Assessment DAILY Comment: Diagnosis: ACS sec SOB CP 03/01/21 05:00 EKG DAILY Comment: Diagnosis: ACS 03/02/21 05:00 EKG DAILY Comment: Diagnosis: ACS 03/03/21 05:00 EKG DAILY Comment: Diagnosis: ACS Discharge Exam General Appearance: no apparent distress, alert Neurologic Exam: alert, oriented x 3, cooperative, normal mood/affect, nml cerebellar function, sensation nml, No motor deficits Eye Exam: PERRL, EOMI, eyes nml inspection Ears, Nose, Throat Exam: normal ENT inspection, pharynx normal, moist mucous membranes Neck Exam: normal inspection, non-tender, supple, full range of motion Respiratory Exam: normal breath sounds, lungs clear, No respiratory distress Cardiovascular Exam: regular rate/rhythm, normal heart sounds Gastrointestinal/Abdomen Exam: soft, No tenderness, No mass Pelvic Exam: deferred Rectal Exam: deferred Back Exam: normal inspection, normal range of motion, No CVA tenderness, No vertebral tenderness Extremity Exam: normal inspection, normal range of motion Skin Exam: normal color, warm, dry Final Diagnosis/Problem List - Final Discharge Diagnosis/Problem (1) Hypertensive urgency, malignant Status: Resolved Code(s): I16.0 - HYPERTENSIVE URGENCY (2) Chest pain Status: Resolved Code(s): R07.9 - CHEST PAIN, UNSPECIFIED (3) Headache Status: Resolved Code(s): R51 - HEADACHE * DO NOT USE * - Discharge Disposition: Home, Self-Care Condition: Stable Prescriptions: New Clonidine HCl 0.1 mg [Catapres 0.1 MG] 0.1 mg PO BID #60 tablet Continue Omeprazole 20 MG [Prilosec 20 mg] 20 mg PO BID glipiZIDE [Glipizide] 1 tab PO DAILY Naproxen 375 mg [Naprosyn 375 mg] 375 mg PO BID PRN PRN PRN Reason: Pain Ondansetron HCl [Zofran] 4 mg PO Q4-6HPRN PRN PRN Reason: Nausea Empagliflozin/Metformin HCl [Synjardy Xr 10-1,000 mg Tablet] 1 tab PO DAILY Amlodipine Besylate 5 mg [Norvasc 5 mg] 5 mg PO DAILY Instructions: Chest Pain (DC) Follow up with: YAMILETH CRUZ [CONSULTING PHYSICIAN] - 04/04/21 1:15 pm (AT THE [facility] IN [place].) JANESSA WEBSTER MD [Primary Care Provider] - 03/22/21 1:30 pm ([facility]) Forms: Discharge Instructions
[2021-03-03] MEDS ORDERED: Glucophage XR 500 MG PO SCH (10:00)
== END 2021-03-02 09:57 | disposition home or self-care (01) ==
LOC: ED 15:19 → MED SURG 21:18
PROVIDERS: ADMIT General Practice; ATTEND General Practice
DX: I16.0 Hypertensive urgency (principal); R07.9 Chest pain, unspecified; I10 Essential (primary) hypertension; E11.9 Type 2 diabetes mellitus without complications; R51.9 Headache, unspecified; Z79.899 Other long term (current) drug therapy; Z20.828 Contact with and (suspected) exposure to other viral communicable diseases
CPT/HCPCS: 0241U; 36000; 36415; 71045; 71260; 80053; 80061; 81001; 82947; 83036; 83721; 83735; 83880; 84484; 85025; 93005; 93041; 93268; 93306; 94640; 94760; 96374; 96375; 99284; G0378; J1170; J1817; J2405; Q0162; Q3014; A9270-GY

== ENCOUNTER 2021-12-21 13:41 | Observation (INO) | payer OTHER ==
--- NOTE | 2021-12-21 13:46 | ERPHSYRPT ---
- History of Present Illness Time Seen by Provider: 12/21/21 13:45 Historian: patient Exam Limitations: no limitations Physician History: This is an obese 51-year-old white female patient of Dr. 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 Is localized in the central substernal region. It began yesterday. Patient had an appointment with her primary care physician today and he sent her to the emergency department for further evaluation and management. Patient has had a cholecystectomy in the past. She has a history of hypertension, diabetes, gastroesophageal reflux disease and m igraine headaches. Patient is allergic to aspirin. She has never had a myocardial infarction and does not have any cardiac stents in place. Patient denies shortness of breath, fever and cough. Patient states that she can take Dilaudid and Nubain without any adverse reactions. Timing/Duration: yesterday Location: substernal, central, epigastric Chest Pain Radiation: no radiation Severity of Pain-Max: moderate Severity of Pain-Current: moderate Modifying Factors: Improves With: nothing Associated Symptoms: abdominal pain (Epigastric) Nitro Today/Relief: no nitro taken today Aspirin Treatment Today: no aspirin today Allergies/Adverse Reactions: aspirin Allergy (Intermediate, Verified 02/28/21 22:04) Hives codeine [Codeine] Allergy (Verified 02/28/21 22:04) hydrocodone bitartrate [From Vicodin] Allergy (Verified 02/28/21 22:04) morphine Allergy (Verified 02/28/21 22:04) Penicillins Allergy (Verified 02/28/21 22:04) propoxyphene HCl [From Darvon] Allergy (Verified 02/28/21 22:04) Home Medications: Omeprazole 20 MG [Prilosec 20 mg] 20 mg PO BID 10/25/14 [History] glipiZIDE [Glipizide] 1 tab PO DAILY 10/17/17 [History] Empagliflozin/Metformin HCl [Synjardy Xr 10-1,000 mg Tablet] 1 tab PO DAILY 07/15/19 [History] Naproxen 375 mg [Naprosyn 375 mg] 375 mg PO BID PRN PRN 07/15/19 [History] ondansetron HCL [Zofran] 4 mg PO Q4-6HPRN PRN 07/15/19 [History] Amlodipine Besylate 5 mg [Norvasc 5 mg] 5 mg PO DAILY 02/28/21 [History] Hx Tetanus, Diphtheria Vaccination/Date Given: Yes Hx Influenza Vaccination/Date Given: Yes Hx Pneumococcal Vaccination/Date Given: No Travel Risk - International Travel Have you traveled outside of the country in past 3 weeks: No - Coronavirus Screening Are you exhibiting any of the following symptoms?: No Close contact with a COVID-19 positive Pt in past 14-21 Days: No - Vaccine Status Have you recieved a Covid-19 vaccination: No - Review of Systems Constitutional: No Symptoms Eyes: No Symptoms Ears, Nose, & Throat: No Symptoms Respiratory: No Symptoms Cardiac: Chest Pain Abdominal/Gastrointestinal: Abdominal Pain (Epigastric), Nausea, Vomiting, Diarrhea Genitourinary Symptoms: No Symptoms Musculoskeletal: No Symptoms Skin: No Symptoms Neurological: No Symptoms Psychological: No Symptoms Endocrine: No Symptoms Hematologic/Lymphatic: No Symptoms Immunological/Allergic: No Symptoms All Other Systems: Reviewed and Negative - Past Medical History Pertinent Past Medical History: Yes Neurological History: Migraines ENT History: No Pertinent History Cardiac History: Hypertension Respiratory History: Asthma Endocrine Medical History: Diabetes Type II Musculoskeletal History: No Pertinent History GI Medical History: GERD History: No Pertinent History Psycho-Social History: No Pertinent History Female Reproductive Disorders: No Pertinent History - Past Surgical History Past Surgical History: Yes Neuro Surgical History: No Pertinent History Cardiac: No Pertinent History Respiratory: No Pertinent History Gastrointestinal: Cholecystectomy Genitourinary: No Pertinent History Musculoskeletal: No Pertinent History Female Surgical History: No Pertinent History Other Surgical History: 2004 gallbladder, bellybutton repair, d/c X1, 3 cysts, bladder tied up. pt states she has a hard time waking up from anesthesia - Social History Smoking Status: Never smoker Exposure to second hand smoke: No Alcohol Use: None Drug Use: none Patient Lives Alone: No Significant Family History: no pertinent family hx - Nursing Vital Signs Nursing Vital Signs: Initial Vital Signs Temperature 98.1 F 12/21/21 13:42 Pulse Rate 61 12/21/21 13:42 Respiratory Rate 22 12/21/21 13:42 Blood Pressure 206/100 12/21/21 13:42 O2 Sat by Pulse Oximetry 96 12/21/21 13:42 Pain Scale Pain Intensity 8 - Physical Exam General Appearance: no apparent distress, alert, anxiety, obese Eye Exam: PERRL/EOMI, eyes nml inspection Ears, Nose, Throat Exam: normal ENT inspection, moist mucous membranes Neck Exam: normal inspection, non-tender, supple, full range of motion Respiratory Exam: normal breath sounds, chest tenderness, lungs clear, airway intact, No respiratory distress Cardiovascular Exam: regular rate/rhythm, normal heart sounds, normal peripheral pulses Gastrointestinal/Abdomen Exam: soft, normal bowel sounds, tenderness (The gastric area), guarding (The gastric area), No rebound Pelvic Exam: not done Rectal Exam: not done Back Exam: normal inspection, normal range of motion, No CVA tenderness, No vertebral tenderness Extremity Exam: normal inspection, normal range of motion, pelvis stable Neurologic Exam: alert, oriented x 3, cooperative, 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 Her twelve-lead EKG dated 02/08/2021 showed normal sinus rhythm with PVCs. The PVCs have now resolved.) Ordered Tests: Active Orders 24 hr Category Date Time Status EKG-ER Only STAT Care 12/21/21 13:46 Active IV Insertion STAT Care 12/21/21 13:46 Active ABDOMEN AND PELVIS W/0 CONTRAS [CT] Stat Exams 12/21/21 13:46 Completed AMYLASE Stat Lab 12/21/21 13:55 Completed CBC W DIFF Stat Lab 12/21/21 13:55 Completed CMP Stat Lab 12/21/21 13:55 Completed D-DIMER QUANTITATIVE Stat Lab 12/21/21 13:55 Completed LIPASE Stat Lab 12/21/21 13:55 Completed Lactic Acid Stat Lab 12/21/21 14:01 Completed TROPONIN Q3H Lab 12/21/21 13:55 Completed TROPONIN Q3H Lab 12/21/21 17:00 Ordered TROPONIN Q3H Lab 12/21/21 20:00 Ordered TROPONIN Q3H Lab 12/21/21 23:00 Ordered TROPONIN Q3H Lab 12/22/21 02:00 Ordered Transfer Order Routine Transfer 12/21/21 Ordered Medication Summary Discontinued Medications Generic Name Dose Route Start Last Admin Trade Name Marino PRN Reason Stop Dose Admin Al Hydrox/Mg Hydrox/Simethicone Confirm 12/21/21 14:17 Mag Hydrox/Al Hydrox/Simeth 30 Ml Udcup Administered 12/21/21 14:18 Dose 30 ml .ROUTE .STK-MED ONE Hydromorphone HCl 0.5 mg 12/21/21 14:08 12/21/21 14:23 Hydromorphone 1 Mg/1ml Inj 1 Mg/Ml Syringe IV 12/21/21 14:09 0.5 mg STAT ONE Administration Hydromorphone HCl Confirm 12/21/21 14:16 Hydromorphone 1 Mg/1ml Inj 1 Mg/Ml Syringe Administered 12/21/21 14:17 Dose 1 mg .ROUTE .STK-MED ONE Hydromorphone HCl 1 mg 12/21/21 15:53 Hydromorphone 1 Mg/1ml Inj 1 Mg/Ml Syringe IV 12/21/21 15:54 STAT ONE Hydromorphone HCl Confirm 12/21/21 15:59 Hydromorphone 1 Mg/1ml Inj 1 Mg/Ml Syringe Administered 12/21/21 16:00 Dose 1 mg .ROUTE .STK-MED ONE Sodium Chloride 500 mls @ 500 mls/hr 12/21/21 13:48 12/21/21 15:24 Sodium Chloride 0.9% 500 Ml IV 12/21/21 14:47 Infused .Q1H ONE Infusion Sodium Chloride Confirm 12/21/21 13:53 Sodium Chloride 0.9% 500 Ml Administered 12/21/21 13:54 Dose 500 mls @ ud IV .STK-MED ONE Lidocaine HCl Confirm 12/21/21 14:16 Lidocaine Hcl Viscous 1 Ml Administered 12/21/21 14:17 Dose 15 ml .ROUTE .STK-MED ONE Magnesium Hydroxide 45 ml 12/21/21 14:09 12/21/21 14:29 Mag Hydrx/Alum Hyd/Simeth/Lido 45 Ml Bottle PO 12/21/21 14:10 45 ml STAT ONE Administration Ondansetron HCl 4 mg 12/21/21 14:08 12/21/21 14:21 Ondansetron Hcl 4 Mg/2 Ml Vial IV 12/21/21 14:09 4 mg STAT ONE Administration Ondansetron HCl Confirm 12/21/21 14:15 Ondansetron Hcl 4 Mg/2 Ml Vial Administered 12/21/21 14:16 Dose 4 mg .ROUTE .STK-MED ONE Lab/Rad Data: Laboratory Result Diagrams 12/21/21 13:55 12/21/21 13:55 Laboratory Results 12/21/21 12/21/21 12/21/21 Range/Units 14:01 13:55 13:55 WBC (4.0-10.5) K/mm3 RBC (4.1-5.4) M/mm3 Hgb (12.0-16.0) gm/dl Hct (35-47) % MCV (78-100) fl MCH (26-32) pg MCHC (32-36) g/dl RDW (11.5-14.0) % Plt Count (150-450) K/mm3 MPV (7.5-11.0) fl Gran % (36.0-66.0) % Eos # (Auto) (0-0.5) Absolute Lymphs (auto) (1.0-4.6) Absolute Monos (auto) (0.0-1.3) Lymphocytes % (24.0-44.0) % Monocytes % (0.0-12.0) % Eosinophils % (0.00-5.0) % Basophils % (0.0-0.4) % Absolute Granulocytes (1.4-6.9) Basophils # (0-0.4) D-Dimer 466 (215-500) ng/mL Sodium (137-145) mmol/L Potassium (3.5-5.1) mmol/L Chloride (98-107) mmol/L Carbon Dioxide (22-30) mmol/L Anion Gap (5-15) MEQ/L BUN (7-17) mg/dL Creatinine (0.52-1.04) mg/dL Estimated GFR ML/MIN Glucose (74-106) mg/dL Lactic Acid 1.9 (0.4-2.0) Calcium (8.4-10.2) mg/dL Total Bilirubin (0.2-1.3) mg/dL AST (14-36) U/L ALT (0-35) U/L Alkaline Phosphatase (38-126) U/L Troponin I < 0.012 (0.000-0.034) ng/mL Serum Total Protein (6.3-8.2) g/dL Albumin (3.5-5.0) g/dL Amylase (30-110) U/L Lipase (23-300) U/L 12/21/21 12/21/21 Range/Units 13:55 13:55 WBC 6.2 (4.0-10.5) K/mm3 RBC 5.86 H (4.1-5.4) M/mm3 Hgb 15.0 (12.0-16.0) gm/dl Hct 45.6 (35-47) % MCV 77.8 L (78-100) fl MCH 25.6 L (26-32) pg MCHC 32.9 (32-36) g/dl RDW 14.5 H (11.5-14.0) % Plt Count 248 (150-450) K/mm3 MPV 10.3 (7.5-11.0) fl Gran % 61.0 (36.0-66.0) % Eos # (Auto) 0.15 (0-0.5) Absolute Lymphs (auto) 1.68 (1.0-4.6) Absolute Monos (auto) 0.55 (0.0-1.3) Lymphocytes % 27.2 (24.0-44.0) % Monocytes % 8.9 (0.0-12.0) % Eosinophils % 2.4 (0.00-5.0) % Basophils % 0.5 (0.0-0.4) % Absolute Granulocytes 3.77 (1.4-6.9) Basophils # 0.03 (0-0.4) D-Dimer (215-500) ng/mL Sodium 138 (137-145) mmol/L Potassium 3.9 (3.5-5.1) mmol/L Chloride 106 (98-107) mmol/L Carbon Dioxide 22 (22-30) mmol/L Anion Gap 14.3 (5-15) MEQ/L BUN 16 (7-17) mg/dL Creatinine 0.69 (0.52-1.04) mg/dL Estimated GFR > 60.0 ML/MIN Glucose 215 H (74-106) mg/dL Lactic Acid (0.4-2.0) Calcium 9.3 (8.4-10.2) mg/dL Total Bilirubin 0.40 (0.2-1.3) mg/dL AST 40 H (14-36) U/L ALT 42 H (0-35) U/L Alkaline Phosphatase 66 (38-126) U/L Troponin I (0.000-0.034) ng/mL Serum Total Protein 7.6 (6.3-8.2) g/dL Albumin 4.2 (3.5-5.0) g/dL Amylase 100 (30-110) U/L Lipase 896 H (23-300) U/L - Progress Progress: re-examined Air Movement: good Progress Note: 12/21/21 15:27 CAT scan of the abdomen and pelvis shows mild diffuse fecal stasis fatty hepatomegaly, splenomegaly, small fatty umbilical hernia and L5-S1 degenerative disc disease. No other significant findings on the CT of the abdomen pelvis without contrast. 12/21/21 15:57 Medical decision making: This patient continues to have epigastric/lower midline chest pain. Patient's troponin and D-dimer are within normal limits and her initial EKG shows no acute ischemic changes. I spoke with patient's primary care doctor, Dr. Ybarra. He stated to place the patient in observation on a telemetry unit and place her in observation, serial enzymes, pain control, repeat labs in the morning and repeat EKG in the morning. We will place her on a clear liquid diet Blood Culture(s) Obtained: No Counseled pt/family regarding: lab results, diagnosis, need for follow-up, rad results - Departure Departure Disposition: Observation Clinical Impression: Pancreatitis, Chest pain Condition: Stable Critical Care Time: No Referrals: [facility] [Primary Care Provider] - Follow up/PCP as directed Additional Instructions: Drink plenty of fluids. Avoid fatty greasy spicy foods. Take your medication as prescribed. Return to the emergency department if your symptoms recur and worsen. Follow-up with your primary care physician for persistent symptoms
[2021-12-21] MEDS ORDERED: Sodium Chloride 0.9% 500 ML 500 ML IV ONE ×2 (13:48→13:53)
[2021-12-21] MEDS ORDERED: Zofran 4 MG/2 ML VIAL IV ONE (14:08)
[2021-12-21] MEDS ORDERED: Hydromorphone 1 mg/ml Injection IV ONE ×2 (14:08→15:53)
[2021-12-21] MEDS ORDERED: GI COCKTAIL 45 ML (Maalox/Lidocaine) PO ONE (14:09)
[2021-12-21] MEDS ORDERED: Zofran 4 MG/2 ML VIAL ONE (14:15)
[2021-12-21] MEDS ORDERED: Hydromorphone 1 mg/ml Injection ONE ×3 (14:16→21:36)
[2021-12-21] MEDS ORDERED: XYLOCAINE HCl Viscous ONE (14:16)
[2021-12-21 14:17] LABS: ALBUMIN 4.2 g/dL (3.5-5.0); ALKALINE PHOSPHATASE 66 U/L (38-126); AMYLASE 100 U/L (30-110); ANION GAP 14.3 MEQ/L (5-15); BLOOD UREA NITROGEN 16 mg/dL (7-17); CHLORIDE 106 mmol/L (98-107); Calcium 9.3 mg/dL (8.4-10.2); Carbon Dioxide 22 mmol/L (22-30); Creatinine 1 0.69 mg/dL (0.52-1.04); EST GLOMERULAR FILTRATION RATE > 60.0 ML/MIN; Glucose 215 mg/dL (74-106); LIPASE 896 U/L (23-300); Potassium 3.9 mmol/L (3.5-5.1); SGOT/AST 40 U/L (14-36); SGPT/ALT 42 U/L (0-35); SODIUM 138 mmol/L (137-145); Total Protein 7.6 g/dL (6.3-8.2)
[2021-12-21] MEDS ORDERED: MAALOX ES 30 ML UNIT DOSE ONE (14:17)
--- NOTE | 2021-12-21 15:26 | XRAY ---
Indication: Epigastric pain. Multiple contiguous axial images obtained through the abdomen and pelvis without contrast. Comparison: December 16, 2020. Lung bases remain clear. Heart not enlarged. Noncontrasted stomach and bowel loops appear nonobstructed again with normal appendix. Again mild diffuse scattered colonic fecal debris. No free fluid/air. There remains 21.5 cm fatty hepatomegaly, 14.5 cm splenomegaly, and cholecystectomy. Remaining liver, pancreas, spleen, adrenal glands, kidneys, ureters, bladder, uterus, and aorta are unremarkable for noncontrast exam. Osseous structures intact again with L5-S1 degenerative disc disease. Stable small fatty umbilical hernia. Impression: 1. Again mild diffuse fecal stasis, fatty hepatomegaly, splenomegaly, small fatty umbilical hernia, and L5-S1 degenerative disc disease. 2. Remaining CT abdomen/pelvis without contrast exam is again negative.
[2021-12-21 15:31] LABS: Absolute Neutrophil Ct (ANC) 3.77 (1.4-6.9); Basophil (Absolute #) 0.03 (0-0.4); Eosinophil % 2.4 % (0.00-5.0); Eosinophil (Absolute #) 0.15 (0-0.5); Hematocrit 45.6 % (35-47); Lymphocyte (Absolute #) 1.68 (1.0-4.6); Lymphocytes % 27.2 % (24.0-44.0); Mean Cell Volume 77.8 fl (78-100); Mean Corpuscular Hemoglobin 25.6 pg (26-32); Mean Corpuscular Hgb Concent. 32.9 g/dl (32-36); Mean Platelet Volume 10.3 fl (7.5-11.0); Monocyte (Absolute #) 0.55 (0.0-1.3); Monocytes % 8.9 % (0.0-12.0); Platelet Count 248 K/mm3 (150-450); Red Blood Count 5.86 M/mm3 (4.1-5.4); Red Cell Distribution Width 14.5 % (11.5-14.0); White Blood Count 6.2 K/mm3 (4.0-10.5)
[2021-12-21 17:03] LABS: Bacteria MANY /HPF (NEGATIVE); Epithelial Cells RARE /HPF (FEW); Mucus SLIGHT /HPF (NEGATIVE); RBC 0-2 /HPF (0-2)
[2021-12-21 17:07] LABS: INFLUENZA A NEGATIVE (NEGATIVE); INFLUENZA B NEGATIVE (NEGATIVE); RESPIRATORY SYNCTIAL VIRUS NEGATIVE (Negative); SARS-CoV-2 Xpert Express NEGATIVE (NEGATIVE)
[2021-12-21 17:08] LABS: Appearance CLEAR (CLEAR); Bilirubin NEGATIVE (NEGATIVE); Glucose >=1000 mg/dL (NEGATIVE); Ketones NEGATIVE (NEGATIVE)
[2021-12-21 17:09] LABS: Ph 5.5 (5-6); Protein,Urine Dip NEGATIVE (Negative); RBC NEGATIVE Ery/ul (0-5); Specific Gravity 1.025 (1.005-1.025); Urobilinogen 0.2 mg/dL (0-1)
[2021-12-21 17:10] LABS: Nitrite NEGATIVE (NEGATIVE)
[2021-12-21] MEDS ORDERED: TYLENOL 325 MG PO PRN (17:49)
[2021-12-21 17:50] LABS: Dipstick done @ ? MAIN LAB
[2021-12-21] MEDS: Zofran 4 MG/2 ML VIAL IV PRN (18:06)
[2021-12-21] MEDS: Hydromorphone 1 mg/ml Injection IV PRN ×2 (18:06→21:42)
[2021-12-21] MEDS: Sodium Chloride 0.9% 1000 ML 1,000 ML IV SCH (18:10)
[2021-12-21] MEDS: DIOVAN 80 MG PO SCH (21:44)
[2021-12-21] MEDS: Catapres 0.1 MG PO SCH (21:45)
[2021-12-21] MEDS ORDERED: Protonix 40MG Tablet PO SCH (22:00)
[2021-12-22] MEDS: Sodium Chloride 0.9% 1000 ML 1,000 ML IV SCH ×3 (02:45→21:23)
[2021-12-22] MEDS: Nubain 10 MG/ML IV PRN ×4 (03:38→21:24)
[2021-12-22] MEDS: Zofran 4 MG/2 ML VIAL IV PRN ×3 (03:48→21:23)
[2021-12-22 05:55] LABS: Absolute Neutrophil Ct (ANC) 4.17 (1.4-6.9); Basophil (Absolute #) 0.04 (0-0.4); Eosinophil % 2.3 % (0.00-5.0); Eosinophil (Absolute #) 0.16 (0-0.5); Hematocrit 42.5 % (35-47); Hemoglobin 13.9 gm/dl (12.0-16.0); Lymphocyte (Absolute #) 1.83 (1.0-4.6); Lymphocytes % 26.5 % (24.0-44.0); Mean Cell Volume 78.7 fl (78-100); Mean Corpuscular Hemoglobin 25.7 pg (26-32); Mean Corpuscular Hgb Concent. 32.7 g/dl (32-36); Mean Platelet Volume 9.5 fl (7.5-11.0); Monocyte (Absolute #) 0.71 (0.0-1.3); Monocytes % 10.3 % (0.0-12.0); Neutrophil % 60.3 % (36.0-66.0); Platelet Count 195 K/mm3 (150-450); Red Cell Distribution Width 14.4 % (11.5-14.0); White Blood Count 6.9 K/mm3 (4.0-10.5)
[2021-12-22 06:05] LABS: ALBUMIN 3.6 g/dL (3.5-5.0); ALKALINE PHOSPHATASE 60 U/L (38-126); AMYLASE 82 U/L (30-110); ANION GAP 10.1 MEQ/L (5-15); BLOOD UREA NITROGEN 11 mg/dL (7-17); CHLORIDE 108 mmol/L (98-107); Calcium 8.4 mg/dL (8.4-10.2); Carbon Dioxide 24 mmol/L (22-30); Creatinine 1 0.74 mg/dL (0.52-1.04); EST GLOMERULAR FILTRATION RATE > 60.0 ML/MIN; Glucose 117 mg/dL (74-106); LIPASE 392 U/L (23-300); Potassium 4.2 mmol/L (3.5-5.1); SGOT/AST 39 U/L (14-36); SGPT/ALT 43 U/L (0-35); SODIUM 138 mmol/L (137-145); Total Protein 6.9 g/dL (6.3-8.2)
[2021-12-22] MEDS ORDERED: NORCO 5/325 MG PO PRN (08:12)
[2021-12-22] MEDS: Protonix 40MG Tablet PO SCH ×2 (09:33→21:25)
[2021-12-22] MEDS ORDERED: METFORMIN HCL PO SCH (10:00)
[2021-12-22] MEDS ORDERED: NON-FORMULARY ITEM (Ondansetron Hcl [Zofran***] 4 MG Tablet) PO PRN (10:00)
[2021-12-22] MEDS ORDERED: NAPROSYN 375 MG PO PRN (10:00)
[2021-12-22] MEDS ORDERED: [UNRECOGNIZED DRUG - OTHER] PO SCH (10:00)
[2021-12-22] MEDS ORDERED: EMPAGLIFLOZIN PO SCH (10:00)
[2021-12-22] MEDS ORDERED: ZOFRAN ODT 4 MG PO PRN (10:18)
[2021-12-22] MEDS ORDERED: MEDICATION INTERVENTION MC SCH (10:30)
[2021-12-22] MEDS: DIOVAN 80 MG PO SCH ×2 (10:59→21:24)
[2021-12-22] MEDS: Catapres 0.1 MG PO SCH ×2 (10:59→21:26)
[2021-12-22] MEDS: Glucotrol 5 MG PO SCH (10:59)
[2021-12-22] MEDS: NORVASC 5 MG PO SCH (10:59)
--- NOTE | 2021-12-22 12:32 | PCM.HP ---
History of Present Illness - Chief Complaint Chief Complaint: Chest pain/epigastric pain for 1 day History of Present Illness: is a 51 year old female.who presents with epigastric and lower midline chest pain that is sharp and nonradiating. Is localized in the central substernal region. It began yesterday. Patient had an appointment with her primary care physician today and he sent her to the emergency department for further evaluation and management. Patient has had a cholecystectomy in the past. She has a history of hypertension, diabetes, gastroesophageal reflux disease and migraine headaches. Patient is allergic to aspirin. She has never had a myocardial infarction and does not have any cardiac stents in place. Patient denies shortness of breath, fever and cough. Patient states that she can take Dilaudid and Nubain without any adverse reactions. Timing/Duration: yesterday Location: substernal, central, epigastric Chest Pain Radiation: no radiation Severity of Pain-Max: moderate Severity of Pain-Current: moderate Modifying Factors: Improves With: nothing Associated Symptoms: abdominal pain (Epigastric) Nitro Today/Relief: no nitro taken today Aspirin Treatment Today: no aspirin today - Review of Systems Constitutional: No Fever, No Chills Eyes: No Symptoms Ears, Nose, & Throat: No Symptoms Respiratory: No Cough, No Short Of Breath Cardiac: Chest Pain, No Edema, No Syncope Abdominal/Gastrointestinal: Abdominal Pain, Nausea, Vomiting, No Diarrhea Genitourinary Symptoms: No Dysuria Musculoskeletal: No Back Pain, No Neck Pain Skin: No Rash Neurological: No Dizziness, No Focal Weakness, No Sensory Changes Psychological: No Symptoms Endocrine: No Symptoms Hematologic/Lymphatic: No Symptoms Immunological/Allergic: No Symptoms Medications & Allergies Home Medications: Home Medication List Omeprazole 20 MG [Prilosec 20 mg] 20 mg PO BID 10/25/14 [History Confirmed 12/21/21] glipiZIDE [Glipizide] 1 tab PO DAILY 10/17/17 [History Confirmed 12/21/21] Empagliflozin/Metformin HCl [Synjardy Xr 10-1,000 mg Tablet] 1 tab PO DAILY 07/15/19 [History Confirmed 12/21/21] Naproxen 375 mg [Naprosyn 375 mg] 375 mg PO BID PRN PRN 07/15/19 [History Confirmed 12/21/21] ondansetron HCL [Zofran] 4 mg PO Q4-6HPRN PRN 07/15/19 [History Confirmed 12/21/21] Amlodipine Besylate 5 mg [Norvasc 5 mg] 5 mg PO DAILY 02/28/21 [History Confirmed 12/21/21] Clonidine HCl 0.1 mg [Catapres 0.1 MG] 0.1 mg PO BID #60 tablet 03/02/21 [Rx Confirmed 12/21/21] Valsartan 80 mg PO BID 12/21/21 [History Confirmed 12/21/21] Allergies/Adverse Reactions: Allergies Allergy/AdvReac Type Severity Reaction Status Date / Time aspirin Allergy Intermediate Hives Verified 12/21/21 17:50 codeine [Codeine] Allergy Verified 12/21/21 17:50 hydrocodone bitartrate Allergy Verified 12/21/21 17:50 [From Vicodin] morphine Allergy Verified 12/21/21 17:50 Penicillins Allergy Verified 12/21/21 17:50 propoxyphene HCl Allergy Verified 12/21/21 17:50 [From Darvon] - Past Medical History Past Medical History: Yes Neurological History: Migraines ENT History: No Pertinent History Cardiac History: Hypertension Respiratory History: Asthma Endocrine Medical History: Diabetes Type II Musculoskelatal History: No Pertinent History GI Medical History: GERD History: No Pertinent History Pyscho-Social History: No Pertinent History Reproductive Disorders: No Pertinent History - Female History Are you now?: No - Past Surgical History Past Surgical History: Yes Neuro Surgical History: No Pertinent History Cardiac History: No Pertinent History Respiratory Surgery: No Pertinent History GI Surgical History: Cholecystectomy Genitourinary Surgical Hx: No Pertinent History Musculskeletal Surgical Hx: No Pertinent History Female Surgical History: No Pertinent History Other Surgical History: 2005 gallbladder, bellybutton repair, d/c X1, 3 cysts, bladder tied up. pt states she has a hard time waking up from anesthesia - Social History Smoking Status: Never smoker Exposure to second hand smoke: No Alcohol: None Drug Use: none Significant Family History: no pertinent family hx - Physical Exam Vital Signs: Vital Signs - 24 hr Temp Pulse Pulse Resp BP Pulse Ox 12/22/21 12:00 97.9 F 53 L 20 117/60 95 12/22/21 07:56 97.5 F 47 L 20 109/55 96 12/22/21 07:50 18 12/22/21 04:00 97.3 F 55 L 18 127/65 94 L 12/22/21 00:00 97.1 F 60 16 137/70 93 L 12/21/21 20:00 97.1 F 61 18 170/91 97 12/21/21 18:20 97.1 F 61 18 170/91 97 12/21/21 18:19 98.1 F 59 L 145/78 95 12/21/21 17:49 95 12/21/21 17:00 59 L 23 145/78 95 12/21/21 15:37 56 L 18 145/78 95 12/21/21 13:42 98.1 F 61 66 22 206/100 96 General Appearance: no apparent distress, alert Neurologic Exam: alert, oriented x 3, cooperative, normal mood/affect, nml cerebellar function, nml station & gait, sensation nml, No motor deficits Eye Exam: PERRL/EOMI, eyes nml inspection Ears, Nose, Throat Exam: normal ENT inspection, TMs normal, pharynx normal, moist mucous membranes Neck Exam: normal inspection, non-tender, supple, full range of motion Respiratory Exam: normal breath sounds, lungs clear, No respiratory distress Cardiovascular Exam: regular rate/rhythm, normal heart sounds, normal peripheral pulses Gastrointestinal/Abdomen Exam: soft, normal bowel sounds, No tenderness, No mass Back Exam: normal inspection, normal range of motion, No CVA tenderness, No vertebral tenderness Extremity Exam: normal inspection, normal range of motion, pelvis stable Skin Exam: normal color, warm, dry, No rash Lymphatic Exam: No adenopathy Results - Labs Lab/Micro Results: Lab Results-Last 24 Hours 12/21/21 12/21/21 12/21/21 Range/Units 13:53 13:55 13:55 WBC 6.2 (4.0-10.5) K/mm3 RBC 5.86 H (4.1-5.4) M/mm3 Hgb 15.0 (12.0-16.0) gm/dl Hct 45.6 (35-47) % MCV 77.8 L (78-100) fl MCH 25.6 L (26-32) pg MCHC 32.9 (32-36) g/dl RDW 14.5 H (11.5-14.0) % Plt Count 248 (150-450) K/mm3 MPV 10.3 (7.5-11.0) fl Gran % 61.0 (36.0-66.0) % Eos # (Auto) 0.15 (0-0.5) Absolute Lymphs (auto) 1.68 (1.0-4.6) Absolute Monos (auto) 0.55 (0.0-1.3) Lymphocytes % 27.2 (24.0-44.0) % Monocytes % 8.9 (0.0-12.0) % Eosinophils % 2.4 (0.00-5.0) % Basophils % 0.5 (0.0-0.4) % Absolute Granulocytes 3.77 (1.4-6.9) Basophils # 0.03 (0-0.4) D-Dimer (215-500) ng/mL Sodium 138 (137-145) mmol/L Potassium 3.9 (3.5-5.1) mmol/L Chloride 106 (98-107) mmol/L Carbon Dioxide 22 (22-30) mmol/L Anion Gap 14.3 (5-15) MEQ/L BUN 16 (7-17) mg/dL Creatinine 0.69 (0.52-1.04) mg/dL Estimated GFR > 60.0 ML/MIN Glucose 215 H (74-106) mg/dL POC Glucometer (74 to 106) mg/dL Lactic Acid (0.4-2.0) Calcium 9.3 (8.4-10.2) mg/dL Total Bilirubin 0.40 (0.2-1.3) mg/dL AST 40 H (14-36) U/L ALT 42 H (0-35) U/L Alkaline Phosphatase 66 (38-126) U/L Troponin I (0.000-0.034) ng/mL Serum Total Protein 7.6 (6.3-8.2) g/dL Albumin 4.2 (3.5-5.0) g/dL Amylase 100 (30-110) U/L Lipase 896 H (23-300) U/L Urinalys Dipstick Clnc MAIN LAB Urine Color YELLOW (YELLOW) Urine Appearance CLEAR (CLEAR) Urine pH 5.5 (5-6) Ur Specific [place] 1.025 (1.005-1.025) POC Urine Protein Conf NEGATIVE (Negative) Urine Ketones NEGATIVE (NEGATIVE) Urine Nitrite NEGATIVE (NEGATIVE) Urine Bilirubin NEGATIVE (NEGATIVE) Urine Urobilinogen 0.2 (0-1) mg/dL Urine Leukocytes NEGATIVE (NEGATIVE) Urine WBC (Auto) 6-10 (0-5) /HPF Urine RBC (Auto) 0-2 (0-2) /HPF U Epithel Cells (Auto) RARE (FEW) /HPF Urine Bacteria (Auto) MANY (NEGATIVE) /HPF Urine RBC NEGATIVE (0-5) Jack/ul Urine Mucus (Auto) SLIGHT (NEGATIVE) /HPF Ur Culture Indicated? NO Urine Glucose >=1000 (NEGATIVE) mg/dL Influenza Type A Ag (NEGATIVE) Influenza Type B Ag (NEGATIVE) RSV (PCR) (Negative) SARS-CoV-2 (PCR) (NEGATIVE) 12/21/21 12/21/21 12/21/21 Range/Units 13:55 13:55 14:01 WBC (4.0-10.5) K/mm3 RBC (4.1-5.4) M/mm3 Hgb (12.0-16.0) gm/dl Hct (35-47) % MCV (78-100) fl MCH (26-32) pg MCHC (32-36) g/dl RDW (11.5-14.0) % Plt Count (150-450) K/mm3 MPV (7.5-11.0) fl Gran % (36.0-66.0) % Eos # (Auto) (0-0.5) Absolute Lymphs (auto) (1.0-4.6) Absolute Monos (auto) (0.0-1.3) Lymphocytes % (24.0-44.0) % Monocytes % (0.0-12.0) % Eosinophils % (0.00-5.0) % Basophils % (0.0-0.4) % Absolute Granulocytes (1.4-6.9) Basophils # (0-0.4) D-Dimer 466 (215-500) ng/mL Sodium (137-145) mmol/L Potassium (3.5-5.1) mmol/L Chloride (98-107) mmol/L Carbon Dioxide (22-30) mmol/L Anion Gap (5-15) MEQ/L BUN (7-17) mg/dL Creatinine (0.52-1.04) mg/dL Estimated GFR ML/MIN Glucose (74-106) mg/dL POC Glucometer (74 to 106) mg/dL Lactic Acid 1.9 (0.4-2.0) Calcium (8.4-10.2) mg/dL Total Bilirubin (0.2-1.3) mg/dL AST (14-36) U/L ALT (0-35) U/L Alkaline Phosphatase (38-126) U/L Troponin I < 0.012 (0.000-0.034) ng/mL Serum Total Protein (6.3-8.2) g/dL Albumin (3.5-5.0) g/dL Amylase (30-110) U/L Lipase (23-300) U/L Urinalys Dipstick Clnc Urine Color (YELLOW) Urine Appearance (CLEAR) Urine pH (5-6) Ur Specific [place] (1.005-1.025) POC Urine Protein Conf (Negative) Urine Ketones (NEGATIVE) Urine Nitrite (NEGATIVE) Urine Bilirubin (NEGATIVE) Urine Urobilinogen (0-1) mg/dL Urine Leukocytes (NEGATIVE) Urine WBC (Auto) (0-5) /HPF Urine RBC (Auto) (0-2) /HPF U Epithel Cells (Auto) (FEW) /HPF Urine Bacteria (Auto) (NEGATIVE) /HPF Urine RBC (0-5) Jack/ul Urine Mucus (Auto) (NEGATIVE) /HPF Ur Culture Indicated? Urine Glucose (NEGATIVE) mg/dL Influenza Type A Ag (NEGATIVE) Influenza Type B Ag (NEGATIVE) RSV (PCR) (Negative) SARS-CoV-2 (PCR) (NEGATIVE) 12/21/21 12/21/21 12/21/21 Range/Units 16:25 17:25 17:59 WBC (4.0-10.5) K/mm3 RBC (4.1-5.4) M/mm3 Hgb (12.0-16.0) gm/dl Hct (35-47) % MCV (78-100) fl MCH (26-32) pg MCHC (32-36) g/dl RDW (11.5-14.0) % Plt Count (150-450) K/mm3 MPV (7.5-11.0) fl Gran % (36.0-66.0) % Eos # (Auto) (0-0.5) Absolute Lymphs (auto) (1.0-4.6) Absolute Monos (auto) (0.0-1.3) Lymphocytes % (24.0-44.0) % Monocytes % (0.0-12.0) % Eosinophils % (0.00-5.0) % Basophils % (0.0-0.4) % Absolute Granulocytes (1.4-6.9) Basophils # (0-0.4) D-Dimer (215-500) ng/mL Sodium (137-145) mmol/L Potassium (3.5-5.1) mmol/L Chloride (98-107) mmol/L Carbon Dioxide (22-30) mmol/L Anion Gap (5-15) MEQ/L BUN (7-17) mg/dL Creatinine (0.52-1.04) mg/dL Estimated GFR ML/MIN Glucose (74-106) mg/dL POC Glucometer 101 (74 to 106) mg/dL Lactic Acid (0.4-2.0) Calcium (8.4-10.2) mg/dL Total Bilirubin (0.2-1.3) mg/dL AST (14-36) U/L ALT (0-35) U/L Alkaline Phosphatase (38-126) U/L Troponin I < 0.012 (0.000-0.034) ng/mL Serum Total Protein (6.3-8.2) g/dL Albumin (3.5-5.0) g/dL Amylase (30-110) U/L Lipase (23-300) U/L Urinalys Dipstick Clnc Urine Color (YELLOW) Urine Appearance (CLEAR) Urine pH (5-6) Ur Specific [place] (1.005-1.025) POC Urine Protein Conf (Negative) Urine Ketones (NEGATIVE) Urine Nitrite (NEGATIVE) Urine Bilirubin (NEGATIVE) Urine Urobilinogen (0-1) mg/dL Urine Leukocytes (NEGATIVE) Urine WBC (Auto) (0-5) /HPF Urine RBC (Auto) (0-2) /HPF U Epithel Cells (Auto) (FEW) /HPF Urine Bacteria (Auto) (NEGATIVE) /HPF Urine RBC (0-5) Jack/ul Urine Mucus (Auto) (NEGATIVE) /HPF Ur Culture Indicated? Urine Glucose (NEGATIVE) mg/dL Influenza Type A Ag NEGATIVE (NEGATIVE) Influenza Type B Ag NEGATIVE (NEGATIVE) RSV (PCR) NEGATIVE (Negative) SARS-CoV-2 (PCR) NEGATIVE (NEGATIVE) 12/21/21 12/21/21 12/22/21 Range/Units 20:18 20:42 05:30 WBC 6.9 (4.0-10.5) K/mm3 RBC 5.40 (4.1-5.4) M/mm3 Hgb 13.9 (12.0-16.0) gm/dl Hct 42.5 (35-47) % MCV 78.7 (78-100) fl MCH 25.7 L (26-32) pg MCHC 32.7 (32-36) g/dl RDW 14.4 H (11.5-14.0) % Plt Count 195 (150-450) K/mm3 MPV 9.5 (7.5-11.0) fl Gran % 60.3 (36.0-66.0) % Eos # (Auto) 0.16 (0-0.5) Absolute Lymphs (auto) 1.83 (1.0-4.6) Absolute Monos (auto) 0.71 (0.0-1.3) Lymphocytes % 26.5 (24.0-44.0) % Monocytes % 10.3 (0.0-12.0) % Eosinophils % 2.3 (0.00-5.0) % Basophils % 0.6 (0.0-0.4) % Absolute Granulocytes 4.17 (1.4-6.9) Basophils # 0.04 (0-0.4) D-Dimer (215-500) ng/mL Sodium (137-145) mmol/L Potassium (3.5-5.1) mmol/L Chloride (98-107) mmol/L Carbon Dioxide (22-30) mmol/L Anion Gap (5-15) MEQ/L BUN (7-17) mg/dL Creatinine (0.52-1.04) mg/dL Estimated GFR ML/MIN Glucose (74-106) mg/dL POC Glucometer 143 H (74 to 106) mg/dL Lactic Acid (0.4-2.0) Calcium (8.4-10.2) mg/dL Total Bilirubin (0.2-1.3) mg/dL AST (14-36) U/L ALT (0-35) U/L Alkaline Phosphatase (38-126) U/L Troponin I < 0.012 (0.000-0.034) ng/mL Serum Total Protein (6.3-8.2) g/dL Albumin (3.5-5.0) g/dL Amylase (30-110) U/L Lipase (23-300) U/L Urinalys Dipstick Clnc Urine Color (YELLOW) Urine Appearance (CLEAR) Urine pH (5-6) Ur Specific [place] (1.005-1.025) POC Urine Protein Conf (Negative) Urine Ketones (NEGATIVE) Urine Nitrite (NEGATIVE) Urine Bilirubin (NEGATIVE) Urine Urobilinogen (0-1) mg/dL Urine Leukocytes (NEGATIVE) Urine WBC (Auto) (0-5) /HPF Urine RBC (Auto) (0-2) /HPF U Epithel Cells (Auto) (FEW) /HPF Urine Bacteria (Auto) (NEGATIVE) /HPF Urine RBC (0-5) Jack/ul Urine Mucus (Auto) (NEGATIVE) /HPF Ur Culture Indicated? Urine Glucose (NEGATIVE) mg/dL Influenza Type A Ag (NEGATIVE) Influenza Type B Ag (NEGATIVE) RSV (PCR) (Negative) SARS-CoV-2 (PCR) (NEGATIVE) 12/22/21 12/22/21 12/22/21 Range/Units 05:30 05:30 07:29 WBC (4.0-10.5) K/mm3 RBC (4.1-5.4) M/mm3 Hgb (12.0-16.0) gm/dl Hct (35-47) % MCV (78-100) fl MCH (26-32) pg MCHC (32-36) g/dl RDW (11.5-14.0) % Plt Count (150-450) K/mm3 MPV (7.5-11.0) fl Gran % (36.0-66.0) % Eos # (Auto) (0-0.5) Absolute Lymphs (auto) (1.0-4.6) Absolute Monos (auto) (0.0-1.3) Lymphocytes % (24.0-44.0) % Monocytes % (0.0-12.0) % Eosinophils % (0.00-5.0) % Basophils % (0.0-0.4) % Absolute Granulocytes (1.4-6.9) Basophils # (0-0.4) D-Dimer (215-500) ng/mL Sodium 138 (137-145) mmol/L Potassium 4.2 (3.5-5.1) mmol/L Chloride 108 H (98-107) mmol/L Carbon Dioxide 24 (22-30) mmol/L Anion Gap 10.1 (5-15) MEQ/L BUN 11 (7-17) mg/dL Creatinine 0.74 (0.52-1.04) mg/dL Estimated GFR > 60.0 ML/MIN Glucose 117 H (74-106) mg/dL POC Glucometer 119 H (74 to 106) mg/dL Lactic Acid (0.4-2.0) Calcium 8.4 (8.4-10.2) mg/dL Total Bilirubin 0.50 (0.2-1.3) mg/dL AST 39 H (14-36) U/L ALT 43 H (0-35) U/L Alkaline Phosphatase 60 (38-126) U/L Troponin I (0.000-0.034) ng/mL Serum Total Protein 6.9 (6.3-8.2) g/dL Albumin 3.6 (3.5-5.0) g/dL Amylase 82 (30-110) U/L Lipase 392 H (23-300) U/L Urinalys Dipstick Clnc Urine Color (YELLOW) Urine Appearance (CLEAR) Urine pH (5-6) Ur Specific [place] (1.005-1.025) POC Urine Protein Conf (Negative) Urine Ketones (NEGATIVE) Urine Nitrite (NEGATIVE) Urine Bilirubin (NEGATIVE) Urine Urobilinogen (0-1) mg/dL Urine Leukocytes (NEGATIVE) Urine WBC (Auto) (0-5) /HPF Urine RBC (Auto) (0-2) /HPF U Epithel Cells (Auto) (FEW) /HPF Urine Bacteria (Auto) (NEGATIVE) /HPF Urine RBC (0-5) Jack/ul Urine Mucus (Auto) (NEGATIVE) /HPF Ur Culture Indicated? Urine Glucose (NEGATIVE) mg/dL Influenza Type A Ag (NEGATIVE) Influenza Type B Ag (NEGATIVE) RSV (PCR) (Negative) SARS-CoV-2 (PCR) (NEGATIVE) 12/22/21 Range/Units 11:35 WBC (4.0-10.5) K/mm3 RBC (4.1-5.4) M/mm3 Hgb (12.0-16.0) gm/dl Hct (35-47) % MCV (78-100) fl MCH (26-32) pg MCHC (32-36) g/dl RDW (11.5-14.0) % Plt Count (150-450) K/mm3 MPV (7.5-11.0) fl Gran % (36.0-66.0) % Eos # (Auto) (0-0.5) Absolute Lymphs (auto) (1.0-4.6) Absolute Monos (auto) (0.0-1.3) Lymphocytes % (24.0-44.0) % Monocytes % (0.0-12.0) % Eosinophils % (0.00-5.0) % Basophils % (0.0-0.4) % Absolute Granulocytes (1.4-6.9) Basophils # (0-0.4) D-Dimer (215-500) ng/mL Sodium (137-145) mmol/L Potassium (3.5-5.1) mmol/L Chloride (98-107) mmol/L Carbon Dioxide (22-30) mmol/L Anion Gap (5-15) MEQ/L BUN (7-17) mg/dL Creatinine (0.52-1.04) mg/dL Estimated GFR ML/MIN Glucose (74-106) mg/dL POC Glucometer 123 H (74 to 106) mg/dL Lactic Acid (0.4-2.0) Calcium (8.4-10.2) mg/dL Total Bilirubin (0.2-1.3) mg/dL AST (14-36) U/L ALT (0-35) U/L Alkaline Phosphatase (38-126) U/L Troponin I (0.000-0.034) ng/mL Serum Total Protein (6.3-8.2) g/dL Albumin (3.5-5.0) g/dL Amylase (30-110) U/L Lipase (23-300) U/L Urinalys Dipstick Clnc Urine Color (YELLOW) Urine Appearance (CLEAR) Urine pH (5-6) Ur Specific [place] (1.005-1.025) POC Urine Protein Conf (Negative) Urine Ketones (NEGATIVE) Urine Nitrite (NEGATIVE) Urine Bilirubin (NEGATIVE) Urine Urobilinogen (0-1) mg/dL Urine Leukocytes (NEGATIVE) Urine WBC (Auto) (0-5) /HPF Urine RBC (Auto) (0-2) /HPF U Epithel Cells (Auto) (FEW) /HPF Urine Bacteria (Auto) (NEGATIVE) /HPF Urine RBC (0-5) Jack/ul Urine Mucus (Auto) (NEGATIVE) /HPF Ur Culture Indicated? Urine Glucose (NEGATIVE) mg/dL Influenza Type A Ag (NEGATIVE) Influenza Type B Ag (NEGATIVE) RSV (PCR) (Negative) SARS-CoV-2 (PCR) (NEGATIVE) Accuchecks Date 12/22/21 Date 12/22/21 Date 12/21/21 Time 11:45 Time 07:29 Time 21:00 - Radiology Impressions Radiology Exams & Impressions: Radiology Procedures Category Date Time Status ABDOMEN AND PELVIS W/0 CONTRAS [CT] Stat Exams 12/21/21 13:46 Completed Assessment/Plan (1) Chest pain Current Visit: Yes Status: Acute Qualifiers: Chest pain type: other chest pain Qualified Code(s): R07.89 - Other chest pain; R07.8 - Other chest pain Code(s): R07.9 - CHEST PAIN, UNSPECIFIED (2) Pancreatitis Current Visit: Yes Status: Acute Qualifiers: Chronicity: acute Pancreatitis type: biliary Assessment & Plan: Chief Complaint Diagnosis Chest pain/pancreatitis Allergies Allergy/AdvReac Type Severity Reaction Status Date / Time aspirin Allergy Intermediate Hives Verified 12/21/21 17:50 codeine [Codeine] Allergy Verified 12/21/21 17:50 hydrocodone bitartrate Allergy Verified 12/21/21 17:50 [From Vicodin] morphine Allergy Verified 12/21/21 17:50 Penicillins Allergy Verified 12/21/21 17:50 propoxyphene HCl Allergy Verified 12/21/21 17:50 [From Darvon] Vital Signs (Last 24 hours) Temp Pulse Pulse Resp BP Pulse Ox 12/22/21 12:00 97.9 F 53 L 20 117/60 95 12/22/21 07:56 97.5 F 47 L 20 109/55 96 12/22/21 07:50 18 12/22/21 04:00 97.3 F 55 L 18 127/65 94 L 12/22/21 00:00 97.1 F 60 16 137/70 93 L 12/21/21 20:00 97.1 F 61 18 170/91 97 12/21/21 18:20 97.1 F 61 18 170/91 97 12/21/21 18:19 98.1 F 59 L 145/78 95 12/21/21 17:49 95 12/21/21 17:00 59 L 23 145/78 95 12/21/21 15:37 56 L 18 145/78 95 12/21/21 13:42 98.1 F 61 66 22 206/100 96 Home Medications Medication Instructions Recorded Confirmed Last Taken Type Valsartan 80 mg PO BID 12/21/21 12/21/21 12/21/21 History Current Medications Generic Name Dose Route Start Last Admin Trade Name Freq PRN Reason Stop Dose Admin Acetaminophen 650 mg 12/21/21 17:49 Acetaminophen 325 Mg Tablet PO 01/20/22 17:48 Q4H PRN PRN PAIN, FEVER, HEADACHE Hydrocodone Bitart/Acetaminophen 2 tab 12/22/21 08:12 12/22/21 08:22 Hydrocodone/Apap 5/325 Mg Tablet PO 12/27/21 08:11 2 tab Q4H PRN PRN Administration PAIN Amlodipine Besylate 5 mg 12/22/21 10:00 12/22/21 10:59 Amlodipine Besylate 5 Mg Tablet PO 01/21/22 09:59 Not Given DAILY ALISIA Clonidine 0.1 mg 12/21/21 22:00 12/22/21 10:59 Clonidine Hcl 0.1 Mg Tablet PO 01/20/22 21:59 Not Given BID ALISIA Glipizide 5 mg 12/22/21 10:30 12/22/21 10:59 Glipizide 5 Mg Tablet PO 01/21/22 10:29 Not Given DAILY@0800 ALISIA Sodium Chloride 1,000 mls @ 100 mls/hr 12/21/21 17:49 12/22/21 11:38 Sodium Chloride 0.9% 1000 Ml IV 01/20/22 17:48 100 mls/hr .Q10H ALISIA Administration Miscellaneous Information 1 each 12/22/21 10:30 Medication Intervention 1 Each Each 01/21/22 10:29 .RN TO CHECK WITH PT ALISIA Nalbuphine HCl 10 mg 12/22/21 03:24 12/22/21 11:37 Nalbuphine Hcl 10 Mg/Ml Ampul IV 01/21/22 03:23 10 mg Q4H PRN PRN Administration PAIN Naproxen 375 mg 12/22/21 10:00 Naproxen 375 Mg Tablet PO 01/21/22 09:59 BID PRN PRN PAIN Ondansetron HCl 4 mg 12/21/21 17:49 12/22/21 08:22 Ondansetron Hcl 4 Mg/2 Ml Vial IV 01/20/22 17:48 4 mg Q6H PRN PRN Administration NAUSEA/VOMITING Ondansetron HCl 4 mg 12/22/21 10:18 Zofran 4 Mg/Udtablet Orally Disintegrating PO 01/21/22 10:17 Q4H PRN PRN NAUSEA Pantoprazole Sodium 40 mg 12/22/21 10:00 12/22/21 09:33 Protonix (Pantoprazole) 40 Mg Tablet PO 01/21/22 09:59 40 mg BID ALISIA Administration Valsartan 80 mg 12/21/21 22:00 12/22/21 10:59 Valsartan 80 Mg Tablet PO 01/20/22 21:59 Not Given BID ALISIA Discontinued Medications Generic Name Dose Route Start Last Admin Trade Name Freq PRN Reason Stop Dose Admin Al Hydrox/Mg Hydrox/Simethicone Confirm 12/21/21 14:17 Mag Hydrox/Al Hydrox/Simeth 30 Ml Udcup Administered 12/21/21 14:18 Dose 30 ml .ROUTE .STK-MED ONE Hydromorphone HCl 0.5 mg 12/21/21 14:08 12/21/21 14:23 Hydromorphone 1 Mg/1ml Inj 1 Mg/Ml Syringe IV 12/21/21 14:09 0.5 mg STAT ONE Administration Hydromorphone HCl Confirm 12/21/21 14:16 Hydromorphone 1 Mg/1ml Inj 1 Mg/Ml Syringe Administered 12/21/21 14:17 Dose 1 mg .ROUTE .STK-MED ONE Hydromorphone HCl 1 mg 12/21/21 15:53 12/21/21 16:06 Hydromorphone 1 Mg/1ml Inj 1 Mg/Ml Syringe IV 12/21/21 15:54 1 mg STAT ONE Administration Hydromorphone HCl Confirm 12/21/21 15:59 Hydromorphone 1 Mg/1ml Inj 1 Mg/Ml Syringe Administered 12/21/21 16:00 Dose 1 mg .ROUTE .STK-MED ONE Hydromorphone HCl 1 mg 12/21/21 17:49 12/21/21 21:42 Hydromorphone 1 Mg/1ml Inj 1 Mg/Ml Syringe IV 12/26/21 17:48 1 mg Q4H PRN PRN Administration PAIN Hydromorphone HCl Confirm 12/21/21 21:36 Hydromorphone 1 Mg/1ml Inj 1 Mg/Ml Syringe Administered 12/21/21 21:37 Dose 1 mg .ROUTE .STK-MED ONE Sodium Chloride 500 mls @ 500 mls/hr 12/21/21 13:48 12/21/21 15:24 Sodium Chloride 0.9% 500 Ml IV 12/21/21 14:47 Infused .Q1H ONE Infusion Sodium Chloride Confirm 12/21/21 13:53 Sodium Chloride 0.9% 500 Ml Administered 12/21/21 13:54 Dose 500 mls @ ud IV .STK-MED ONE Lidocaine HCl Confirm 12/21/21 14:16 Lidocaine Hcl Viscous 1 Ml Administered 12/21/21 14:17 Dose 15 ml .ROUTE .STK-MED ONE Magnesium Hydroxide 45 ml 12/21/21 14:09 12/21/21 14:29 Mag Hydrx/Alum Hyd/Simeth/Lido 45 Ml Bottle PO 12/21/21 14:10 45 ml STAT ONE Administration Ondansetron HCl 4 mg 12/21/21 14:08 12/21/21 14:21 Ondansetron Hcl 4 Mg/2 Ml Vial IV 12/21/21 14:09 4 mg STAT ONE Administration Ondansetron HCl Confirm 12/21/21 14:15 Ondansetron Hcl 4 Mg/2 Ml Vial Administered 12/21/21 14:16 Dose 4 mg .ROUTE .STK-MED ONE Pantoprazole Sodium 20 mg 12/21/21 22:00 03/18/22 21:44 Protonix (Pantoprazole) 40 Mg Tablet PO 01/20/22 21:59 20 mg BID ALISIA Administration Intake & Output (Last 24 hours) 12/20/21 12/21/21 12/22/21 12/23/21 11:59 11:59 11:59 11:59 Intake Total 1366 Output Total 1500 Balance -134 Weight 94 kg Laboratory Results (Last 24 hours) 12/22/21 12/22/21 12/22/21 11:35 07:29 05:30 WBC RBC Hgb Hct MCV MCH MCHC RDW Plt Count MPV Gran % Eos # (Auto) Absolute Lymphs (auto) Absolute Monos (auto) Lymphocytes % Monocytes % Eosinophils % Basophils % Absolute Granulocytes Basophils # D-Dimer Sodium Potassium Chloride Carbon Dioxide Anion Gap BUN Creatinine Estimated GFR Glucose POC Glucometer 123 H 119 H Lactic Acid Calcium Total Bilirubin AST ALT Alkaline Phosphatase Troponin I Serum Total Protein Albumin Amylase 82 Lipase 392 H Urinalys Dipstick Clnc Urine Color Urine Appearance Urine pH Ur Specific [place] POC Urine Protein Conf Urine Ketones Urine Nitrite Urine Bilirubin Urine Urobilinogen Urine Leukocytes Urine WBC (Auto) Urine RBC (Auto) U Epithel Cells (Auto) Urine Bacteria (Auto) Urine RBC Urine Mucus (Auto) Ur Culture Indicated? Urine Glucose Influenza Type A Ag Influenza Type B Ag RSV (PCR) SARS-CoV-2 (PCR) 12/22/21 12/22/21 12/21/21 05:30 05:30 20:42 WBC 6.9 RBC 5.40 Hgb 13.9 Hct 42.5 MCV 78.7 MCH 25.7 L MCHC 32.7 RDW 14.4 H Plt Count 195 MPV 9.5 Gran % 60.3 Eos # (Auto) 0.16 Absolute Lymphs (auto) 1.83 Absolute Monos (auto) 0.71 Lymphocytes % 26.5 Monocytes % 10.3 Eosinophils % 2.3 Basophils % 0.6 Absolute Granulocytes 4.17 Basophils # 0.04 D-Dimer Sodium 138 Potassium 4.2 Chloride 108 H Carbon Dioxide 24 Anion Gap 10.1 BUN 11 Creatinine 0.74 Estimated GFR > 60.0 Glucose 117 H POC Glucometer 143 H Lactic Acid Calcium 8.4 Total Bilirubin 0.50 AST 39 H ALT 43 H Alkaline Phosphatase 60 Troponin I Serum Total Protein 6.9 Albumin 3.6 Amylase Lipase Urinalys Dipstick Clnc Urine Color Urine Appearance Urine pH Ur Specific [place] POC Urine Protein Conf Urine Ketones Urine Nitrite Urine Bilirubin Urine Urobilinogen Urine Leukocytes Urine WBC (Auto) Urine RBC (Auto) U Epithel Cells (Auto) Urine Bacteria (Auto) Urine RBC Urine Mucus (Auto) Ur Culture Indicated? Urine Glucose Influenza Type A Ag Influenza Type B Ag RSV (PCR) SARS-CoV-2 (PCR) 12/21/21 12/21/21 12/21/21 20:18 17:59 17:25 WBC RBC Hgb Hct MCV MCH MCHC RDW Plt Count MPV Gran % Eos # (Auto) Absolute Lymphs (auto) Absolute Monos (auto) Lymphocytes % Monocytes % Eosinophils % Basophils % Absolute Granulocytes Basophils # D-Dimer Sodium Potassium Chloride Carbon Dioxide Anion Gap BUN Creatinine Estimated GFR Glucose POC Glucometer 101 Lactic Acid Calcium Total Bilirubin AST ALT Alkaline Phosphatase Troponin I < 0.012 < 0.012 Serum Total Protein Albumin Amylase Lipase Urinalys Dipstick Clnc Urine Color Urine Appearance Urine pH Ur Specific [place] POC Urine Protein Conf Urine Ketones Urine Nitrite Urine Bilirubin Urine Urobilinogen Urine Leukocytes Urine WBC (Auto) Urine RBC (Auto) U Epithel Cells (Auto) Urine Bacteria (Auto) Urine RBC Urine Mucus (Auto) Ur Culture Indicated? Urine Glucose Influenza Type A Ag Influenza Type B Ag RSV (PCR) SARS-CoV-2 (PCR) 12/21/21 12/21/21 12/21/21 16:25 14:01 13:55 WBC RBC Hgb Hct MCV MCH MCHC RDW Plt Count MPV Gran % Eos # (Auto) Absolute Lymphs (auto) Absolute Monos (auto) Lymphocytes % Monocytes % Eosinophils % Basophils % Absolute Granulocytes Basophils # D-Dimer 466 Sodium Potassium Chloride Carbon Dioxide Anion Gap BUN Creatinine Estimated GFR Glucose POC Glucometer Lactic Acid 1.9 Calcium Total Bilirubin AST ALT Alkaline Phosphatase Troponin I Serum Total Protein Albumin Amylase Lipase Urinalys Dipstick Clnc Urine Color Urine Appearance Urine pH Ur Specific [place] POC Urine Protein Conf Urine Ketones Urine Nitrite Urine Bilirubin Urine Urobilinogen Urine Leukocytes Urine WBC (Auto) Urine RBC (Auto) U Epithel Cells (Auto) Urine Bacteria (Auto) Urine RBC Urine Mucus (Auto) Ur Culture Indicated? Urine Glucose Influenza Type A Ag NEGATIVE Influenza Type B Ag NEGATIVE RSV (PCR) NEGATIVE SARS-CoV-2 (PCR) NEGATIVE 12/21/21 12/21/21 12/21/21 13:55 13:55 13:55 WBC 6.2 RBC 5.86 H Hgb 15.0 Hct 45.6 MCV 77.8 L MCH 25.6 L MCHC 32.9 RDW 14.5 H Plt Count 248 MPV 10.3 Gran % 61.0 Eos # (Auto) 0.15 Absolute Lymphs (auto) 1.68 Absolute Monos (auto) 0.55 Lymphocytes % 27.2 Monocytes % 8.9 Eosinophils % 2.4 Basophils % 0.5 Absolute Granulocytes 3.77 Basophils # 0.03 D-Dimer Sodium 138 Potassium 3.9 Chloride 106 Carbon Dioxide 22 Anion Gap 14.3 BUN 16 Creatinine 0.69 Estimated GFR > 60.0 Glucose 215 H POC Glucometer Lactic Acid Calcium 9.3 Total Bilirubin 0.40 AST 40 H ALT 42 H Alkaline Phosphatase 66 Troponin I < 0.012 Serum Total Protein 7.6 Albumin 4.2 Amylase 100 Lipase 896 H Urinalys Dipstick Clnc Urine Color Urine Appearance Urine pH Ur Specific [place] POC Urine Protein Conf Urine Ketones Urine Nitrite Urine Bilirubin Urine Urobilinogen Urine Leukocytes Urine WBC (Auto) Urine RBC (Auto) U Epithel Cells (Auto) Urine Bacteria (Auto) Urine RBC Urine Mucus (Auto) Ur Culture Indicated? Urine Glucose Influenza Type A Ag Influenza Type B Ag RSV (PCR) SARS-CoV-2 (PCR) 12/21/21 13:53 WBC RBC Hgb Hct MCV MCH MCHC RDW Plt Count MPV Gran % Eos # (Auto) Absolute Lymphs (auto) Absolute Monos (auto) Lymphocytes % Monocytes % Eosinophils % Basophils % Absolute Granulocytes Basophils # D-Dimer Sodium Potassium Chloride Carbon Dioxide Anion Gap BUN Creatinine Estimated GFR Glucose POC Glucometer Lactic Acid Calcium Total Bilirubin AST ALT Alkaline Phosphatase Troponin I Serum Total Protein Albumin Amylase Lipase Urinalys Dipstick Clnc MAIN LAB Urine Color YELLOW Urine Appearance CLEAR Urine pH 5.5 Ur Specific [place] 1.025 POC Urine Protein Conf NEGATIVE Urine Ketones NEGATIVE Urine Nitrite NEGATIVE Urine Bilirubin NEGATIVE Urine Urobilinogen 0.2 Urine Leukocytes NEGATIVE Urine WBC (Auto) 6-10 Urine RBC (Auto) 0-2 U Epithel Cells (Auto) RARE Urine Bacteria (Auto) MANY Urine RBC NEGATIVE Urine Mucus (Auto) SLIGHT Ur Culture Indicated? NO Urine Glucose >=1000 Influenza Type A Ag Influenza Type B Ag RSV (PCR) SARS-CoV-2 (PCR) Orders (Last 24 hours) Category Date Time Status Bedrest TOLERATED Activity 12/21/21 17:49 Active Code Status Order ROUTINE Care 12/21/21 17:49 Active EKG-ER Only STAT Care 12/21/21 13:46 Completed IV Insertion STAT Care 12/21/21 13:46 Completed POCT Glucose Check ACHS Care 12/21/21 20:[address] in Observation ROUTINE Care 12/21/21 17:49 Active Telemetry PROTOCOL Care 12/21/21 17:49 Active Weight,Daily 0600 Care 12/21/21 17:49 Active Full Liquid Diet Diet 12/22/21 Breakfast Active Nutritional Admission Screen ONCE Diet 12/21/21 18:32 Active ABDOMEN AND PELVIS W/0 CONTRAS [CT] Stat Exams 12/21/21 13:46 Completed AMYLASE Stat Lab 12/21/21 13:55 Completed AMYLASE Stat Lab 12/22/21 05:30 Completed CBC W DIFF AM.LAB Lab 12/22/21 05:30 Completed CBC W DIFF Stat Lab 12/21/21 13:55 Completed CMP AM.LAB Lab 12/22/21 05:30 Completed CMP Stat Lab 12/21/21 13:55 Completed D-DIMER QUANTITATIVE Stat Lab 12/21/21 13:55 Completed LIPASE Stat Lab 12/21/21 13:55 Completed LIPASE Stat Lab 12/22/21 05:30 Completed Lactic Acid Stat Lab 12/21/21 14:01 Completed POCT GLUCOSE Stat Lab 12/21/21 17:59 Completed POCT GLUCOSE Stat Lab 12/21/21 20:42 Completed POCT GLUCOSE Stat Lab 12/22/21 07:29 Completed POCT GLUCOSE Stat Lab 12/22/21 11:35 Completed TROPONIN Q3H Lab 12/21/21 13:55 Completed TROPONIN Q3H Lab 12/21/21 17:25 Completed TROPONIN Q3H Lab 12/21/21 20:18 Completed Acetaminophen 325 mg [Tylenol 325 mg] Med 12/21/21 17:49 Active 650 mg PO Q4H PRN PRN Amlodipine Besylate 5 mg [Norvasc 5 mg] Med 12/22/21 10:00 Active 5 mg PO DAILY Clonidine HCl 0.1 mg [Catapres 0.1 MG] Med 12/21/21 22:00 Active 0.1 mg PO BID Glipizide 5 mg [Glucotrol 5 MG] Med 12/22/21 10:30 Active 5 mg PO DAILY@0800 Hydrocodone/APAP 5/325 [Ryan 5/325 mg] Med 12/22/21 08:12 Active 2 tab PO Q4H PRN PRN Hydromorphone 1 mg/1Ml Inj [Hydromorphone 1 mg/ml Med 12/21/21 14:08 Discontinued Injection] 0.5 mg IV STAT ONE Hydromorphone 1 mg/1Ml Inj [Hydromorphone 1 mg/ml Med 12/21/21 14:16 Discontinued Injection] 1 mg .ROUTE .STK-MED ONE Hydromorphone 1 mg/1Ml Inj [Hydromorphone 1 mg/ml Med 12/21/21 15:59 Discontinued Injection] 1 mg .ROUTE .STK-MED ONE Hydromorphone 1 mg/1Ml Inj [Hydromorphone 1 mg/ml Med 12/21/21 21:36 Discontinued Injection] 1 mg .ROUTE .STK-MED ONE Hydromorphone 1 mg/1Ml Inj [Hydromorphone 1 mg/ml Med 12/21/21 17:49 Discontinued Injection] 1 mg IV Q4H PRN PRN Hydromorphone 1 mg/1Ml Inj [Hydromorphone 1 mg/ml Med 12/21/21 15:53 Discontinued Injection] 1 mg IV STAT ONE Lidocaine HCl Viscous [XYLOCAINE HCl Viscous *] Med 12/21/21 14:16 Discontinued 15 ml .ROUTE .STK-MED ONE Mag Hydrox/Al Hydrox/Simeth [Maalox Es 30 ml Unit Med 12/21/21 14:17 Discontinued Dose] 30 ml .ROUTE .STK-MED ONE Mag Hydrx/Alum Hyd/Simeth/Lido [GI COCKTAIL 45 ML ( Med 12/21/21 14:09 Discontinued Maalox/Lidocaine)] 45 ml PO STAT ONE Medication Intervention Med 12/22/21 10:30 Active 1 each MC .RN TO CHECK WITH PT NaCl 0.9% 1000 ml [Sodium Chloride 0.9% 1000 ML] 1,000 Med 12/21/21 17:49 Active ml IV 100 mls/hr NaCl 0.9% 500 ml [Sodium Chloride 0.9% 500 ML] 500 ml Med 12/21/21 13:48 Discontinued IV 500 mls/hr NaCl 0.9% 500 ml [Sodium Chloride 0.9% 500 ML] 500 ml Med 12/21/21 13:53 Discontinued IV UD Nalbuphine HCl 10 mg/ml [Nubain 10 MG/ML] Med 12/22/21 03:24 Active 10 mg IV Q4H PRN PRN Naproxen 375 mg [Naprosyn 375 mg] Med 12/22/21 10:00 Active 375 mg PO BID PRN PRN Ondansetron HCl 4 mg/2 ml [Zofran 4 MG/2 ML VIAL] Med 12/21/21 14:15 Discontinued 4 mg .ROUTE .STK-MED ONE Ondansetron HCl 4 mg/2 ml [Zofran 4 MG/2 ML VIAL] Med 12/21/21 17:49 Active 4 mg IV Q6H PRN PRN Ondansetron HCl 4 mg/2 ml [Zofran 4 MG/2 ML VIAL] Med 12/21/21 14:08 Discontinued 4 mg IV STAT ONE Ondansetron ODT 4 MG [Zofran Odt 4 mg] Med 12/22/21 10:18 Active 4 mg PO Q4H PRN PRN PANTOPRAZOLE 40 mg Tablet [Protonix 40MG Tablet] Med 12/21/21 22:00 Discontinued 20 mg PO BID PANTOPRAZOLE 40 mg Tablet [Protonix 40MG Tablet] Med 12/22/21 10:00 Active 40 mg PO BID Valsartan 80 mg [Diovan 80 mg] Med 12/21/21 22:00 Active 80 mg PO BID EKG REPEAT IN AM RT 12/21/21 17:49 Completed Pulse Oximetry .spot check RT 12/21/21 17:49 Completed Patient Care Notes (Last 24 hours) 12/22/21 11:59 Nursing Note by Vivi Gregorio During morning rounds Dr. Ybarra stated if patient able to tolerate full liquid diet, have less pain and less nausea patient could discharge home after lunch. During morning, patient still having significant pain, nausea, and only able to take 2-3 bites of AM meal. Patient stated norco 2 5/ did not help with pain. Patient multiple times did state she would like to stay another night to see if symptoms improved. Spoke with Dr. Ybarra about patient status and stated patient to stay until tomorrow. Initialized on 12/22/21 11:59 - END OF NOTE 12/22/21 03:52 Nursing Note by El Wren 12/22/2021 at 0330 patient c/o epigastric pain 05/15. Explain that her heart goes in the 45-60 at times and she reports that her doctor uses Nubain for pain management. Notified Dr.Heath susan Plata and ordered Nubain 10mg iv q 4 hours. Initialized on 12/22/21 03:52 - END OF NOTE Code(s): K85.90 - ACUTE PANCREATITIS WITHOUT NECROSIS OR INFECTION, UNSP (3) Hypertension Current Visit: No Status: Chronic Qualifiers: Hypertension type: primary hypertension Qualified Code(s): I10 - Essential (primary) hypertension Code(s): I10 - ESSENTIAL (PRIMARY) HYPERTENSION
[2021-12-23 07:35] VITALS: BP 118/61; PULSE 50; O2SAT 97
--- NOTE | 2021-12-23 08:37 | PCM.NOTE ---
Date and Time: 12/23/21832 Subjective Assessment: doing better. Abdominal pain is better as long as she doesnot eat. - Review of Systems Constitutional: No Fever, No Chills Eyes: No Symptoms Ears, Nose, & Throat: No Symptoms Respiratory: No Cough, No Short Of Breath Cardiac: No Chest Pain, No Edema, No Syncope Abdominal/Gastrointestinal: No Abdominal Pain, No Nausea, No Vomiting, No Diarr hea Genitourinary Symptoms: No Dysuria Musculoskeletal: No Back Pain, No Neck Pain Skin: No Rash Neurological: No Dizziness, No Focal Weakness, No Sensory Changes Psychological: No Symptoms Endocrine: No Symptoms Hematologic/Lymphatic: No Symptoms Immunological/Allergic: No Symptoms Objective Exam General Appearance: no apparent distress, alert Neurologic Exam: alert, oriented x 3, cooperative, normal mood/affect, nml cerebellar function, sensation nml, No motor deficits Skin Exam: normal color, warm, dry Eye Exam: PERRL, EOMI, eyes nml inspection Ears, Nose, Throat Exam: normal ENT inspection, pharynx normal, moist mucous membranes Neck Exam: normal inspection, non-tender, supple, full range of motion Respiratory Exam: normal breath sounds, lungs clear, No respiratory distress Cardiovascular Exam: regular rate/rhythm, normal heart sounds Gastrointestinal/Abdomen Exam: soft, No tenderness, No mass Extremity Exam: normal inspection, normal range of motion Back Exam: normal inspection, normal range of motion, No CVA tenderness, No vertebral tenderness Pelvic Exam: deferred Rectal Exam: deferred OBJECTIVE DATA Vital Signs: Vital Signs - 24 hr Temp Pulse Resp BP Pulse Ox 12/23/21 08:00 16 12/23/21 07:34 97.1 F 50 L 16 118/61 97 12/23/21 04:00 18 12/23/21 03:42 97.5 F 58 L 18 113/62 96 12/23/21 00:00 96.4 F 50 L 16 142/64 95 12/22/21 19:58 18 12/22/21 19:40 96.9 F 57 L 18 140/84 98 12/22/21 16:00 96.8 F 57 L 20 153/77 96 12/22/21 12:00 97.9 F 53 L 20 117/60 95 Pain Assessment - Last Documented Pain Intensity 0 Pain Scale Used 0-10 Pain Scale Intake and Output: Intake & Output 12/20/21 12/21/21 12/22/21 12/23/21 11:59 11:59 11:59 11:59 Intake Total 1365 2567 Output Total 1500 2100 Balance -134 1647 Weight 94 kg 94 kg Lab Results: Lab Results-Last 24 Hours 12/22/21 12/22/21 12/22/21 Range/Units 05:30 11:35 15:54 POC Glucometer 123 H 124 H (74 to 106) mg/dL Hemoglobin A1c 7.31 H (4.5-6.0) % 12/22/21 12/23/21 Range/Units 20:36 06:48 POC Glucometer 152 H 123 H (74 to 106) mg/dL Hemoglobin A1c (4.5-6.0) % Radiology Exams: Radiology Procedures Category Date Time Status ABDOMEN AND PELVIS W/0 CONTRAS [CT] Stat Exams 12/21/21 13:46 Completed Assessment/Plan (1) Pancreatitis Current Visit: Yes Status: Acute Qualifiers: Chronicity: acute Pancreatitis type: biliary Acute pancreatitis complication: unspecified Qualified Code(s): K85.10 - Biliary acute pancreatitis without necrosis or infection Code(s): K85.90 - ACUTE PANCREATITIS WITHOUT NECROSIS OR INFECTION, UNSP (2) Chest pain Current Visit: Yes Status: Resolved Qualifiers: Chest pain type: other chest pain Qualified Code(s): R07.89 - Other chest pain; R07.8 - Other chest pain Code(s): R07.9 - CHEST PAIN, UNSPECIFIED (3) Hypertension Current Visit: Yes Status: Chronic Qualifiers: Hypertension type: primary hypertension Qualified Code(s): I10 - Essential (primary) hypertension Code(s): I10 - ESSENTIAL (PRIMARY) HYPERTENSION
[2021-12-23] MEDS: Glucotrol 5 MG PO SCH (09:41)
[2021-12-23] MEDS: Catapres 0.1 MG PO SCH (09:41)
[2021-12-23] MEDS: NORVASC 5 MG PO SCH (09:41)
[2021-12-23] MEDS: DIOVAN 80 MG PO SCH (09:41)
[2021-12-23] MEDS: Protonix 40MG Tablet PO SCH (09:42)
--- NOTE | 2021-12-23 10:59 | PCM.DS ---
Discharge Summary Date of Admission: 12/21/21 17:43 Admitting Physician: JANESSA WEBSTER Primary Care Provider: [facility] Allergies Allergies aspirin Allergy (Intermediate, Verified 12/21/21 17:50) Hives codeine [Codeine] Allergy (Verified 12/21/21 17:50) hydrocodone bitartrate [From Vicodin] Allergy (Verified 12/21/21 17:50) morphine Allergy (Verified 12/21/21 17:50) Penicillins Allergy (Verified 12/21/21 17:50) propoxyphene HCl [From Darvon] Allergy (Verified 12/21/21 17:50) Hospital Summary - Hospital Course Hospital Course: Chief Complaint Diagnosis Chest pain/epigastric pain for 1 day Allergies Allergy/AdvReac Type Severity Reaction Status Date / Time aspirin Allergy Intermediate Hives Verified 12/21/21 17:50 codeine [Codeine] Allergy Verified 12/21/21 17:50 hydrocodone bitartrate Allergy Verified 12/21/21 17:50 [From Vicodin] morphine Allergy Verified 12/21/21 17:50 Penicillins Allergy Verified 12/21/21 17:50 propoxyphene HCl Allergy Verified 12/21/21 17:50 [From Darvon] Vital Signs (Last 24 hours) Temp Pulse Resp BP Pulse Ox 12/23/21 08:00 16 12/23/21 07:34 97.1 F 50 L 16 118/61 97 12/23/21 04:00 18 12/23/21 03:42 97.5 F 58 L 18 113/62 96 12/23/21 00:00 96.4 F 50 L 16 142/64 95 12/22/21 19:58 18 12/22/21 19:40 96.9 F 57 L 18 140/84 98 12/22/21 16:00 96.8 F 57 L 20 153/77 96 12/22/21 12:00 97.9 F 53 L 20 117/60 95 Home Medications Medication Instructions Recorded Confirmed Last Taken Type Valsartan 80 mg PO BID 12/21/21 12/21/21 12/21/21 History Acetaminophen 325 mg [Tylenol 650 mg PO Q6H PRN PRN #1 tablet 12/23/21 Unknown Rx 325 mg] Current Medications Generic Name Dose Route Start Last Admin Trade Name Freq PRN Reason Stop Dose Admin Acetaminophen 650 mg 12/21/21 17:49 Acetaminophen 325 Mg Tablet PO 01/20/22 17:48 Q4H PRN PRN PAIN, FEVER, HEADACHE Hydrocodone Bitart/Acetaminophen 2 tab 12/22/21 08:12 12/22/21 08:22 Hydrocodone/Apap 5/325 Mg Tablet PO 12/27/21 08:11 2 tab Q4H PRN PRN Administration PAIN Amlodipine Besylate 5 mg 12/22/21 10:00 12/23/21 09:41 Amlodipine Besylate 5 Mg Tablet PO 01/21/22 09:59 Not Given DAILY ALISIA Clonidine 0.1 mg 12/21/21 22:00 12/23/21 09:41 Clonidine Hcl 0.1 Mg Tablet PO 01/20/22 21:59 Not Given BID ALISIA Glipizide 5 mg 12/22/21 10:30 12/23/21 09:41 Glipizide 5 Mg Tablet PO 01/21/22 10:29 Not Given DAILY@0800 ALISIA Sodium Chloride 1,000 mls @ 100 mls/hr 12/21/21 17:49 12/22/21 21:23 Sodium Chloride 0.9% 1000 Ml IV 01/20/22 17:48 100 mls/hr .Q10H ALISIA Administration Miscellaneous Information 1 each 12/22/21 10:30 Medication Intervention 1 Each Each 01/21/22 10:29 .RN TO CHECK WITH PT ALISIA Nalbuphine HCl 10 mg 12/22/21 03:24 12/22/21 21:24 Nalbuphine Hcl 10 Mg/Ml Ampul IV 01/21/22 03:23 10 mg Q4H PRN PRN Administration PAIN Naproxen 375 mg 12/22/21 10:00 Naproxen 375 Mg Tablet PO 01/21/22 09:59 BID PRN PRN PAIN Ondansetron HCl 4 mg 12/21/21 17:49 12/22/21 21:23 Ondansetron Hcl 4 Mg/2 Ml Vial IV 01/20/22 17:48 4 mg Q6H PRN PRN Administration NAUSEA/VOMITING Ondansetron HCl 4 mg 12/22/21 10:18 12/22/21 16:08 Zofran 4 Mg/Udtablet Orally Disintegrating PO 01/21/22 10:17 4 mg Q4H PRN PRN Administration NAUSEA Pantoprazole Sodium 40 mg 12/22/21 10:00 12/23/21 09:42 Protonix (Pantoprazole) 40 Mg Tablet PO 01/21/22 09:59 40 mg BID ALISIA Administration Valsartan 80 mg 12/21/21 22:00 12/23/21 09:41 Valsartan 80 Mg Tablet PO 01/20/22 21:59 Not Given BID ALISIA Discontinued Medications Generic Name Dose Route Start Last Admin Trade Name Freq PRN Reason Stop Dose Admin Al Hydrox/Mg Hydrox/Simethicone Confirm 12/21/21 14:17 Mag Hydrox/Al Hydrox/Simeth 30 Ml Udcup Administered 12/21/21 14:18 Dose 30 ml .ROUTE .STK-MED ONE Hydromorphone HCl 0.5 mg 12/21/21 14:08 12/21/21 14:23 Hydromorphone 1 Mg/1ml Inj 1 Mg/Ml Syringe IV 12/21/21 14:09 0.5 mg STAT ONE Administration Hydromorphone HCl Confirm 12/21/21 14:16 Hydromorphone 1 Mg/1ml Inj 1 Mg/Ml Syringe Administered 12/21/21 14:17 Dose 1 mg .ROUTE .STK-MED ONE Hydromorphone HCl 1 mg 12/21/21 15:53 12/21/21 16:06 Hydromorphone 1 Mg/1ml Inj 1 Mg/Ml Syringe IV 12/21/21 15:54 1 mg STAT ONE Administration Hydromorphone HCl Confirm 12/21/21 15:59 Hydromorphone 1 Mg/1ml Inj 1 Mg/Ml Syringe Administered 12/21/21 16:00 Dose 1 mg .ROUTE .STK-MED ONE Hydromorphone HCl 1 mg 12/21/21 17:49 12/21/21 21:42 Hydromorphone 1 Mg/1ml Inj 1 Mg/Ml Syringe IV 12/26/21 17:48 1 mg Q4H PRN PRN Administration PAIN Hydromorphone HCl Confirm 12/21/21 21:36 Hydromorphone 1 Mg/1ml Inj 1 Mg/Ml Syringe Administered 12/21/21 21:37 Dose 1 mg .ROUTE .STK-MED ONE Sodium Chloride 500 mls @ 500 mls/hr 12/21/21 13:48 12/21/21 15:24 Sodium Chloride 0.9% 500 Ml IV 12/21/21 14:47 Infused .Q1H ONE Infusion Sodium Chloride Confirm 12/21/21 13:53 Sodium Chloride 0.9% 500 Ml Administered 12/21/21 13:54 Dose 500 mls @ ud IV .STK-MED ONE Lidocaine HCl Confirm 12/21/21 14:16 Lidocaine Hcl Viscous 1 Ml Administered 12/21/21 14:17 Dose 15 ml .ROUTE .STK-MED ONE Magnesium Hydroxide 45 ml 12/21/21 14:09 12/21/21 14:29 Mag Hydrx/Alum Hyd/Simeth/Lido 45 Ml Bottle PO 12/21/21 14:10 45 ml STAT ONE Administration Ondansetron HCl 4 mg 12/21/21 14:08 12/21/21 14:21 Ondansetron Hcl 4 Mg/2 Ml Vial IV 12/21/21 14:09 4 mg STAT ONE Administration Ondansetron HCl Confirm 12/21/21 14:15 Ondansetron Hcl 4 Mg/2 Ml Vial Administered 12/21/21 14:16 Dose 4 mg .ROUTE .STK-MED ONE Pantoprazole Sodium 20 mg 12/21/21 22:00 12/21/21 21:44 Protonix (Pantoprazole) 40 Mg Tablet PO 01/20/22 21:59 20 mg BID ALISIA Administration Intake & Output (Last 24 hours) 12/20/21 12/21/21 12/22/21 12/23/21 11:59 11:59 11:59 11:59 Intake Total 1366 4227 Output Total 1500 2100 Balance -134 2127 Weight 94 kg 94 kg Laboratory Results (Last 24 hours) 12/23/21 12/23/21 12/22/21 09:02 06:48 20:36 POC Glucometer 123 H 152 H Hemoglobin A1c Lipase 152 12/22/21 12/22/21 12/22/21 15:54 11:35 05:30 POC Glucometer 124 H 123 H Hemoglobin A1c 7.31 H Lipase Orders (Last 24 hours) Category Date Time Status [place] Diet Diet 12/23/21 Breakfast Active LIPASE Routine Lab 12/23/21 09:02 Completed POCT GLUCOSE Stat Lab 12/22/21 11:35 Completed POCT GLUCOSE Stat Lab 12/22/21 15:54 Completed POCT GLUCOSE Stat Lab 12/22/21 20:36 Completed POCT GLUCOSE Stat Lab 12/23/21 06:48 Completed Amlodipine Besylate 5 mg [Norvasc 5 mg] Med 12/22/21 10:00 Active 5 mg PO DAILY Glipizide 5 mg [Glucotrol 5 MG] Med 12/22/21 10:30 Active 5 mg PO DAILY@0800 Medication Intervention Med 12/22/21 10:30 Active 1 each MC .RN TO CHECK WITH PT Naproxen 375 mg [Naprosyn 375 mg] Med 12/22/21 10:00 Active 375 mg PO BID PRN PRN Ondansetron ODT 4 MG [Zofran Odt 4 mg] Med 12/22/21 10:18 Active 4 mg PO Q4H PRN PRN PANTOPRAZOLE 40 mg Tablet [Protonix 40MG Tablet] Med 12/22/21 10:00 Active 40 mg PO BID Patient Care Notes (Last 24 hours) 12/23/21 07:06 Nursing Note by Dedra Cannon ROUNDED WITH DR. WEBSTER. LIPASE NOW. IF LIPASE COMES BACK OKAY, INCREASE DIET TO BLAND DIET. IF PATIENT TOLERATES IT. PATIENT CAN DISCHARGE. CALL DR. WEBSTER FOR PAIN MEDICATION SCRIPT Initialized on 12/23/21 07:06 - END OF NOTE 12/22/21 11:59 Nursing Note by Vivi Gregorio During morning rounds Dr. Webster stated if patient able to tolerate full liquid diet, have less pain and less nausea patient could discharge home after lunch. During morning, patient still having significant pain, nausea, and only able to take 2-3 bites of AM meal. Patient stated norco 2 5/325 did not help with pain. Patient multiple times did state she would like to stay another night to see if symptoms improved. Spoke with Dr. Webster about patient status and stated patient to stay until tomorrow. Initialized on 12/22/21 11:59 - END OF NOTE - Vitals & Intake/Output Vital Signs: Vital Signs Temperature 97.1 F 12/23/21 07:34 Pulse Rate 50 L 12/23/21 07:34 Respiratory Rate 16 12/23/21 08:00 Blood Pressure 118/61 12/23/21 07:34 O2 Sat by Pulse Oximetry 97 12/23/21 07:34 Intake & Output: Intake & Output 12/20/21 12/21/21 12/22/21 12/23/21 11:59 11:59 11:59 11:59 Intake Total 1366 4227 Output Total 1500 2100 Balance -134 2127 Weight 94 kg 94 kg - Lab Result Diagrams: 12/22/21 05:30 12/22/21 05:30 Lab Results-Last 24 Hrs: Lab Results-Last 24 Hours 12/22/21 12/22/21 12/22/21 Range/Units 05:30 11:35 15:54 POC Glucometer 123 H 124 H (74 to 106) mg/dL Hemoglobin A1c 7.31 H (4.5-6.0) % Lipase (23-300) U/L 12/22/21 12/23/21 12/23/21 Range/Units 20:36 06:48 09:02 POC Glucometer 152 H 123 H (74 to 106) mg/dL Hemoglobin A1c (4.5-6.0) % Lipase 152 (23-300) U/L Micro Results-Entire Visit: Accuchecks Date 12/23/21 Date 12/22/21 Date 12/22/21 Date 12/22/21 Time 06:48 Time 21:15 Time 15:54 Time 11:45 - Radiology Exams Ordered Rad Exams-Entire Visit: Radiology Procedures Category Date Time Status ABDOMEN AND PELVIS W/0 CONTRAS [CT] Stat Exams 12/21/21 13:46 Completed - Procedures and Test Procedures and Tests throughout Hospitalization: Therapy Orders & Screens 12/21/21 17:49 EKG REPEAT IN AM Comment: Discharge Exam General Appearance: no apparent distress, alert Neurologic Exam: alert, oriented x 3, cooperative, normal mood/affect, nml cerebellar function, sensation nml, No motor deficits Eye Exam: PERRL, EOMI, eyes nml inspection Ears, Nose, Throat Exam: normal ENT inspection, pharynx normal, moist mucous membranes Neck Exam: normal inspection, non-tender, supple, full range of motion Respiratory Exam: normal breath sounds, lungs clear, No respiratory distress Cardiovascular Exam: regular rate/rhythm, normal heart sounds Gastrointestinal/Abdomen Exam: soft, No tenderness, No mass Pelvic Exam: deferred Rectal Exam: deferred Back Exam: normal inspection, normal range of motion, No CVA tenderness, No vertebral tenderness Extremity Exam: normal inspection, normal range of motion Skin Exam: normal color, warm, dry Final Diagnosis/Problem List - Final Discharge Diagnosis/Problem (1) Pancreatitis Current Visit: Yes Status: Resolved Code(s): K85.90 - ACUTE PANCREATITIS WITHOUT NECROSIS OR INFECTION, UNSP (2) Chest pain Current Visit: Yes Status: Resolved Code(s): R07.9 - CHEST PAIN, UNSPECIFIED (3) Hypertension Current Visit: Yes Status: Chronic Code(s): I10 - ESSENTIAL (PRIMARY) HYPERT ENSION - Discharge Discharge Date: 12/23/21 Disposition: Home, Self-Care Condition: Stable Prescriptions: New Acetaminophen 325 mg [Tylenol 325 mg] 650 mg PO Q6H PRN PRN #1 tablet PRN Reason: Pain No Action Omeprazole 20 MG [Prilosec 20 mg] 20 mg PO BID glipiZIDE [Glipizide] 1 tab PO DAILY Naproxen 375 mg [Naprosyn 375 mg] 375 mg PO BID PRN PRN PRN Reason: Pain ondansetron HCL [Zofran] 4 mg PO Q4-6HPRN PRN PRN Reason: Nausea Empagliflozin/Metformin HCl [Synjardy Xr 10-1,000 mg Tablet] 1 tab PO DAILY Amlodipine Besylate 5 mg [Norvasc 5 mg] 5 mg PO DAILY Clonidine HCl 0.1 mg [Catapres 0.1 MG] 0.1 mg PO BID #60 tablet Valsartan 80 mg PO BID [facility] [Primary Care Provider] -
== END 2021-12-23 11:25 | disposition home or self-care (01) ==
LOC: ED 13:41 → MED SURG 17:43
PROVIDERS: ADMIT General Practice; ATTEND General Practice
DX: K85.90 Acute pancreatitis without necrosis or infection, unspecified (principal); R07.9 Chest pain, unspecified; I10 Essential (primary) hypertension; E11.9 Type 2 diabetes mellitus without complications; K21.9 Gastro-esophageal reflux disease without esophagitis; Z79.899 Other long term (current) drug therapy; Z20.828 Contact with and (suspected) exposure to other viral communicable diseases
CPT/HCPCS: 0241U; 36000; 36415; 74176; 80053; 81015; 82150; 82947; 83036; 83605; 83690; 84484; 85025; 85379; 93005; 93268; 96374; 96375; 96376; 99285; G0378; J1170; J2300; J2405; Q0162; A9270-GY

== ENCOUNTER 2022-03-05 18:46 | Emergency (ER) | payer OTHER ==
--- NOTE | 2022-03-05 18:49 | ERPHSYRPT ---
- History of Present Illness Time Seen by Provider: 03/05/22 18:49 Source: patient Exam Limitations: no limitations Physician History: This is a 51-year-old white female who was out in the sun 2 different days this past weekend and has sunburn to both ankles. However, today, she is having a lot of pain in the left ankle and was able to ambulate but it hurts to do so. She felt as though maybe her left ankle was a little swollen compared to the right side. She has had history of DVT in the past. She is diabetic. She has a history of hypertension and elevated cholesterol. There is more redness on the left ankle area than the right and she is concerned about infection. Patient has no chest pain and she has no shortness of breath. She has not fallen and has no history of acute traumatic injury to the left ankle or foot. Occurred: other (This past weekend) Quality: burning Severity of Pain-Max: mild (To moderate) Severity of Pain-Current: mild (To moderate) Lower Extremities Pain: ankle: left Modifying Factors: Improves With: movement Associated Symptoms: other (Hurts to bear weight on the left ankle.) Allergies/Adverse Reactions: aspirin Allergy (Intermediate, Verified 03/05/22 19:43) Hives codeine [Codeine] Allergy (Verified 03/05/22 19:43) hydrocodone bitartrate [From Vicodin] Allergy (Verified 03/05/22 19:43) morphine Allergy (Verified 03/05/22 19:43) Penicillins Allergy (Verified 03/05/22 19:43) propoxyphene HCl [From Darvon] Allergy (Verified 03/05/22 19:43) Home Medications: Omeprazole 20 MG [Prilosec 20 mg] 20 mg PO BID 10/25/14 [History] Naproxen 375 mg [Naprosyn 375 mg] 375 mg PO BID PRN PRN 07/15/19 [History] ondansetron HCL [Zofran] 4 mg PO Q4-6HPRN PRN 07/15/19 [History] Amlodipine Besylate 5 mg [Norvasc 5 mg] 5 mg PO DAILY 02/28/21 [History] Valsartan 80 mg PO BID 12/21/21 [History] Empagliflozin/Metformin HCl [Synjardy 12.5-1,000 mg Tablet] 1 each PO DAILY 03/05/22 [History] Hx Tetanus, Diphtheria Vaccination/Date Given: Yes Hx Influenza Vaccination/Date Given: Yes Hx Pneumococcal Vaccination/Date Given: No Travel Risk - International Travel Have you traveled outside of the country in past 3 weeks: No - Coronavirus Screening Are you exhibiting any of the following symptoms?: No Close contact with a COVID-19 positive Pt in past 14-21 Days: No - Vaccine Status Have you recieved a Covid-19 vaccination: Yes 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[employer] - Vaccination Dates Date of 2cond Vaccination (if applicable): 08/06/22 - Review of Systems Constitutional: No Symptoms Eyes: No Symptoms Ears, Nose, & Throat: No Symptoms Respiratory: No Symptoms Cardiac: No Symptoms Abdominal/Gastrointestinal: No Symptoms Genitourinary Symptoms: No Symptoms Musculoskeletal: No Symptoms Skin: Other (Redness tenderness left ankle greater than right ankle) Neurological: No Symptoms Psychological: No Symptoms Endocrine: No Symptoms Hematologic/Lymphatic: No Symptoms Immunological/Allergic: No Symptoms All Other Systems: Reviewed and Negative - Past Medical History Pertinent Past Medical History: Yes Neurological History: Migraines ENT History: No Pertinent History Cardiac History: Hypertension Respiratory History: Asthma Endocrine Medical History: Diabetes Type II Musculoskeletal History: No Pertinent History GI Medical History: GERD History: No Pertinent History Psycho-Social History: No Pertinent History Female Reproductive Disorders: No Pertinent History - Past Surgical History Past Surgical History: Yes Neuro Surgical History: No Pertinent History Cardiac: No Pertinent History Respiratory: No Pertinent History Gastrointestinal: Cholecystectomy Genitourinary: No Pertinent History Musculoskeletal: No Pertinent History Female Surgical History: No Pertinent History Other Surgical History: 2004 gallbladder, bellybutton repair, d/c X1, 3 cysts, bladder tied up. pt states she has a hard time waking up from anesthesia - Social History Smoking Status: Never smoker Exposure to second hand smoke: No Alcohol Use: None Drug Use: none Patient Lives Alone: No Significant Family History: no pertinent family hx - Nursing Vital Signs Nursing Vital Signs: Initial Vital Signs Temperature 98.3 F 03/05/22 19:35 Pulse Rate 78 03/05/22 19:35 Respiratory Rate 18 03/05/22 19:35 Blood Pressure 169/97 03/05/22 19:35 O2 Sat by Pulse Oximetry 97 03/05/22 19:35 Pain Scale Pain Intensity 8 - Physical Exam General Appearance: no apparent distress, alert, anxiety Eyes, Ears, Nose, Throat Exam: normal ENT inspection, moist mucous membranes Neck Exam: normal inspection, non-tender, supple, full range of motion Cardiovascular/Respiratory Exam: chest non-tender, no respiratory distress Gastrointestinal/Abdominal Exam: non-tender Back Exam: normal inspection, normal range of motion, No CVA tenderness, No vertebral tenderness Hips Exam: bilateral: non-tender, normal inspection, normal range of motion, no evidence of injury Legs Exam: bilateral leg: non-tender, normal inspection, normal range of motion, no evidence of injury Knees Exam: bilateral knee: non-tender, normal inspection, normal range of motion, no evidence of injury Ankle Exam: bilateral ankle: normal range of motion, no evidence of injury, soft tissue tenderness, swelling (Left greater than right), other (Sunburn at level of bilateral ankles. No blisters) Foot Exam: bilateral foot: non-tender, normal inspection, normal range of motion, no evidence of injury Neuro/Tendon Exam: normal sensation, normal motor functions, normal tendon functions, responds to pain, no evidence tendon injury Mental Status Exam: alert, oriented x 3, cooperative Skin Exam: warm, dry, other (The redness at bilateral ankles. Left side worse than right) SpO2 Interpretation: normal O2 Delivery: Room Air - Course Nursing assessment & vital signs reviewed: Yes Ordered Tests: Active Orders 24 hr Category Date Time Status D-DIMER QUANTITATIVE Stat Lab 03/05/22 20:40 Completed Uric Acid Stat Lab 03/05/22 20:40 Completed Medication Summary Discontinued Medications Generic Name Dose Route Start Last Admin Trade Name Marino PRN Reason Stop Dose Admin Hydrocodone Bitart/Acetaminophen 1 tab 03/05/22 20:05 03/05/22 20:44 Hydrocodone/Apap 5/325 Mg Tablet PO 03/05/22 20:06 Not Given STAT ONE Cephalexin HCl 500 mg 03/05/22 20:06 Cephalexin Mh 250 Mg/5 Ml Bottle PO 03/05/22 20:07 STAT ONE Cephalexin HCl Confirm 03/05/22 20:57 Cephalexin Mh 250 Mg/5 Ml Bottle Administered 03/05/22 20:58 Dose 5,000 mg .ROUTE .[facility] ONE Lab/Rad Data: Laboratory Results 03/05/22 03/05/22 Range/Units 20:40 20:40 D-Dimer 0.20 (0.0-0.50) ng/mL Uric Acid 4.1 (2.6-6.0) mg/dL - Progress Progress: improved, pain not gone completely Counseled pt/family regarding: lab results, diagnosis, need for follow-up - Departure Departure Disposition: Home Clinical Impression: Cellulitis, Sunburn of first degree Condition: Stable Critical Care Time: No Referrals: JANESSA WEBSTER MD [Primary Care Provider] - Follow up/PCP as directed Additional Instructions: Keep your bilateral lower legs well-hydrated with moisturizing, unscented lotion. May use aloe vera lotion or sunburn spray as directed on product. Take your antibiotics as prescribed. Use Tylenol and ibuprofen for pain control if there are no contraindications. Prescriptions: Cephalexin Mh 500 mg [Keflex 500 mg] 500 mg PO TID #21 cap
[2022-03-05] MEDS ORDERED: NORCO 5/325 MG PO ONE (20:05)
[2022-03-05] MEDS ORDERED: KEFLEX 250 MG/5 ML SUSP PO ONE (20:06)
[2022-03-05] MEDS ORDERED: KEFLEX 250 MG/5 ML SUSP ONE (20:57)
[2022-03-05 21:53] VITALS: BP 155/105; PULSE 102; O2SAT 98
== END 2022-03-05 21:54 | disposition home or self-care (01) ==
LOC: ED 18:46
DX: L03.116 Cellulitis of left lower limb (principal); L55.0 Sunburn of first degree; M25.572 Pain in left ankle and joints of left foot; I10 Essential (primary) hypertension; E78.5 Hyperlipidemia, unspecified; E11.9 Type 2 diabetes mellitus without complications; Z86.718 Personal history of other venous thrombosis and embolism; Z79.84 Long term (current) use of oral hypoglycemic drugs; Z79.899 Other long term (current) drug therapy
CPT/HCPCS: 36415; 84550; 85379; 99283; A9270-GY

== ENCOUNTER 2022-03-07 18:57 | Emergency (ER) | payer OTHER ==
--- NOTE | 2022-03-07 19:10 | ERPHSYRPT ---
- History of Present Illness Time Seen by Provider: 03/07/22 19:09 Source: patient Exam Limitations: no limitations Physician History: This is a 51-year-old overweight white female who presents with persistent left ankle pain without any acute traumatic injury or fall. Patient was out in the sun this past weekend and suffered sunburn to both ankles. The left ankle was worse than the right. She was seen in this emergency department on 03/03/2022 and diagnosed with a sunburnfirst-degree. A D-dimer at that time was performed and it was in the normal range. The patient was also sent home on prescription for Keflex which she has been taking. She states that she still having pain in her left anterior ankle. Patient was only using Tylenol ibuprofen. She was offered [place] prescription for home which she declined at that time. Patient is diabetic. She does have a history of hypertension. He is only been on the antibiotic for 2 days. Patient has had [place] in the past and now will try this medication. She also states that she has had Dilaudid in the past without any side effects. Method of Injury: other (No injury) Occurred: days ago (3 days ago) Quality: constant, burning Severity of Pain-Max: moderate Severity of Pain-Current: moderate Lower Extremities Pain: ankle: left (Anteriorly in the area of a sunburn) Modifying Factors: Improves With: movement Associated Symptoms: other (Hurts to bear weight) Allergies/Adverse Reactions: aspirin Allergy (Intermediate, Verified 03/07/22 19:06) Hives codeine [Codeine] Allergy (Verified 03/07/22 19:06) hydrocodone bitartrate [From Vicodin] Allergy (Verified 03/07/22 19:06) morphine Allergy (Verified 03/07/22 19:06) Penicillins Allergy (Verified 03/07/22 19:06) propoxyphene HCl [From Darvon] Allergy (Verified 03/07/22 19:06) Home Medications: Omeprazole 20 MG [Prilosec 20 mg] 20 mg PO BID 10/25/14 [History] Naproxen 375 mg [Naprosyn 375 mg] 375 mg PO BID PRN PRN 07/15/19 [History] ondansetron HCL [Zofran] 4 mg PO Q4-6HPRN PRN 07/15/19 [History] Amlodipine Besylate 5 mg [Norvasc 5 mg] 5 mg PO DAILY 02/28/21 [History] Valsartan 80 mg PO BID 12/21/21 [History] Empagliflozin/Metformin HCl [Synjardy 12.5-1,000 mg Tablet] 1 each PO DAILY 03/05/22 [History] Hx Tetanus, Diphtheria Vaccination/Date Given: Yes Hx Influenza Vaccination/Date Given: Yes Hx Pneumococcal Vaccination/Date Given: No Travel Risk - International Travel Have you traveled outside of the country in past 3 weeks: No - Coronavirus Screening Are you exhibiting any of the following symptoms?: No Close contact with a COVID-19 positive Pt in past 14-21 Days: No - Vaccine Status Have you recieved a Covid-19 vaccination: Yes 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[employer] - Vaccination Dates Date of 2cond Vaccination (if applicable): 08/06/22 - Review of Systems Constitutional: No Symptoms Eyes: No Symptoms Ears, Nose, & Throat: No Symptoms Respiratory: No Symptoms Cardiac: No Symptoms Abdominal/Gastrointestinal: No Symptoms Genitourinary Symptoms: No Symptoms Musculoskeletal: No Symptoms Skin: Other (Sunburn bilateral ankles left worse than right) Neurological: No Symptoms Psychological: No Symptoms Endocrine: No Symptoms Hematologic/Lymphatic: No Symptoms Immunological/Allergic: No Symptoms All Other Systems: Reviewed and Negative - Past Medical History Pertinent Past Medical History: Yes Neurological History: Migraines ENT History: No Pertinent History Cardiac History: Hypertension Respiratory History: Asthma Endocrine Medical History: Diabetes Type II Musculoskeletal History: No Pertinent History GI Medical History: GERD History: No Pertinent History Psycho-Social History: No Pertinent History Female Reproductive Disorders: No Pertinent History - Past Surgical History Past Surgical History: Yes Neuro Surgical History: No Pertinent History Cardiac: No Pertinent History Respiratory: No Pertinent History Gastrointestinal: Cholecystectomy Genitourinary: No Pertinent History Musculoskeletal: No Pertinent History Female Surgical History: No Pertinent History Other Surgical History: 2004 gallbladder, bellybutton repair, d/c X1, 3 cysts, bladder tied up. pt states she has a hard time waking up from anesthesia - Social History Smoking Status: Never smoker Exposure to second hand smoke: No Alcohol Use: None Drug Use: none Patient Lives Alone: No Significant Family History: no pertinent family hx - Nursing Vital Signs Nursing Vital Signs: Initial Vital Signs Temperature 98 F 03/07/22 19:06 Pulse Rate 59 L 03/07/22 19:06 Respiratory Rate 18 03/07/22 19:06 Blood Pressure 170/94 03/07/22 19:06 O2 Sat by Pulse Oximetry 99 03/07/22 19:06 Pain Scale Pain Intensity 10 - Physical Exam General Appearance: no apparent distress, alert, anxiety Eyes, Ears, Nose, Throat Exam: normal ENT inspection, moist mucous membranes Neck Exam: normal inspection, non-tender, supple, full range of motion Cardiovascular/Respiratory Exam: chest non-tender, no respiratory distress Gastrointestinal/Abdominal Exam: non-tender Back Exam: normal inspection, normal range of motion, No CVA tenderness, No vertebral tenderness Hips Exam: bilateral: non-tender, normal inspection, normal range of motion, no evidence of injury Legs Exam: bilateral leg: non-tender, normal inspection, normal range of motion, no evidence of injury Knees Exam: bilateral knee: non-tender, normal inspection, normal range of motion, no evidence of injury Ankle Exam: bilateral ankle: normal range of motion, pain (In the area of the sunburn left worse than right), soft tissue tenderness (In the area of sunburn left worse than right) Foot Exam: bilateral foot: non-tender, normal inspection, normal range of motion, no evidence of injury, other (Strong, palpable pedal pulses bilaterally) Neuro/Tendon Exam: normal sensation, normal motor functions, normal tendon functions Mental Status Exam: alert, oriented x 3, cooperative Skin Exam: other (Bilateral ankle sunburns) SpO2 Interpretation: normal O2 Delivery: Room Air - Course Nursing assessment & vital signs reviewed: Yes Ordered Tests: Active Orders 24 hr Category Date Time Status ANKLE (3 VIEWS) Stat Exams 03/07/22 19:58 Taken D-DIMER QUANTITATIVE Stat Lab 03/07/22 19:39 Ordered Medication Summary Discontinued Medications Generic Name Dose Route Start Last Admin Trade Name Freq PRN Reason Stop Dose Admin Ceftriaxone Sodium 1,000 mg 03/07/22 19:39 03/07/22 19:47 Ceftriaxone Sodium 1000 Mg Inj Vial IM 03/07/22 19:40 1,000 mg STAT ONE Administration Ceftriaxone Sodium Confirm 03/07/22 19:45 Ceftriaxone Sodium 1000 Mg Inj Vial Administered 03/07/22 19:46 Dose 1,000 mg .ROUTE .STK-MED ONE Hydromorphone HCl 1 mg 03/07/22 19:39 03/07/22 19:47 Hydromorphone 1 Mg/1ml Inj 1 Mg/Ml Syringe IM 03/07/22 19:40 1 mg STAT ONE Administration Hydromorphone HCl Confirm 03/07/22 19:45 Hydromorphone 1 Mg/1ml Inj 1 Mg/Ml Syringe Administered 03/07/22 19:46 Dose 1 mg .ROUTE .STK-MED ONE Ondansetron HCl 4 mg 03/07/22 19:40 03/07/22 19:46 Zofran 4 Mg/Udtablet Orally Disintegrating PO 03/07/22 19:41 4 mg STAT ONE Administration Ondansetron HCl Confirm 03/07/22 19:45 Zofran 4 Mg/Udtablet Orally Disintegrating Administered 03/07/22 19:46 Dose 4 mg .ROUTE .STK-MED ONE Ondansetron HCl Confirm 03/07/22 19:56 Zofran 4 Mg/Udtablet Orally Disintegrating Administered 03/07/22 19:57 Dose 4 mg .ROUTE .STK-MED ONE - Progress Progress Note: 03/07/22 19:57 X-ray left ankle shows no acute fracture or dislocation. Counseled pt/family regarding: lab results, diagnosis, need for follow-up, rad results - Departure Departure Disposition: Home Clinical Impression: Sunburn of first degree, Left ankle pain Condition: Stable Critical Care Time: No Referrals: JANESSA WEBSTER MD [Primary Care Provider] - Follow up/PCP as directed Additional Instructions: Keep the left lower extremity elevated above the level of your heart when not up and ambulating. Continue same instructions as the last visit. 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 Prescriptions: Hydrocodone/APAP 5/325 [[place] 5/325 mg] 1 each PO Q8H PRN PRN #6 tablet MDD 3 PRN Reason: Pain
[2022-03-07] MEDS ORDERED: Rocephin 1000 MG INJ IM ONE (19:39)
[2022-03-07] MEDS ORDERED: Hydromorphone 1 mg/ml Injection IM ONE (19:39)
[2022-03-07] MEDS ORDERED: ZOFRAN ODT 4 MG PO ONE (19:40)
[2022-03-07] MEDS ORDERED: Hydromorphone 1 mg/ml Injection ONE (19:45)
[2022-03-07] MEDS ORDERED: Rocephin 1000 MG INJ ONE (19:45)
[2022-03-07] MEDS ORDERED: ZOFRAN ODT 4 MG ONE ×2 (19:45→19:56)
[2022-03-07] MEDS ORDERED: NORCO 5/325 MG PO ONE (20:13)
[2022-03-07] MEDS ORDERED: NORCO 5/325 MG ONE (20:18)
[2022-03-07 20:24] VITALS: BP 143/69; PULSE 62; O2SAT 97
--- NOTE | 2022-03-08 08:37 | XRAY ---
Indication: Sunburn. Pain with weightbearing. Comparison: None 3 view left ankle demonstrates mild soft tissue swelling and tiny plantar heel spur. No other bony, articular, or soft tissue abnormalities.
== END 2022-03-07 20:42 | disposition home or self-care (01) ==
LOC: ED 18:57
DX: L55.0 Sunburn of first degree (principal); M25.572 Pain in left ankle and joints of left foot; I10 Essential (primary) hypertension; E11.9 Type 2 diabetes mellitus without complications; Z79.84 Long term (current) use of oral hypoglycemic drugs; Z79.891 Long term (current) use of opiate analgesic; Z79.899 Other long term (current) drug therapy
CPT/HCPCS: 36415; 73610; 85379; 96372; 99284; J0696; J1170; Q0162; A9270-GY

== ENCOUNTER 2022-06-08 23:36 | Emergency (ER) | payer OTHER ==
--- NOTE | 2022-06-09 00:30 | ERPHSYRPT ---
- History of Present Illness Time Seen by Provider: 06/09/22 00:05 Source: patient Exam Limitations: no limitations Patient Subjective Stated Complaint: pt states she has been having pain in her lt lower leg si nce last friday. Triage Nursing Assessment: pt alert and oriented, answers questions approp. pt back per wheelchair and transfers to stretcher per self with limping gait noted. skin pink warm and dry. pedal pulse and cap refill wnl. Physician History: This is a 51-year-old white female patient who has left lower extremity pain that been present for approximately 6 days. Patient had a negative venous Doppler of her left lower extremity on 06/05/2022. She was evaluated by her primary care physician yesterday. She did not suffer any fall or acute trauma. Method of Injury: unknown Occurred: days ago (6 days ago) Quality: constant, aching (Left calf) Severity of Pain-Max: moderate Severity of Pain-Current: moderate Lower Extremities Pain: leg: left (Calve) Modifying Factors: Improves With: movement Associated Symptoms: other (Hurts to bear weight but can do so) Allergies/Adverse Reactions: aspirin Allergy (Intermediate, Verified 06/08/22 23:51) Hives codeine [Codeine] Allergy (Verified 06/08/22 23:51) hydrocodone bitartrate [From Vicodin] Allergy (Verified 06/08/22 23:51) morphine Allergy (Verified 06/08/22 23:51) Penicillins Allergy (Verified 06/08/22 23:51) propoxyphene HCl [From Darvon] Allergy (Verified 06/08/22 23:51) Home Medications: Omeprazole 20 MG [Prilosec 20 mg] 20 mg PO BID 10/25/14 [History] Naproxen 375 mg [Naprosyn 375 mg] 375 mg PO BID PRN PRN 07/15/19 [History] ondansetron HCL [Zofran] 4 mg PO Q4-6HPRN PRN 07/15/19 [History] Amlodipine Besylate 5 mg [Norvasc 5 mg] 5 mg PO DAILY 02/28/21 [History] Valsartan 80 mg PO BID 12/21/21 [History] Empagliflozin/Metformin HCl [Synjardy 12.5-1,000 mg Tablet] 1 each PO DAILY 03/05/22 [History] Hx Tetanus, Diphtheria Vaccination/Date Given: Yes Hx Influenza Vaccination/Date Given: Yes Hx Pneumococcal Vaccination/Date Given: No Immunizations Up to Date: Yes Travel Risk - International Travel Have you traveled outside of the country in past 3 weeks: No - Coronavirus Screening Are you exhibiting any of the following symptoms?: No Close contact with a COVID-19 positive Pt in past 14-21 Days: No - Vaccine Status Have you recieved a Covid-19 vaccination: Yes 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[employer] - Vaccination Dates Date of 2cond Vaccination (if applicable): 08/06/21 - Review of Systems Constitutional: No Symptoms Eyes: No Symptoms Ears, Nose, & Throat: No Symptoms Respiratory: No Symptoms Cardiac: No Symptoms Abdominal/Gastrointestinal: No Symptoms Genitourinary Symptoms: No Symptoms Musculoskeletal: Other (Painful left calf) Skin: No Symptoms Neurological: No Symptoms Psychological: No Symptoms Endocrine: No Symptoms Hematologic/Lymphatic: No Symptoms Immunological/Allergic: No Symptoms All Other Systems: Reviewed and Negative - Past Medical History Pertinent Past Medical History: Yes Neurological History: Migraines ENT History: No Pertinent History Cardiac History: Hypertension Respiratory History: Asthma Endocrine Medical History: Diabetes Type II Musculoskeletal History: No Pertinent History GI Medical History: GERD History: No Pertinent History Psycho-Social History: No Pertinent History Female Reproductive Disorders: No Pertinent History - Past Surgical History Past Surgical History: Yes Neuro Surgical History: No Pertinent History Cardiac: No Pertinent History Respiratory: No Pertinent History Gastrointestinal: Cholecystectomy Genitourinary: No Pertinent History Musculoskeletal: No Pertinent History Female Surgical History: No Pertinent History Other Surgical History: 2004 gallbladder, bellybutton repair, d/c X1, 3 cysts, bladder tied up. pt states she has a hard time waking up from anesthesia - Social History Smoking Status: Never smoker Exposure to second hand smoke: No Alcohol Use: None Drug Use: none Patient Lives Alone: No Significant Family History: no pertinent family hx - Nursing Vital Signs Nursing Vital Signs: Initial Vital Signs Pulse Rate 81 06/08/22 23:42 Respiratory Rate 16 06/08/22 23:42 Blood Pressure 177/99 06/08/22 23:42 O2 Sat by Pulse Oximetry 99 06/08/22 23:42 Pain Scale Pain Intensity 8 - Physical Exam General Appearance: no apparent distress, alert, anxiety Eyes, Ears, Nose, Throat Exam: normal ENT inspection, moist mucous membranes Neck Exam: normal inspection, non-tender, supple, full range of motion Cardiovascular/Respiratory Exam: chest non-tender, no respiratory distress Gastrointestinal/Abdominal Exam: non-tender Back Exam: normal inspection, normal range of motion, No CVA tenderness, No vertebral tenderness Hips Exam: bilateral: non-tender, normal inspection, normal range of motion, no evidence of injury Legs Exam: right leg: non-tender, normal inspection, normal range of motion, no evidence of injury, left leg: soft tissue tenderness (Left calf) Knees Exam: bilateral knee: non-tender, normal inspection, normal range of motion, no evidence of injury Ankle Exam: bilateral ankle: non-tender, normal inspection, normal range of motion, no evidence of injury Foot Exam: bilateral foot: non-tender, normal inspection, normal range of motion, no evidence of injury Neuro/Tendon Exam: normal sensation, normal motor functions, normal tendon functions, responds to pain, no evidence tendon injury Mental Status Exam: alert, oriented x 3 Skin Exam: normal color, warm, dry SpO2 Interpretation: normal SpO2: 99 O2 Delivery: Room Air Ordered Tests: Medication Summary Generic Name Dose Route Start Last Admin Trade Name Freq PRN Reason Stop Dose Admin Hydrocodone Bitart/Acetaminophen 1 tab 06/09/22 00:49 Hydrocodone/Apap 5/325 Mg Tablet PO 06/09/22 00:50 STAT ONE Orphenadrine Citrate 100 mg 06/09/22 00:50 Orphenadrine Citrate 100 Mg Er Tab PO 06/09/22 00:51 STAT ONE - Progress Progress: pain not gone completely, re-examined Progress Note: 06/09/22 00:40 Medical decision making: This patient does not have an emergency issue regarding her lower extremity pain on the left side. There is no evidence of any acute trauma or fall. There is no evidence of cellulitis or infection. She had a negative left lower extremity venous Doppler done on 06/05/2022 so there is no evidence of any deep venous thrombosis. She has bounding pedal pulses so there is no evidence of any acute ischemic changes. I will provide her with some pain relief tonight and then send to her pharmacy a prescription for muscle relaxant. She can then follow-up with her primary care provider as an outpatient. She can discuss with him the possibility of performing an MRI or be evaluated for some other neurologic pain syndrome. (Restless legs syndrome, reflex sympathetic dystrophy) 06/09/22 00:52 06/09/22 00:54 Since the pharmacy is closed for the long weekend, I am handwriting a prescription for the patient. She is to have this filled at an outside facility, according to the nurses here in the emergency department. She will then return the receipt to the pharmacy here at [facility] and be reimbursed for the difference in cost. Counseled pt/family regarding: diagnosis, need for follow-up - Departure Departure Disposition: Home Clinical Impression: Pain of left calf Condition: Stable Critical Care Time: No Referrals: JANESSA WEBSTER MD [Primary Care Provider] - Follow up/PCP as directed Additional Instructions: May alternate ice and heat to left calf 2-3 times a day. Massage the left calf and left lower extremity 2-3 times a day. Take your medication as prescribed. Follow-up with your primary care doctor on 06/11/2022 for further evaluation including MRI of the left lower extremity if indicated. In addition, discussed with him the possibility of being evaluated from the neurologic standpoint for entities including peripheral neuropathy, restless leg syndrome, and/or reflex sympathetic dystrophy if indicated.
[2022-06-09] MEDS ORDERED: NORCO 5/325 MG PO ONE (00:49)
[2022-06-09] MEDS ORDERED: Norflex 100 MG Tablet PO ONE (00:50)
[2022-06-09] MEDS ORDERED: NORCO 5/325 MG ONE (01:00)
[2022-06-09 01:04] VITALS: BP 131/91; PULSE 101; O2SAT 98
== END 2022-06-09 01:40 | disposition home or self-care (01) ==
LOC: ED 23:36
DX: M79.662 Pain in left lower leg (principal); I10 Essential (primary) hypertension; E11.9 Type 2 diabetes mellitus without complications; Z79.84 Long term (current) use of oral hypoglycemic drugs; Z79.899 Other long term (current) drug therapy
CPT/HCPCS: 99282; A9270-GY

== ENCOUNTER 2022-11-06 16:32 | Emergency (ER) | payer OTHER ==
[2022-11-06] MEDS ORDERED: Sodium Chloride 0.9% 1000 ML 1,000 ML IV STA (16:52)
[2022-11-06] MEDS ORDERED: SUBLIMAZE 100 MCG/2 ML IV ONE (16:52)
[2022-11-06 17:03] LABS: Absolute Neutrophil Ct (ANC) 4.23 x10^3/uL (1.4-6.9); BASOPHIL % 0.4 % (0.0-0.4); Basophil (Absolute #) 0.03 x10^3/uL (0-0.4); Eosinophil % 2.5 % (0.00-5.0); Eosinophil (Absolute #) 0.17 x10^3/uL (0-0.5); Hematocrit 46.8 % (35-47); Hemoglobin 15.3 g/dL (12.0-16.0); IMMATURE GRAN # 0.02 x10^3u/L (0.00-0.03); IMMATURE GRAN % 0.3 % (0.00-0.4); Lymphocyte (Absolute #) 1.77 x10^3/uL (1.0-4.6); Lymphocytes % 25.8 % (24.0-44.0); Mean Cell Volume 76.6 fL (78-100); Mean Corpuscular Hgb Concent. 32.7 g/dL (32-36); Mean Platelet Volume 9.9 fL (7.5-11.0); Monocyte (Absolute #) 0.63 x10^3/uL (0.0-1.3); Monocytes % 9.2 % (0.0-12.0); Neutrophil % 61.8 % (36.0-66.0); Platelet Count 289 x10^3/uL (150-450); Red Blood Count 6.11 x10^6/uL (4.1-5.4); Red Cell Distribution Width 14.3 % (11.5-14.0); White Blood Count 6.9 x10^3/uL (4.0-10.5)
[2022-11-06] MEDS ORDERED: Zofran 4 MG/2 ML VIAL IV ONE (17:14)
[2022-11-06] MEDS ORDERED: Zofran 4 MG/2 ML VIAL ONE (17:19)
[2022-11-06] MEDS ORDERED: Sodium Chloride 0.9% 1000 ML 1,000 ML ONE (17:20)
[2022-11-06] MEDS ORDERED: SUBLIMAZE 100 MCG/2 ML ONE (17:20)
[2022-11-06 17:26] LABS: ALBUMIN 4.5 g/dL (3.5-5.0); ALKALINE PHOSPHATASE 90 U/L (38-126); ANION GAP 13.1 MEQ/L (5-15); BLOOD UREA NITROGEN 16 mg/dL (7-17); CHLORIDE 104 mmol/L (98-107); Calcium 9.2 mg/dL (8.4-10.2); Carbon Dioxide 23 mmol/L (22-30); Creatinine 1 0.77 mg/dL (0.52-1.04); EST GLOMERULAR FILTRATION RATE > 60.0 ML/MIN; Glucose 143 mg/dL (74-106); NT PRO BNP 55.8 pg/mL (0-900); Potassium 3.7 mmol/L (3.5-5.1); SGOT/AST 45 U/L (14-36); SGPT/ALT 46 U/L (0-35); SODIUM 137 mmol/L (137-145); Total Protein 8.6 g/dL (6.3-8.2)
--- NOTE | 2022-11-06 17:27 | ERPHSYRPT ---
<ADÁN POZO - Last Filed: 11/06/22 18:07> - History of Present Illness Time Seen by Provider: 11/06/22 16:50 Historian: patient Exam Limitations: no limitations Patient Subjective Stated Complaint: C/O intermittent chest pain, SOB, and dizziness for the past few days. Patient states that "I just don't feel right and it's hard to explain." Triage Nursing Assessment: Patient ambulated back to ER; refused use of w/c. She is alert and oriented. Sitting upright in bed; states she can't lay flat related to SOB. Breathing not labored at this time. Patient speaking in full sentences. 1+ pitting edema noted to BLE. 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 She has been short of breath today and she has had vertigo the vertigo has been associated with nausea but she has had no vomiting. She is also noted an increase in her blood pressure today of 150/100 Timing/Duration: day(s) (2) Activities at Onset: none Quality: pressure, stabbing Location: substernal Severity of Pain-Max: severe Severity of Pain-Current: moderate Allergies/Adverse Reactions: aspirin Allergy (Intermediate, Verified 11/06/22 16:38) Hives codeine [Codeine] Allergy (Verified 11/06/22 16:38) hydrocodone bitartrate [From Vicodin] Allergy (Verified 11/06/22 16:38) morphine Allergy (Verified 11/06/22 16:38) Penicillins Allergy (Verified 11/06/22 16:38) propoxyphene HCl [From Darvon] Allergy (Verified 11/06/22 16:38) Home Medications: Omeprazole 20 MG [Prilosec 20 mg] 20 mg PO BID 10/25/14 [History] ondansetron HCL [Zofran] 4 mg PO Q4-6HPRN PRN 07/15/19 [History] Amlodipine Besylate 5 mg [Norvasc 5 mg] 5 mg PO DAILY 02/28/21 [History] Valsartan 80 mg PO BID 12/21/21 [History] Empagliflozin/Metformin HCl [Synjardy 12.5-1,000 mg Tablet] 1 each PO DAILY 03/05/22 [History] Hx Tetanus, Diphtheria Vaccination/Date Given: Yes Hx Influenza Vaccination/Date Given: Yes Hx Pneumococcal Vaccination/Date Given: No Immunizations Up to Date: Yes Travel Risk - International Travel Have you traveled outside of the country in past 3 weeks: No - Coronavirus Screening Are you exhibiting any of the following symptoms?: No Close contact with a COVID-19 positive Pt in past 14-21 Days: No - Vaccine Status Have you recieved a Covid-19 vaccination: Yes 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: [employer] - Vaccination Dates Date of 2cond Vaccination (if applicable): 08/06/21 - Review of Systems Constitutional: No Fever, No Chills Eyes: No Symptoms Ears, Nose, & Throat: No Symptoms Respiratory: Dyspnea, No Cough Cardiac: Chest Pain, No Edema, No Syncope Abdominal/Gastrointestinal: Nausea, No Abdominal Pain, No Vomiting, No Diarrhea Genitourinary Symptoms: No Dysuria Musculoskeletal: No Back Pain, No Neck Pain Skin: No Rash Neurological: No Dizziness, No Focal Weakness, No Sensory Changes Psychological: No Symptoms Endocrine: No Symptoms All Other Systems: Reviewed and Negative - Past Medical History Pertinent Past Medical History: Yes Neurological History: Migraines ENT History: No Pertinent History Cardiac History: Hypertension Respiratory History: Asthma Endocrine Medical History: Diabetes Type II Musculoskeletal History: No Pertinent History GI Medical History: GERD, Gallbladder Disease History: No Pertinent History Psycho-Social History: No Pertinent History Female Reproductive Disorders: No Pertinent History - Past Surgical History Past Surgical History: Yes Neuro Surgical History: No Pertinent History Cardiac: No Pertinent History Respiratory: No Pertinent History Gastrointestinal: Cholecystectomy Genitourinary: No Pertinent History Musculoskeletal: No Pertinent History Female Surgical History: No Pertinent History Other Surgical History: 2005 gallbladder, bellybutton repair, d/c X1, 3 cysts removed from ovaries, bladder tied up, pt states she has a hard time waking up from anesthesia - Social History Smoking Status: Never smoker Exposure to second hand smoke: No Alcohol Use: None Drug Use: none Patient Lives Alone: No Significant Family History: no pertinent family hx - Physical Exam General Appearance: no apparent distress, alert Eye Exam: PERRL/EOMI, eyes nml inspection Ears, Nose, Throat Exam: normal ENT inspection, moist mucous membranes Neck Exam: normal inspection, non-tender, supple, full range of motion Respiratory Exam: normal breath sounds, lungs clear, No respiratory distress Cardiovascular Exam: regular rate/rhythm, normal heart sounds Gastrointestinal/Abdomen Exam: soft, No tenderness, No mass Back Exam: normal inspection, No CVA tenderness, No vertebral tenderness Extremity Exam: normal inspection, normal range of motion Neurologic Exam: alert, oriented x 3, cooperative, normal mood/affect, sensation nml, No motor deficits Skin Exam: normal color, warm, dry SpO2 Interpretation: normal SpO2: 99 O2 Delivery: Room Air - Course Nursing assessment & vital signs reviewed: Yes EKG Interpreted by Me: RATE (78), Other (Tracing shows frequent PVCs low voltage over the precordial leads left ventricular hypertrophy and anterior Q waves possibly due to LVH.) - Radiology Exams Chest X-ray Interpretation: Interpreted by me - Departure Clinical Impression: Atypical chest pain Condition: Stable Referrals: JANESSA WEBSTER MD [Primary Care Provider] - Follow up/PCP as directed Instructions: Chest Pain (DC) <CHRISTA RODRIGUEZ - Last Filed: 11/06/22 21:02> - History of Present Illness Aspirin Treatment Today: no aspirin today (Patient states she has allergic reaction to aspirin) - Nursing Vital Signs Nursing Vital Signs: Initial Vital Signs Pulse Rate 85 11/06/22 16:39 Respiratory Rate 17 11/06/22 16:39 Blood Pressure 170/109 11/06/22 16:39 O2 Sat by Pulse Oximetry 99 11/06/22 16:39 Pain Scale Pain Intensity 0 Ordered Tests: Active Orders 24 hr Category Date Time Status EKG-ER Only STAT Care 11/06/22 16:52 Active IV Insertion STAT Care 11/06/22 16:52 Active CHEST 1 VIEW (PORTABLE) Stat Exams 11/06/22 16:53 Taken CHEST WITH CONTRAST [CT] Stat Exams 11/06/22 18:06 Taken HEAD WITHOUT CONTRAST [CT] Stat Exams 11/06/22 16:56 Taken CBC W DIFF Stat Lab 11/06/22 16:50 Completed CMP Stat Lab 11/06/22 16:50 Completed D-DIMER QUANTITATIVE Stat Lab 11/06/22 16:50 Completed NT PRO BNP Stat Lab 11/06/22 16:50 Completed TROPONIN Q4H Lab 11/06/22 16:50 Completed TROPONIN Q4H Lab 11/06/22 20:10 Completed TROPONIN Q4H Lab 11/07/22 01:00 Ordered Urine Triage Profile Stat Lab 11/06/22 16:52 Ordered Medication Summary Discontinued Medications Generic Name Dose Route Start Last Admin Trade Name Eduardq PRN Reason Stop Dose Admin Diphenhydramine HCl 25 mg 11/06/22 19:25 11/06/22 19:44 Diphenhydramine Hcl 50 Mg/Ml Vial IV 11/06/22 19:26 25 mg STAT ONE Administration Diphenhydramine HCl Confirm 11/06/22 19:42 Diphenhydramine Hcl 50 Mg/Ml Vial Administered 11/06/22 19:43 Dose 50 mg .ROUTE .STK-MED ONE Droperidol 1.25 mg 11/06/22 19:25 11/06/22 19:43 Droperidol 5 Mg/2 Ml Vial IV 11/06/22 19:26 1.25 mg STAT ONE Administration Droperidol Confirm 11/06/22 19:42 Droperidol 5 Mg/2 Ml Vial Administered 11/06/22 19:43 Dose 5 mg .ROUTE .STK-MED ONE Fentanyl Citrate 50 mcg 11/06/22 16:52 11/06/22 17:23 Fentanyl Citrate 100 Mcg/2 Ml* Vial IV 11/06/22 16:53 50 mcg STAT ONE Administration Fentanyl Citrate Confirm 11/06/22 17:20 Fentanyl Citrate 100 Mcg/2 Ml* Vial Administered 11/06/22 17:21 Dose 100 mcg .ROUTE .STK-MED ONE Hydromorphone HCl 1 mg 11/06/22 19:25 11/06/22 19:46 Hydromorphone 1 Mg/1ml Inj 1 Mg/Ml Syringe IV 11/06/22 19:26 1 mg STAT ONE Administration Hydromorphone HCl Confirm 11/06/22 19:42 Hydromorphone 1 Mg/1ml Inj 1 Mg/Ml Syringe Administered 11/06/22 19:43 Dose 1 mg .ROUTE .STK-MED ONE Sodium Chloride 1,000 mls @ 999 mls/hr 11/06/22 16:52 11/06/22 18:26 Sodium Chloride 0.9% 1000 Ml IV 11/06/22 17:52 Infused .Q1H1M STA Infusion Sodium Chloride Confirm 11/06/22 17:20 Sodium Chloride 0.9% 1000 Ml Administered 11/06/22 17:21 Dose 1,000 mls @ ud .ROUTE .STK-MED ONE Insulin Human Isoph/Insulin Regular 20 unit 11/06/22 18:12 11/06/22 18:18 Insulin Nph/Reg 70/30 SQ 11/06/22 18:13 Not Given ONCE STA Nitroglycerin 0.4 mg 11/06/22 19:26 11/06/22 19:47 Nitroglycerin 0.4 Mg (Ed) 0.4 Mg Tab.Subl SL 11/06/22 19:27 0.4 mg STAT ONE Administration Nitroglycerin Confirm 11/06/22 19:42 Nitroglycerin 0.4 Mg (Ed) 0.4 Mg Tab.Subl Administered 11/06/22 19:43 Dose 0.4 mg SL .STK-MED ONE Ondansetron HCl 4 mg 11/06/22 17:14 11/06/22 17:23 Ondansetron Hcl 4 Mg/2 Ml Vial IV 11/06/22 17:15 4 mg STAT ONE Administration Ondansetron HCl Confirm 11/06/22 17:19 Ondansetron Hcl 4 Mg/2 Ml Vial Administered 11/06/22 17:20 Dose 4 mg .ROUTE .STK-MED ONE Lab/Rad Data: Laboratory Result Diagrams 11/06/22 16:50 11/06/22 16:50 Laboratory Results 11/06/22 11/06/22 11/06/22 Range/Units 20:10 17:00 16:50 WBC (4.0-10.5) x10^3/uL RBC (4.1-5.4) x10^6/uL Hgb (12.0-16.0) g/dL Hct (35-47) % MCV (78-100) fL MCH (26-32) pg MCHC (32-36) g/dL RDW (11.5-14.0) % Plt Count (150-450) x10^3/uL MPV (7.5-11.0) fL Gran % (36.0-66.0) % Immature Gran % (Auto) (0.00-0.4) % Nucleat RBC Rel Count (0.00-0.1) % Eos # (Auto) (0-0.5) x10^3/uL Immature Gran # (Auto) (0.00-0.03) x10^3u/L Absolute Lymphs (auto) (1.0-4.6) x10^3/uL Absolute Monos (auto) (0.0-1.3) x10^3/uL Absolute Nucleated RBC (0.00-0.01) x10^3u/L Lymphocytes % (24.0-44.0) % Monocytes % (0.0-12.0) % Eosinophils % (0.00-5.0) % Basophils % (0.0-0.4) % Absolute Granulocytes (1.4-6.9) x10^3/uL Basophils # (0-0.4) x10^3/uL D-Dimer (0.0-0.50) mg/L Sodium (137-145) mmol/L Potassium (3.5-5.1) mmol/L Chloride (98-107) mmol/L Carbon Dioxide (22-30) mmol/L Anion Gap (5-15) MEQ/L BUN (7-17) mg/dL Creatinine (0.52-1.04) mg/dL Estimated GFR ML/MIN Glucose (74-106) mg/dL Calcium (8.4-10.2) mg/dL Total Bilirubin (0.2-1.3) mg/dL AST (14-36) U/L ALT (0-35) U/L Alkaline Phosphatase (38-126) U/L Troponin I < 0.012 < 0.012 (0.000-0.034) ng/mL NT-Pro-B Natriuret Pep (0-900) pg/mL Serum Total Protein (6.3-8.2) g/dL Albumin (3.5-5.0) g/dL Influenza Type A Ag NEGATIVE (NEGATIVE) Influenza Type B Ag NEGATIVE (NEGATIVE) RSV (PCR) NEGATIVE (Negative) SARS-CoV-2 (PCR) NEGATIVE (NEGATIVE) 11/06/22 11/06/22 11/06/22 Range/Units 16:50 16:50 16:50 WBC 6.9 (4.0-10.5) x10^3/uL RBC 6.11 H (4.1-5.4) x10^6/uL Hgb 15.3 (12.0-16.0) g/dL Hct 46.8 (35-47) % MCV 76.6 L (78-100) fL MCH 25.0 L (26-32) pg MCHC 32.7 (32-36) g/dL RDW 14.3 H (11.5-14.0) % Plt Count 289 (150-450) x10^3/uL MPV 9.9 (7.5-11.0) fL Gran % 61.8 (36.0-66.0) % Immature Gran % (Auto) 0.3 (0.00-0.4) % Nucleat RBC Rel Count 0.0 (0.00-0.1) % Eos # (Auto) 0.17 (0-0.5) x10^3/uL Immature Gran # (Auto) 0.02 (0.00-0.03) x10^3u/L Absolute Lymphs (auto) 1.77 (1.0-4.6) x10^3/uL Absolute Monos (auto) 0.63 (0.0-1.3) x10^3/uL Absolute Nucleated RBC 0.00 (0.00-0.01) x10^3u/L Lymphocytes % 25.8 (24.0-44.0) % Monocytes % 9.2 (0.0-12.0) % Eosinophils % 2.5 (0.00-5.0) % Basophils % 0.4 (0.0-0.4) % Absolute Granulocytes 4.23 (1.4-6.9) x10^3/uL Basophils # 0.03 (0-0.4) x10^3/uL D-Dimer 1.01 H* (0.0-0.50) mg/L Sodium 137 (137-145) mmol/L Potassium 3.7 (3.5-5.1) mmol/L Chloride 104 (98-107) mmol/L Carbon Dioxide 23 (22-30) mmol/L Anion Gap 13.1 (5-15) MEQ/L BUN 16 (7-17) mg/dL Creatinine 0.77 (0.52-1.04) mg/dL Estimated GFR > 60.0 ML/MIN Glucose 143 H (74-106) mg/dL Calcium 9.2 (8.4-10.2) mg/dL Total Bilirubin 0.40 (0.2-1.3) mg/dL AST 45 H (14-36) U/L ALT 46 H (0-35) U/L Alkaline Phosphatase 90 (38-126) U/L Troponin I (0.000-0.034) ng/mL NT-Pro-B Natriuret Pep 55.8 (0-900) pg/mL Serum Total Protein 8.6 H (6.3-8.2) g/dL Albumin 4.5 (3.5-5.0) g/dL Influenza Type A Ag (NEGATIVE) Influenza Type B Ag (NEGATIVE) RSV (PCR) (Negative) SARS-CoV-2 (PCR) (NEGATIVE) - Progress Progress: improved Air Movement: good Progress Note: 11/06/22 21:00 I took over for Dr. Pozo on this patient. I did reevaluate the patient, obtained my own history. Briefly, patient has chest pain starting last night. Intermittent with worse at an 8. Patient currently at a 2 or 3. Patient states that she has had a normal heart catheterization in the last year with her interactive art director. Patient also states that she gets these chest pains 1-2 times a year. Patient feels improved at this point in time. Patient has 2 negative troponins over 3 hours in the emergency department. She has 2 EKGs that do not show any obvious signs of ischemia. CT PE does not show any pulmonary embolism. Overall, therefore much less likely to be an NSTEMI, pulmonary embolism, other sinister pathology. This is given the negative troponins over the past 48 sen rs, with a normal CT scan and a normal heart catheterization last year. At this point in time I will plan to discharge patient home. She will call her interactive art director tomorrow morning for close follow-up. She is able to return here anytime for new or changing symptoms. Blood Culture(s) Obtained: No Antibiotics given: No Counseled pt/family regarding: lab results, diagnosis, need for follow-up, rad results - Departure Departure Disposition: Home Critical Care Time: No
[2022-11-06 18:05] LABS: INFLUENZA A NEGATIVE (NEGATIVE); INFLUENZA B NEGATIVE (NEGATIVE); RESPIRATORY SYNCTIAL VIRUS NEGATIVE (Negative); SARS-CoV-2 Xpert Express NEGATIVE (NEGATIVE)
[2022-11-06] MEDS ORDERED: Novolin 70/30 SQ STA (18:12)
[2022-11-06] MEDS ORDERED: BENADRYL 50 MG/ML IV ONE (19:25)
[2022-11-06] MEDS ORDERED: Hydromorphone 1 mg/ml Injection IV ONE (19:25)
[2022-11-06] MEDS ORDERED: Nitrostat 0.4 MG (ED) SL ONE ×2 (19:26→19:42)
[2022-11-06] MEDS ORDERED: Hydromorphone 1 mg/ml Injection ONE (19:42)
[2022-11-06] MEDS ORDERED: BENADRYL 50 MG/ML ONE (19:42)
[2022-11-06 21:05] VITALS: BP 145/88; PULSE 67; O2SAT 94
--- NOTE | 2022-11-07 09:11 | XRAY ---
Indication: Vertigo. Chronic headache. No known injury. Multiple contiguous axial images obtained through the head without contrast. Comparison: December 16, 2020 Left basal ganglia demonstrates new subcentimeter remote infarct. Left external capsule also demonstrates new curvilinear remote lacunar infarct. No acute intracranial hemorrhage, abnormal extra-axial fluid collection, or mass effect. Fourth ventricle is midline without hydrocephalus. Gerardo-white matter differentiation preserved. Bony calvarium intact. Visualized paranasal sinuses and mastoid air cells are clear. 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 No acute intracranial abnormalities.
--- NOTE | 2022-11-07 09:13 | XRAY ---
Indication: Chest pain. Comparison: February 28, 2021 Portable chest again demonstrates normal heart, lungs, and bony thorax.
--- NOTE | 2022-11-07 09:13 | XRAY ---
Indication: Elevated d-dimer. Multiple contiguous axial images obtained through the chest using 80 cc Isovue 370 contrast. Comparison: February 28, 2021 Good opacification of the pulmonary arteries to include the lobar and segmental branches. No pulmonary embolus. Heart is not enlarged. Aorta is normal in course and caliber. No pathologic mediastinal/hilar lymphadenopathy. Lungs inflated and clear. Bony thorax intact. Limited upper abdomen again demonstrates fatty liver and cholecystectomy clips. Impression: 1. Continued negative pulmonary embolus. No new/acute cardiopulmonary abnormalities. 2. Again incidental fatty liver.
== END 2022-11-06 21:13 | disposition home or self-care (01) ==
LOC: ED 16:32
DX: R07.89 Other chest pain (principal); R06.02 Shortness of breath; R42 Dizziness and giddiness; R11.0 Nausea; E11.9 Type 2 diabetes mellitus without complications; I10 Essential (primary) hypertension; Z79.84 Long term (current) use of oral hypoglycemic drugs; Z79.899 Other long term (current) drug therapy
CPT/HCPCS: 0241U; 36000; 36415; 70450; 71045; 71260; 80053; 83880; 84484; 85025; 85379; 93005; 96360; 96374; 96375; 99284; J1170; J1200; J2405; J3010; A9270-GY

== ENCOUNTER 2023-09-14 16:47 | Observation (INO) | payer OTHER, SELFPAY ==
[2023-09-14] MEDS ORDERED: Zofran 4 MG/2 ML VIAL IV ONE (17:10)
[2023-09-14] MEDS ORDERED: Hydromorphone 1 mg/ml Injection IV ONE (17:10)
[2023-09-14] MEDS ORDERED: Hydromorphone 1 mg/ml Injection ONE (17:19)
[2023-09-14] MEDS ORDERED: Zofran 4 MG/2 ML VIAL ONE (17:19)
[2023-09-14 17:31] LABS: Absolute Neutrophil Ct (ANC) 4.78 x10^3/uL (1.4-6.9); BASOPHIL % 0.5 % (0.0-0.4); Basophil (Absolute #) 0.04 x10^3/uL (0-0.4); Eosinophil % 2.5 % (0.00-5.0); Eosinophil (Absolute #) 0.19 x10^3/uL (0-0.5); Hematocrit 48.6 % (35-47); Hemoglobin 15.6 g/dL (12.0-16.0); IMMATURE GRAN # 0.02 x10^3u/L (0.00-0.03); IMMATURE GRAN % 0.3 % (0.00-0.4); Lymphocyte (Absolute #) 2.22 x10^3/uL (1.0-4.6); Lymphocytes % 28.6 % (24.0-44.0); Mean Cell Volume 78.1 fL (78-100); Mean Corpuscular Hemoglobin 25.1 pg (26-32); Mean Corpuscular Hgb Concent. 32.1 g/dL (32-36); Mean Platelet Volume 9.4 fL (7.5-11.0); Monocytes % 6.5 % (0.0-12.0); Neutrophil % 61.6 % (36.0-66.0); Platelet Count 300 x10^3/uL (150-450); Red Blood Count 6.22 x10^6/uL (4.1-5.4); Red Cell Distribution Width 13.7 % (11.5-14.0); White Blood Count 7.8 x10^3/uL (4.0-10.5)
[2023-09-14 17:55] LABS: ALBUMIN 4.2 g/dL (3.5-5.0); ANION GAP 15.5 MEQ/L (5-15); BILIRUBIN,TOTAL 0.4 mg/dL (0.2-1.3); Calcium 9.6 mg/dL (8.4-10.2); Creatinine 1 0.82 mg/dL (0.52-1.04); EST GLOMERULAR FILTRATION RATE 85.5 ML/MIN; NT PRO BNPII 32.6 pg/mL (<300); Potassium 3.6 mmol/L (3.5-5.1); Total Protein 8.2 g/dL (6.3-8.2)
--- NOTE | 2023-09-14 18:34 | XRAY ---
Indication: Chest pain. Comparison: November 06, 2022 Portable chest again demonstrates normal heart, lungs, and bony thorax.
--- NOTE | 2023-09-14 19:42 | ERPHSYRPT ---
- History of Present Illness Time Seen by Provider: 09/14/23 16:55 Historian: patient Exam Limitations: no limitations Patient Subjective Stated Complaint: pt here for sob and chest pressure since 0400 this morning, no cough or fever, laying soen helps Triage Nursing Assessment: pt alert, resp easy skin w/d/p, no cough, no edema noted Physician History: 53 years old female with history of hypertension, hyperlipidemia,, diabetes mellitus presented in the ER with chief complaint of substernal/left-sided chest pain off and on since last night. Patient reports she woke up in the middle of the night with pain in the left neck and later on pressure sensation as if something is sitting on her chest off and on without any significant aggravating or relieving factors and some radiation of pain to the left arm. No numbness or tingling/weakness. Mild increased shortness of breath than her usual. No palpitations. Aspirin Treatment Today: unknown Allergies/Adverse Reactions: aspirin Allergy (Intermediate, Verified 09/14/23 16:48) Hives codeine [Codeine] Allergy (Verified 09/14/23 16:48) hydrocodone bitartrate [From Vicodin] Allergy (Verified 09/14/23 22:48) morphine Allergy (Verified 09/14/23 16:48) Penicillins Allergy (Verified 09/14/23 16:48) propoxyphene HCl [From Darvon] Allergy (Verified 09/14/23 16:48) metformin Adverse Reaction (Severe, Verified 09/14/23 22:48) Headache can tolerate synjardy Home Medications: Omeprazole 20 MG [Prilosec 20 mg] 20 mg PO BID 10/25/14 [History] Amlodipine Besylate 5 mg [Norvasc 5 mg] 5 mg PO BID 02/28/21 [History] Empagliflozin/Metformin HCl [Synjardy 12.5-1,000 mg Tablet] 1 each PO BID 03/05/22 [History] Glipizide [Glipizide Xl] 2.5 mg PO DAILY 06/17/23 [History] Semaglutide [Ozempic] 1 mg SQ UD 09/14/23 [History] ondansetron HCL [Zofran] 4 mg PO Q4H PRN PRN 09/14/23 [History] Hx Tetanus, Diphtheria Vaccination/Date Given: Yes Hx Influenza Vaccination/Date Given: Yes Hx Pneumococcal Vaccination/Date Given: No Immunizations Up to Date: Yes Travel Risk - International Travel Have you traveled outside of the country in past 3 weeks: No - Coronavirus Screening Are you exhibiting any of the following symptoms?: No Close contact with a COVID-19 positive Pt in past 14-21 Days: No - Vaccine Status Have you recieved a Covid-19 vaccination: Yes 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 - Vaccination Dates Date of 2cond Vaccination (if applicable): 2020 - Review of Systems Constitutional: No Symptoms Eyes: No Symptoms Ears, Nose, & Throat: No Symptoms Respiratory: Dyspnea Cardiac: Chest Pain Abdominal/Gastrointestinal: No Symptoms Genitourinary Symptoms: No Symptoms Musculoskeletal: No Symptoms Skin: No Symptoms Neurological: No Symptoms Endocrine: No Symptoms Hematologic/Lymphatic: No Symptoms - Past Medical History Pertinent Past Medical History: Yes Neurological History: Migraines ENT History: No Pertinent History Cardiac History: Hypertension Respiratory History: Asthma Endocrine Medical History: Diabetes Type II Musculoskeletal History: No Pertinent History GI Medical History: GERD, Gallbladder Disease History: No Pertinent History Psycho-Social History: No Pertinent History Female Reproductive Disorders: No Pertinent History - Past Surgical History Past Surgical History: Yes Neuro Surgical History: No Pertinent History Cardiac: No Pertinent History Respiratory: No Pertinent History Gastrointestinal: Cholecystectomy Genitourinary: No Pertinent History Musculoskeletal: No Pertinent History Female Surgical History: No Pertinent History Other Surgical History: 2004 gallbladder, bellybutton repair, d/c X1, 3 cysts removed from ovaries, bladder tied up, pt states she has a hard time waking up from anesthesia - Social History Smoking Status: Never smoker Exposure to second hand smoke: No Alcohol Use: None Drug Use: none Patient Lives Alone: No Significant Family History: no pertinent family hx - Nursing Vital Signs Nursing Vital Signs: Initial Vital Signs Temperature 97.2 F 09/14/23 16:53 Pulse Rate 68 09/14/23 16:53 Respiratory Rate 16 09/14/23 16:53 Blood Pressure 203/124 09/14/23 16:53 O2 Sat by Pulse Oximetry 100 09/14/23 16:53 Pain Scale Pain Intensity 9 - Physical Exam General Appearance: no apparent distress, alert Eye Exam: PERRL/EOMI, eyes nml inspection Ears, Nose, Throat Exam: normal ENT inspection, TMs normal, pharynx normal, moist mucous membranes Neck Exam: normal inspection, non-tender, supple, full range of motion Respiratory Exam: normal breath sounds, lungs clear Cardiovascular Exam: regular rate/rhythm, normal heart sounds Gastrointestinal/Abdomen Exam: soft, normal bowel sounds, No tenderness Back Exam: normal inspection, normal range of motion Extremity Exam: normal inspection, normal range of motion Neurologic Exam: alert, oriented x 3, cooperative Skin Exam: normal color SpO2 Interpretation: normal SpO2: 95 O2 Delivery: Room Air - Course EKG Interpreted by Me: RATE (59), Sinus Casey, NORMAL AXIS, NORMAL INTERVALS Ordered Tests: Active Orders 24 hr Category Date Time Status Bedrest ROUTINE Activity 09/14/23 20:03 Active Up With Assistance ROUTINE Activity 09/14/23 20:03 Active Call Admit Doctor for Orders ON ADMISSION Care 09/14/23 20:03 Active 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 Care 09/14/23 17:10 Completed Code Status Order ROUTINE Care 09/14/23 20:03 Active EKG-ER Only STAT Care 09/14/23 17:09 Completed Fall Protocol Q1H Care 09/14/23 20:03 Active IV Insertion STAT Care 09/14/23 17:09 Completed POCT Glucose Check ACHS Care 09/14/23 20:[address] in Observation ROUTINE Care 09/14/23 20:03 Active Consistent Carbohydrate Diet 1800 Calorie Diet 09/15/23 Breakfast Active CHEST 1 VIEW (PORTABLE) Stat Exams 09/14/23 17:09 Completed CBC W DIFF Stat Lab 09/14/23 17:15 Completed CMP Stat Lab 09/14/23 17:15 Completed D-DIMER QUANTITATIVE Stat Lab 09/14/23 17:15 Completed NT PRO BNPII Stat Lab 09/14/23 17:15 Completed TROPONIN Q4H Lab 09/14/23 17:15 Completed TROPONIN Q4H Lab 09/14/23 21:06 Completed TROPONIN Q4H Lab 09/15/23 01:15 Ordered Pulse Oximetry CONTINUOUS RT 09/14/23 20:03 Completed Transfer Order Routine Transfer 09/14/23 Completed Medication Summary Generic Name Dose Route Start Last Admin Trade Name Freq PRN Reason Stop Dose Admin Amlodipine Besylate 5 mg 09/14/23 22:00 09/14/23 22:49 Amlodipine Besylate 5 Mg Tablet PO 10/14/23 21:59 5 mg BID ALISIA Administration Glipizide 2.5 mg 09/15/23 10:00 Glipizide 2.5 Mg Xl Tablet PO 10/15/23 09:59 DAILY ALISIA Non-Formulary Medication 1 each 09/14/23 22:00 Empagliflozin/Metformin Hcl [Synjardy 12.5-1,000 Mg Tablet] PO 10/14/23 21:59 BID ALISIA Non-Formulary Medication 1 mg 09/14/23 21:45 Semaglutide [Ozempic] SQ 10/14/23 21:44 UD ALISIA Ondansetron HCl 4 mg 09/14/23 22:41 09/14/23 22:50 Zofran 4 Mg/Udtablet Orally Disintegrating PO 10/14/23 22:40 4 mg Q4H PRN PRN Administration NAUSEA/VOMITING Pantoprazole Sodium 40 mg 09/14/23 22:42 09/14/23 22:49 Protonix (Pantoprazole) 40 Mg Tablet PO 10/14/23 21:59 40 mg BID ALISIA Administration Discontinued Medications Generic Name Dose Route Start Last Admin Trade Name Freq PRN Reason Stop Dose Admin Hydromorphone HCl 0.5 mg 09/14/23 17:10 09/14/23 17:23 Hydromorphone 1 Mg/1ml Inj IV 09/14/23 17:11 0.5 mg STAT ONE Administration Hydromorphone HCl Confirm 09/14/23 17:19 Hydromorphone 1 Mg/1ml Inj Administered 09/14/23 17:20 Dose 1 mg .ROUTE .STK-MED ONE Non-Formulary Medication 20 mg 09/14/23 22:00 Omeprazole 20 Mg [Prilosec 20 Mg] PO 10/14/23 21:59 BID ALISIA Non-Formulary Medication 4 mg 09/14/23 21:44 Ondansetron Hcl [Zofran] PO Q4H PRN PRN NAUSEA/VOMITING Ondansetron HCl 4 mg 09/14/23 17:10 09/14/23 17:23 Ondansetron Hcl 4 Mg/2 Ml Vial IV 09/14/23 17:11 4 mg STAT ONE Administration Ondansetron HCl Confirm 09/14/23 17:19 Ondansetron Hcl 4 Mg/2 Ml Vial Administered 09/14/23 17:20 Dose 4 mg .ROUTE .STK-MED ONE Ondansetron HCl Confirm 09/14/23 22:38 Zofran 4 Mg/Udtablet Orally Disintegrating Administered 09/14/23 22:39 Dose 4 mg .ROUTE .STK-MED ONE Pantoprazole Sodium Confirm 09/14/23 22:39 Protonix (Pantoprazole) 40 Mg Tablet Administered 09/14/23 22:40 Dose 40 mg .ROUTE .STK-MED ONE Pantoprazole Sodium 40 mg 09/15/23 10:00 Protonix (Pantoprazole) 40 Mg Tablet PO 10/15/23 09:59 BID [facility] Lab/Rad Data: Laboratory Result Diagrams 09/14/23 17:15 09/14/23 17:15 Laboratory Results 09/14/23 09/14/23 09/14/23 Range/Units 17:15 17:15 17:15 WBC (4.0-10.5) x10^3/uL RBC (4.1-5.4) x10^6/uL Hgb (12.0-16.0) g/dL Hct (35-47) % MCV (78-100) fL MCH (26-32) pg MCHC (32-36) g/dL RDW (11.5-14.0) % Plt Count (150-450) x10^3/uL MPV (7.5-11.0) fL Gran % (36.0-66.0) % Immature Gran % (Auto) (0.00-0.4) % Nucleat RBC Rel Count (0.00-0.1) % Eos # (Auto) (0-0.5) x10^3/uL Immature Gran # (Auto) (0.00-0.03) x10^3u/L Absolute Lymphs (auto) (1.0-4.6) x10^3/uL Absolute Monos (auto) (0.0-1.3) x10^3/uL Absolute Nucleated RBC (0.00-0.01) x10^3u/L Lymphocytes % (24.0-44.0) % Monocytes % (0.0-12.0) % Eosinophils % (0.00-5.0) % Basophils % (0.0-0.4) % Absolute Granulocytes (1.4-6.9) x10^3/uL Basophils # (0-0.4) x10^3/uL D-Dimer 0.47 (0.0-0.50) mg/L Sodium 139 (137-145) mmol/L Potassium 3.6 (3.5-5.1) mmol/L Chloride 106 (98-107) mmol/L Carbon Dioxide 22 (22-30) mmol/L Anion Gap 15.5 H (5-15) MEQ/L BUN 16 (7-17) mg/dL Creatinine 0.82 (0.52-1.04) mg/dL Estimated GFR 85.5 ML/MIN Glucose 114 H (74-106) mg/dL Calcium 9.6 (8.4-10.2) mg/dL Total Bilirubin 0.40 (0.2-1.3) mg/dL AST 38 H (14-36) U/L ALT 46 H (0-35) U/L Alkaline Phosphatase 75 (38-126) U/L Troponin I < 0.012 (0.000-0.034) ng/mL NT-Pro-B Natriuret Pep 32.6 (<300) pg/mL Serum Total Protein 8.2 (6.3-8.2) g/dL Albumin 4.2 (3.5-5.0) g/dL 09/14/23 Range/Units 17:15 WBC 7.8 (4.0-10.5) x10^3/uL RBC 6.22 H (4.1-5.4) x10^6/uL Hgb 15.6 (12.0-16.0) g/dL Hct 48.6 H (35-47) % MCV 78.1 (78-100) fL MCH 25.1 L (26-32) pg MCHC 32.1 (32-36) g/dL RDW 13.7 (11.5-14.0) % Plt Count 300 (150-450) x10^3/uL MPV 9.4 (7.5-11.0) fL Gran % 61.6 (36.0-66.0) % Immature Gran % (Auto) 0.3 (0.00-0.4) % Nucleat RBC Rel Count 0.0 (0.00-0.1) % Eos # (Auto) 0.19 (0-0.5) x10^3/uL Immature Gran # (Auto) 0.02 (0.00-0.03) x10^3u/L Absolute Lymphs (auto) 2.22 (1.0-4.6) x10^3/uL Absolute Monos (auto) 0.50 (0.0-1.3) x10^3/uL Absolute Nucleated RBC 0.00 (0.00-0.01) x10^3u/L Lymphocytes % 28.6 (24.0-44.0) % Monocytes % 6.5 (0.0-12.0) % Eosinophils % 2.5 (0.00-5.0) % Basophils % 0.5 (0.0-0.4) % Absolute Granulocytes 4.78 (1.4-6.9) x10^3/uL Basophils # 0.04 (0-0.4) x10^3/uL D-Dimer (0.0-0.50) mg/L Sodium (137-145) mmol/L Potassium (3.5-5.1) mmol/L Chloride (98-107) mmol/L Carbon Dioxide (22-30) mmol/L Anion Gap (5-15) MEQ/L BUN (7-17) mg/dL Creatinine (0.52-1.04) mg/dL Estimated GFR ML/MIN Glucose (74-106) mg/dL Calcium (8.4-10.2) mg/dL Total Bilirubin (0.2-1.3) mg/dL AST (14-36) U/L ALT (0-35) U/L Alkaline Phosphatase (38-126) U/L Troponin I (0.000-0.034) ng/mL NT-Pro-B Natriuret Pep (<300) pg/mL Serum Total Protein (6.3-8.2) g/dL Albumin (3.5-5.0) g/dL - Progress Progress: improved, re-examined Air Movement: good Progress Note: 09/14/23 19:38 53 years old female with history of hypertension, hyperlipidemia,, diabetes mellitus presented in the ER with chief complaint of substernal/left-sided chest pain off and on since last night. Patient reports she woke up in the middle of the night with pain in the left neck and later on pressure sensation as if something is sitting on her chest off and on without any significant aggravating or relieving factors and some radiation of pain to the left arm. No numbness or tingling/weakness. Mild increased shortness of breath than her usual. No palpitations. EKG did not show any acute ischemic changes. Negative initial troponin and D-dimers. Chest x-ray negative for any acute cardiopulmonary findings. EKG is normal sinus rhythm with no acute ischemic changes. Patient has multiple risk factors for CAD. No cardiac workup done in the recent past. Patient pain is not completely resolved. Discussed with Dr. Murali Landers, reviewed history, workup and patient is accepted for admission. Discussed with .: Betsy Will see patient in: hospital (observation) Counseled pt/family regarding: lab results, diagnosis, rad results Medical Desision Making - Discussion of managment Care discussed with:: hospitalist Reviewed:: Test results Agreed on:: Treatment plan Will see patient: in hospital - Diagnostic Testing Diagnostic test were ordered, analyzed, and reviewed by me: Yes Radiological Interpretation: Interpreted by me, Reviewed by me - Risk of complications The pt has a high risk of morbidity or mortality based on: Decision regarding hospitilization or escalation of hosp level of care - Departure Departure Disposition: Observation Clinical Impression: Chest pain, rule out acute myocardial infarction Condition: Stable Critical Care Time: No
[2023-09-14] MEDS ORDERED: ONDANSETRON HCL 8 MG PO PRN (21:44)
[2023-09-14] MEDS ORDERED: NON-FORMULARY ITEM (Semaglutide [Ozempic] 1 MG/0.75 ML Pen.Injctr) SQ SCH (21:45)
--- NOTE | 2023-09-14 21:50 | PCM.HP ---
History of Present Illness - Chief Complaint Chief Complaint: Chest pain rule out acute OR History of Present Illness: is a 53 year old female with HTN, DM2 who presents with one day of chest pain, that is constant, across the chest, not better or worse with activity and nothing makes it better or worse. At my meeting it was 03/15. No SOB, leg swelling. No prior history of OR. Initial EKG, trop wnl. - Review of Systems Constitutional: No Fever, No Chills Eyes: No Symptoms Ears, Nose, & Throat: No Symptoms Respiratory: No Cough, No Short Of Breath Cardiac: No Chest Pain, No Edema, No Syncope Abdominal/Gastrointestinal: No Abdominal Pain, No Nausea, No Vomiting, No Diarrhea Genitourinary Symptoms: No Dysuria Musculoskeletal: No Back Pain, No Neck Pain Skin: No Rash Neurological: No Dizziness, No Focal Weakness, No Sensory Changes Psychological: No Symptoms Endocrine: No Symptoms Hematologic/Lymphatic: No Symptoms Immunological/Allergic: No Symptoms Medications & Allergies Home Medications: Home Medication List Omeprazole 20 MG [Prilosec 20 mg] 20 mg PO BID 10/25/14 [History Confirmed 09/14/23] Amlodipine Besylate 5 mg [Norvasc 5 mg] 5 mg PO BID 02/28/21 [History Confirmed 09/14/23] Empagliflozin/Metformin HCl [Synjardy 12.5-1,000 mg Tablet] 1 each PO BID 03/05/22 [History Confirmed 09/14/23] Glipizide [Glipizide Xl] 2.5 mg PO DAILY 06/17/23 [History Confirmed 09/14/23] Semaglutide [Ozempic] 1 mg SQ UD 09/14/23 [History Confirmed 09/14/23] ondansetron HCL [Zofran] 4 mg PO Q4H PRN PRN 09/14/23 [History Confirmed 09/14/23] Allergies/Adverse Reactions: Allergies Allergy/AdvReac Type Severity Reaction Status Date / Time aspirin Allergy Intermediate Hives Verified 09/14/23 16:48 codeine [Codeine] Allergy Verified 09/14/23 16:48 hydrocodone bitartrate Allergy Verified 09/14/23 16:48 [From Vicodin] morphine Allergy Verified 09/14/23 16:48 Penicillins Allergy Verified 09/14/23 16:48 propoxyphene HCl Allergy Verified 09/14/23 16:48 [From Darvon] - Past Medical History Past Medical History: Yes Neurological History: Migraines ENT History: No Pertinent History Cardiac History: Hypertension Respiratory History: Asthma Endocrine Medical History: Diabetes Type II Musculoskelatal History: No Pertinent History GI Medical History: GERD, Gallbladder Disease History: No Pertinent History Pyscho-Social History: No Pertinent History Reproductive Disorders: No Pertinent History - Past Surgical History Past Surgical History: Yes Neuro Surgical History: No Pertinent History Cardiac History: No Pertinent History Respiratory Surgery: No Pertinent History GI Surgical History: Cholecystectomy Genitourinary Surgical Hx: No Pertinent History Musculskeletal Surgical Hx: No Pertinent History Female Surgical History: No Pertinent History Other Surgical History: 2004 gallbladder, bellybutton repair, d/c X1, 3 cysts removed from ovaries, bladder tied up, pt states she has a hard time waking up from anesthesia - Social History Smoking Status: Never smoker Exposure to second hand smoke: No Alcohol: None Drug Use: none Significant Family History: no pertinent family hx - Physical Exam Vital Signs: Vital Signs - 24 hr Temp Pulse Resp BP BP Pulse Ox 09/14/23 21:31 60 18 181/87 95 09/14/23 20:30 60 16 164/96 95 09/14/23 19:42 95 09/14/23 19:37 152/90 09/14/23 19:00 59 L 15 95 09/14/23 18:50 66 16 96 09/14/23 18:40 64 17 95 09/14/23 18:30 56 L 16 95 09/14/23 18:20 55 L 15 96 09/14/23 18:10 63 18 94 L 09/14/23 18:01 64 19 93 L 09/14/23 17:31 58 L 17 178/120 95 09/14/23 16:54 20 98 09/14/23 16:53 97.2 F 68 16 203/124 100 General Appearance: no apparent distress, alert Neurologic Exam: alert, oriented x 3, cooperative, normal mood/affect, nml cerebellar function, nml station & gait, sensation nml, No motor deficits Eye Exam: PERRL/EOMI, eyes nml inspection Ears, Nose, Throat Exam: normal ENT inspection, TMs normal, pharynx normal, m oist mucous membranes Neck Exam: normal inspection, non-tender, supple, full range of motion Respiratory Exam: normal breath sounds, lungs clear, No respiratory distress Cardiovascular Exam: regular rate/rhythm, normal heart sounds, normal peripheral pulses Gastrointestinal/Abdomen Exam: soft, normal bowel sounds, No tenderness, No mass Back Exam: normal inspection, normal range of motion, No CVA tenderness, No vertebral tenderness Extremity Exam: normal inspection, normal range of motion, pelvis stable Skin Exam: normal color, warm, dry, No rash Lymphatic Exam: No adenopathy Results - Labs Lab/Micro Results: Lab Results-Last 24 Hours 09/14/23 09/14/23 09/14/23 Range/Units 17:15 17:15 17:15 WBC 7.8 (4.0-10.5) x10^3/uL RBC 6.22 H (4.1-5.4) x10^6/uL Hgb 15.6 (12.0-16.0) g/dL Hct 48.6 H (35-47) % MCV 78.1 (78-100) fL MCH 25.1 L (26-32) pg MCHC 32.1 (32-36) g/dL RDW 13.7 (11.5-14.0) % Plt Count 300 (150-450) x10^3/uL MPV 9.4 (7.5-11.0) fL Gran % 61.6 (36.0-66.0) % Immature Gran % (Auto) 0.3 (0.00-0.4) % Nucleat RBC Rel Count 0.0 (0.00-0.1) % Eos # (Auto) 0.19 (0-0.5) x10^3/uL Immature Gran # (Auto) 0.02 (0.00-0.03) x10^3u/L Absolute Lymphs (auto) 2.22 (1.0-4.6) x10^3/uL Absolute Monos (auto) 0.50 (0.0-1.3) x10^3/uL Absolute Nucleated RBC 0.00 (0.00-0.01) x10^3u/L Lymphocytes % 28.6 (24.0-44.0) % Monocytes % 6.5 (0.0-12.0) % Eosinophils % 2.5 (0.00-5.0) % Basophils % 0.5 (0.0-0.4) % Absolute Granulocytes 4.78 (1.4-6.9) x10^3/uL Basophils # 0.04 (0-0.4) x10^3/uL D-Dimer 0.47 (0.0-0.50) mg/L Sodium 139 (137-145) mmol/L Potassium 3.6 (3.5-5.1) mmol/L Chloride 106 (98-107) mmol/L Carbon Dioxide 22 (22-30) mmol/L Anion Gap 15.5 H (5-15) MEQ/L BUN 16 (7-17) mg/dL Creatinine 0.82 (0.52-1.04) mg/dL Estimated GFR 85.5 ML/MIN Glucose 114 H (74-106) mg/dL POC Glucometer (74 to 106) mg/dL Calcium 9.6 (8.4-10.2) mg/dL Total Bilirubin 0.40 (0.2-1.3) mg/dL AST 38 H (14-36) U/L ALT 46 H (0-35) U/L Alkaline Phosphatase 75 (38-126) U/L Troponin I (0.000-0.034) ng/mL NT-Pro-B Natriuret Pep 32.6 (<300) pg/mL Serum Total Protein 8.2 (6.3-8.2) g/dL Albumin 4.2 (3.5-5.0) g/dL 09/14/23 09/14/23 09/14/23 Range/Units 17:15 21:06 21:08 WBC (4.0-10.5) x10^3/uL RBC (4.1-5.4) x10^6/uL Hgb (12.0-16.0) g/dL Hct (35-47) % MCV (78-100) fL MCH (26-32) pg MCHC (32-36) g/dL RDW (11.5-14.0) % Plt Count (150-450) x10^3/uL MPV (7.5-11.0) fL Gran % (36.0-66.0) % Immature Gran % (Auto) (0.00-0.4) % Nucleat RBC Rel Count (0.00-0.1) % Eos # (Auto) (0-0.5) x10^3/uL Immature Gran # (Auto) (0.00-0.03) x10^3u/L Absolute Lymphs (auto) (1.0-4.6) x10^3/uL Absolute Monos (auto) (0.0-1.3) x10^3/uL Absolute Nucleated RBC (0.00-0.01) x10^3u/L Lymphocytes % (24.0-44.0) % Monocytes % (0.0-12.0) % Eosinophils % (0.00-5.0) % Basophils % (0.0-0.4) % Absolute Granulocytes (1.4-6.9) x10^3/uL Basophils # (0-0.4) x10^3/uL D-Dimer (0.0-0.50) mg/L Sodium (137-145) mmol/L Potassium (3.5-5.1) mmol/L Chloride (98-107) mmol/L Carbon Dioxide (22-30) mmol/L Anion Gap (5-15) MEQ/L BUN (7-17) mg/dL Creatinine (0.52-1.04) mg/dL Estimated GFR ML/MIN Glucose (74-106) mg/dL POC Glucometer 164 H (74 to 106) mg/dL Calcium (8.4-10.2) mg/dL Total Bilirubin (0.2-1.3) mg/dL AST (14-36) U/L ALT (0-35) U/L Alkaline Phosphatase (38-126) U/L Troponin I < 0.012 < 0.012 (0.000-0.034) ng/mL NT-Pro-B Natriuret Pep (<300) pg/mL Serum Total Protein (6.3-8.2) g/dL Albumin (3.5-5.0) g/dL Accuchecks Date 09/14/23 Time 21:00 - Radiology Impressions Radiology Exams & Impressions: Radiology Procedures Category Date Time Status CHEST 1 VIEW (PORTABLE) Stat Exams 09/14/23 17:09 Completed Assessment/Plan (1) Chest pain Current Visit: No Status: Resolved Qualifiers: Assessment & Plan: 1. Initial trop negative, next drawn 2. EKG WNL 3. Monitor overnight - chest pain likely non-ASCS Code(s): R07.9 - CHEST PAIN, UNSPECIFIED Telemedicine Encounter - Telemedicine Encounter Telemedicine Encounter: The entirety of this encounter was performed via Telemedicine"
[2023-09-14] MEDS ORDERED: METFORMIN HCL PO SCH (22:00)
[2023-09-14] MEDS ORDERED: EMPAGLIFLOZIN PO SCH (22:00)
[2023-09-14] MEDS ORDERED: [UNRECOGNIZED DRUG - OTHER] PO SCH (22:00)
[2023-09-14] MEDS ORDERED: NON-FORMULARY ITEM (Omeprazole 20 Mg [Prilosec 20 Mg] 20 MG Capsule.Dr) PO SCH (22:00)
[2023-09-14] MEDS ORDERED: ZOFRAN ODT 4 MG ONE (22:38)
[2023-09-14] MEDS ORDERED: Protonix 40MG Tablet ONE (22:39)
[2023-09-14] MEDS: NORVASC 5 MG PO SCH (22:49)
[2023-09-14] MEDS: Protonix 40MG Tablet PO SCH (22:49)
[2023-09-14] MEDS: ZOFRAN ODT 4 MG PO PRN (22:50)
[2023-09-14] MEDS: TYLENOL EXTRA STRENGTH 500 MG PO PRN (23:25)
--- NOTE | 2023-09-15 05:12 | PCM.NOTE ---
Date and Time: 09/15/23 0500 Subjective Assessment: Ms. Olivares is a 53 year old female with a pmhx of migraines, DMII, GB disease, asthma, and HTN who presented to ED 09/14/23 with c/o left-sided substernal pressure-like chest pain radiating to the left arm with no associated symptoms. Onset was one night prior to presentation. EKG with no acute ischemic changes. Troponin and DDimer negative. BNP wnl. CXR with no cardiopulmonary process. 09/15: Met with patient beside. Continued pressure-like CP 7/10 on numerical [id number] that improves with rest. Repeat of troponins WNL. EKG repeat with no acute changes, ST elevation/deviations. BP elevated this morning. Dr. Hidalgo has been consulted, last cardiac cath was 5 years ago. - Review of Systems Constitutional: No Symptoms Eyes: No Symptoms Ears, Nose, & Throat: No Symptoms Respiratory: No Symptoms Cardiac: Chest Pain Abdominal/Gastrointestinal: No Symptoms Genitourinary Symptoms: No Symptoms Musculoskeletal: No Symptoms Skin: No Symptoms Neurological: No Symptoms Psychological: Anxiety Objective Exam General Appearance: no apparent distress Neurologic Exam: alert, oriented x 3, cooperative Skin Exam: normal color Eye Exam: PERRL Ears, Nose, Throat Exam: normal ENT inspection Neck Exam: normal inspection Respiratory Exam: normal breath sounds, lungs clear Cardiovascular Exam: regular rate/rhythm, normal heart sounds Gastrointestinal/Abdomen Exam: soft, normal bowel sounds Extremity Exam: normal inspection Back Exam: normal inspection Pelvic Exam: deferred Rectal Exam: deferred OBJECTIVE DATA Vital Signs: Vital Signs - 24 hr Temp Pulse Resp BP BP Pulse Ox 09/15/23 04:00 97.5 F 52 L 18 180/81 93 L 09/14/23 23:57 96.8 F 54 L 18 162/74 96 09/14/23 23:07 95 09/14/23 21:31 60 18 181/87 95 09/14/23 20:30 60 16 164/96 95 09/14/23 19:37 152/90 09/14/23 19:00 59 L 15 95 09/14/23 18:50 66 16 96 09/14/23 18:40 64 17 95 09/14/23 18:30 56 L 16 95 09/14/23 18:20 55 L 15 96 09/14/23 18:10 63 18 94 L 09/14/23 18:01 64 19 93 L 09/14/23 17:31 58 L 17 178/120 95 09/14/23 16:54 20 98 09/14/23 16:53 97.2 F 68 16 203/124 100 Pain Assessment - Last Documented Pain Intensity 6 Pain Scale Used [facility] Intake and Output: Intake & Output 09/12/23 09/13/23 09/14/23 09/15/23 11:59 11:59 11:59 11:59 Intake Total 400 Balance 400 Weight 85.1 kg Lab Results: Lab Results-Last 24 Hours 09/14/23 09/14/23 09/14/23 Range/Units 17:15 17:15 17:15 WBC 7.8 (4.0-10.5) x10^3/uL RBC 6.22 H (4.1-5.4) x10^6/uL Hgb 15.6 (12.0-16.0) g/dL Hct 48.6 H (35-47) % MCV 78.1 (78-100) fL MCH 25.1 L (26-32) pg MCHC 32.1 (32-36) g/dL RDW 13.7 (11.5-14.0) % Plt Count 300 (150-450) x10^3/uL MPV 9.4 (7.5-11.0) fL Gran % 61.6 (36.0-66.0) % Immature Gran % (Auto) 0.3 (0.00-0.4) % Nucleat RBC Rel Count 0.0 (0.00-0.1) % Eos # (Auto) 0.19 (0-0.5) x10^3/uL Immature Gran # (Auto) 0.02 (0.00-0.03) x10^3u/L Absolute Lymphs (auto) 2.22 (1.0-4.6) x10^3/uL Absolute Monos (auto) 0.50 (0.0-1.3) x10^3/uL Absolute Nucleated RBC 0.00 (0.00-0.01) x10^3u/L Lymphocytes % 28.6 (24.0-44.0) % Monocytes % 6.5 (0.0-12.0) % Eosinophils % 2.5 (0.00-5.0) % Basophils % 0.5 (0.0-0.4) % Absolute Granulocytes 4.78 (1.4-6.9) x10^3/uL Basophils # 0.04 (0-0.4) x10^3/uL D-Dimer 0.47 (0.0-0.50) mg/L Sodium 139 (137-145) mmol/L Potassium 3.6 (3.5-5.1) mmol/L Chloride 106 (98-107) mmol/L Carbon Dioxide 22 (22-30) mmol/L Anion Gap 15.5 H (5-15) MEQ/L BUN 16 (7-17) mg/dL Creatinine 0.82 (0.52-1.04) mg/dL Estimated GFR 85.5 ML/MIN Glucose 114 H (74-106) mg/dL POC Glucometer (74 to 106) mg/dL Calcium 9.6 (8.4-10.2) mg/dL Total Bilirubin 0.40 (0.2-1.3) mg/dL AST 38 H (14-36) U/L ALT 46 H (0-35) U/L Alkaline Phosphatase 75 (38-126) U/L Troponin I (0.000-0.034) ng/mL NT-Pro-B Natriuret Pep 32.6 (<300) pg/mL Serum Total Protein 8.2 (6.3-8.2) g/dL Albumin 4.2 (3.5-5.0) g/dL 09/14/23 09/14/23 09/14/23 Range/Units 17:15 21:06 21:08 WBC (4.0-10.5) x10^3/uL RBC (4.1-5.4) x10^6/uL Hgb (12.0-16.0) g/dL Hct (35-47) % MCV (78-100) fL MCH (26-32) pg MCHC (32-36) g/dL RDW (11.5-14.0) % Plt Count (150-450) x10^3/uL MPV (7.5-11.0) fL Gran % (36.0-66.0) % Immature Gran % (Auto) (0.00-0.4) % Nucleat RBC Rel Count (0.00-0.1) % Eos # (Auto) (0-0.5) x10^3/uL Immature Gran # (Auto) (0.00-0.03) x10^3u/L Absolute Lymphs (auto) (1.0-4.6) x10^3/uL Absolute Monos (auto) (0.0-1.3) x10^3/uL Absolute Nucleated RBC (0.00-0.01) x10^3u/L Lymphocytes % (24.0-44.0) % Monocytes % (0.0-12.0) % Eosinophils % (0.00-5.0) % Basophils % (0.0-0.4) % Absolute Granulocytes (1.4-6.9) x10^3/uL Basophils # (0-0.4) x10^3/uL D-Dimer (0.0-0.50) mg/L Sodium (137-145) mmol/L Potassium (3.5-5.1) mmol/L Chloride (98-107) mmol/L Carbon Dioxide (22-30) mmol/L Anion Gap (5-15) MEQ/L BUN (7-17) mg/dL Creatinine (0.52-1.04) mg/dL Estimated GFR ML/MIN Glucose (74-106) mg/dL POC Glucometer 164 H (74 to 106) mg/dL Calcium (8.4-10.2) mg/dL Total Bilirubin (0.2-1.3) mg/dL AST (14-36) U/L ALT (0-35) U/L Alkaline Phosphatase (38-126) U/L Troponin I < 0.012 < 0.012 (0.000-0.034) ng/mL NT-Pro-B Natriuret Pep (<300) pg/mL Serum Total Protein (6.3-8.2) g/dL Albumin (3.5-5.0) g/dL Radiology Exams: Radiology Procedures Category Date Time Status CHEST 1 VIEW (PORTABLE) Stat Exams 09/14/23 17:09 Completed Assessment/Plan (1) Chest pain, rule out acute myocardial infarction Current Visit: Yes Status: Acute Assessment & Plan: 1. Initial trop negative 2. EKG WNL 3. Monitor overnight - chest pain likely non-ASCS 09/15: -Repeat trops and ekg unremarkable -Cards consulted, appreciate recs -Dilaudid for pain due to multiple drug allergy Code(s): R07.9 - CHEST PAIN, UNSPECIFIED # elevated liver enzymes -stable at baseline for patient h/o hepatic steatosis #diabetes -continue home medications -ADA diet -A1c pending #Hypertension -Continue home meds, add hydralazine prn Code(s): R07.9 - CHEST PAIN, UNSPECIFIED (2) Elevated liver enzymes Current Visit: Yes Status: Acute Code(s): R74.8 - ABNORMAL LEVELS OF OTHER SERUM ENZYMES (3) Hypertension Current Visit: Yes Status: Acute Code(s): I10 - ESSENTIAL (PRIMARY) HYPERTENSION (4) Diabetes Current Visit: Yes Status: Acute Code(s): E11.9 - TYPE 2 DIABETES MELLITUS WITHOUT COMPLICATIONS (5) Hepatic steatosis Current Visit: No Status: Acute Code(s): K76.0 - FATTY (CHANGE OF) LIVER, NOT ELSEWHERE CLASSIFIED
[2023-09-15 06:56] LABS: Absolute Neutrophil Ct (ANC) 3.39 x10^3/uL (1.4-6.9); BASOPHIL % 0.5 % (0.0-0.4); Basophil (Absolute #) 0.03 x10^3/uL (0-0.4); Eosinophil % 3.5 % (0.00-5.0); Eosinophil (Absolute #) 0.21 x10^3/uL (0-0.5); Hematocrit 45.9 % (35-47); Hemoglobin 14.6 g/dL (12.0-16.0); IMMATURE GRAN # 0.02 x10^3u/L (0.00-0.03); IMMATURE GRAN % 0.3 % (0.00-0.4); Lymphocyte (Absolute #) 1.94 x10^3/uL (1.0-4.6); Lymphocytes % 32.2 % (24.0-44.0); Mean Cell Volume 78.1 fL (78-100); Mean Corpuscular Hemoglobin 24.8 pg (26-32); Mean Corpuscular Hgb Concent. 31.8 g/dL (32-36); Mean Platelet Volume 9.8 fL (7.5-11.0); Monocyte (Absolute #) 0.43 x10^3/uL (0.0-1.3); Monocytes % 7.1 % (0.0-12.0); Neutrophil % 56.4 % (36.0-66.0); Platelet Count 245 x10^3/uL (150-450); Red Blood Count 5.88 x10^6/uL (4.1-5.4)
[2023-09-15 07:01] LABS: ALBUMIN 3.7 g/dL (3.5-5.0); ANION GAP 12.4 MEQ/L (5-15); BILIRUBIN,TOTAL 0.5 mg/dL (0.2-1.3); Calcium 8.9 mg/dL (8.4-10.2); Creatinine 1 0.79 mg/dL (0.52-1.04); EST GLOMERULAR FILTRATION RATE 89.4 ML/MIN; Potassium 3.9 mmol/L (3.5-5.1); Total Protein 7.4 g/dL (6.3-8.2)
[2023-09-15] MEDS ORDERED: MEDICATION INTERVENTION MC SCH ×2 (07:15)
[2023-09-15] MEDS ORDERED: Protonix 40MG Tablet PO SCH (10:00)
[2023-09-15] MEDS: NORVASC 5 MG PO SCH ×2 (10:25→22:17)
[2023-09-15] MEDS: Protonix 40MG Tablet PO SCH ×2 (10:25→22:17)
[2023-09-15] MEDS: Glucotrol Xl 2.5 MG PO SCH (10:25)
[2023-09-15] MEDS ORDERED: APRESOLINE 20 MG/ML INJ IV PRN ×2 (11:39→13:00)
[2023-09-15] MEDS: Hydromorphone 1 mg/ml Injection IV PRN ×2 (12:07→18:41)
[2023-09-15] MEDS: TYLENOL EXTRA STRENGTH 500 MG PO PRN (14:40)
[2023-09-15] MEDS ORDERED: Nitrostat 0.4 MG Tablet SL PRN (17:40)
[2023-09-15] MEDS ORDERED: MELATONIN PO PRN (18:29)
[2023-09-15] MEDS ORDERED: Ativan 0.5 MG PO PRN (18:31)
[2023-09-15 19:30] LABS: INFLUENZA A NEGATIVE (NEGATIVE); INFLUENZA B NEGATIVE (NEGATIVE); RESPIRATORY SYNCTIAL VIRUS NEGATIVE (NEGATIVE); SARS-CoV-2 Xpert Express NEGATIVE (NEGATIVE)
[2023-09-15] MEDS: ZOFRAN ODT 4 MG PO PRN (20:00)
[2023-09-15] MEDS: Lopressor 50 MG PO SCH (22:17)
[2023-09-15] MEDS: PATIENT OWN MEDICATION PO SCH (22:17)
--- NOTE | 2023-09-16 05:11 | PCM.DS ---
Discharge Summary Date of Admission: 09/14/23 19:58 Date of Discharge: 09/16/23 Admitting Physician: ANA M LEONARD MD Consults: Consults on Case 09/15/23 10:15 Consult Cardiology ROUTINE Primary Care Provider: DARIN,JANESSA Allergies Allergies aspirin Allergy (Intermediate, Verified 09/14/23 16:48) Hives codeine [Codeine] Allergy (Verified 09/14/23 16:48) hydrocodone bitartrate [From Vicodin] Allergy (Verified 09/14/23 22:48) morphine Allergy (Verified 09/14/23 16:48) Penicillins Allergy (Verified 09/14/23 16:48) propoxyphene HCl [From Darvon] Allergy (Verified 09/14/23 16:48) metformin Adverse Reaction (Severe, Verified 09/14/23 22:48) Headache can tolerate [facility] Summary - Hospital Course Hospital Course: Ms. Olivares is a 53 year old female with a pmhx of migraines, DMII, GB disease, asthma, and HTN who presented to ED 09/14/23 with c/o left-sided substernal pres sure-like chest pain radiating to the left arm with no associated symptoms. Onset was one night prior to presentation. EKG with no acute ischemic changes. Troponin and DDimer negative. BNP wnl. CXR with no cardiopulmonary process. Cardiology consulted patient is cleared for discharge with recs to add metoprolol 50mg BID and Nitro, and follow up with Dr. Cruz as OP. Discharge Note New Diagnosis:CP New Medications:Metoprolol 50mg BID Follow Up: PCP/Cardiology Latest Assessment & Plan 1. Initial trop negative 2. EKG WNL 3. Monitor overnight - chest pain likely non-ASCS 09/15: -Repeat trops and ekg unremarkable -Cards consulted, appreciate recs -Dilaudid for pain due to multiple drug allergy Code(s): R07.9 - CHEST PAIN, UNSPECIFIED # elevated liver enzymes -stable at baseline for patient h/o hepatic steatosis #diabetes -continue home medications -ADA diet -A1c pending #Hypertension -Continue home meds, add hydralazine prn I spent 35 minutes [id number] with the patient on the day of discharge performing discharge exam, discussing hospital stay and discharge instructions with patient and caregivers, preparation of discharge records, prescriptions & referral forms and addressing any questions/concerns the patient had as documented above. - Vitals & Intake/Output Vital Signs: Vital Signs Temperature 96.2 F 09/16/23 04:00 Pulse Rate 60 09/16/23 04:00 Respiratory Rate 18 09/16/23 04:00 Blood Pressure 137/67 09/16/23 04:00 O2 Sat by Pulse Oximetry 96 09/16/23 04:00 Intake & Output: Intake & Output 09/13/23 09/14/23 09/15/23 09/16/23 11:59 11:59 11:59 11:59 Intake Total 640 840 Output Total 1200 Balance 640 -360 Weight 85.1 kg - Lab Result Diagrams: 09/16/23 06:03 09/16/23 06:03 Lab Results-Last 24 Hrs: Lab Results-Last 24 Hours 09/15/23 09/15/23 09/15/23 Range/Units 06:20 06:21 06:21 WBC 6.0 (4.0-10.5) x10^3/uL RBC 5.88 H (4.1-5.4) x10^6/uL Hgb 14.6 (12.0-16.0) g/dL Hct 45.9 (35-47) % MCV 78.1 (78-100) fL MCH 24.8 L (26-32) pg MCHC 31.8 L (32-36) g/dL RDW 14.0 (11.5-14.0) % Plt Count 245 (150-450) x10^3/uL MPV 9.8 (7.5-11.0) fL Gran % 56.4 (36.0-66.0) % Immature Gran % (Auto) 0.3 (0.00-0.4) % Nucleat RBC Rel Count 0.0 (0.00-0.1) % Eos # (Auto) 0.21 (0-0.5) x10^3/uL Immature Gran # (Auto) 0.02 (0.00-0.03) x10^3u/L Absolute Lymphs (auto) 1.94 (1.0-4.6) x10^3/uL Absolute Monos (auto) 0.43 (0.0-1.3) x10^3/uL Absolute Nucleated RBC 0.00 (0.00-0.01) x10^3u/L Lymphocytes % 32.2 (24.0-44.0) % Monocytes % 7.1 (0.0-12.0) % Eosinophils % 3.5 (0.00-5.0) % Basophils % 0.5 (0.0-0.4) % Absolute Granulocytes 3.39 (1.4-6.9) x10^3/uL Basophils # 0.03 (0-0.4) x10^3/uL Sodium 138 (137-145) mmol/L Potassium 3.9 (3.5-5.1) mmol/L Chloride 106 (98-107) mmol/L Carbon Dioxide 24 (22-30) mmol/L Anion Gap 12.4 (5-15) MEQ/L BUN 21 H (7-17) mg/dL Creatinine 0.79 (0.52-1.04) mg/dL Estimated GFR 89.4 ML/MIN Glucose 135 H (74-106) mg/dL POC Glucometer (74 to 106) mg/dL Hemoglobin A1c (4.5-6.0) % Calcium 8.9 (8.4-10.2) mg/dL Total Bilirubin 0.50 (0.2-1.3) mg/dL AST 39 H (14-36) U/L ALT 46 H (0-35) U/L Alkaline Phosphatase 72 (38-126) U/L Troponin I < 0.012 (0.000-0.034) ng/mL Serum Total Protein 7.4 (6.3-8.2) g/dL Albumin 3.7 (3.5-5.0) g/dL Influenza Type A Ag (NEGATIVE) Influenza Type B Ag (NEGATIVE) RSV (PCR) (NEGATIVE) SARS-CoV-2 (PCR) (NEGATIVE) 09/15/23 09/15/23 09/15/23 Range/Units 06:21 06:35 11:34 WBC (4.0-10.5) x10^3/uL RBC (4.1-5.4) x10^6/uL Hgb (12.0-16.0) g/dL Hct (35-47) % MCV (78-100) fL MCH (26-32) pg MCHC (32-36) g/dL RDW (11.5-14.0) % Plt Count (150-450) x10^3/uL MPV (7.5-11.0) fL Gran % (36.0-66.0) % Immature Gran % (Auto) (0.00-0.4) % Nucleat RBC Rel Count (0.00-0.1) % Eos # (Auto) (0-0.5) x10^3/uL Immature Gran # (Auto) (0.00-0.03) x10^3u/L Absolute Lymphs (auto) (1.0-4.6) x10^3/uL Absolute Monos (auto) (0.0-1.3) x10^3/uL Absolute Nucleated RBC (0.00-0.01) x10^3u/L Lymphocytes % (24.0-44.0) % Monocytes % (0.0-12.0) % Eosinophils % (0.00-5.0) % Basophils % (0.0-0.4) % Absolute Granulocytes (1.4-6.9) x10^3/uL Basophils # (0-0.4) x10^3/uL Sodium (137-145) mmol/L Potassium (3.5-5.1) mmol/L Chloride (98-107) mmol/L Carbon Dioxide (22-30) mmol/L Anion Gap (5-15) MEQ/L BUN (7-17) mg/dL Creatinine (0.52-1.04) mg/dL Estimated GFR ML/MIN Glucose (74-106) mg/dL POC Glucometer 141 H 168 H (74 to 106) mg/dL Hemoglobin A1c 6.35 H (4.5-6.0) % Calcium (8.4-10.2) mg/dL Total Bilirubin (0.2-1.3) mg/dL AST (14-36) U/L ALT (0-35) U/L Alkaline Phosphatase (38-126) U/L Troponin I (0.000-0.034) ng/mL Serum Total Protein (6.3-8.2) g/dL Albumin (3.5-5.0) g/dL Influenza Type A Ag (NEGATIVE) Influenza Type B Ag (NEGATIVE) RSV (PCR) (NEGATIVE) SARS-CoV-2 (PCR) (NEGATIVE) 09/15/23 09/15/23 09/15/23 Range/Units 13:13 16:20 16:42 WBC (4.0-10.5) x10^3/uL RBC (4.1-5.4) x10^6/uL Hgb (12.0-16.0) g/dL Hct (35-47) % MCV (78-100) fL MCH (26-32) pg MCHC (32-36) g/dL RDW (11.5-14.0) % Plt Count (150-450) x10^3/uL MPV (7.5-11.0) fL Gran % (36.0-66.0) % Immature Gran % (Auto) (0.00-0.4) % Nucleat RBC Rel Count (0.00-0.1) % Eos # (Auto) (0-0.5) x10^3/uL Immature Gran # (Auto) (0.00-0.03) x10^3u/L Absolute Lymphs (auto) (1.0-4.6) x10^3/uL Absolute Monos (auto) (0.0-1.3) x10^3/uL Absolute Nucleated RBC (0.00-0.01) x10^3u/L Lymphocytes % (24.0-44.0) % Monocytes % (0.0-12.0) % Eosinophils % (0.00-5.0) % Basophils % (0.0-0.4) % Absolute Granulocytes (1.4-6.9) x10^3/uL Basophils # (0-0.4) x10^3/uL Sodium (137-145) mmol/L Potassium (3.5-5.1) mmol/L Chloride (98-107) mmol/L Carbon Dioxide (22-30) mmol/L Anion Gap (5-15) MEQ/L BUN (7-17) mg/dL Creatinine (0.52-1.04) mg/dL Estimated GFR ML/MIN Glucose (74-106) mg/dL POC Glucometer 200 H (74 to 106) mg/dL Hemoglobin A1c (4.5-6.0) % Calcium (8.4-10.2) mg/dL Total Bilirubin (0.2-1.3) mg/dL AST (14-36) U/L ALT (0-35) U/L Alkaline Phosphatase (38-126) U/L Troponin I < 0.012 < 0.012 (0.000-0.034) ng/mL Serum Total Protein (6.3-8.2) g/dL Albumin (3.5-5.0) g/dL Influenza Type A Ag (NEGATIVE) Influenza Type B Ag (NEGATIVE) RSV (PCR) (NEGATIVE) SARS-CoV-2 (PCR) (NEGATIVE) 09/15/23 09/15/23 Range/Units 18:40 21:31 WBC (4.0-10.5) x10^3/uL RBC (4.1-5.4) x10^6/uL Hgb (12.0-16.0) g/dL Hct (35-47) % MCV (78-100) fL MCH (26-32) pg MCHC (32-36) g/dL RDW (11.5-14.0) % Plt Count (150-450) x10^3/uL MPV (7.5-11.0) fL Gran % (36.0-66.0) % Immature Gran % (Auto) (0.00-0.4) % Nucleat RBC Rel Count (0.00-0.1) % Eos # (Auto) (0-0.5) x10^3/uL Immature Gran # (Auto) (0.00-0.03) x10^3u/L Absolute Lymphs (auto) (1.0-4.6) x10^3/uL Absolute Monos (auto) (0.0-1.3) x10^3/uL Absolute Nucleated RBC (0.00-0.01) x10^3u/L Lymphocytes % (24.0-44.0) % Monocytes % (0.0-12.0) % Eosinophils % (0.00-5.0) % Basophils % (0.0-0.4) % Absolute Granulocytes (1.4-6.9) x10^3/uL Basophils # (0-0.4) x10^3/uL Sodium (137-145) mmol/L Potassium (3.5-5.1) mmol/L Chloride (98-107) mmol/L Carbon Dioxide (22-30) mmol/L Anion Gap (5-15) MEQ/L BUN (7-17) mg/dL Creatinine (0.52-1.04) mg/dL Estimated GFR ML/MIN Glucose (74-106) mg/dL POC Glucometer 145 H (74 to 106) mg/dL Hemoglobin A1c (4.5-6.0) % Calcium (8.4-10.2) mg/dL Total Bilirubin (0.2-1.3) mg/dL AST (14-36) U/L ALT (0-35) U/L Alkaline Phosphatase (38-126) U/L Troponin I (0.000-0.034) ng/mL Serum Total Protein (6.3-8.2) g/dL Albumin (3.5-5.0) g/dL Influenza Type A Ag NEGATIVE (NEGATIVE) Influenza Type B Ag NEGATIVE (NEGATIVE) RSV (PCR) NEGATIVE (NEGATIVE) SARS-CoV-2 (PCR) NEGATIVE (NEGATIVE) Micro Results-Entire Visit: Accuchecks Date 09/15/23 Date 09/15/23 Date 09/15/23 Date 09/15/23 Time 17:11 Time 11:55 Time 07:08 - Radiology Exams Ordered Rad Exams-Entire Visit: Radiology Procedures Category Date Time Status CHEST 1 VIEW (PORTABLE) Stat Exams 09/14/23 17:09 Completed ECHO W/2D AND DOPPLER [US] Routine Exams 09/16/23 08:00 Ordered - Procedures and Test Procedures and Tests throughout Hospitalization: Therapy Orders & Screens 09/15/23 08:03 EKG STAT Comment: Diagnosis: Chest pain rule out acute MN Discharge Exam General Appearance: no apparent distress Neurologic Exam: alert, oriented x 3, cooperative Eye Exam: PERRL Ears, Nose, Throat Exam: normal ENT inspection Neck Exam: normal inspection Respiratory Exam: normal breath sounds, lungs clear Cardiovascular Exam: regular rate/rhythm, normal heart sounds Gastrointestinal/Abdomen Exam: soft, normal bowel sounds Pelvic Exam: deferred Rectal Exam: deferred Back Exam: normal inspection Extremity Exam: normal inspection Skin Exam: normal color Final Diagnosis/Problem List - Final Discharge Diagnosis/Problem (1) Chest pain, rule out acute myocardial infarction Current Visit: Yes Status: Acute Code(s): R07.9 - CHEST PAIN, UNSPECIFIED (2) Elevated liver enzymes Current Visit: Yes Status: Acute Code(s): R74.8 - ABNORMAL LEVELS OF OTHER SERUM ENZYMES (3) Hypertension Current Visit: Yes Status: Acute Code(s): I10 - ESSENTIAL (PRIMARY) HYPERTENSION (4) Diabetes Current Visit: Yes Status: Acute Code(s): E11.9 - TYPE 2 DIABETES MELLITUS WITHOUT COMPLICATIONS (5) Hepatic steatosis Current Visit: No Status: Acute Code(s): K76.0 - FATTY (CHANGE OF) LIVER, NOT ELSEWHERE CLASSIFIED - Discharge Disposition: Home, Self-Care Condition: Stable Prescriptions: New Metoprolol Tartrate 50 mg [Lopressor 50 MG] 50 mg PO BID 60 Days #30 tablet Nitroglycerin 0.4 mg Tablet [Nitrostat 0.4 MG Tablet] 0.4 mg SL Q5MIN PRN MR X 3 PRN 30 Days #30 tab PRN Reason: Chest Pain Continue Omeprazole 20 MG [Prilosec 20 mg] 20 mg PO BID Amlodipine Besylate 5 mg [Norvasc 5 mg] 5 mg PO BID Empagliflozin/Metformin HCl [Synjardy 12.5-1,000 mg Tablet] 1 each PO BID Glipizide [Glipizide Xl] 2.5 mg PO DAILY Semaglutide [Ozempic] 1 mg SQ UD ondansetron HCL [Zofran] 4 mg PO Q4H PRN PRN PRN Reason: Nausea/Vomiting Follow up with: YAMILETH CRUZ [CONSULTING PHYSICIAN] - 10/08/23 2:45 pm (APPOINTMENT AT [facility] WITH YESEN[facility]. ) JANESSA WEBSTER MD [Primary Care Provider] - 09/23/23 3:45 pm (APPOINTMENT AT [facility])
[2023-09-16 06:10] LABS: Absolute Neutrophil Ct (ANC) 3.65 x10^3/uL (1.4-6.9); BASOPHIL % 0.7 % (0.0-0.4); Basophil (Absolute #) 0.04 x10^3/uL (0-0.4); Eosinophil % 4.8 % (0.00-5.0); Eosinophil (Absolute #) 0.29 x10^3/uL (0-0.5); Hematocrit 47.9 % (35-47); Hemoglobin 15.1 g/dL (12.0-16.0); IMMATURE GRAN # 0.03 x10^3u/L (0.00-0.03); IMMATURE GRAN % 0.5 % (0.00-0.4); Lymphocyte (Absolute #) 1.61 x10^3/uL (1.0-4.6); Lymphocytes % 26.6 % (24.0-44.0); Mean Cell Volume 79.2 fL (78-100); Mean Corpuscular Hgb Concent. 31.5 g/dL (32-36); Mean Platelet Volume 9.3 fL (7.5-11.0); Monocyte (Absolute #) 0.44 x10^3/uL (0.0-1.3); Monocytes % 7.3 % (0.0-12.0); Neutrophil % 60.1 % (36.0-66.0); Platelet Count 270 x10^3/uL (150-450); Red Blood Count 6.05 x10^6/uL (4.1-5.4); Red Cell Distribution Width 13.7 % (11.5-14.0); White Blood Count 6.1 x10^3/uL (4.0-10.5)
[2023-09-16 06:35] LABS: ALBUMIN 3.8 g/dL (3.5-5.0); ANION GAP 15.3 MEQ/L (5-15); BILIRUBIN,TOTAL 0.4 mg/dL (0.2-1.3); Calcium 8.9 mg/dL (8.4-10.2); Creatinine 1 0.79 mg/dL (0.52-1.04); EST GLOMERULAR FILTRATION RATE 89.4 ML/MIN; Potassium 4.2 mmol/L (3.5-5.1); Total Protein 7.3 g/dL (6.3-8.2)
[2023-09-16 06:43] VITALS: RESP 16
[2023-09-16] MEDS: ZOFRAN ODT 4 MG PO PRN (08:17)
[2023-09-16] MEDS: Hydromorphone 1 mg/ml Injection IV PRN (08:18)
[2023-09-16] MEDS: Lopressor 50 MG PO SCH (09:56)
[2023-09-16] MEDS: NORVASC 5 MG PO SCH (09:56)
[2023-09-16] MEDS: Protonix 40MG Tablet PO SCH (09:56)
[2023-09-16] MEDS ORDERED: PATIENT OWN MEDICATION PO SCH (10:00)
[2023-09-16] MEDS: PATIENT OWN MEDICATION PO SCH (10:04)
[2023-09-16] MEDS: Glucotrol Xl 2.5 MG PO SCH (10:06)
[2023-09-16 11:33] VITALS: BP 129/74; PULSE 61; TEMP 97.6; O2SAT 96
--- NOTE | 2023-09-17 14:54 | ECHO ---
DATE OF PROCEDURE: 09/16/2023 CLINICAL INFORMATION: Chest pain. The M-mode 2D, and Doppler echocardiogram including color flow Doppler shows the left ventricle is normal in size. There is no thrombus present. The wall thickness is normal. The contractility is normal. The ejection fraction is estimated to be 55 to 60%. The right ventricle is normal. The left atrium is normal. The interatrial septum is intact. The right atrium is normal. The aortic valve opens well. There is no aortic regurgitation. There is mitral valve leaflet thickening without evidence of any significant stenosis. There is mild tricuspid regurgitation. The right ventricular systolic pressure is calculated to be 33 mm of Mercury. The pulmonic valve is not well visualized. The aortic root is normal. There is no pericardial effusion present. IMPRESSION: 1) NORMAL CONTRACTILITY OF THE LEFT VENTRICLE. 2) MILD TRICUSPID REGURGITATION. 3) MILD PULMONARY HYPERTENSION.
== END 2023-09-16 15:30 | disposition home or self-care (01) ==
LOC: ED 16:47 → MED SURG 19:58
PROVIDERS: ADMIT Student in an Organized Health Care Education/Training Program; ATTEND Student in an Organized Health Care Education/Training Program
DX: R07.9 Chest pain, unspecified (principal); R06.02 Shortness of breath; I10 Essential (primary) hypertension; E11.9 Type 2 diabetes mellitus without complications; K76.0 Fatty (change of) liver, not elsewhere classified; M54.2 Cervicalgia; Z79.899 Other long term (current) drug therapy; R74.8 Abnormal levels of other serum enzymes
CPT/HCPCS: 0241U; 36000; 36415; 71045; 80053; 82947; 83036; 83880; 84484; 85025; 85379; 93005; 93041; 93268; 93306; 96374; 96375; 99285; G0378; J0360; J1170; J2405; Q0162; Q3014; A9270-GY

== ENCOUNTER 2023-10-24 06:10 | Day surgery (SDC) | payer OTHER ==
[2023-10-24 06:58] VITALS: RESP 16
[2023-10-24] MEDS ORDERED: Lactated Ringers 1,000 ML IV SCH (07:00)
[2023-10-24] MEDS ORDERED: Versed 2 MG/2 ML Injection ONE (07:32)
[2023-10-24] MEDS ORDERED: DIPRIVAN 200 MG/20 ML IV ONE (07:32)
[2023-10-24 08:42] VITALS: BP 124/68; PULSE 58; TEMP 97.6; O2SAT 97
--- NOTE | 2023-10-24 09:59 | OP ---
SURGERY DATE/TIME: 10/24/2023 0734 PREOPERATIVE DIAGNOSIS: Chest pain and reflux. POSTOPERATIVE DIAGNOSIS: Mild gastritis. PROCEDURE: Esophagogastroduodenoscopy with cold forceps biopsy. SURGEON: Dr. Donato. ANESTHESIA: Medications were given by the anesthesia department. BRIEF HISTORY: The patient is a 53-year-old white female diabetic who has been complaining of chest pain. She reports that she was in the hospital for about five days trying to control her hypertension at which time she did have some chest pain which did respond to a topical nitroglycerin. The patient had no further chest pain during the stay. The patient was felt to need to have endoscopic evaluation because of no underlying esophagitis or GI reason for her pain. The patient described the risks of the procedure including the risk of perforation, phlebitis, untoward reaction to medication, bleeding and missed lesions. The patient verbalized her understanding and desired to have the procedure performed. DESCRIPTION OF PROCEDURE: The patient was given the medications by the anesthesia department. She had continuous pulse oximetry, ECG monitoring and intermittent blood pressure monitoring during the examination. She was placed in the left lateral decubitus position. A bite block was placed. The flexible Olympus gastroscope was used to intubate the oropharynx. The esophagus appeared to be normal throughout its length. The stomach was entered where normal gastric rugal folds were seen and these distended nicely with insufflation of air. The scope was passed along the greater curvature of the stomach to the antrum. The pylorus is encountered and intubated. The duodenum inspected and found to be normal. The scope is withdrawn towards the stomach. Again, a retroflex view was obtained of the fundus and cardia regions of the stomach which appeared to be essentially normal. The scope is then redirected towards the gastric antrum and biopsies were obtained from the gastric antrum to rule out the presence of Helicobacter pylori-type organisms. The scope was then removed from the patient who tolerated the procedure well and was sent back to outpatient recovery in good condition.
== END 2023-10-24 08:50 | disposition home or self-care (01) ==
LOC: SDC 06:10
PROVIDERS: ATTEND Family Medicine
DX: K29.70 Gastritis, unspecified, without bleeding (principal); R07.9 Chest pain, unspecified; K21.9 Gastro-esophageal reflux disease without esophagitis; E11.9 Type 2 diabetes mellitus without complications
CPT/HCPCS: 82947; J2250; J2704

== ENCOUNTER 2023-12-09 13:41 | Emergency (ER) | payer OTHER ==
[2023-12-09 14:09] VITALS: TEMP 97.9
[2023-12-09 14:17] LABS: BASOPHIL % 0.6 % (0.0-0.4); Basophil (Absolute #) 0.04 x10^3/uL (0-0.4); Eosinophil % 4.3 % (0.00-5.0); Eosinophil (Absolute #) 0.31 x10^3/uL (0-0.5); Hematocrit 46.3 % (35-47); Hemoglobin 14.9 g/dL (12.0-16.0); IMMATURE GRAN # 0.02 x10^3u/L (0.00-0.03); IMMATURE GRAN % 0.3 % (0.00-0.4); Lymphocyte (Absolute #) 1.33 x10^3/uL (1.0-4.6); Lymphocytes % 18.4 % (24.0-44.0); Mean Cell Volume 78.2 fL (78-100); Mean Corpuscular Hemoglobin 25.2 pg (26-32); Mean Corpuscular Hgb Concent. 32.2 g/dL (32-36); Mean Platelet Volume 9.2 fL (7.5-11.0); Monocyte (Absolute #) 0.81 x10^3/uL (0.0-1.3); Monocytes % 11.2 % (0.0-12.0); Neutrophil % 65.2 % (36.0-66.0); Platelet Count 268 x10^3/uL (150-450); Red Blood Count 5.92 x10^6/uL (4.1-5.4); Red Cell Distribution Width 14.2 % (11.5-14.0); White Blood Count 7.2 x10^3/uL (4.0-10.5)
[2023-12-09] MEDS ORDERED: Sodium Chloride 0.9% 1000 ML 1,000 ML ONE (14:17)
[2023-12-09 14:30] LABS: ALBUMIN 4.3 g/dL (3.5-5.0); ANION GAP 15.4 MEQ/L (5-15); BILIRUBIN,TOTAL 0.7 mg/dL (0.2-1.3); Calcium 9.1 mg/dL (8.4-10.2); Creatinine 1 0.83 mg/dL (0.52-1.04); EST GLOMERULAR FILTRATION RATE 84.2 ML/MIN; Potassium 3.6 mmol/L (3.5-5.1); Total Protein 7.8 g/dL (6.3-8.2)
[2023-12-09] MEDS: Sodium Chloride 0.9% 1000 ML 1,000 ML IV STA (14:49)
--- NOTE | 2023-12-09 15:01 | ERPHSYRPT ---
- History of Present Illness Time Seen by Provider: 12/09/23 13:55 Historian: patient Exam Limitations: no limitations Patient Subjective Stated Complaint: pt has been vomiting and having diarrhea since yesterday afternoon Triage Nursing Assessment: Pt brought to the ER by her daughter, hypertensive, rates pain as 7/10, pulses normal, skin n/w/d, pain is to the RUQ, diarrhea, N&V, denies difficulty with breathing, walked into the ER with a stable gait Physician History: Patient is a 53-year-old female presents to our ED for evaluation of nausea vomiting diarrhea and generalized weakness. Patient was in our ED for the same just yesterday. Patient had a complete workup including CAT scan at that time. Patient was discharged home. Patient is here for the same. Patient unable to tolerate p.o. Patient states she is unable to take her ODT Zofran. No chest pain or shortness of breath. No diaphoresis. Daughter at bedside. They voiced no other complaints or concerns at this time. Portions of this note were created with voice recognition technology. There may be grammatical, spelling, punctuation or sound alike errors Timing/Duration: yesterday Activities at Onset: none Quality: aching Abdominal Pain Onset Location: generalized abdomen Pain Radiation: no radiation Severity of Pain-Max: moderate Severity of Pain-Current: mild Modifying Factors: Improves With: palpation Associated Symptoms: denies symptoms Previous symptoms: same symptoms as today Allergies/Adverse Reactions: aspirin Allergy (Intermediate, Verified 12/09/23 14:06) Hives codeine [Codeine] Allergy (Verified 12/09/23 14:06) hydrocodone bitartrate [From Vicodin] Allergy (Verified 12/09/23 14:06) morphine Allergy (Verified 12/09/23 14:06) Penicillins Allergy (Verified 12/09/23 14:06) propoxyphene HCl [From Darvon] Allergy (Verified 12/09/23 14:06) metformin Adverse Reaction (Severe, Verified 12/09/23 14:06) Headache can tolerate synjardy Home Medications: Omeprazole 20 MG [Prilosec 20 mg] 20 mg PO BID 10/25/14 [History] Amlodipine Besylate 5 mg [Norvasc 5 mg] 5 mg PO BID 02/28/21 [History] Empagliflozin/Metformin HCl [Synjardy 12.5-1,000 mg Tablet] 1 each PO BID 03/05/22 [History] Glipizide [Glipizide Xl] 2.5 mg PO DAILY 06/17/23 [History] Semaglutide [Ozempic] 1 mg SQ UD 09/14/23 [History] ondansetron HCL [Zofran] 4 mg PO Q4H PRN PRN 09/14/23 [History] Acetaminophen 500 mg [Tylenol Extra Strength 500 mg] 1 mg PO UD PRN 10/23/23 [History] Phentermine HCl 37.5 mg PO DAILY 10/23/23 [History] Ropinirole HCl 0.5 mg [Requip 0.5 MG] 1 tab PO HS 10/23/23 [History] Valsartan 80 mg PO DAILY 10/23/23 [History] Metoprolol Tartrate 50 mg [Lopressor 50 MG] 50 mg PO DAILY 10/24/23 [History] Hx Tetanus, Diphtheria Vaccination/Date Given: Yes Hx Influenza Vaccination/Date Given: Yes Hx Pneumococcal Vaccination/Date Given: No Travel Risk - International Travel Have you traveled outside of the country in past 3 weeks: No - Coronavirus Screening Are you exhibiting any of the following symptoms?: No Close contact with a COVID-19 positive Pt in past 14-21 Days: No - Vaccine Status Have you recieved a Covid-19 vaccination: 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[employer]: [employer] - Vaccination Dates Date of 2cond Vaccination (if applicable): 2020 - Review of Systems Constitutional: No Symptoms, No Fever, No Chills Eyes: No Symptoms Ears, Nose, & Throat: No Symptoms Respiratory: No Symptoms, No Cough, No Dyspnea Cardiac: No Symptoms, No Chest Pain, No Edema, No Syncope Abdominal/Gastrointestinal: No Symptoms, No Abdominal Pain, No Nausea, No Vomiting, No Diarrhea Genitourinary Symptoms: No Symptoms, No Dysuria Musculoskeletal: No Symptoms, No Back Pain, No Neck Pain Skin: No Symptoms, No Rash Neurological: No Symptoms, No Dizziness, No Focal Weakness, No Sensory Changes Psychological: No Symptoms Endocrine: No Symptoms Hematologic/Lymphatic: No Symptoms Immunological/Allergic: No Symptoms All Other Systems: Reviewed and Negative - Past Medical History Pertinent Past Medical History: Yes Neurological History: Migraines ENT History: No Pertinent History Cardiac History: Hypertension Respiratory History: Asthma Endocrine Medical History: Diabetes Type II Musculoskeletal History: No Pertinent History GI Medical History: GERD, Gallbladder Disease History: No Pertinent History Psycho-Social History: No Pertinent History Female Reproductive Disorders: No Pertinent History - Past Surgical History Past Surgical History: Yes Neuro Surgical History: No Pertinent History Cardiac: No Pertinent History Respiratory: No Pertinent History Gastrointestinal: Cholecystectomy Genitourinary: No Pertinent History Musculoskeletal: No Pertinent History Female Surgical History: Dilation & Curettage Other Surgical History: 2004 gallbladder, bellybutton repair, d/c X1, 3 cysts removed from ovaries, bladder tied up, pt states she has a hard time waking up from anesthesia - Social History Smoking Status: Never smoker Exposure to second hand smoke: No Alcohol Use: None Drug Use: none Patient Lives Alone: No Significant Family History: no pertinent family hx - Female History Hx Now: No - Nursing Vital Signs Nursing Vital Signs: Initial Vital Signs Temperature 97.9 F 12/09/23 13:48 Pulse Rate 73 12/09/23 13:48 Blood Pressure 164/103 12/09/23 13:48 O2 Sat by Pulse Oximetry 98 12/09/23 13:48 Pain Scale Pain Intensity 0 - Physical Exam General Appearance: no apparent distress, alert Eye Exam: PERRL/EOMI, eyes nml inspection Ears, Nose, Throat Exam: normal ENT inspection, pharynx normal, moist mucous membranes Neck Exam: normal inspection, non-tender, supple, full range of motion Respiratory Exam: normal breath sounds, lungs clear, airway intact, No respiratory distress Cardiovascular Exam: regular rate/rhythm, normal heart sounds Gastrointestinal/Abdomen Exam: soft, tenderness (Generalized abdominal tenderness), No mass Back Exam: normal inspection, normal range of motion, No CVA tenderness, No vertebral tenderness Extremity Exam: normal inspection, normal range of motion, pelvis stable Neurologic Exam: alert, oriented x 3, cooperative, normal mood/affect, nml cerebellar function, sensation nml, No motor deficits Skin Exam: normal color, warm, dry Lymphatic Exam: No adenopathy SpO2 Interpretation: normal SpO2: 98 O2 Delivery: Room Air - Course Nursing assessment & vital signs reviewed: Yes Ordered Tests: Active Orders 24 hr Category Date Time Status IV Insertion STAT Care 12/09/23 14:03 Active CBC W DIFF Stat Lab 12/09/23 14:15 Completed CMP Stat Lab 12/09/23 14:15 Completed LIPASE Stat Lab 12/09/23 14:15 Completed TROPONIN Q4H Lab 12/09/23 14:15 Completed TROPONIN Q4H Lab 12/09/23 18:15 Ordered TROPONIN Q4H Lab 12/09/23 22:15 Ordered UA W/RFX UR CULTURE Stat Lab 12/09/23 14:04 Ordered Medication Summary Discontinued Medications Generic Name Dose Route Start Last Admin Trade Name Marino PRN Reason Stop Dose Admin Droperidol 1.25 mg 12/09/23 14:06 12/09/23 14:49 Droperidol 5 Mg/2 Ml Vial IV 12/09/23 14:07 1.25 mg STAT ONE Administration Droperidol Confirm 12/09/23 14:17 Droperidol 5 Mg/2 Ml Vial Administered 12/09/23 14:18 Dose 5 mg .ROUTE .STK-MED ONE Sodium Chloride 1,000 mls @ 999 mls/hr 12/09/23 14:03 12/09/23 15:57 Sodium Chloride 0.9% 1000 Ml IV 12/09/23 15:03 Infused .Q1H1M STA Infusion Sodium Chloride Confirm 12/09/23 14:17 Sodium Chloride 0.9% 1000 Ml Administered 12/09/23 14:18 Dose 1,000 mls @ ud .ROUTE .STK-MED ONE Lab/Rad Data: Laboratory Result Diagrams 12/09/23 14:15 12/09/23 14:15 Laboratory Results 12/09/23 12/09/23 12/09/23 Range/Units 14:15 14:15 14:15 WBC 7.2 (4.0-10.5) x10^3/uL RBC 5.92 H (4.1-5.4) x10^6/uL Hgb 14.9 (12.0-16.0) g/dL Hct 46.3 (35-47) % MCV 78.2 (78-100) fL MCH 25.2 L (26-32) pg MCHC 32.2 (32-36) g/dL RDW 14.2 H (11.5-14.0) % Plt Count 268 (150-450) x10^3/uL MPV 9.2 (7.5-11.0) fL Gran % 65.2 (36.0-66.0) % Immature Gran % (Auto) 0.3 (0.00-0.4) % Nucleat RBC Rel Count 0.0 (0.00-0.1) % Eos # (Auto) 0.31 (0-0.5) x10^3/uL Immature Gran # (Auto) 0.02 (0.00-0.03) x10^3u/L Absolute Lymphs (auto) 1.33 (1.0-4.6) x10^3/uL Absolute Monos (auto) 0.81 (0.0-1.3) x10^3/uL Absolute Nucleated RBC 0.00 (0.00-0.01) x10^3u/L Lymphocytes % 18.4 L (24.0-44.0) % Monocytes % 11.2 (0.0-12.0) % Eosinophils % 4.3 (0.00-5.0) % Basophils % 0.6 (0.0-0.4) % Absolute Granulocytes 4.70 (1.4-6.9) x10^3/uL Basophils # 0.04 (0-0.4) x10^3/uL Sodium 139 (135-145) mmol/L Potassium 3.6 (3.5-5.1) mmol/L Chloride 108 H (98-107) mmol/L Carbon Dioxide 19 L (22-30) mmol/L Anion Gap 15.4 H (5-15) MEQ/L BUN 16 (7-17) mg/dL Creatinine 0.83 (0.52-1.04) mg/dL Estimated GFR 84.2 ML/MIN Glucose 134 H (74-106) mg/dL Calcium 9.1 (8.4-10.2) mg/dL Total Bilirubin 0.70 (0.2-1.3) mg/dL AST 26 (14-36) U/L ALT 43 H (0-35) U/L Alkaline Phosphatase 76 (38-126) U/L Troponin I < 0.012 (0.000-0.034) ng/mL Serum Total Protein 7.8 (6.3-8.2) g/dL Albumin 4.3 (3.5-5.0) g/dL Lipase 82 (23-300) U/L - Progress Progress: improved Progress Note: 53-year-old female presents to our ED for evaluation of nausea vomiting and diarrhea. Patient was in our ED just last night for the same. CT scan at that time showed increased stool burden. Patient received IV fluids. Patient states she is not tolerating p.o. and is requesting discharge. Patient will be discharged per her request. IV fluids infused. She voices no other complaints or concerns at this time. Portions of this note were created with voice recognition technology. There may be grammatical, spelling, punctuation or sound alike errors Complexity problem addressed is moderate acute complicated No critical care time Complexity of data reviewed and analyzed is moderate. Test ordered test reviewed. Results analyzed and correlated clinically with history and physical exam. Risk of complication and or risk of morbidity/mortality of patient management is low Vital stable. Time spent to discharge patient is approximately 15 minutes. Plan of care established for shared decision making. No social determinants of health present impede follow-up. Portions of this note were created with voice recognition technology. There may be grammatical, spelling, punctuation or sound alike errors 12/09/23 16:21 Counseled pt/family regarding: lab results, diagnosis, need for follow-up - Departure Departure Disposition: Home Clinical Impression: Nausea vomiting and diarrhea Condition: Stable Critical Care Time: No Referrals: NAOMY CLARK MD [Primary Care Provider] - Follow up/PCP as directed Additional Instructions: Discharge/Care Plan ERAN ALMANZA was seen on 12/09/23 in the Emergency Room. The patient was counseled regarding Diagnosis,Lab results, Imaging studies, need for follow up and when to return to the Emergency Room. Prescriptions given: Discharge Note I have spoken with the patient and/or caregivers. I have explained the patient's condition, diagnosis and treatment plan based on the information available to me at this time. I have answered the patient's and/or caregiver's questions and addressed any concerns. The patient and/or caregivers have as good understanding of the patient's diagnosis, condition and treatment plan as can be expected at this point. The vital signs have been stable. The patient's condition is stable and appropriate for discharge from the emergency department. The patient will pursue further outpatient evaluation with the primary care physician or other designated or consulting physician as outlined in the discharge instructions. The patient and/or caregivers are agreeable to this plan of care and follow-up instructions have been explained in detail. The patient and/or caregivers have received these instruction. The patient/and or caregivers are aware that any significant change in condition or worsening of symptoms should prompt an immediate return to this or the closest emergency department or call 911.
[2023-12-09 16:03] VITALS: BP 139/80; PULSE 87
[2023-12-09 16:25] VITALS: O2SAT 98
== END 2023-12-09 16:31 | disposition home or self-care (01) ==
LOC: ED 13:41
DX: R11.2 Nausea with vomiting, unspecified (principal); R19.7 Diarrhea, unspecified; R53.1 Weakness; I10 Essential (primary) hypertension; E11.9 Type 2 diabetes mellitus without complications; Z79.84 Long term (current) use of oral hypoglycemic drugs; Z79.85 Long-term (current) use of injectable non-insulin antidiabetic drugs; Z79.899 Other long term (current) drug therapy
CPT/HCPCS: 36000; 36415; 80053; 83690; 84484; 85025; 96360; 96374; 99284

== ENCOUNTER 2024-06-12 21:14 | Emergency (ER) | payer OTHER ==
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
[2024-06-12 22:00] VITALS: TEMP 98
[2024-06-12] MEDS ORDERED: TORAdol 30 mg Injection ONE (22:32)
[2024-06-12] MEDS: TORAdol 30 mg Injection IM ONE (22:33)
--- NOTE | 2024-06-13 00:29 | XRAY ---
CLINICAL HISTORY: ankle and foot pain COMPARISON: None. TECHNIQUE: CT scan of the left foot was performed without contrast. Coronal and sagittal reconstructive images were also obtained. One of the following dose reduction techniques were utilized for this exam: Automated exposure control, adjustment of the mA and/or kV according to patient size, use of iterative reconstruction. FINDINGS: Small bony fragment/ossific density seen inferior to the medial malleolus, represents os sub tibial (accessory ossicle). Areas of sclerosis are seen within the talus and the intermediate cuneiform, suggestive of bone island. A small plantar calcaneal spur noted. Plantar aspect calcaneal spur is seen. No lytic bony lesions. No articular pathological changes. Normal soft tissue structures. IMPRESSION: 1. Small bony fragment/ossific density seen inferior to the medial malleolus, represents os sub tibial (accessory ossicle). 2. A small plantar calcaneal spur noted 3. Sclerosis is seen within the talus and the intermediate cuneiform, suggestive of bone island. 4. Plantar aspect calcaneal spur. Electronically Signed by: Xavier Gutierrez MD. (06/13/2024 00:24:23 EDT)
[2024-06-13 00:54] VITALS: BP 155/87; PULSE 58; RESP 18; O2SAT 98
== END 2024-06-13 00:49 | disposition home or self-care (01) ==
LOC: ED 21:14
DX: M25.571 Pain in right ankle and joints of right foot (principal); R29.898 Other symptoms and signs involving the musculoskeletal system; E78.5 Hyperlipidemia, unspecified; I10 Essential (primary) hypertension; E11.9 Type 2 diabetes mellitus without complications; Z79.84 Long term (current) use of oral hypoglycemic drugs; Z79.85 Long-term (current) use of injectable non-insulin antidiabetic drugs; Z79.899 Other long term (current) drug therapy
CPT/HCPCS: 73700; 96372; 99283; J1885

== ENCOUNTER 2024-07-20 06:24 | Day surgery (SDC) | payer OTHER ==
[2024-07-20] MEDS ORDERED: Propofol 1000 mg/100 ml Bottle IV ONE ×2 (06:25)
[2024-07-20] MEDS: TYLENOL EXTRA STRENGTH 500 MG PO ONE (06:57)
[2024-07-20] MEDS: Pepcid 20 MG VIAL IV ONE (06:57)
[2024-07-20] MEDS: NEURONTIN PO ONE (06:57)
[2024-07-20] MEDS: Reglan 10 MG/2 ML IV ONE (06:57)
[2024-07-20] MEDS: celeBREX 100 MG PO ONE (06:58)
[2024-07-20] MEDS: Decadron 4 MG PO ONE (06:58)
[2024-07-20] MEDS: Transderm Scop 1.5MG Patch TOP PRN (06:58)
[2024-07-20] MEDS: Lactated Ringers 1,000 ML IV SCH (06:59)
[2024-07-20] MEDS ORDERED: XYLOCAINE 1% HCL 20 ML MDV ONE (07:21)
[2024-07-20] MEDS ORDERED: Marcaine Mpf 0.5% Vial 30 Ml ONE ×2 (07:21→11:24)
[2024-07-20] MEDS ORDERED: Epinephrine Preservative Free 1 MG/ML ONE ×2 (07:22→09:38)
[2024-07-20] MEDS ORDERED: VANCOCIN INJECTION IV ONE (07:22)
[2024-07-20] MEDS ORDERED: CLINDAMYCIN-D5W 900 MG/50 ML*** 900 MG/50 ML BAG IV ONE (07:26)
[2024-07-20] MEDS: CLINDAMYCIN-D5W 900 MG/50 ML*** 900 MG/50 ML BAG IV ONE (07:26)
[2024-07-20 07:37] LABS: Hematocrit 45.4 % (34.1-44.9); Hemoglobin 15.2 g/dL (11.2-15.7); Mean Cell Volume 76.4 fL (79.4-94.8); Mean Corpuscular Hemoglobin 25.6 pg (25.6-32.2); Mean Corpuscular Hgb Concent. 33.5 g/dL (32.2-35.5); Mean Platelet Volume 9.2 fL (9.4-12.3); Platelet Count 276 x10^3/uL (182-369); Red Blood Count 5.94 x10^6/uL (3.93-5.22); White Blood Count 5.8 x10^3/uL (3.98-10.04)
[2024-07-20 07:50] LABS: ALBUMIN 4.1 g/dL (3.5-5.0); ANION GAP 16.4 MEQ/L (5-15); BILIRUBIN,TOTAL 0.6 mg/dL (0.2-1.3); Calcium 9.2 mg/dL (8.4-10.2); Creatinine 1 0.81 mg/dL (0.52-1.04); EST GLOMERULAR FILTRATION RATE 86.8 ML/MIN; Potassium 3.7 mmol/L (3.5-5.1); Total Protein 7.3 g/dL (6.3-8.2)
[2024-07-20] MEDS ORDERED: Pre-Attached Lta Kit TP ONE (08:19)
[2024-07-20] MEDS ORDERED: Zofran 4 MG/2 ML VIAL ONE (08:30)
[2024-07-20] MEDS ORDERED: ROCURONIUM BROMIDE IV ONE (08:30)
[2024-07-20] MEDS ORDERED: DEXMEDETOMIDINE 80 MCG/20ML-NS IV ONE (08:30)
[2024-07-20] MEDS ORDERED: Xylocaine-Mpf 2% 5 Ml Vial ONE (08:30)
[2024-07-20] MEDS ORDERED: SUBLIMAZE 100 MCG/2 ML ONE (08:31)
[2024-07-20] MEDS ORDERED: DIPRIVAN 200 MG/20 ML IV ONE ×6 (08:31→11:27)
[2024-07-20] MEDS ORDERED: Versed 2 MG/2 ML Injection ONE (08:31)
[2024-07-20] MEDS ORDERED: TRANEXAMIC 1,000 MG/100ML-NACL 1,000 MG/100 ML PIGGYBACK IV ONE (09:00)
--- NOTE | 2024-07-20 10:51 | XRAY ---
Indication: Right ankle arthroscopy with synovectomy, superior peroneal repair, possible peroneal tendon repair, and common superficial deep peroneal nerve decompression. Intraoperative fluoroscopy provided for 21 seconds. 6 digital spot images submitted for interpretation initially demonstrates metallic localizer tip lateral to fibula head. Digital spot image #3 demonstrates metallic localizer tip projecting over lateral malleolus. Correlate with intraoperative findings/report.
[2024-07-20] MEDS ORDERED: EXPAREL 133 MG/10 ML VIAL IJ ONE (11:24)
[2024-07-20] MEDS ORDERED: BRIDION 200MG/2ML IV ONE (11:31)
--- NOTE | 2024-07-20 13:34 | XRAY ---
21 seconds of fluoroscopy was used in surgery for a right ankle arthroscopy with synovectomy, superior peroneal repair, possible peroneal tendon repair, and common superficial deep peroneal nerve decompression.
[2024-07-20 13:35] VITALS: RESP 16; TEMP 97.9
[2024-07-20 13:42] VITALS: BP 118/71; PULSE 58; O2SAT 98
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
== END 2024-07-20 14:13 | disposition home or self-care (01) ==
LOC: SDC 06:24
PROVIDERS: ATTEND Podiatrist Foot & Ankle Surgery
DX: M25.471 Effusion, right ankle (principal); M25.571 Pain in right ankle and joints of right foot; M65.971 Unspecified synovitis and tenosynovitis, right ankle and foot; S86.391A Other injury of muscle(s) and tendon(s) of peroneal muscle group at lower leg level, right leg, initial encounter; S84.11XA Injury of peroneal nerve at lower leg level, right leg, initial encounter
CPT/HCPCS: 27658; 27695; 29898; 36415; 64704; 64722; 73610; 76000; 76937; 80053; 82947; 83036; 85027; 93005; C1713; 64712; J0171; J2250; J2405; J2704; J3010; J3370; A9270-GY